=== PATIENT | male | born 1945 | race Caucasian/White ===

== ENCOUNTER 2017-09-03 09:44 | Inpatient (IN) ==
--- NOTE | 2017-09-03 09:52 | Emergency Department Note ---
Disposition Clinical Impression: Small bowel obstruction Abdominal pain Qualifiers: Abdominal location: unspecified location Qualified Code(s): R10.9 - Unspecified abdominal pain Disposition: Admitted As Inpatient Condition: Good Referrals: Lobito Lang MD [Primary Care Provider] - Forms: ED Satisfaction Letter, Work/School Release Time of Disposition: 12:48 General Adult HPI - General Chief complaint: ED Abdominal Pain Stated complaint: "colostomy stopped working" Time Seen by Provider: 09/03/17 09:51 Source: patient, family (Brother) Mode of arrival: ambulatory Limitations: no limitations Nursing Notes Reviewed: Yes Vital Signs Reviewed: Yes - History of Present Illness HPI Narrative: 71-year-old male history of colon cancer s/p colostomy presents an emergency department with abdominal pain and issues with his colostomy. States on Thursday he has been expressing some abdominal pain. Describes a sharp pain sensation nonradiating. All throughout his abdomen. He is not taken anything for the pain. He is noticed some decrease stool output from his colostomy. On Thursday he had episode of nausea vomiting. Only until ye yesterday did he noticed some stool output but not today. He typically has good stool output on the daily basis. He denies any recent illness, fever, congestion chest pain or shortness of breath. His surgeon is Dr. Zhao. Denies any other abdominal surgeries. Good urine output. Pain Scale: 8 - Related Data Home Medications Medication Instructions Recorded Confirmed Metoprolol [Lopressor] 25 mg PO BID 12/27/14 09/03/17 Tamsulosin [Flomax] 0.4 mg PO DAILY 12/27/14 09/03/17 Simvastatin [Zocor] 10 mg PO HS 04/02/15 09/03/17 Finasteride [Proscar] 5 mg PO DAILY 07/23/15 09/03/17 Lisinopril [Zestril] 40 mg PO DAILY 04/23/16 09/03/17 amLODIPine [Norvasc] 5 mg PO DAILY 09/03/17 09/03/17 Allergies Allergy/AdvReac Type Severity Reaction Status Date / Time No Known Allergies Allergy Verified 04/23/16 10:13 All systems ED: reviewed and negative except as stated. Review of Systems: As Per HPI Constitutional: Denies: fever, chills Cardiovascular: Denies: chest pain Respiratory: Denies: cough, dyspnea Gastrointestinal: Reports: abdominal pain, nausea, vomiting. Denies: diarrhea Genitourinary: Denies: urgency, dysuria Musculoskeletal: Denies: back pain Integumentary: Denies: rash, abrasion Past Medical History - Past Medical History Attestation: Yes The following information was validated with the patient. Source: patient - Social History Smoking Status: Former smoker (Currently using vaporized tobacco h/o cigar smoking, quit in 2009) Alcohol use: Reports: none Drug use: Reports: none Physical Exam - General Limitations: no limitations General appearance: alert, in no apparent distress - Head Head exam: atraumatic, normocephalic, normal inspection - Eye Eye exam: Present: normal appearance, PERRL, EOMI. Absent: scleral icterus - ENT ENT exam: normal exam, normal oropharynx, mucous membranes moist - Neck Neck exam: Present: normal inspection, full ROM, trachea midline - Chest Chest inspection: Present: normal inspection, symmetric chest wall rise - Respiratory Respiratory exam: Present: normal lung sounds bilaterally - Cardiovascular Cardiovascular exam: Present: regular rate, normal rhythm, normal heart sounds. Absent: systolic murmur, diastolic murmur - Abdominal Exam Abdominal exam: Present: tenderness, distention, guarding, normal bowel sounds, scar (midabdomen), other (colostomy in LLQ, pink without surrounding erythema). Absent: rebound, rigidity Abdominal tenderness: Present: diffuse - Extremities Exam Extremities exam: Present: normal inspection, full ROM, normal capillary refill. Absent: tenderness, pedal edema - Psychiatric Psychiatric exam: Present: normal affect, normal mood - Skin Skin exam: Present: warm, dry, intact, normal color. Absent: rash, cyanosis, diaphoresis Course Course Narrative: History concerning for obstruction given low stool output from the colostomy with associated abdominal pain. Will obtain some labs and a CT of the abdomen and pelvis. On examination he has some diffuse abdominal tenderness with a mild guarding. His abdomen is slightly firm. High suspicion for obstruction. - Reevaluation(s) Reevaluation #1: Review is basic labs mild elevation is bilirubin. No leukocytosis. Review the CT scan confirmed small bowel obstruction with a transition point in this left lower quadrant. There is also some findings of a gallstones without evidence of cholecystitis. Patient symptoms improved with fentanyl and Zofran. I have contacted the patient surgeon Dr. Zhao who is not the on-call surgeon but would like evaluation by his surgeon. Impression is abdominal pain and small bowel obstruction. Patient is agreeable to plan for admission. - Consultations Consultation #1: Accepted by the surgeon Dr. Zhao for small bowel obstruction seen on CT scan. Recommend NG tube placement and admission to the surgical service. No other orders at this time. Time: 12:49 Vital Signs Temperature 98.3 F 09/03/17 09:45 Pulse Rate 110 09/03/17 09:45 Respiratory Rate 18 09/03/17 09:45 Blood Pressure 108/69 09/03/17 09:45 O2 Sat by Pulse Oximetry 98 09/03/17 09:45 Temperature 98.3 F 09/03/17 09:50 Pulse Rate 110 09/03/17 09:50 Respiratory Rate 18 09/03/17 09:50 Blood Pressure 108/69 09/03/17 09:50 O2 Sat by Pulse Oximetry 98 09/03/17 09:50 Oxygen Delivery Oxygen Delivery Room Air Medical Decision Making - MDM Narrative Medical decision making narrative: Patient was discussed with my attending physician who agrees with ED management and final disposition. They independently evaluated the patient. Please refer to their attestation to this encounter for additional information. This note was generated by [employer] voice recognition software and as a result grammatical or spelling errors may occur using this program. - Medical Records Medical records reviewed: Yes I reviewed the patient's medical records. - Lab Data Lab results reviewed: Yes I reviewed the patient's lab results. Result diagrams: 09/03/17 10:18 09/03/17 10:18 Lab Results 09/03/17 09/03/17 09/03/17 Range/Units 10:18 10:18 11:37 WBC 9.8 (4.3-11.1) K/mcL RBC 4.59 (4.19-5.50) M/mcL Hgb 15.0 (12.9-16.9) g/dL Hct 45.1 (37.5-50.1) % MCV 98.3 (83.0-100.0) fL MCH 32.7 (28.0-33.3) pg MCHC 33.3 (31.6-35.5) g/dL RDW 12.8 (11.5-14.5) % Plt Count 344 (140-400) K/mcL MPV 9.5 (9.4-12.4) fL Immature Gran % 0.4 (0-4) % Seg Neutrophils % 78.5 % Lymphocytes % 9.2 % Monocytes % 11.7 % Eosinophils % 0.0 % Basophils % 0.2 % Neutrophils # 7.7 (1.6-8.9) K/mcL Lymphocytes # 0.9 (0.6-4.6) K/mcL Monocytes # 1.2 (0.0-1.3) K/mcL Eosinophils # 0.0 (0.0-0.6) K/mcL Basophils # 0.0 (0.0-0.2) K/mcL Immature Plt Fraction 2.4 (1.1-6.1) % Sodium 142 (136-145) mEq/L Potassium 4.1 (3.5-5.1) mEq/L Chloride 107 (98-107) mEq/L Carbon Dioxide 27 (23-29) mEq/L BUN 45 H (8-23) mg/dL Creatinine 1.27 (0.70-1.30) mg/dL Est GFR ( Amer) > 60 (> 60) Est GFR (Non-Af Amer) 56 L (> 60) BUN/Creatinine Ratio 35 H (6-26) Glucose 121 H (70-105) mg/dL Calculated Osmolality 307 H (280-300) Calcium 9.6 (8.6-10.3) mg/dL Total Bilirubin 1.7 H (0.3-1.0) mg/dL Direct Bilirubin 0.4 H (0.0-0.2) mg/dL Indirect Bilirubin 1.3 H (0.0-1.2) mg/dL AST 30 (13-39) Units/L ALT 39 (7-52) Units/L Alkaline Phosphatase 78 (34-104) Units/L Serum Total Protein 6.9 (6.4-8.9) g/dL Albumin 3.9 (3.5-5.7) g/dL Globulin 3.0 (2.4-3.5) g/dL Albumin/Globulin Ratio 1.3 (1.1-2.2) Lipase 14 (11-82) Units/L Urine Color Dark Yellow (Yellow) Urine Clarity Clear (Clear) Urine pH 6.0 (5.0-8.0) pH Units Ur Specific [place] 1.027 H (1.010-1.025) Urine Protein Trace (Neg-Trace) mg/dL Urine Glucose (UA) Normal (Normal) mg/dL Urine Ketones Trace H (Negative) mg/dL Urine Blood Negative (Negative) Urine Nitrite Negative (Negative) Urine Bilirubin Small H (Negative) Urine Urobilinogen 2.0 H (Normal) mg/dL Ur Leukocyte Esterase Large H (Negative) Urine Microscopic RBC 5-15 H (0-3) per hpf Urine Microscopic WBC TNTC H (0-3) per hpf Ur Squamous Epith Cells Few (None-Few) per lpf Urine Bacteria Moderate H (None-Few) per hpf Hyaline Casts Few (None-Few) per lpf Ur Culture Indicated? YES A (NO) - Radiology Data Radiology results reviewed: Yes I reviewed the patient's radiology results. Abdomen/Pelvis CT 09/03/17 10:34 IMPRESSION: 1. Findings consistent with small-bowel obstruction, with transition point suspected in the left lower quadrant. 2. Dilated gallbladder with gallstones near the gallbladder neck, similar in appearance to prior exam. No findings specific for acute cholecystitis are seen. 3. Postoperative changes of distal colectomy with left lower quadrant colostomy creation. 4. Possible punctate nonobstructive left-sided renal calculi. D/ / 09/03/2017 11:19:30 Linwood Khalil MD / tea Interpreting Provider: Linwood Khalil MD
[2017-09-03 10:25] LABS: Basophils % 0.2 %; Hematocrit 45.1 % (37.5-50.1); Immature Granulocytes % 0.4 % (0-4); Immature Platelets 2.4 % (1.1-6.1); Lymphocytes # 0.9 K/mcL (0.6-4.6); Lymphocytes % 9.2 %; Mean Corpuscular HGB Conc 33.3 g/dL (31.6-35.5); Mean Corpuscular Hemoglobin 32.7 pg (28.0-33.3); Mean Corpuscular Volume 98.3 fL (83.0-100.0); Mean Platelet Volume 9.5 fL (9.4-12.4); Monocytes # 1.2 K/mcL (0.0-1.3); Monocytes % 11.7 %; Neutrophils # 7.7 K/mcL (1.6-8.9); Platelet Count 344 K/mcL (140-400); Red Blood Count 4.59 M/mcL (4.19-5.50); Red Cell Distribution Width 12.8 % (11.5-14.5); Segmented Neutrophils % 78.5 %
--- NOTE | 2017-09-03 10:42 | Emergency Department Note ---
Disposition Clinical Impression: Small bowel obstruction Abdominal pain Qualifiers: Abdominal location: generalized Qualified Code(s): R10.84 - Generalized abdominal pain Disposition: Admitted As Inpatient Condition: Good General Adult HPI - General Chief complaint: ED Abdominal Pain Stated complaint: "colostomy stopped working" Time Seen by Provider: 09/03/17 09:51 - History of Present Illness Pain Scale: 8 - Related Data Home Medications Medication Instructions Recorded Confirmed Metoprolol [Lopressor] 25 mg PO BID 12/27/14 09/03/17 Tamsulosin [Flomax] 0.4 mg PO DAILY 12/27/14 09/03/17 Simvastatin [Zocor] 10 mg PO HS 04/02/15 09/03/17 Finasteride [Proscar] 5 mg PO DAILY 07/23/15 09/03/17 Lisinopril [Zestril] 40 mg PO DAILY 04/23/16 09/03/17 amLODIPine [Norvasc] 7.5 mg PO DAILY 09/03/17 09/03/17 Allergies Allergy/AdvReac Type Severity Reaction Status Date / Time No Known Allergies Allergy Verified 09/03/17 12:52 Past Medical History - Past Medical History Medical history: Reports: cancer, hypertension Psychiatric history: Reports: no psych history - Social History Smoking Status: Former smoker (Currently using vaporized tobacco h/o cigar smoking, quit in 2009) Smokeless Tobacco Status: No Alcohol use: Reports: none Drug use: Reports: none Physical Exam - General General appearance: alert, in no apparent distress Course Vital Signs Temperature 98.3 F 09/03/17 09:45 Pulse Rate 110 09/03/17 09:45 Respiratory Rate 18 09/03/17 09:45 Blood Pressure 108/69 09/03/17 09:45 O2 Sat by Pulse Oximetry 98 09/03/17 09:45 Temperature 98.2 F 09/03/17 15:13 Pulse Rate 83 09/03/17 17:37 Respiratory Rate 18 09/03/17 17:37 Blood Pressure 166/90 09/03/17 17:37 O2 Sat by Pulse Oximetry 97 09/03/17 17:37 Oxygen Delivery Oxygen Delivery Room Air Medical Decision Making - Lab Data Result diagrams: 09/03/17 10:18 09/03/17 10:18 Lab Results 05/03/18 05/03/18 05/03/18 Range/Units 10:18 10:18 11:37 WBC 9.8 (4.3-11.1) K/mcL RBC 4.59 (4.19-5.50) M/mcL Hgb 15.0 (12.9-16.9) g/dL Hct 45.1 (37.5-50.1) % MCV 98.3 (83.0-100.0) fL MCH 32.7 (28.0-33.3) pg MCHC 33.3 (31.6-35.5) g/dL RDW 12.8 (11.5-14.5) % Plt Count 344 (140-400) K/mcL MPV 9.5 (9.4-12.4) fL Immature Gran % 0.4 (0-4) % Seg Neutrophils % 78.5 % Lymphocytes % 9.2 % Monocytes % 11.7 % Eosinophils % 0.0 % Basophils % 0.2 % Neutrophils # 7.7 (1.6-8.9) K/mcL Lymphocytes # 0.9 (0.6-4.6) K/mcL Monocytes # 1.2 (0.0-1.3) K/mcL Eosinophils # 0.0 (0.0-0.6) K/mcL Basophils # 0.0 (0.0-0.2) K/mcL Immature Plt Fraction 2.4 (1.1-6.1) % Sodium 142 (136-145) mEq/L Potassium 4.1 (3.5-5.1) mEq/L Chloride 107 (98-107) mEq/L Carbon Dioxide 27 (23-29) mEq/L BUN 45 H (8-23) mg/dL Creatinine 1.27 (0.70-1.30) mg/dL Est GFR ( Amer) > 60 (> 60) Est GFR (Non-Af Amer) 56 L (> 60) BUN/Creatinine Ratio 35 H (6-26) Glucose 121 H (70-105) mg/dL Calculated Osmolality 307 H (280-300) Calcium 9.6 (8.6-10.3) mg/dL Total Bilirubin 1.7 H (0.3-1.0) mg/dL Direct Bilirubin 0.4 H (0.0-0.2) mg/dL Indirect Bilirubin 1.3 H (0.0-1.2) mg/dL AST 30 (13-39) Units/L ALT 39 (7-52) Units/L Alkaline Phosphatase 78 (34-104) Units/L Serum Total Protein 6.9 (6.4-8.9) g/dL Albumin 3.9 (3.5-5.7) g/dL Globulin 3.0 (2.4-3.5) g/dL Albumin/Globulin Ratio 1.3 (1.1-2.2) Lipase 14 (11-82) Units/L Urine Color Dark Yellow (Yellow) Urine Clarity Clear (Clear) Urine pH 6.0 (5.0-8.0) pH Units Ur Specific [place] 1.027 H (1.010-1.025) Urine Protein Trace (Neg-Trace) mg/dL Urine Glucose (UA) Normal (Normal) mg/dL Urine Ketones Trace H (Negative) mg/dL Urine Blood Negative (Negative) Urine Nitrite Negative (Negative) Urine Bilirubin Small H (Negative) Urine Urobilinogen 2.0 H (Normal) mg/dL Ur Leukocyte Esterase Large H (Negative) Urine Microscopic RBC 5-15 H (0-3) per hpf Urine Microscopic WBC TNTC H (0-3) per hpf Ur Squamous Epith Cells Few (None-Few) per lpf Urine Bacteria Moderate H (None-Few) per hpf Hyaline Casts Few (None-Few) per lpf Ur Culture Indicated? YES A (NO) Attestation Statement - Attestation Attestation: I examined this patient and my medical decision-making was reviewed with the CUTTING MACHINE TENDER DECORATIVE/PA/Advanced Practice Nurse/Resident Physician. I agree with the documented findings, disposition and treatment plan as described except to the extent set forth below. Patient does have a colostomy and has had intermittent abdominal pain but none at this time and on my exam does have some mild to moderate distention and the patient's main concern is decreased stool output and our concern is for obstruction so the patient does have evaluation pending including labs as well as CT scan [id number] CT scan does show a small bowel obstruction and surgery will be contacted. [id number]
[2017-09-03 10:56] LABS: Alanine Aminotransferase 39 Units/L (7-52); Albumin 3.9 g/dL (3.5-5.7); Albumin/Globulin Ratio 1.3 (1.1-2.2); Alkaline Phosphatase 78 Units/L (34-104); Aspartate Amino Transferase 30 Units/L (13-39); BUN/Creatinine Ratio 35 (6-26); Bilirubin,Direct 0.4 mg/dL (0.0-0.2); Bilirubin,Indirect 1.3 mg/dL (0.0-1.2); Bilirubin,Total 1.7 mg/dL (0.3-1.0); Blood Urea Nitrogen 45 mg/dL (8-23); Calcium 9.6 mg/dL (8.6-10.3); Carbon Dioxide 27 mEq/L (23-29); Chloride 107 mEq/L (98-107); Glucose 121 mg/dL (70-105); Lipase 14 Units/L (11-82); Osmolality,Calculated 307 (280-300); Potassium 4.1 mEq/L (3.5-5.1); Sodium 142 mEq/L (136-145); Total Protein 6.9 g/dL (6.4-8.9); eGFR For African Americans > 60 (> 60); eGFR For Non-African Americans 56 (> 60)
[2017-09-03] MEDS ORDERED: 0.9 % Sodium Chloride 1,000 ML IVC ONE (10:58)
[2017-09-03 11:58] LABS: Bilirubin,Urine Small (Negative); Blood,Urine Negative (Negative); Color,Urine Dark Yellow (Yellow); Glucose,Urine (UA) Normal (Normal); Ketones,Urine Trace mg/dL (Negative); Leukocyte Esterase,Urine Large (Negative); Nitrite,Urine Negative (Negative); Protein,Urine Trace mg/dL (Neg-Trace); Specific Gravity,Urine 1.027 (1.010-1.025)
[2017-09-03 12:01] LABS: Bacteria,Urine Moderate per hpf (None-Few); Hyaline Casts,Urine Few per lpf (None-Few); Squamous Epithelial Cell,Urine Few per lpf (None-Few); WBC,Urine TNTC per hpf (0-3)
[2017-09-03 12:02] LABS: Clarity,Urine Clear (Clear)
[2017-09-03] MEDS ORDERED: Ondansetron 4 MG/2 ML VIAL IVP ONE (12:07)
[2017-09-03] MEDS ORDERED: *HR* FentaNYL (PF) 100 MCG/2 ML VIAL IVP ONE (12:07)
[2017-09-03] MEDS ORDERED: *HR* Promethazine 25 MG/ML VIAL IVP PRN ×2 (13:26→15:00)
[2017-09-03] MEDS ORDERED: Ondansetron 4 MG/2 ML VIAL IVP PRN ×2 (13:26→15:00)
[2017-09-03] MEDS ORDERED: OXYCODONE Oral CONC 10 MG/0.5 ML ORAL.SYG SL PRN (13:26)
[2017-09-03] MEDS ORDERED: Lidocaine Jelly 11 ml Syringe MM ONE ×2 (13:27→15:00)
[2017-09-03] MEDS ORDERED: Pantoprazole 40 MG VIAL IVP SCH (13:30)
[2017-09-03] MEDS ORDERED: 0.9 % Sodium Chloride 1,000 ML IVC SCH ×2 (13:30→15:00)
--- NOTE | 2017-09-03 13:31 | General Surg History&Physical ---
<Jordi Estrada - Last Filed: 09/03/17 13:28> Date of Encounter: 09/03/17 Time of Encounter: 13:28 Assessment and Plan (1) Small bowel obstruction Current Visit: Yes Status: Acute Patient with 5 days of diffuse abd pain, low to no output of colostomy Pt's CT abd/pelvis shows:" 1. Findings consistent with small-bowel obstruction, with transition point suspected in the left lower quadrant. 2. Dilated gallbladder with gallstones near the gallbladder neck, similar in appearance to prior exam. No findings specific for acute cholecystitis are seen. 3. Postoperative changes of distal colectomy with left lower quadrant colostomy creation." Diffuse tenderness, but bowel sounds present in all 4 quadrants Plan to manage conservatively Plan: NPO NG tube placement for decompression prn pain medications and antiemetics Supportive care strict Is& Os The assessment and plan as outlined above was discussed with the patient and/or family members who expressed understanding and agreement. All questions were answered. (2) Abdominal pain Current Visit: Yes Status: Acute See above Qualifiers: Abdominal location: generalized Qualified Code(s): R10.84 - Generalized abdominal pain (3) Colon cancer Current Visit: No Status: Chronic Pt with Hx of tage IV colon adenocarcinoma s/p open low anterior resection appendectomy, resection of an omental mass, take down of splenic flexure and a colostomy placed by Dr. Zhao. Qualifiers: Colon location: unspecified part of colon Qualified Code(s): C18.9 - Malignant neoplasm of colon, unspecified (4) HLD (hyperlipidemia) Current Visit: Yes Status: Acute Pt NPO hold home statin Qualifiers: Hyperlipidemia type: unspecified Qualified Code(s): E78.5 - Hyperlipidemia , unspecified (5) Hypertension Current Visit: No Status: Chronic Currently BP 108/69 Pt NPO for SBO Hold all PO BP medications PRN hydralazine Qualifiers: Hypertension type: essential hypertension Qualified Code(s): I10 - Essential (primary) hypertension (6) Prostate enlargement Current Visit: No Status: Chronic Pt NPO for SBO hold home finasteride. and flomax (7) Urinary tract infection Current Visit: Yes Status: Suspected patient denies dysuria, but UA shows: large leuk esterase, TNTC WBCs, moderate Urina Bacteria. Culture pending. Will start on IV cipro for suspected UTI. This will also provide converage for intra-abdominal infections. Qualifiers: Urinary tract infection type: acute cystitis Hematuria presence: without hematuria Qualified Code(s): N30.00 - Acute cystitis without hematuria History of Present Illness Chief complaint: Abdominal Pain HPI: Mr. Bower is a 71 year old male c PMHx of stage IV colon adenocarcinoma s/p open low anterior resection appendectomy, resection of an omental mass, take down of splenic flexure and a colostomy placed by Dr. Zhao July 2014He was offered a colonscopy, HTN, HLD, BPH who reports to the [facility] ED c/o 5 days of Diffuse, sharp Abd pain. Patient reports the pain began Thursday night, He did not have any out put from his colostomy on Thursday. He had a small amount of "hard material" out on Thursday, but then No Output on Thursday or today. He denies passing gas or emptying the bag due to gas. He reports nausea and vomiting throwing up once on thursday. He also reports feeling of bloating and a pressure like sensation in his throat, " like things are backing up into it". Patient was evaluated in the ED. His lab work was noticeable for: nl WBC (9.8), nl Hgb/Hct, normal electrolytes, Total Bilirubin 1.7 (0.4 direct, 1.3 indirect) , Normal ALT, AST, and Alk Phos, normal lipase. Patient's urine had large leuk esterase, TNTC WBCs and moderate urine bacteria. patient had a CT scan which showed: " Postoperative changes of distal colectomy with Bjorn's pouch. There is diffuse dilation of the proximal and mid small bowel, with transition point suspected in the left lower quadrant. The distal small bowel is decompressed. Moderate stool in the remaining colon." Patient's last follow up with Dr. Zhao was Sep 28 2014. He was offered colonoscopy at that time but declined. Past Med Surg Social Fam HX - Past Medical History Medical history: cancer, hypertension Psychiatric history: no psych history - Social History Smoking Status: Former smoker (Currently using vaporized tobacco h/o cigar smoking, quit in 2009) Smokeless Tobacco Status: No Alcohol use: none Drug use: none Medications and Allergies Metoprolol [Lopressor] 25 mg PO BID 12/27/14 [History] Tamsulosin [Flomax] 0.4 mg PO DAILY 12/27/14 [History] Simvastatin [Zocor] 10 mg PO HS 04/02/15 [History] Finasteride [Proscar] 5 mg PO DAILY 07/23/15 [History] Lisinopril [Zestril] 40 mg PO DAILY 04/23/16 [History] amLODIPine [Norvasc] 7.5 mg PO DAILY 09/03/17 [History] 3 Allergy/AdvReac Type Severity Reaction Status Date / Time No Known Allergies Allergy Verified 09/03/17 12:52 Review of Systems All systems PM: The remainder of the systems were reviewed and are negative General Surgery Exam Initial Vital Signs Temp Pulse Resp BP Pulse Ox 98.3 F 110 18 108/69 98 09/03/17 09:45 09/03/17 09:45 09/03/17 09:45 09/03/17 09:45 09/03/17 09:45 - General physical appearance well developed, well nourished, no distress - Eyes normal ocular movement - ENT normal mucosa, atraumatic, normocephalic - Neck trachea midline - Respiratory normal expansion, normal respiratory effort, clear to auscultation - Cardiovascular Cardiovascular exam: Present: RRR, no murmurs/rubs/gallops - Abdomen Abdomen general surgery: Present: bowel sounds present, soft, tender Abdominal Tenderness: Present: diffusely - Integumentary Integumentary general surgery: Present: warm and dry, other (Ostomy ) - Neurologic Present: CN 2-12 grossly intact. Absent: combative, confused, disoriented - Musculoskeletal Present: normal posture - Psychiatric Psychiatric general surgery: Present: A&Ox3, appropriate, speech is normal, memory intact Results - Labs 09/03/17 10:18 09/03/17 10:18 Abnormal lab results BUN 45 mg/dL (8-23) H 09/03/17 10:18 Est GFR (Non-Af Amer) 56 (> 60) L 09/03/17 10:18 BUN/Creatinine Ratio 35 (6-26) H 09/03/17 10:18 Glucose 121 mg/dL (70-105) H 09/03/17 10:18 Calculated Osmolality 307 (280-300) H 09/03/17 10:18 Total Bilirubin 1.7 mg/dL (0.3-1.0) H 09/03/17 10:18 Direct Bilirubin 0.4 mg/dL (0.0-0.2) H 09/03/17 10:18 Indirect Bilirubin 1.3 mg/dL (0.0-1.2) H 09/03/17 10:18 Ur Specific Sidney 1.027 (1.010-1.025) H 09/03/17 11:37 Urine Ketones Trace mg/dL (Negative) H 09/03/17 11:37 Urine Bilirubin Small (Negative) H 09/03/17 11:37 Urine Urobilinogen 2.0 mg/dL (Normal) H 09/03/17 11:37 Ur Leukocyte Esterase Large (Negative) H 09/03/17 11:37 Urine Microscopic RBC 5-15 per hpf (0-3) H 09/03/17 11:37 Urine Microscopic WBC TNTC per hpf (0-3) H 09/03/17 11:37 Urine Bacteria Moderate per hpf (None-Few) H 09/03/17 11:37 Ur Culture Indicated? YES (NO) A 09/03/17 11:37 All other labs normal. <Ayde Zhao - Last Filed: 09/06/17 11:58> Date of Encounter: 09/03/17 Assessment and Plan (1) Small bowel obstruction due to adhesions Current Visit: Yes Status: Acute The assessment and plan as outlined above was discussed with the patient and/or family members who expressed understanding and agreement. All questions were answered. will attempt conservative measures to see if will resolve on its own npo, prn pain control ngt to liws ivf hydration gi/dvt prophylaxis ambulate (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 The assessment and plan as outlined above was discussed with the patient and/or family members who expressed understanding and agreement. All questions were answered. LLQ colostomy, care (3) Prostate enlargement Current Visit: No Status: Chronic The assessment and plan as outlined above was discussed with the patient and/or family members who expressed understanding and agreement. All questions were answered. hold home medication due to sbo (4) Hypertension Current Visit: No Status: Chronic The assessment and plan as outlined above was discussed with the patient and/or family members who expressed understanding and agreement. All questions were answered. Qualifiers: Hypertension type: essential hypertension Qualified Code(s): I10 - Essential (primary) hypertension History of Present Illness HPI: Mr. Bower is a 71 year old male who about 4 days prior to admission started having lower abdominal intermittent crampy pain. He states the pain then progressed in intensity and his abdomen started swelling. He then began having nausea and emesis and his ostomy output stopped which is why he presented to the ED. He states he remembers that this is what happened last time he had his obstruction. CT scan in ED showed sbo with transition point. Past Med Surg Social Fam HX - Past Medical History Medical history: cancer (stage 4 colon cancer), other (BPH) - Past Surgical History Surgical History: colostomy - Social History Occupational status: retired Current living situation: Home - Independent, With Family Activity Level: Independent ambulation Review of Systems All systems PM: reviewed and no additional remarkable complaints except as stated All systems PM: The remainder of the systems were reviewed and are negative General Surgery Exam Initial Vital Signs Temp Pulse Resp BP Pulse Ox 98.3 F 110 18 108/69 98 09/03/17 09:45 09/03/17 09:45 09/03/17 09:45 09/03/17 09:45 09/03/17 09:45 - General physical appearance well nourished, no distress - Eyes PERRL, normal ocular movement - ENT normal mucosa, normocephalic - Neck trachea midline - Abdomen Abdomen general surgery: Present: bowel sounds present, soft, distended, tender (minimal tenderness diffusely). Absent: guarding, rebound - Incision Incision: Absent: draining (no open wounds/no wounds period) - Integumentary Integumentary general surgery: Present: warm and dry, other - Neurologic Present: CN 2-12 grossly intact - Musculoskeletal Present: normal posture - Psychiatric Psychiatric general surgery: Present: A&Ox3, speech is normal Results - Labs 09/06/17 02:48 09/06/17 02:48 Abnormal lab results RBC 3.83 M/mcL (4.19-5.50) L 09/06/17 02:48 Hgb 12.3 g/dL (12.9-16.9) L 09/06/17 02:48 MCV 100.8 fL (83.0-100.0) H 09/06/17 02:48 Chloride 113 mEq/L (98-107) H 09/06/17 02:48 POC Glucose 67 mg/dL (70-99) L 09/06/17 10:59 Calculated Osmolality 303 (280-300) H 09/06/17 02:48 Calcium 8.4 mg/dL (8.6-10.3) L 09/06/17 02:48 Phosphorus 2.4 mg/dL (2.7-4.5) L 09/06/17 02:48 Total Bilirubin 1.7 mg/dL (0.3-1.0) H 09/03/17 10:18 Direct Bilirubin 0.4 mg/dL (0.0-0.2) H 09/03/17 10:18 Indirect Bilirubin 1.3 mg/dL (0.0-1.2) H 09/03/17 10:18 Ur Specific Sidney 1.027 (1.010-1.025) H 09/03/17 11:37 Urine Ketones Trace mg/dL (Negative) H 09/03/17 11:37 Urine Bilirubin Small (Negative) H 09/03/17 11:37 Urine Urobilinogen 2.0 mg/dL (Normal) H 09/03/17 11:37 Ur Leukocyte Esterase Large (Negative) H 09/03/17 11:37 Urine Microscopic RBC 5-15 per hpf (0-3) H 09/03/17 11:37 Urine Microscopic WBC TNTC per hpf (0-3) H 09/03/17 11:37 Urine Bacteria Moderate per hpf (None-Few) H 09/03/17 11:37 Ur Culture Indicated? YES (NO) A 09/03/17 11:37 Diabetes panel 09/06/17 Range/Units 02:48 Sodium 145 (136-145) mEq/L Potassium 3.8 (3.5-5.1) mEq/L Chloride 113 H (98-107) mEq/L Carbon Dioxide 27 (23-29) mEq/L BUN 23 (8-23) mg/dL Creatinine 0.91 (0.70-1.30) mg/dL Glucose 90 (70-105) mg/dL Calcium 8.4 L (8.6-10.3) mg/dL Calcium panel 09/06/17 Range/Units 02:48 Calcium 8.4 L (8.6-10.3) mg/dL Phosphorus 2.4 L (2.7-4.5) mg/dL Pituitary panel 09/06/17 Range/Units 02:48 Sodium 145 (136-145) mEq/L Potassium 3.8 (3.5-5.1) mEq/L Chloride 113 H (98-107) mEq/L Carbon Dioxide 27 (23-29) mEq/L BUN 23 (8-23) mg/dL Creatinine 0.91 (0.70-1.30) mg/dL Glucose 90 (70-105) mg/dL Calcium 8.4 L (8.6-10.3) mg/dL Adrenal panel 09/06/17 Range/Units 02:48 Sodium 145 (136-145) mEq/L Potassium 3.8 (3.5-5.1) mEq/L Chloride 113 H (98-107) mEq/L Carbon Dioxide 27 (23-29) mEq/L BUN 23 (8-23) mg/dL Creatinine 0.91 (0.70-1.30) mg/dL Glucose 90 (70-105) mg/dL Calcium 8.4 L (8.6-10.3) mg/dL All other labs normal. - Imaging CT scan - abdomen: report reviewed, image reviewed CT scan - pelvis: report reviewed, image reviewed - Attending Attestation I examined this patient and my medical decision-making was reviewed with the Resident Physician. I agree with the documented findings, disposition and treatment plan as described except to the extent set forth below.
[2017-09-03] MEDS ORDERED: *HR* Metoprolol 5 MG/5 ML VIAL IVP SCH (14:29)
[2017-09-03] MEDS: *HR* Metoprolol 5 MG/5 ML VIAL IVP SCH (17:48)
[2017-09-03] MEDS: *HR* Heparin 5,000 UNIT/ML VIAL SQ SCH (17:50)
[2017-09-03] MEDS ORDERED: *HR* Heparin 5,000 UNIT/ML VIAL SQ SCH (18:00)
[2017-09-03] MEDS: OXYCODONE Oral CONC 10 MG/0.5 ML ORAL.SYG SL PRN ×2 (18:00→22:03)
[2017-09-04] MEDS: *HR* Metoprolol 5 MG/5 ML VIAL IVP SCH ×3 (00:09→15:31)
[2017-09-04] MEDS: 0.9 % Sodium Chloride 1,000 ML IVC SCH ×2 (00:09→17:50)
[2017-09-04 05:28] LABS: Basophils % 0.3 %; Eosinophils % 0.1 %; Hematocrit 40.7 % (37.5-50.1); Immature Granulocytes % 0.4 % (0-4); Lymphocytes # 0.8 K/mcL (0.6-4.6); Lymphocytes % 11.7 %; Mean Corpuscular HGB Conc 32.7 g/dL (31.6-35.5); Mean Corpuscular Hemoglobin 32.6 pg (28.0-33.3); Mean Corpuscular Volume 99.8 fL (83.0-100.0); Monocytes # 0.8 K/mcL (0.0-1.3); Monocytes % 11.7 %; Neutrophils # 5.5 K/mcL (1.6-8.9); Platelet Count 288 K/mcL (140-400); Red Blood Count 4.08 M/mcL (4.19-5.50); Red Cell Distribution Width 13.2 % (11.5-14.5); Segmented Neutrophils % 75.8 %
[2017-09-04 05:30] LABS: Hemoglobin 13.3 g/dL (12.9-16.9)
[2017-09-04 05:46] LABS: BUN/Creatinine Ratio 32 (6-26); Blood Urea Nitrogen 34 mg/dL (8-23); Calcium 8.8 mg/dL (8.6-10.3); Carbon Dioxide 25 mEq/L (23-29); Chloride 111 mEq/L (98-107); Glucose 89 mg/dL (70-105); Osmolality,Calculated 307 (280-300); Phosphorous 3.7 mg/dL (2.7-4.5); Potassium 4.1 mEq/L (3.5-5.1); Sodium 145 mEq/L (136-145); eGFR For African Americans > 60 (> 60); eGFR For Non-African Americans > 60 (> 60)
[2017-09-04] MEDS: *HR* Heparin 5,000 UNIT/ML VIAL SQ SCH ×2 (05:59→17:52)
--- NOTE | 2017-09-04 08:19 | General Surgery Progress Note ---
<SadiawillyJordi - Last Filed: 09/04/17 10:28> Date of Encounter: 09/04/17 Time of Encounter: 07:15 - Assessment and Plan (1) Small bowel obstruction Current Visit: Yes Status: Acute Patient with 6 days of diffuse abd pain, low to no output of colostomy Pt's CT abd/pelvis shows:" 1. Findings consistent with small-bowel obstruction, with transition point suspected in the left lower quadrant. 2. Dilated gallbladder with gallstones near the gallbladder neck, similar in appearance to prior exam. No findings specific for acute cholecystitis are seen. 3. Postoperative changes of distal colectomy with left lower quadrant colostomy creation." Diffuse tenderness, but bowel sounds present in all 4 quadrants Plan to manage conservatively Plan: Continue NPO Continue NG tube to LIWS Continue prn pain medications and antiemetics Supportive care strict Is& Os Continue IV Protonix Continue IS every 1H (2) Abdominal pain Current Visit: Yes Status: Acute See Plan above Qualifiers: Abdominal location: generalized Qualified Code(s): R10.84 - Generalized abdominal pain (3) Colon cancer Current Visit: No Status: Chronic Pt with Hx of tage IV colon adenocarcinoma s/p open low anterior resection appendectomy, resection of an omental mass, take down of splenic flexure and a colostomy placed by Dr. Zhao. Qualifiers: Colon location: unspecified part of colon Qualified Code(s): C18.9 - Malignant neoplasm of colon, unspecified (4) HLD (hyperlipidemia) Current Visit: Yes Status: Acute Pt NPO hold home statin Qualifiers: Hyperlipidemia type: unspecified Qualified Code(s): E78.5 - Hyperlipidemia , unspecified (5) Hypertension Current Visit: No Status: Chronic Pt NPO for SBO Hold all PO BP medications Scheduled IV metoprolol Q6H PRN hydralazine Qualifiers: Hypertension type: essential hypertension Qualified Code(s): I10 - Essential (primary) hypertension (6) Prostate enlargement Current Visit: No Status: Chronic Pt NPO for SBO hold home finasteride and flomax (7) Urinary tract infection Current Visit: Yes Status: Suspected patient denies dysuria, but UA shows: large leuk esterase, TNTC WBCs, moderate Urina Bacteria. Culture pending. Will start on IV cipro for suspected UTI. This will also provide converage for intra-abdominal infections. Qualifiers: Urinary tract infection type: acute cystitis Hematuria presence: without hematuria Qualified Code(s): N30.00 - Acute cystitis without hematuria Subjective Patient reports: no new complaints, pain is less, voiding w/o difficulty, no flatus, no bowel movement, afebrile Narrative: Patient reports feeling slightly better than yesterday. Only one episode of nausea. No vomiting. Pain improved. No flatus, no BM. Patient has put out 1400 through NG since placement. Objective Vital Signs - Last 8 Hours Temp Pulse Resp BP Pulse Ox 09/04/17 08:05 98.3 F 74 18 147/84 94 09/04/17 03:43 98.0 F 83 15 154/84 97 Intake and Output 09/03/17 09/04/17 09/04/17 23:59 07:59 15:59 Intake Total 200 / 200 866 / 866 Output Total 800 / 800 700 / 700 Balance -600 / -600 166 / 166 Intake: IV Fluids 200 / 200 866 / 866 0.9 % Sodium Chloride 1,000 ML 866 / 866 @ 100 mls/hr IVC .Q10H [facility] Rx#: [id number] Cipro Premix 400 MG/200 ML 400 200 / 200 mg In 200 ml @ 200 mls/hr IVPB Q12HR [facility] Rx#:[id number] Oral 0 / 0 0 / 0 Output: Urine 250 / 250 350 / 350 Stool 0 / 0 0 / 0 Gastric Tube Lavage Amount 200 / 200 Left Nare 200 / 200 Gastric Drainage 350 / 350 350 / 350 Other: Weight 82.95 kg Blood Glucose* 81 Patient Weight 09/04/17 23:59 Weight 82.95 kg - General physical appearance well developed, well nourished, no distress - Eyes normal ocular movement - ENT no hearing loss, atraumatic, normocephalic - Neck Neck exam: trachea midline - Respiratory normal expansion, normal respiratory effort, clear to auscultation - Cardiovascular Cardiovascular exam: Present: RRR, no murmurs/rubs/gallops - Abdomen Abdomen: Present: bowel sounds present (hypoactive, less than yesterday), soft, tender (diffuse mild improved) - Integumentary other (Ostomy site looks clean and dry and intact) - Neurologic CN 2-12 grossly intact - Musculoskeletal normal posture - Psychiatric oriented to time, oriented to person, oriented to place, speech is normal, memory intact - Labs 09/04/17 04:47 09/04/17 04:47 Diabetes panel 09/04/17 Range/Units 04:47 Sodium 145 (136-145) mEq/L Potassium 4.1 (3.5-5.1) mEq/L Chloride 111 H (98-107) mEq/L Carbon Dioxide 25 (23-29) mEq/L BUN 34 H (8-23) mg/dL Creatinine 1.06 (0.70-1.30) mg/dL Glucose 89 (70-105) mg/dL Calcium 8.8 (8.6-10.3) mg/dL Calcium panel 09/04/17 Range/Units 04:47 Calcium 8.8 (8.6-10.3) mg/dL Phosphorus 3.7 (2.7-4.5) mg/dL Pituitary panel 09/04/17 Range/Units 04:47 Sodium 145 (136-145) mEq/L Potassium 4.1 (3.5-5.1) mEq/L Chloride 111 H (98-107) mEq/L Carbon Dioxide 25 (23-29) mEq/L BUN 34 H (8-23) mg/dL Creatinine 1.06 (0.70-1.30) mg/dL Glucose 89 (70-105) mg/dL Calcium 8.8 (8.6-10.3) mg/dL Adrenal panel 09/04/17 Range/Units 04:47 Sodium 145 (136-145) mEq/L Potassium 4.1 (3.5-5.1) mEq/L Chloride 111 H (98-107) mEq/L Carbon Dioxide 25 (23-29) mEq/L BUN 34 H (8-23) mg/dL Creatinine 1.06 (0.70-1.30) mg/dL Glucose 89 (70-105) mg/dL Calcium 8.8 (8.6-10.3) mg/dL Consult Discharge Plan - Plan Referrals: Lobito Lang MD [Primary Care Provider] - <Ayde Zhao - Last Filed: 09/06/17 12:00> Date of Encounter: 09/04/17 - Assessment and Plan (1) Small bowel obstruction due to adhesions Current Visit: Yes Status: Acute continue conservative therapy ngt to liws prn pain control colostomy care gi/dvt prophylaxis prn nausea medication ambulate (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 (3) Prostate enlargement Current Visit: No Status: Chronic (4) Hypertension Current Visit: No Status: Chronic Qualifiers: Hypertension type: essential hypertension Qualified Code(s): I10 - Essential (primary) hypertension (5) Urinary tract infection Current Visit: Yes Status: Suspected awaiting culture results Qualifiers: Urinary tract infection type: acute cystitis Hematuria presence: without hematuria Qualified Code(s): N30.00 - Acute cystitis without hematuria Subjective Patient reports: no new complaints, pain is less, voiding w/o difficulty, no flatus, no bowel movement Objective Vital Signs - Last 8 Hours Temp Pulse Resp BP Pulse Ox 09/06/17 10:54 97.4 F L 73 15 168/80 98 09/06/17 07:04 98.8 F 65 15 161/87 96 09/06/17 04:05 98.3 F 77 16 175/89 96 Intake and Output 09/05/17 09/06/17 09/06/17 23:59 07:59 15:59 Intake Total 1260 / 1260 1000 / 1000 1000 / 1000 Output Total 550 / 550 825 / 825 325 / 325 Balance 710 / 710 175 / 175 675 / 675 Intake: IV Fluids 1200 / 1200 1000 / 1000 1000 / 1000 0.9 % Sodium Chloride 1,000 ML 1000 / 1000 1000 / 1000 1000 / 1000 @ 125 mls/hr IVC .Q8H [facility] Rx#: [id number] Cipro Premix 400 MG/200 ML 400 200 / 200 mg In 200 ml @ 200 mls/hr IVPB Q12HR [facility] Rx#:[id number] Oral 60 / 60 0 / 0 Output: Urine 300 / 300 425 / 425 125 / 125 Stool 0 / 0 0 / 0 Gastric Drainage 250 / 250 400 / 400 200 / 200 Other: Meal NPO NPO LUNCH Percent of Meal Consumed 0% Weight 80.8 kg Blood Glucose* 75 86 67 Patient Weight 09/06/17 23:59 Weight 80.8 kg - General physical appearance well developed, well nourished, no distress - Eyes normal ocular movement - ENT normal mucosa, normocephalic - Neck Neck exam: trachea midline - Respiratory normal expansion, clear to auscultation - Cardiovascular Cardiovascular exam: Present: RRR - Abdomen Abdomen: Present: bowel sounds present, soft, distended, tender. Absent: guarding, rebound - Integumentary no growths, no abnormal pigmentation - Neurologic CN 2-12 grossly intact - Musculoskeletal normal posture - Psychiatric oriented to time, oriented to person, speech is normal, memory intact - Labs 09/06/17 02:48 09/06/17 02:48 Diabetes panel 09/06/17 Range/Units 02:48 Sodium 145 (136-145) mEq/L Potassium 3.8 (3.5-5.1) mEq/L Chloride 113 H (98-107) mEq/L Carbon Dioxide 27 (23-29) mEq/L BUN 23 (8-23) mg/dL Creatinine 0.91 (0.70-1.30) mg/dL Glucose 90 (70-105) mg/dL Calcium 8.4 L (8.6-10.3) mg/dL Calcium panel 09/06/17 Range/Units 02:48 Calcium 8.4 L (8.6-10.3) mg/dL Phosphorus 2.4 L (2.7-4.5) mg/dL Pituitary panel 09/06/17 Range/Units 02:48 Sodium 145 (136-145) mEq/L Potassium 3.8 (3.5-5.1) mEq/L Chloride 113 H (98-107) mEq/L Carbon Dioxide 27 (23-29) mEq/L BUN 23 (8-23) mg/dL Creatinine 0.91 (0.70-1.30) mg/dL Glucose 90 (70-105) mg/dL Calcium 8.4 L (8.6-10.3) mg/dL Adrenal panel 09/06/17 Range/Units 02:48 Sodium 145 (136-145) mEq/L Potassium 3.8 (3.5-5.1) mEq/L Chloride 113 H (98-107) mEq/L Carbon Dioxide 27 (23-29) mEq/L BUN 23 (8-23) mg/dL Creatinine 0.91 (0.70-1.30) mg/dL Glucose 90 (70-105) mg/dL Calcium 8.4 L (8.6-10.3) mg/dL - Attending Attestation I examined this patient and my medical decision-making was reviewed with the Resident Physician. I agree with the documented findings, disposition and treatment plan as described except to the extent set forth below.
[2017-09-04] MEDS: Pantoprazole 40 MG VIAL IVP SCH (15:35)
[2017-09-04] MEDS: OXYCODONE Oral CONC 10 MG/0.5 ML ORAL.SYG SL PRN (15:44)
[2017-09-05] MEDS: *HR* Metoprolol 5 MG/5 ML VIAL IVP SCH ×6 (00:15→23:52)
[2017-09-05] MEDS: 0.9 % Sodium Chloride 1,000 ML IVC SCH ×5 (00:27→16:35)
[2017-09-05] MEDS: *HR* Heparin 5,000 UNIT/ML VIAL SQ SCH ×2 (05:32→18:08)
[2017-09-05 07:05] LABS: Basophils % 0.6 %; Eosinophils # 0.1 K/mcL (0.0-0.6); Eosinophils % 0.7 %; Hematocrit 38.2 % (37.5-50.1); Hemoglobin 12.4 g/dL (12.9-16.9); Immature Granulocytes % 0.4 % (0-4); Lymphocytes % 15.2 %; Mean Corpuscular HGB Conc 32.5 g/dL (31.6-35.5); Mean Corpuscular Hemoglobin 32.6 pg (28.0-33.3); Mean Corpuscular Volume 100.5 fL (83.0-100.0); Mean Platelet Volume 9.8 fL (9.4-12.4); Monocytes # 0.7 K/mcL (0.0-1.3); Monocytes % 10.4 %; Neutrophils # 4.9 K/mcL (1.6-8.9); Platelet Count 256 K/mcL (140-400); Red Cell Distribution Width 12.9 % (11.5-14.5); Segmented Neutrophils % 72.7 %
[2017-09-05 07:20] LABS: BUN/Creatinine Ratio 29 (6-26); Blood Urea Nitrogen 26 mg/dL (8-23); Calcium 8.3 mg/dL (8.6-10.3); Carbon Dioxide 26 mEq/L (23-29); Chloride 113 mEq/L (98-107); Glucose 104 mg/dL (70-105); Osmolality,Calculated 305 (280-300); Phosphorous 2.6 mg/dL (2.7-4.5); Potassium 3.6 mEq/L (3.5-5.1); Sodium 145 mEq/L (136-145); eGFR For African Americans > 60 (> 60); eGFR For Non-African Americans > 60 (> 60)
[2017-09-05] MEDS: Pantoprazole 40 MG VIAL IVP SCH (08:18)
[2017-09-05] MEDS: *HR* Dextrose 50 % in Water (Syg) 50 ML SYRINGE IVP ONE ×2 (11:41→11:57)
[2017-09-05] MEDS ORDERED: D5% in Water 1,000 ML IVC PRN (11:51)
[2017-09-05] MEDS ORDERED: Dextrose Gel 15 GM/37.5 ML TUBE PO PRN ×2 (11:51)
[2017-09-05] MEDS ORDERED: *HR* Dextrose 50 % in Water (Syg) 50 ML SYRINGE IVP ONE (12:00)
--- NOTE | 2017-09-05 14:41 | General Surgery Progress Note ---
<Christopher Gurrola - Last Filed: 09/05/17 15:42> Date of Encounter: 09/05/17 Time of Encounter: 09:45 - Assessment and Plan (1) Small bowel obstruction Current Visit: Yes Status: Acute Pt with Hx of stage IV colon adenocarcinoma S/p open low anterior resection appendectomy, resection of an omental mass, take down of splenic flexure and a colostomy placed by Dr. Zhao July 2014. Today no output to ostomy bag Plan: NPO Continue NG tube LIWS prn pain medications and antiemetics Supportive care strict Is& Os (2) Urinary tract infection Current Visit: Yes Status: Suspected UA shows:large leuk esterase, TNTC WBCs, moderate Urina Bacteria. Culture pending. Started on IV cipro for suspected UTI on admission. Also coverage for intra- abdominal infections. Continues to deny dysuria. Qualifiers: Urinary tract infection type: acute cystitis Hematuria presence: without hematuria Qualified Code(s): N30.00 - Acute cystitis without hematuria Subjective Patient reports: pain is less, voiding w/o difficulty, no flatus, no bowel movement, afebrile Objective Vital Signs - Last 8 Hours Temp Pulse Resp BP Pulse Ox 09/05/17 10:59 98.2 F 98 16 131/83 98 09/05/17 07:34 98.4 F 76 16 157/80 96 Intake and Output 09/04/17 09/05/17 09/05/17 23:59 07:59 15:59 Intake Total 200 / 200 1160 / 1160 640 / 640 Output Total 950 / 950 1300 / 1300 375 / 375 Balance -750 / -750 -140 / -140 265 / 265 Intake: IV Fluids 200 / 200 1160 / 1160 640 / 640 0.9 % Sodium Chloride 1,000 ML 1160 / 1160 640 / 640 @ 125 mls/hr IVC .Q8H [facility] Rx#: [id number] Cipro Premix 400 MG/200 ML 400 200 / 200 mg In 200 ml @ 200 mls/hr IVPB Q12HR [facility] Rx#:[id number] Oral 0 / 0 0 / 0 Output: Urine 200 / 200 500 / 500 200 / 200 Stool 0 / 0 0 / 0 Gastric Drainage 750 / 750 800 / 800 175 / 175 Other: Meal npo lunch Weight 82.5 kg Blood Glucose* 69 72 66 Patient Weight 09/05/17 23:59 Weight 82.5 kg - General physical appearance well developed, well nourished, no distress - Eyes normal ocular movement - ENT normal mucosa, Other (ng tube present) - Neck Neck exam: no lymphadectomy - Respiratory normal expansion, normal respiratory effort, clear to auscultation - Cardiovascular Cardiovascular exam: Present: RRR, no murmurs/rubs/gallops. Absent: JVD - Abdomen Abdomen: Present: soft. Absent: guarding, rebound, rigid Additional Comments: presence of ostomy bag - Integumentary no abnormal pigmentation - Neurologic normal coordination, normal sensation - Musculoskeletal normal posture - Psychiatric speech is normal, memory intact - Labs 09/05/17 06:39 09/05/17 06:39 Diabetes panel 09/05/17 Range/Units 06:39 Sodium 145 (136-145) mEq/L Potassium 3.6 (3.5-5.1) mEq/L Chloride 113 H (98-107) mEq/L Carbon Dioxide 26 (23-29) mEq/L BUN 26 H (8-23) mg/dL Creatinine 0.91 (0.70-1.30) mg/dL Glucose 104 (70-105) mg/dL Calcium 8.3 L (8.6-10.3) mg/dL Calcium panel 09/05/17 Range/Units 06:39 Calcium 8.3 L (8.6-10.3) mg/dL Phosphorus 2.6 L (2.7-4.5) mg/dL Pituitary panel 09/05/17 Range/Units 06:39 Sodium 145 (136-145) mEq/L Potassium 3.6 (3.5-5.1) mEq/L Chloride 113 H (98-107) mEq/L Carbon Dioxide 26 (23-29) mEq/L BUN 26 H (8-23) mg/dL Creatinine 0.91 (0.70-1.30) mg/dL Glucose 104 (70-105) mg/dL Calcium 8.3 L (8.6-10.3) mg/dL Adrenal panel 09/05/17 Range/Units 06:39 Sodium 145 (136-145) mEq/L Potassium 3.6 (3.5-5.1) mEq/L Chloride 113 H (98-107) mEq/L Carbon Dioxide 26 (23-29) mEq/L BUN 26 H (8-23) mg/dL Creatinine 0.91 (0.70-1.30) mg/dL Glucose 104 (70-105) mg/dL Calcium 8.3 L (8.6-10.3) mg/dL Consult Discharge Plan - Plan Referrals: Lobito Lang MD [Primary Care Provider] - <Ken Desai - Last Filed: 09/06/17 08:22> Date of Encounter: 09/05/17 Objective Vital Signs - Last 8 Hours Temp Pulse Resp BP Pulse Ox 09/06/17 07:04 98.8 F 65 15 161/87 96 09/06/17 04:05 98.3 F 77 16 175/89 96 Intake and Output 09/05/17 09/06/17 09/06/17 23:59 07:59 15:59 Intake Total 1260 / 1260 1000 / 1000 Output Total 550 / 550 825 / 825 Balance 710 / 710 175 / 175 Intake: IV Fluids 1200 / 1200 1000 / 1000 0.9 % Sodium Chloride 1,000 ML 1000 / 1000 1000 / 1000 @ 125 mls/hr IVC .Q8H [facility] Rx#: [id number] Cipro Premix 400 MG/200 ML 400 200 / 200 mg In 200 ml @ 200 mls/hr IVPB Q12HR [facility] Rx#:[id number] Oral 60 / 60 0 / 0 Output: Urine 300 / 300 425 / 425 Stool 0 / 0 Gastric Drainage 250 / 250 400 / 400 Other: Meal NPO Percent of Meal Consumed 0% Weight 80.8 kg Blood Glucose* 75 86 Patient Weight 09/06/17 23:59 Weight 80.8 kg - Labs 09/06/17 02:48 09/06/17 02:48 Diabetes panel 09/06/17 Range/Units 02:48 Sodium 145 (136-145) mEq/L Potassium 3.8 (3.5-5.1) mEq/L Chloride 113 H (98-107) mEq/L Carbon Dioxide 27 (23-29) mEq/L BUN 23 (8-23) mg/dL Creatinine 0.91 (0.70-1.30) mg/dL Glucose 90 (70-105) mg/dL Calcium 8.4 L (8.6-10.3) mg/dL Calcium panel 09/06/17 Range/Units 02:48 Calcium 8.4 L (8.6-10.3) mg/dL Phosphorus 2.4 L (2.7-4.5) mg/dL Pituitary panel 09/06/17 Range/Units 02:48 Sodium 145 (136-145) mEq/L Potassium 3.8 (3.5-5.1) mEq/L Chloride 113 H (98-107) mEq/L Carbon Dioxide 27 (23-29) mEq/L BUN 23 (8-23) mg/dL Creatinine 0.91 (0.70-1.30) mg/dL Glucose 90 (70-105) mg/dL Calcium 8.4 L (8.6-10.3) mg/dL Adrenal panel 09/06/17 Range/Units 02:48 Sodium 145 (136-145) mEq/L Potassium 3.8 (3.5-5.1) mEq/L Chloride 113 H (98-107) mEq/L Carbon Dioxide 27 (23-29) mEq/L BUN 23 (8-23) mg/dL Creatinine 0.91 (0.70-1.30) mg/dL Glucose 90 (70-105) mg/dL Calcium 8.4 L (8.6-10.3) mg/dL - Attending Attestation I examined this patient and my medical decision-making was reviewed with the Resident Physician. I agree with the documented findings, disposition and treatment plan as described except to the extent set forth below. I reviewed the above assessment and evaluation and agree with the above plan. NG tube has been re-advance and will continue with NG tube decompression. Mild abdominal discomfort with some mild tentatively but positive to scant bowel sounds. Continue with IV fluids and will allow ice chips.
[2017-09-05] MEDS: *HR* Dextrose 50 % in Water (Syg) 50 ML SYRINGE IVP PRN (16:38)
[2017-09-06] MEDS: 0.9 % Sodium Chloride 1,000 ML IVC SCH ×4 (00:35→23:09)
[2017-09-06 03:07] LABS: Basophils % 0.6 %; Eosinophils # 0.1 K/mcL (0.0-0.6); Eosinophils % 1.1 %; Hematocrit 38.6 % (37.5-50.1); Hemoglobin 12.3 g/dL (12.9-16.9); Immature Granulocytes % 0.6 % (0-4); Lymphocytes % 14.4 %; Mean Corpuscular HGB Conc 31.9 g/dL (31.6-35.5); Mean Corpuscular Hemoglobin 32.1 pg (28.0-33.3); Mean Corpuscular Volume 100.8 fL (83.0-100.0); Mean Platelet Volume 9.7 fL (9.4-12.4); Monocytes # 0.7 K/mcL (0.0-1.3); Neutrophils # 5.2 K/mcL (1.6-8.9); Platelet Count 256 K/mcL (140-400); Red Blood Count 3.83 M/mcL (4.19-5.50); Red Cell Distribution Width 12.7 % (11.5-14.5); Segmented Neutrophils % 73.3 %
[2017-09-06 03:27] LABS: BUN/Creatinine Ratio 25 (6-26); Blood Urea Nitrogen 23 mg/dL (8-23); Calcium 8.4 mg/dL (8.6-10.3); Carbon Dioxide 27 mEq/L (23-29); Chloride 113 mEq/L (98-107); Glucose 90 mg/dL (70-105); Magnesium 2.1 mg/dL (1.6-2.6); Osmolality,Calculated 303 (280-300); Phosphorous 2.4 mg/dL (2.7-4.5); Potassium 3.8 mEq/L (3.5-5.1); Sodium 145 mEq/L (136-145); eGFR For African Americans > 60 (> 60); eGFR For Non-African Americans > 60 (> 60)
[2017-09-06] MEDS: *HR* Metoprolol 5 MG/5 ML VIAL IVP SCH ×4 (05:15→23:54)
[2017-09-06] MEDS: *HR* Heparin 5,000 UNIT/ML VIAL SQ SCH ×2 (05:21→16:55)
[2017-09-06] MEDS: Pantoprazole 40 MG VIAL IVP SCH (08:41)
[2017-09-06] MEDS: *HR* Dextrose 50 % in Water (Syg) 50 ML SYRINGE IVP PRN ×2 (11:32→16:55)
--- NOTE | 2017-09-06 13:45 | General Surgery Progress Note ---
<Christopher Gurrola - Last Filed: 09/06/17 13:49> Date of Encounter: 09/06/17 Time of Encounter: 09:45 - Assessment and Plan (1) Small bowel obstruction Current Visit: Yes Status: Acute Pt with Hx of stage IV colon adenocarcinoma S/p open low anterior resection appendectomy, resection of an omental mass, take down of splenic flexure and a colostomy placed by Dr. Zhao July 2014. Continues to have no output to ostomy bag 09/06 Plan: NPO except meds Added to add-on list for Thursday surgery schedule with Dr. Zhao Ordered abdominal series today to assess distention/obstruction Continue NG tube LIWS prn pain medications and antiemetics Supportive care strict Is& Os (2) Urinary tract infection Current Visit: Yes Status: Suspected UA on admission shows:large leuk esterase, TNTC WBCs, moderate Urina Bacteria. Culture results: enteroccus faecalis R only to doxycycline Started on IV cipro for suspected UTI on admission. Also coverage for intra- abdominal infections. Continues to deny dysuria 09/06 Qualifiers: Urinary tract infection type: acute cystitis Hematuria presence: without hematuria Qualified Code(s): N30.00 - Acute cystitis without hematuria Subjective Narrative: Mr. Bower reports no output from his colostomy bag, his NG tube is in the correct position, he says he feels just slightly bloating on prompting, though he denies abdominal pain, he has no nausea/vomiting, or fevers. Objective Vital Signs - Last 8 Hours Temp Pulse Resp BP Pulse Ox 09/06/17 10:54 97.4 F L 73 15 168/80 98 09/06/17 07:04 98.8 F 65 15 161/87 96 Intake and Output 09/05/17 09/06/17 09/06/17 23:59 07:59 15:59 Intake Total 1260 / 1260 1000 / 1000 1000 / 1000 Output Total 550 / 550 825 / 825 325 / 325 Balance 710 / 710 175 / 175 675 / 675 Intake: IV Fluids 1200 / 1200 1000 / 1000 1000 / 1000 0.9 % Sodium Chloride 1,000 ML 1000 / 1000 1000 / 1000 1000 / 1000 @ 125 mls/hr IVC .Q8H [facility] Rx#: [id number] Cipro Premix 400 MG/200 ML 400 200 / 200 mg In 200 ml @ 200 mls/hr IVPB Q12HR [facility] Rx#:[id number] Oral 60 / 60 0 / 0 Output: Urine 300 / 300 425 / 425 125 / 125 Stool 0 / 0 0 / 0 Gastric Drainage 250 / 250 400 / 400 200 / 200 Other: Meal NPO NPO LUNCH Percent of Meal Consumed 0% Weight 80.8 kg Blood Glucose* 75 86 67 Patient Weight 09/06/17 23:59 Weight 80.8 kg - General physical appearance well developed, well nourished, no distress - Eyes normal ocular movement - ENT normal mucosa, Other (presence of NG tube) - Neck Neck exam: no lymphadectomy - Respiratory normal expansion, normal respiratory effort, clear to auscultation - Cardiovascular Cardiovascular exam: Present: RRR, no murmurs/rubs/gallops. Absent: JVD - Abdomen Abdomen: Present: bowel sounds present, soft, non tender Additional Comments: bowel sweat in colostomy bag, no osteomy output - Neurologic normal coordination, normal sensation - Musculoskeletal normal gait, normal posture - Psychiatric speech is normal, memory intact - Labs 09/06/17 02:48 09/06/17 02:48 Diabetes panel 09/06/17 Range/Units 02:48 Sodium 145 (136-145) mEq/L Potassium 3.8 (3.5-5.1) mEq/L Chloride 113 H (98-107) mEq/L Carbon Dioxide 27 (23-29) mEq/L BUN 23 (8-23) mg/dL Creatinine 0.91 (0.70-1.30) mg/dL Glucose 90 (70-105) mg/dL Calcium 8.4 L (8.6-10.3) mg/dL Calcium panel 09/06/17 Range/Units 02:48 Calcium 8.4 L (8.6-10.3) mg/dL Phosphorus 2.4 L (2.7-4.5) mg/dL Pituitary panel 09/06/17 Range/Units 02:48 Sodium 145 (136-145) mEq/L Potassium 3.8 (3.5-5.1) mEq/L Chloride 113 H (98-107) mEq/L Carbon Dioxide 27 (23-29) mEq/L BUN 23 (8-23) mg/dL Creatinine 0.91 (0.70-1.30) mg/dL Glucose 90 (70-105) mg/dL Calcium 8.4 L (8.6-10.3) mg/dL Adrenal panel 09/06/17 Range/Units 02:48 Sodium 145 (136-145) mEq/L Potassium 3.8 (3.5-5.1) mEq/L Chloride 113 H (98-107) mEq/L Carbon Dioxide 27 (23-29) mEq/L BUN 23 (8-23) mg/dL Creatinine 0.91 (0.70-1.30) mg/dL Glucose 90 (70-105) mg/dL Calcium 8.4 L (8.6-10.3) mg/dL Consult Discharge Plan - Plan Referrals: Lobito Lang MD [Primary Care Provider] - <Ken Desai - Last Filed: 09/09/17 06:55> Date of Encounter: 09/06/17 Objective Vital Signs - Last 8 Hours Temp Pulse Resp BP Pulse Ox 09/09/17 06:00 93 12 119/53 99 09/09/17 05:32 18 114/55 100 09/09/17 05:00 91 16 114/55 99 09/09/17 04:27 98.4 F 09/09/17 04:00 82 16 109/53 99 09/09/17 03:30 18 101/56 99 09/09/17 03:00 89 18 121/77 99 09/09/17 02:00 93 18 115/57 99 09/09/17 01:30 18 113/52 99 09/09/17 01:00 88 28 110/53 99 09/09/17 00:00 98.7 F 93 17 112/52 99 09/08/17 23:15 17 118/56 99 09/08/17 23:00 87 24 114/61 99 Intake and Output 09/08/17 09/08/17 09/09/17 15:59 23:59 07:59 Intake Total 1148 / 1148 2430 / 2430 450 / 450 Output Total 255 / 255 246 / 246 245 / 245 Balance 893 / 893 2184 / 2184 205 / 205 Intake: IV Fluids 1148 / 1148 2430 / 2430 450 / 450 0.9 % Sodium Chloride 1,000 ML 1000 / 1000 @ 60 mls/hr IVC .[id number] [facility] Rx #:[id number] 0.9 % Sodium Chloride 500 ML @ 500 / 500 1875 mls/hr IVC .Q16M [facility] Rx#: [id number] ALBURX 5% 12.5 gm In 250 ml @ 250 / 250 250 / 250 60 mls/hr IVC .Q4H10M [facility] Rx#: [id number] FentaNYL (PF) 1,000 MCG In 0.9 98 / 98 100 / 100 % Sodium Chloride 80 ML @ 50 MCG/HR 5 mls/hr IVC CONT [facility] Rx #:[id number] Clinimix E 5%-15% SOLUTION 2, 1080 / 1080 000 ML @ 50 mls/hr IVC .Q24H [facility] with M.v.i. Adult 10 ml Rx# :[id number] Ofirmev 1,000 mg/100 ml 1,000 100 / 100 100 / 100 mg In 100 ml @ 400 mls/hr IVPB Q8HR [facility] Rx#:[id number] Intralipid 20% 250 ML @ 21 mls/ 250 / 250 hr IVPB DAILY@1700 [facility] Rx#: [id number] Zosyn 3.375 GM In 0.9 % Sodium 200 / 200 100 / 100 Chloride (Mini-Bag +) 100 ML @ 25 mls/hr IVPB Q8H [facility] Rx#: [id number] Output: Catheter 150 / 150 246 / 246 245 / 245 Gastric Drainage 105 / 105 Other: Blood Glucose* 161 120 124 - Labs 09/09/17 04:00 09/09/17 04:00 Diabetes panel 09/09/17 Range/Units 04:00 Sodium 139 (136-145) mEq/L Potassium 3.6 (3.5-5.1) mEq/L Chloride 114 H (98-107) mEq/L Carbon Dioxide 22 L (23-29) mEq/L BUN 38 H (8-23) mg/dL Creatinine 1.37 H (0.70-1.30) mg/dL Glucose 141 H (70-105) mg/dL Calcium 7.3 L (8.6-10.3) mg/dL Calcium panel 09/09/17 Range/Units 04:00 Calcium 7.3 L (8.6-10.3) mg/dL Phosphorus 2.3 L (2.7-4.5) mg/dL Pituitary panel 09/09/17 Range/Units 04:00 Sodium 139 (136-145) mEq/L Potassium 3.6 (3.5-5.1) mEq/L Chloride 114 H (98-107) mEq/L Carbon Dioxide 22 L (23-29) mEq/L BUN 38 H (8-23) mg/dL Creatinine 1.37 H (0.70-1.30) mg/dL Glucose 141 H (70-105) mg/dL Calcium 7.3 L (8.6-10.3) mg/dL Adrenal panel 09/09/17 Range/Units 04:00 Sodium 139 (136-145) mEq/L Potassium 3.6 (3.5-5.1) mEq/L Chloride 114 H (98-107) mEq/L Carbon Dioxide 22 L (23-29) mEq/L BUN 38 H (8-23) mg/dL Creatinine 1.37 H (0.70-1.30) mg/dL Glucose 141 H (70-105) mg/dL Calcium 7.3 L (8.6-10.3) mg/dL - Attending Attestation I examined this patient and my medical decision-making was reviewed with the Resident Physician. I agree with the documented findings, disposition and treatment plan as described except to the extent set forth below. I reviewed the above assessment and evaluation and agree with the above plan. Patient continues to have no output from the ostomy. Noted mild abdominal distention. Will go ahead and add the patient on for exploration tomorrow to be performed by Dr. Zhao per her recommendation if he did not progress over the weekend.
[2017-09-06] MEDS: Ampicillin 1,000 MG in 0.9 % Sodium Chloride Mini Bag 100 ML IVPB SCH ×2 (13:55→22:12)
[2017-09-07] MEDS: Ampicillin 1,000 MG in 0.9 % Sodium Chloride Mini Bag 100 ML IVPB SCH ×3 (02:28→13:21)
[2017-09-07] MEDS: 0.9 % Sodium Chloride 1,000 ML IVC SCH ×2 (05:02→10:47)
[2017-09-07] MEDS: *HR* Heparin 5,000 UNIT/ML VIAL SQ SCH ×2 (05:05→17:26)
[2017-09-07] MEDS: *HR* Metoprolol 5 MG/5 ML VIAL IVP SCH ×3 (05:05→17:26)
[2017-09-07 05:59] LABS: BUN/Creatinine Ratio 21 (6-26); Basophils % 0.4 %; Blood Urea Nitrogen 16 mg/dL (8-23); Calcium 8.3 mg/dL (8.6-10.3); Carbon Dioxide 25 mEq/L (23-29); Chloride 113 mEq/L (98-107); Eosinophils # 0.1 K/mcL (0.0-0.6); Eosinophils % 1.9 %; Glucose 84 mg/dL (70-105); Hematocrit 37.7 % (37.5-50.1); Hemoglobin 12.1 g/dL (12.9-16.9); Lymphocytes % 13.4 %; Magnesium 1.9 mg/dL (1.6-2.6); Mean Corpuscular HGB Conc 32.1 g/dL (31.6-35.5); Mean Corpuscular Hemoglobin 31.8 pg (28.0-33.3); Mean Corpuscular Volume 99.2 fL (83.0-100.0); Monocytes # 0.6 K/mcL (0.0-1.3); Monocytes % 8.5 %; Neutrophils # 5.4 K/mcL (1.6-8.9); Osmolality,Calculated 298 (280-300); Phosphorous 2.2 mg/dL (2.7-4.5); Platelet Count 245 K/mcL (140-400); Potassium 3.7 mEq/L (3.5-5.1); Red Cell Distribution Width 12.7 % (11.5-14.5); Segmented Neutrophils % 74.8 %; Sodium 144 mEq/L (136-145); eGFR For African Americans > 60 (> 60); eGFR For Non-African Americans > 60 (> 60)
[2017-09-07] MEDS: Pantoprazole 40 MG VIAL IVP SCH (07:53)
--- NOTE | 2017-09-07 08:44 | General Surgery Progress Note ---
<Mark Grubbs - Last Filed: 09/07/17 15:47> Date of Encounter: 09/07/17 Time of Encounter: 06:40 - Assessment and Plan (2) Small bowel obstruction Current Visit: Yes Status: Acute Pt with Hx of stage IV colon adenocarcinoma S/p open low anterior resection appendectomy, resection of an omental mass, take down of splenic flexure and a colostomy placed by Dr. Zhao July 2014. Continues to have no output to ostomy bag 09/07/17 Plan: - NPO except meds - TPN - Abdominal x-ray shows Multiple air-filled dilated loops of bowel may be secondary tohows possible ileus or early bowel obstruction. - Continue NG tube LIWS - prn pain medications and antiemetics - Supportive care - strict Is& Os - Patient to undergo abdominal ex-laproscopic surgery today. Chest/Abdomen X-ray 09/06/17 12:22 IMPRESSION: No acute cardiopulmonary process. Multiple air-filled dilated loops of bowel may be secondary to ileus or early bowel obstruction. D/ / 09/06/2017 14:04:43 José Manuel Gibson MD / [facility] Interpreting Provider: José Manuel Gibson MD (4) Urinary tract infection Current Visit: Yes Status: Suspected UA on admission shows: large leuk esterase, TNTC WBCs, moderate Urina Bacteria. Culture results: enteroccus faecalis R only to doxycycline Started on IV cipro for suspected UTI on admission. Also coverage for intra- abdominal infections. Day #2 for ampicillin and day #4 for ciprofloxacin. Continues to deny dysuria 09/07/17 Qualifiers: Urinary tract infection type: acute cystitis Hematuria presence: without hematuria Qualified Code(s): N30.00 - Acute cystitis without hematuria Subjective Narrative: Patient said his abdominal pain is mostly in his RUQ and currently at 2 out of 10 in severity. He is unsure if he has been passing gas. He denies any nausea or vomiting. Denies any chest pain or shortness of breath. Denies any fever. Objective Vital Signs - Last 8 Hours Temp Pulse Resp BP Pulse Ox 09/07/17 07:12 98.7 F 70 14 172/89 96 09/07/17 03:49 98.1 F 74 14 158/88 96 Intake and Output 09/06/17 09/07/17 09/07/17 23:59 07:59 15:59 Intake Total 1100 / 1100 1500 / 1500 Output Total 1125 / 1125 1050 / 1050 Balance -25 / -25 450 / 450 Intake: IV Fluids 1100 / 1100 1500 / 1500 0.9 % Sodium Chloride 1,000 ML 1000 / 1000 1400 / 1400 @ 125 mls/hr IVC .Q8H [facility] Rx#: [id number] Ampicillin 1,000 MG In 0.9 % 100 / 100 100 / 100 Sodium Chloride (Mini-Bag +) 100 ML @ 200 mls/hr IVPB Q6H [facility] Rx#:[id number] Oral 0 / 0 0 / 0 Output: Urine 425 / 425 300 / 300 Stool 0 / 0 Gastric Drainage 700 / 700 750 / 750 Other: Meal NPO DINNER Blood Glucose* 74 73 - General physical appearance well developed, well nourished, no distress - Respiratory normal expansion, normal respiratory effort, clear to percussion, clear to auscultation - Cardiovascular Cardiovascular exam: Present: RRR. Absent: murmurs - Abdomen Abdomen: Present: bowel sounds present, soft, non tender Additional Comments: Colostomy stoma on left lower quadrant is clear with no signs of erythema, bleeding, pus, or drainage. - Integumentary no rash, no growths, no abnormal pigmentation - Musculoskeletal normal posture - Psychiatric oriented to time, oriented to person, oriented to place, speech is normal, memory intact - Labs 09/07/17 05:19 09/07/17 05:19 Diabetes panel 09/07/17 Range/Units 05:19 Sodium 144 (136-145) mEq/L Potassium 3.7 (3.5-5.1) mEq/L Chloride 113 H (98-107) mEq/L Carbon Dioxide 25 (23-29) mEq/L BUN 16 (8-23) mg/dL Creatinine 0.78 (0.70-1.30) mg/dL Glucose 84 (70-105) mg/dL Calcium 8.3 L (8.6-10.3) mg/dL Calcium panel 09/07/17 Range/Units 05:19 Calcium 8.3 L (8.6-10.3) mg/dL Phosphorus 2.2 L (2.7-4.5) mg/dL Pituitary panel 09/07/17 Range/Units 05:19 Sodium 144 (136-145) mEq/L Potassium 3.7 (3.5-5.1) mEq/L Chloride 113 H (98-107) mEq/L Carbon Dioxide 25 (23-29) mEq/L BUN 16 (8-23) mg/dL Creatinine 0.78 (0.70-1.30) mg/dL Glucose 84 (70-105) mg/dL Calcium 8.3 L (8.6-10.3) mg/dL Adrenal panel 09/07/17 Range/Units 05:19 Sodium 144 (136-145) mEq/L Potassium 3.7 (3.5-5.1) mEq/L Chloride 113 H (98-107) mEq/L Carbon Dioxide 25 (23-29) mEq/L BUN 16 (8-23) mg/dL Creatinine 0.78 (0.70-1.30) mg/dL Glucose 84 (70-105) mg/dL Calcium 8.3 L (8.6-10.3) mg/dL - VTE Documentation of Mechanical Device: Intermittent pneumatic compression device Consult Discharge Plan - Plan Referrals: Lobito Lang MD [Primary Care Provider] - <Ayde Zhao - Last Filed: 09/10/17 08:48> Date of Encounter: 09/07/17 - Assessment and Plan (1) Small bowel obstruction due to adhesions Current Visit: Yes Status: Acute patient has not had return of bowel function and remains with sbo planning ex lap later today continue npo ivf hydration picc and start TPN continue NGT to liws (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 (3) Prostate enlargement Current Visit: No Status: Chronic holding home medication (4) Hypertension Current Visit: No Status: Chronic controlled, monitor Qualifiers: Hypertension type: essential hypertension Qualified Code(s): I10 - Essential (primary) hypertension (5) Urinary tract infection Current Visit: Yes Status: Suspected on ampicillin - was switched yesterday, cipro dc'd yesterday, resident is incorrect Qualifiers: Urinary tract infection type: acute cystitis Hematuria presence: without hematuria Qualified Code(s): N30.00 - Acute cystitis without hematuria Subjective Patient reports: no new complaints, no flatus, no bowel movement Objective Vital Signs - Last 8 Hours Temp Pulse Resp BP Pulse Ox 09/10/17 08:07 22 99 09/10/17 07:46 98.3 F 09/10/17 07:41 98.3 F 85 144/79 100 09/10/17 06:00 91 22 149/65 100 09/10/17 05:00 85 19 162/68 100 09/10/17 04:00 83 17 137/60 100 09/10/17 03:00 99 F 86 16 144/60 100 09/10/17 01:55 89 19 151/65 100 09/10/17 01:00 91 16 118/64 99 Intake and Output 09/09/17 09/10/17 09/10/17 23:59 07:59 15:59 Intake Total 1905 / 1905 1350 / 1350 Output Total 570 / 570 695 / 695 Balance 1335 / 1335 655 / 655 Intake: IV Fluids 1905 / 1905 1350 / 1350 0.9 % Sodium Chloride 1,000 ML 1000 / 1000 @ 60 mls/hr IVC .[id number] [facility] Rx #:[id number] Clinimix E 5%-15% SOLUTION 2, 1505 / 1505 000 ML @ 65 mls/hr IVC .Q24H [facility] with M.v.i. Adult 10 ml Rx# :[id number] Ofirmev 1,000 mg/100 ml 1,000 100 / 100 mg In 100 ml @ 400 mls/hr IVPB Q8HR [facility] Rx#:[id number] Intralipid 20% 250 ML @ 21 mls/ 250 / 250 hr IVPB DAILY@1700 [facility] Rx#: [id number] Diflucan Premix 200 MG/100 ML 100 / 100 200 mg In 100 ml @ 100 mls/hr IVPB Q24H [facility] Rx#:[id number] Zosyn 3.375 GM In 0.9 % Sodium 200 / 200 100 / 100 Chloride (Mini-Bag +) 100 ML @ 25 mls/hr IVPB Q8H [facility] Rx#: [id number] Output: Catheter 550 / 550 665 / 665 Gastric Drainage 20 / 20 30 / 30 Other: Weight 91 kg Blood Glucose* 123 - General physical appearance well developed, well nourished, no distress - Eyes PERRL, normal ocular movement - ENT normal mucosa, normocephalic - Respiratory normal expansion, normal respiratory effort - Cardiovascular Cardiovascular exam: Present: RRR - Abdomen Abdomen: Present: bowel sounds present, soft, non tender, distended. Absent: guarding, rebound - Integumentary no growths - Neurologic CN 2-12 grossly intact - Musculoskeletal normal posture - Psychiatric oriented to time, oriented to person, speech is normal, memory intact - Labs 09/10/17 03:10 09/10/17 03:10 Diabetes panel 09/10/17 Range/Units 03:10 Sodium 143 (136-145) mEq/L Potassium 3.4 L (3.5-5.1) mEq/L Chloride 114 H (98-107) mEq/L Carbon Dioxide 24 (23-29) mEq/L BUN 25 H (8-23) mg/dL Creatinine 0.91 (0.70-1.30) mg/dL Glucose 131 H (70-105) mg/dL Calcium 7.4 L (8.6-10.3) mg/dL Calcium panel 09/10/17 Range/Units 03:10 Calcium 7.4 L (8.6-10.3) mg/dL Phosphorus 2.2 L (2.7-4.5) mg/dL Pituitary panel 09/10/17 Range/Units 03:10 Sodium 143 (136-145) mEq/L Potassium 3.4 L (3.5-5.1) mEq/L Chloride 114 H (98-107) mEq/L Carbon Dioxide 24 (23-29) mEq/L BUN 25 H (8-23) mg/dL Creatinine 0.91 (0.70-1.30) mg/dL Glucose 131 H (70-105) mg/dL Calcium 7.4 L (8.6-10.3) mg/dL Adrenal panel 09/10/17 Range/Units 03:10 Sodium 143 (136-145) mEq/L Potassium 3.4 L (3.5-5.1) mEq/L Chloride 114 H (98-107) mEq/L Carbon Dioxide 24 (23-29) mEq/L BUN 25 H (8-23) mg/dL Creatinine 0.91 (0.70-1.30) mg/dL Glucose 131 H (70-105) mg/dL Calcium 7.4 L (8.6-10.3) mg/dL - Attending Attestation I examined this patient and my medical decision-making was reviewed with the Resident Physician. I agree with the documented findings, disposition and treatment plan as described except to the extent set forth below.
[2017-09-07] MEDS ORDERED: D10% in Water 500 ML IVC PRN ×2 (11:06→23:38)
[2017-09-07] MEDS: *HR* Dextrose 50 % in Water (Syg) 50 ML SYRINGE IVP PRN (11:27)
[2017-09-07] MEDS ORDERED: 0.9 % Sodium Chloride 1,000 ML IVC SCH (12:58)
[2017-09-07] MEDS ORDERED: Lidocaine -MPF 1% 5 ML AMPUL INFILT ONE (15:28)
[2017-09-07] MEDS ORDERED: *HR* FentaNYL (PF) 100 MCG/2 ML VIAL ONE ×3 (16:13→18:38)
[2017-09-07] MEDS ORDERED: *HR* Propofol 200 MG/20 ML VIAL IVP ONE (16:14)
[2017-09-07] MEDS ORDERED: *HR* Succinylcholine 200 MG/10 ML VIAL IVP ONE (16:15)
[2017-09-07] MEDS ORDERED: Lidocaine -MPF 2% 2 ML VIAL ONE (16:15)
[2017-09-07] MEDS ORDERED: *HR* Rocuronium Bromide 50 MG/5 ML VIAL ONE ×2 (16:15→20:20)
[2017-09-07] MEDS ORDERED: Lidocaine -MPF 4% 5 ML AMPUL ONE (16:17)
--- NOTE | 2017-09-07 16:24 | Anesthesia Evaluation PreOp ---
Date of Encounter: 09/07/17 Time of Encounter: 16:22 - Past History Planned Operation: Exploratory celiotomy Cardiac History: HTN, Hyperlipidemia Pulmonary History: Smoker ACQUISITION PROFESSIONAL History: TIA (facial weakness, resolved) Other Medical History: Other (hx stage IV colon adenocarcinoma) Alcohol Use: none Drug use: none Medications and Allergies Metoprolol [Lopressor] 25 mg PO BID 12/27/14 [History] Tamsulosin [Flomax] 0.4 mg PO DAILY 12/27/14 [History] Simvastatin [Zocor] 10 mg PO HS 04/02/15 [History] Finasteride [Proscar] 5 mg PO DAILY 07/23/15 [History] Lisinopril [Zestril] 40 mg PO DAILY 04/23/16 [History] amLODIPine [Norvasc] 7.5 mg PO DAILY 09/03/17 [History] 3 Allergy/AdvReac Type Severity Reaction Status Date / Time No Known Allergies Allergy Verified 09/03/17 12:52 - Meds/Allergy Pre-op Review Medications Reviewed: Yes Allergies Reviewed: Yes Beta Blockers on Current Med List: Yes If Beta Blockers taken, Date/Time (Last Dose taken): 09-07-17 metoprolol IV at 11: 27 Anesthesia Results - Labs 09/07/17 05:19 09/07/17 05:19 Anesthesia Exam Last Vital Signs Temp 97.4 F L 09/07/17 14:47 Pulse 76 09/07/17 14:47 Resp 16 09/07/17 14:47 BP 170/89 09/07/17 14:47 Pulse Ox 96 09/07/17 14:47 Weight: 81 kg NPO (# of Hours): > 8 hrs - HEENT Pupil (Motor): Pupils equal, EOMI Mallampati: II Teeth: Missing, Poor dentition Oral Opening: Greater than 3 - ACQUISITION PROFESSIONAL LOC: Oriented - Cardiac Rhythm: Regular Murmur: None - Pulmonary Breath Sounds: bilateral Clear Respiratory Effort: Symmetrical Anesthesia Assess/Plan ASA Score: 3 Modified [place] Scale for Level of Consciousness: Cooperative, oriented, and tranquil Anesthetic Plan: General, Regional (TAP block) Monitoring Plan: Standard Monitors Recovery Plan: PACU
[2017-09-07] MEDS ORDERED: CefOXitin 2,000 MG VIAL ONE (16:37)
[2017-09-07] MEDS ORDERED: ROPIVACAINE HCL/PF 0.5% 30 ML VIAL ONE (16:37)
[2017-09-07] MEDS ORDERED: Acetaminophen IV 1,000 MG/100 ML INFUS..BTL ONE (16:44)
[2017-09-07] MEDS ORDERED: Clinimix E 5%-15% SOLUTION 2,000 ML with MVI, adult with vitamin K 10 ML IVC SCH ×2 (17:00→23:38)
--- NOTE | 2017-09-07 17:07 | Anesthesia Procedures ---
Date of Encounter: 09/07/17 Time of Encounter: 17:05 Procedures: Anesthesia - Nerve Block Procedure Date: 09/07/17 Time: 17:05 Allergies/Adv Reactions: No Known Allergies Allergy (Verified 09/03/17 12:52) Surgical Procedure: celiotomy Checklist: Correct Patient Identifier, Correct procedure, History checked Correct side: Left Blood Thinner: No Monitor Applied: EKG, Pulse Oximetry Indication: Post Op Analgesia Block Type: Other (TAP) Catheter placed: No Sterile Technique: Yes Ultrasound used: Yes Anatomy identified: Yes Visual spread of Local: Yes Neuro Stimulation: No Smooth Injection of Local: Yes Pain with Injection of Local: No Prep: Chlorhexadine Needle: 22 x 50 mm Stimuplex Local: Ropivacaine (0.25% 30cc each side) Volume (cc): 60 Number of Attempts: 1 Complications: None/effective block
[2017-09-07] MEDS ORDERED: Dexamethasone 4 MG/ML VIAL ONE (17:21)
[2017-09-07] MEDS ORDERED: Ondansetron 4 MG/2 ML VIAL ONE (17:21)
[2017-09-07] MEDS ORDERED: *HR* OxyCODONE Immed Rel 5 MG TABLET PO PRN (17:37)
[2017-09-07] MEDS ORDERED: *HR* HYDROmorphone (PF) 1 MG/ML SYRINGE IVP PRN (17:37)
[2017-09-07] MEDS ORDERED: *HR* Promethazine 25 MG/ML VIAL IVP PRN ×2 (17:37→23:38)
[2017-09-07] MEDS ORDERED: Ondansetron 4 MG/2 ML VIAL IVP ONE (17:37)
[2017-09-07] MEDS ORDERED: *HR* Morphine 10 MG/ML VIAL ONE (18:03)
[2017-09-07] MEDS ORDERED: Piperacillin/Tazobactam 3.375 GM in 0.9 % Sodium Chloride Mini Bag 100 ML IVPB ONE (19:00)
[2017-09-07] MEDS ORDERED: CefOXitin 1,000 MG VIAL ONE (21:52)
--- NOTE | 2017-09-07 22:18 | Operative Note ---
Date of procedure: 09/07/17 Pre-op diagnosis: #1 small bowel obstruction #2 recurrent metastatic colon cancer Post-op diagnosis: same Procedure: #1 this is a co-surgeon note #2 lysis of adhesions times 1 hour #3 repair of unavoidable enterotomy times 1 #4 co-surgeon small bowel resection times 2 Anesthesia: GETA Surgeon: Wilmer Israel Was there an technical services assistant present: Yes Marine Engine Mechanic: Shani Lozano Estimated blood loss (cc): 100 Specimen: Small bowel resection times 2 Condition: stable Disposition: ICU Procedure in Detail: I was contacted to assist Dr. Zhao with a highly complex case. I needed to drive from [place] which took about 1 hour. On presentation the operating room of his given history that the patient previously had resection of sigmoid colon for obstructing colon cancer and had sigmoid colostomy. He was taken the operating room for high-grade bowel obstruction. Adhesions were intense and severe prompting the request for a second surgeon this request was completely appropriate and I was invited to participate in the patient's care as co-surgeon. I entered the operation at about 8:20 PM. At that time there were 3 or 4 enterotomies clustered around a pelvic dissection. One of the enterotomies appeared to be the point of obstruction at what appeared to be a metastatic deposit close to the left inguinal canal. Adhesions were dense and severe. I assumed the duties of lysis of adhesions and perform lysis of adhesions for about 1 hour the sigmoid colostomy was left in place and I dissected above and below this area I was finally able to mobilize all the small bowel out of the left upper quadrant. There was one unavoidable enterotomy at what appeared to be the fourth portion of the duodenum or proximal jejunum. This was repaired primarily in 2 layers with interrupted Vicryl on the mucosal layer and interrupted 3-0 silk on the seromuscular layer. Once the remainder of lysis the adhesions was performed it was clear that there were 3 enterotomies in one area of the mid small bowel and one enterotomy at the point of obstruction which appeared to be a metastatic deposit. It is also noted that there were metastatic deposits in the transverse colon mesentery at the point were crossed over the small bowel and in the retroperitoneum close to the aorta. We discussed the best way to proceed and felt the most expedient and successful operation would be 2 small bowel resections. One would encompass 3 enterotomies and one would encompass one enterotomy. RITA was used to divide proximal and distal to the area of 3 enterotomies. The mesentery was divided with LigaSure. A functional end-to-end anastomosis was performed with RITA. The resulting enterotomy was closed with TA 60. The next enterotomy was distal ileum. A very short segmental resection was performed dividing the small bowel proximal and distal to the enterotomy. There was a large diameter difference in the small bowel across this area stenosis and this was likely the symptomatic bowel obstruction. This appeared to be caused by a local metastasis to the left inguinal area the mesentery was divided with LigaSure. Functional end-to-end anastomosis was performed with RITA. Resulting enterotomy was closed with TA 60. This gave an excellent technical result. We ran the small bowel proximal to distal. The patient had small bowel continuity. The ostomy appeared pink. I was personally present for 1 hour and 40 minutes to the operation. At this point the patient's care was returned to Dr. Zhao
[2017-09-07] MEDS ORDERED: *HR* Midazolam HCl 2 MG/2 ML VIAL ONE (23:08)
[2017-09-07] MEDS ORDERED: Norepinephrine 4 MG in D5% in Water 250 ML IVC SCH (23:15)
--- NOTE | 2017-09-07 23:22 | Operative Note ---
Date of procedure: 09/07/17 Pre-op diagnosis: small bowel obstruction Post-op diagnosis: same (severe adhesions, metastatic colon cancer) Procedure: Exploratory laparotomy, lysis of adhesions 3 hours, small bowel resection x2 Anesthesia: GETA Surgeon: Ayde Zhao Co-Surgeon: Wilmer Israel Was there an car rental sales assistant present: Yes Customer Operations Specialist: Shani Lozano Estimated blood loss (cc): 75 IV fluids (cc): 4,800 Urine output (cc): 450 Specimen: small bowel Condition: stable Disposition: ICU Procedure in Detail: The patient was brought to the operating suite and placed supine on the operating table. Sign in was performed and everyone was in agreement. Anesthesia was induced and patient was endotracheally intubated by anesthesia without incident. Saavedra catheter was placed by myself. The patients colostomy appliance was removed and a new appliance faceplate that was trimmed was applied after first applying allkare wipe to the surrounding skin. The abdomen was prepped and draped in the usual sterile fashion. Timeout was performed again everyone was in agreement. A midline longitudinal incision was made through the skin and the subcutaneous tissue with the previous exploratory laparoscopy scar with a 10 blade. We dissected through the subcutaneous tissue to the anterior abdominal wall fascia with the Bovie. Gorham's are placed on either side of the fascia for retraction. The abdomen was entered with the Bovie. Small bowel was adherent to the anterior abdominal wall. The incision at the fascia was able to be slowly elongated as we dissected bowel from the abdominal wall. The patient's adhesions were severe and dense. There were no areas within the abdominal cavity where small bowel was not adherent to other small bowel, colon, or the anterior abdominal wall. The small bowel was very dilated with succus and appeared inflamed. During lysis of adhesions two loops of small bowel were densely adherent to the left lower quadrant abdominal wall and what felt to be a potential metastatic deposit. There were inadvertent enterotomy across the 2 areas of densely adherent small bowel while freeing it from this area. Babcocks were placed over this enterotomy but unavoidable spillage of small bowel stool occurred in the abdominal cavity. Due to the distention of the small bowel, friability and inflammation of the small bowel, an area that were being gently pressed upon developed a serosal tear with exposed mucosa underneath. Then due to the distention of the small bowel due to the succus/obstruction the mucosa then gave way/split under the pressure of the small bowel succus due to the obstruction. Once approximately 75% of the small bowel was free from the anterior abdominal wall in the pelvis which lysis of adhesions took about [address] Israel was asked to join the case. He then was able to free up the small bowel that was adherent in the left upper quadrant beneath the left colon/colostomy. This was dictated in a seperate dictation. There were about 3 areas of small bowel enterotomies in the small bowel and the decision was made to perform two small bowel resections. The first small bowel resection involved a longer area of small bowel and the mesentary beneath the small bowel proximal and distal to this first area was opened with nico and the small bowel transected with a linear pete 75 mm stapler with a blue load. The small bowel mesentery was divided with an impact LigaSure. The small bowel was then reapproximated in a [id number] fashion with a linear PETE-75 stapler creating the common channel and a TA 60 closing the ends of the open common channel. The second small bowel resection encompassed a small area of small bowel that included 1 larger than 50% of the small bowel wall enterotomy. The opening in the mesentery proximal to distal to this area of the small bowel was made with a Nico. The proximal and distal small bowel was transected with linear PETE-75 stapler blue loads. The mesentery of the small bowel was transected with the impact LigaSure. The small bowel was reapproximated with a eedz-tq-sqfj fashion with a linear PETE-75 stapler creating the common channel and a TA 60 closing the ends of the open common channel. 3-0 silk figure-of- eight stitches were used to enforce the closed common channel of both small bowel anastomoses. 3-0 silk interrupted stitch was used as a crotch stitch at both small bowel anastomosis sites. The abdomen was copiously irrigated with several liters of sterile saline. 1 L of sterile saline containing 1 g of cefoxitin. Gorham's are placed on either side of the fascia for retraction. The fascia was reapproximated with 2 #1 non-looped PDS running stitches meeting in the middle. The subcutaneous tissue was copiously irrigated with sterile saline. The subcutaneous tissue was reapproximated with 3-0 Vicryl interrupted stitches. The skin was closed with mehul. 3 areas of the midline incision were packed with quarter inch iodoform packing. 4 x 4 gauze and Medipore tape were applied as a dressing. The Saavedra catheter remained with the patient as well as the NG tube that was present prior to surgery. All lap and instrument counts were correct at the end of the case. the patients colostomy appliance was changed. The patient tolerated the procedure well and was taken to ICU in stable condition while intubated.
[2017-09-07] MEDS ORDERED: *HR* Metoprolol 5 MG/5 ML VIAL IVP PRN (23:38)
[2017-09-07] MEDS ORDERED: Dextrose Gel 15 GM/37.5 ML TUBE PO PRN ×2 (23:38)
[2017-09-07] MEDS ORDERED: *HR* FentaNYL PATCH 25 MCG PATCH TD SCH (23:38)
[2017-09-07] MEDS ORDERED: *HR* Dextrose 50 % in Water (Syg) 50 ML SYRINGE IVP PRN (23:38)
[2017-09-07] MEDS ORDERED: Lacri-Lube 3.5 GM TUBE BOTH EYES PRN (23:38)
[2017-09-07] MEDS ORDERED: Ondansetron 4 MG/2 ML VIAL IVP PRN (23:38)
[2017-09-07] MEDS ORDERED: D5% in Water 1,000 ML IVC PRN (23:38)
[2017-09-07] MEDS ORDERED: 0.9 % Sodium Chloride 1,000 ML ONE (23:45)
[2017-09-08] MEDS: 0.9 % Sodium Chloride 1,000 ML IVC SCH ×2 (00:03→18:05)
[2017-09-08] MEDS: Acetaminophen IV 1,000 MG/100 ML INFUS..BTL IVPB SCH ×3 (00:15→23:16)
[2017-09-08] MEDS: Fluconazole 200 MG/100 ML 200 MG/100 ML BAG IVPB SCH (00:15)
[2017-09-08] MEDS: Lacri-Lube 3.5 GM TUBE BOTH EYES SCH ×7 (00:17→23:16)
[2017-09-08 00:45] LABS: ABG Base Excess -6 mEq/L (-2 to 3); ABG HCO3 22 mEq/L (21-27); ABG Oxygen Saturation 95 % (95-98); ABG PCO2 51 mmHg (35-45); ABG PH 7.24 pH Units (7.32-7.45); ABG PO2 88 mmHg (85-104); ABG TCO2 23 mEq/L (20-26); Blood Gas Modality VC; Blood Gas PEEP 5 cm H2O; Blood Gas Respiration Rate 12; Blood Gas VT 500 cc
[2017-09-08] MEDS: FentaNYL (PF) 1,000 MCG in 0.9 % Sodium Chloride 80 ML IVC SCH ×2 (01:54→10:14)
[2017-09-08] MEDS: Piperacillin/Tazobactam 3.375 GM in 0.9 % Sodium Chloride Mini Bag 100 ML IVPB SCH ×3 (04:37→20:42)
[2017-09-08 05:26] LABS: ABG Base Excess -3 mEq/L (-2 to 3); ABG HCO3 23 mEq/L (21-27); ABG Oxygen Saturation 98 % (95-98); ABG PCO2 43 mmHg (35-45); ABG PH 7.34 pH Units (7.32-7.45); ABG PO2 109 mmHg (85-104); ABG TCO2 24 mEq/L (20-26); Blood Gas Modality VC; Blood Gas PEEP 30 cm H2O; Blood Gas Respiration Rate 12; Blood Gas VT 500 cc
[2017-09-08 05:27] LABS: VBG Ionized Calcium 1.09 mmol/L (1.15-1.35)
[2017-09-08 05:42] LABS: BUN/Creatinine Ratio 21 (6-26); Blood Urea Nitrogen 21 mg/dL (8-23); Calcium 7.2 mg/dL (8.6-10.3); Carbon Dioxide 21 mEq/L (23-29); Chloride 115 mEq/L (98-107); Glucose 246 mg/dL (70-105); Magnesium 1.6 mg/dL (1.6-2.6); Osmolality,Calculated 309 (280-300); Phosphorous 3.2 mg/dL (2.7-4.5); Potassium 4.1 mEq/L (3.5-5.1); Sodium 144 mEq/L (136-145); Triglycerides 90 mg/dL (< 150); eGFR For African Americans > 60 (> 60); eGFR For Non-African Americans > 60 (> 60)
[2017-09-08] MEDS ORDERED: Insulin LISPRO 300 UNITS/3 ML VIAL SQ ONE (06:37)
--- NOTE | 2017-09-08 07:42 | Pulmonology Consult Note ---
<eCciliarobertoFrandy winters M - Last Filed: 09/08/17 15:37> Date of Encounter: 09/08/17 Medications and Allergies Metoprolol [Lopressor] 25 mg PO BID 12/27/14 [History] Tamsulosin [Flomax] 0.4 mg PO DAILY 12/27/14 [History] Simvastatin [Zocor] 10 mg PO HS 04/02/15 [History] Finasteride [Proscar] 5 mg PO DAILY 07/23/15 [History] Lisinopril [Zestril] 40 mg PO DAILY 04/23/16 [History] amLODIPine [Norvasc] 7.5 mg PO DAILY 09/03/17 [History] 3 Allergy/AdvReac Type Severity Reaction Status Date / Time No Known Allergies Allergy Verified 09/03/17 12:52 All Systems: The remainder of the systems were reviewed and are negative Physical Examination Vital Signs: Vital Signs, Last 4 Hours Temp Pulse Resp BP Pulse Ox 09/08/17 07:00 97 F L 84 16 103/62 99 09/08/17 06:36 15 91/59 100 09/08/17 06:00 83 15 82/57 99 09/08/17 05:21 17 97/63 100 09/08/17 05:03 98.1 F 09/08/17 05:00 83 13 97/63 99 09/08/17 04:00 84 15 103/68 99 Ventilator Settings Ventilator Settings: Ventilator Settings, Last 8 Hours Ventilator Mode VC+ Ventilator Mode VC+ Ventilator Mode VC+ Ventilator Mode VC+ Ventilator Mode VC+ Ventilator Mode VC+ Ventilator Mode VC+ Ventilator Mode VC+ Ventilator Mode VC+ Ventilator Mode VC+ Ventilator Tidal Volume 500 Setting Ventilator Tidal Volume 500 Setting Ventilator Tidal Volume 500 Setting Ventilator Tidal Volume 500 Setting Ventilator Tidal Volume 500 Setting Ventilator Tidal Volume 500 Setting Ventilator Tidal Volume 500 Setting Ventilator Tidal Volume 500 Setting Ventilator Tidal Volume 500 Setting Ventilator Tidal Volume 500 Setting Ventilator Tidal Volume 500 Setting Ventilator Tidal Volume 500 Setting Ventilator Tidal Volume 500 Setting Ventilator Respiratory Rate 12 Setting Ventilator Respiratory Rate 12 Setting Ventilator Respiratory Rate 12 Setting Ventilator Respiratory Rate 12 Setting Ventilator Respiratory Rate 12 Setting Ventilator Respiratory Rate 12 Setting Ventilator Respiratory Rate 12 Setting Ventilator Respiratory Rate 12 Setting Ventilator Respiratory Rate 12 Setting Ventilator Respiratory Rate 12 Setting Ventilator Respiratory Rate 12 Setting Ventilator Respiratory Rate 12 Setting Ventilator Respiratory Rate 12 Setting Ventilator Respiratory Rate 12 Setting Actual Respiratory Rate 16 Actual Respiratory Rate 15 Actual Respiratory Rate 15 Actual Respiratory Rate 15 Actual Respiratory Rate 15 Actual Respiratory Rate 15 Actual Respiratory Rate 15 Actual Respiratory Rate 16 Actual Respiratory Rate 16 Actual Respiratory Rate 16 Actual Respiratory Rate 13 Positive End Expiratory 5 Pressure Positive End Expiratory 5 Pressure Positive End Expiratory 5 Pressure Positive End Expiratory 5 Pressure Positive End Expiratory 5 Pressure Positive End Expiratory 5 Pressure Positive End Expiratory 5 Pressure Positive End Expiratory 5 Pressure Positive End Expiratory 5 Pressure Positive End Expiratory 5 Pressure Positive End Expiratory 5 Pressure Positive End Expiratory 5 Pressure Positive End Expiratory 5 Pressure Positive End Expiratory 5 Pressure Peak Inspiratory Airway 20 Pressure Peak Inspiratory Airway 11 Pressure Peak Inspiratory Airway 19 Pressure Peak Inspiratory Airway 22 Pressure Peak Inspiratory Airway 21 Pressure Peak Inspiratory Airway 18 Pressure Peak Inspiratory Airway 18 Pressure Peak Inspiratory Airway 18 Pressure Peak Inspiratory Airway 12 Pressure Peak Inspiratory Airway 12 Pressure Peak Inspiratory Airway 12 Pressure Peak Inspiratory Airway 18 Pressure Results - Laboratory Findings CBC and BMP: 09/08/17 09:05 09/08/17 04:50 ABG ABG pH 7.34 pH Units (7.32-7.45) 09/08/17 05:23 ABG pCO2 43 mmHg (35-45) 09/08/17 05:23 ABG pO2 109 mmHg (85-104) H 09/08/17 05:23 ABG O2 Saturation 98 % (95-98) 09/08/17 05:23 Abnormal lab findings: Abnormal lab results RBC 3.80 M/mcL (4.19-5.50) L 09/07/17 05:19 Hgb 12.1 g/dL (12.9-16.9) L 09/07/17 05:19 ABG pO2 109 mmHg (85-104) H 09/08/17 05:23 ABG Base Excess -3 mEq/L (-2 to 3) L 09/08/17 05:23 Chloride 115 mEq/L (98-107) H 09/08/17 04:50 Carbon Dioxide 21 mEq/L (23-29) L 09/08/17 04:50 Glucose 246 mg/dL (70-105) H 09/08/17 04:50 POC Glucose 211 mg/dL (70-99) H 09/08/17 07:35 Calculated Osmolality 309 (280-300) H 09/08/17 04:50 Calcium 7.2 mg/dL (8.6-10.3) L 09/08/17 04:50 Venous Ioniz Calcium 1.09 mmol/L (1.15-1.35) L 09/08/17 05:16 Total Bilirubin 1.7 mg/dL (0.3-1.0) H 09/03/17 10:18 Direct Bilirubin 0.4 mg/dL (0.0-0.2) H 09/03/17 10:18 Indirect Bilirubin 1.3 mg/dL (0.0-1.2) H 09/03/17 10:18 Prealbumin 11.6 mg/dL (17.0-34.0) L 09/08/17 04:50 Ur Specific Napoleon 1.027 (1.010-1.025) H 09/03/17 11:37 Urine Ketones Trace mg/dL (Negative) H 09/03/17 11:37 Urine Bilirubin Small (Negative) H 09/03/17 11:37 Urine Urobilinogen 2.0 mg/dL (Normal) H 09/03/17 11:37 Ur Leukocyte Esterase Large (Negative) H 09/03/17 11:37 Urine Microscopic RBC 5-15 per hpf (0-3) H 09/03/17 11:37 Urine Microscopic WBC TNTC per hpf (0-3) H 09/03/17 11:37 Urine Bacteria Moderate per hpf (None-Few) H 09/03/17 11:37 Ur Culture Indicated? YES (NO) A 09/03/17 11:37 - Clinical Findings Intake & Output: Intake & Output 09/07/17 09/07/17 09/08/17 15:59 23:59 07:59 Intake Total 600 / 600 500 / 500 104 / 104 Output Total 525 / 525 625 / 625 445 / 445 Balance 75 / 75 -125 / -125 -341 / -341 Consult Discharge Plan - Plan Referrals: Lobito Lang MD [Primary Care Provider] - - Attending Attestation I examined this patient and my medical decision-making was reviewed with the Resident Physician. I agree with the documented findings, disposition and treatment plan as described except to the extent set forth below. Patient seen and examined. Labs, radiology, chart personally reviewed. Agree with resident's history and physical, assessment, plan with following comments: AIRPORT MAINTENANCE CHIEF: Patient follows commands, Pulmonary: Acceptable oxygenation and ventilation, however did not tolerate spontaneous breathing trial and patient with postoperative acute respiratory failure. I suspect this could be multifactorial and will wait until patient awake enough and tolerate his trial then he will be extubated. Cardiovascular: stable GI: Nutrition per dietary and GI prophylaxis per routine Heme: DVT prophylaxis per routine. Patient will need oncology evaluation ID: Continue antibiotics and plan to de-escalation Renal; urine out put and renal funtion reviewed Endorcine: blood glucose is monitored Lines: all lines checked and no evidence of infections Skin: skin care to prevent pressure ulcers per nursing routine care Overall prognosis is poor <Bernardo Jacques - Last Filed: 09/08/17 16:24> Date of Encounter: 09/08/17 Time of Encounter: 14:55 Assessment and Plan (1) Status post exploratory laparotomy Current Visit: Yes Status: Acute Patient was intubated for surgery. He is being followed by the surgical team we were consultation for ventilator management. Patient did have a trial of CPAP and became apneic so we put him back on the ventilator. We will try again later today to see if he does better. For further plan please refer to the surgical note as they are the primary team following the patient. (2) Small bowel obstruction Current Visit: Yes Status: Acute For further plan please refer to the surgical team's note as pulmonology's consult it just for ventilator management. History of Present Illness Consult date: 09/08/17 Requesting physician: Ayde Zhao Reason for consult: other (Intubated after surgery) Chief complaint: Small bowel obstruction History of present illness: Mr. Bower is a 71-year-old male with past no history of stage IV colon adenocarcinoma where he did have open low anterior resection and appendectomy resection of an omental mass intake down the splenic flexure and a colostomy placed by Dr. Benitez on July 2014. He presented to the emergency department for abdominal pain showing a small bowel obstruction which showed a need for surgical consultation. Patient was then admitted and seen for 2 days in the hospital by the surgical team. They then decided to to do surgery during the surgery Dr. Benitez had bring a second surgeon and was a very intense and prolonged surgery. Upon coming off patient did not come off the ventilator very easily and was still sedated so was placed in the ICU. The surgical team is managing the medical care of the patient and asked for pulmonology to consult for ventilator management. Past Med Surg Social Fam HX - Past Medical History Medical history: cancer (stage 4 colon cancer), other (BPH) Psychiatric history: no psych history - Past Surgical History Surgical History: colostomy - Social History Smoking Status: Former smoker (Currently using vaporized tobacco h/o cigar smoking, quit in 2009) Smokeless Tobacco Status: No Alcohol use: none Drug use: none ROS unobtainable: due to endotracheal tube All Systems: The remainder of the systems were reviewed and are negative Physical Examination Vital Signs: Vital Signs, Last 4 Hours Temp Pulse Resp BP Pulse Ox 09/08/17 06:36 15 91/59 100 09/08/17 06:00 83 15 82/57 99 09/08/17 05:21 17 97/63 100 09/08/17 05:03 98.1 F 09/08/17 05:00 83 13 97/63 99 09/08/17 04:00 84 15 103/68 99 General appearance: no acute distress Eyes: nonicteric ENT: oropharynx moist Neck: supple Effort: normal Inspection: normal Auscultation: bilateral: clear Cardiovascular: regular rate and rhythm Gastrointestinal: normoactive bowel sounds, non-distended Integumentary: normal Extremities: no cyanosis, no edema, no clubbing Musculoskeletal: no deformities, ROM normal unable to assess due to mental status Ventilator Settings Ventilator Settings: Ventilator Settings, Last 8 Hours Ventilator Mode VC+ Ventilator Mode VC+ Ventilator Mode VC+ Ventilator Mode VC+ Ventilator Mode VC+ Ventilator Mode VC+ Ventilator Mode VC+ Ventilator Mode VC+ Ventilator Mode VC+ Ventilator Tidal Volume 500 Setting Ventilator Tidal Volume 500 Setting Ventilator Tidal Volume 500 Setting Ventilator Tidal Volume 500 Setting Ventilator Tidal Volume 500 Setting Ventilator Tidal Volume 500 Setting Ventilator Tidal Volume 500 Setting Ventilator Tidal Volume 500 Setting Ventilator Tidal Volume 500 Setting Ventilator Tidal Volume 500 Setting Ventilator Tidal Volume 500 Setting Ventilator Tidal Volume 500 Setting Ventilator Respiratory Rate 12 Setting Ventilator Respiratory Rate 12 Setting Ventilator Respiratory Rate 12 Setting Ventilator Respiratory Rate 12 Setting Ventilator Respiratory Rate 12 Setting Ventilator Respiratory Rate 12 Setting Ventilator Respiratory Rate 12 Setting Ventilator Respiratory Rate 12 Setting Ventilator Respiratory Rate 12 Setting Ventilator Respiratory Rate 12 Setting Ventilator Respiratory Rate 12 Setting Ventilator Respiratory Rate 12 Setting Ventilator Respiratory Rate 12 Setting Actual Respiratory Rate 15 Actual Respiratory Rate 15 Actual Respiratory Rate 15 Actual Respiratory Rate 15 Actual Respiratory Rate 15 Actual Respiratory Rate 15 Actual Respiratory Rate 16 Actual Respiratory Rate 16 Actual Respiratory Rate 16 Actual Respiratory Rate 13 Positive End Expiratory 5 Pressure Positive End Expiratory 5 Pressure Positive End Expiratory 5 Pressure Positive End Expiratory 5 Pressure Positive End Expiratory 5 Pressure Positive End Expiratory 5 Pressure Positive End Expiratory 5 Pressure Positive End Expiratory 5 Pressure Positive End Expiratory 5 Pressure Positive End Expiratory 5 Pressure Positive End Expiratory 5 Pressure Positive End Expiratory 5 Pressure Positive End Expiratory 5 Pressure Peak Inspiratory Airway 11 Pressure Peak Inspiratory Airway 19 Pressure Peak Inspiratory Airway 22 Pressure Peak Inspiratory Airway 21 Pressure Peak Inspiratory Airway 18 Pressure Peak Inspiratory Airway 18 Pressure Peak Inspiratory Airway 18 Pressure Peak Inspiratory Airway 12 Pressure Peak Inspiratory Airway 12 Pressure Peak Inspiratory Airway 12 Pressure Peak Inspiratory Airway 18 Pressure Results - Laboratory Findings CBC and BMP: 09/08/17 09:05 09/08/17 04:50 ABG ABG pH 7.34 pH Units (7.32-7.45) 09/08/17 05:23 ABG pCO2 43 mmHg (35-45) 09/08/17 05:23 ABG pO2 109 mmHg (85-104) H 09/08/17 05:23 ABG O2 Saturation 98 % (95-98) 09/08/17 05:23 Abnormal lab findings: Abnormal lab results RBC 3.80 M/mcL (4.19-5.50) L 09/07/17 05:19 Hgb 12.1 g/dL (12.9-16.9) L 09/07/17 05:19 ABG pO2 109 mmHg (85-104) H 09/08/17 05:23 ABG Base Excess -3 mEq/L (-2 to 3) L 09/08/17 05:23 Chloride 115 mEq/L (98-107) H 09/08/17 04:50 Carbon Dioxide 21 mEq/L (23-29) L 09/08/17 04:50 Glucose 246 mg/dL (70-105) H 09/08/17 04:50 POC Glucose 211 mg/dL (70-99) H 09/08/17 07:35 Calculated Osmolality 309 (280-300) H 09/08/17 04:50 Calcium 7.2 mg/dL (8.6-10.3) L 09/08/17 04:50 Venous Ioniz Calcium 1.09 mmol/L (1.15-1.35) L 09/08/17 05:16 Total Bilirubin 1.7 mg/dL (0.3-1.0) H 09/03/17 10:18 Direct Bilirubin 0.4 mg/dL (0.0-0.2) H 09/03/17 10:18 Indirect Bilirubin 1.3 mg/dL (0.0-1.2) H 09/03/17 10:18 Prealbumin 11.6 mg/dL (17.0-34.0) L 09/08/17 04:50 Ur Specific Napoleon 1.027 (1.010-1.025) H 09/03/17 11:37 Urine Ketones Trace mg/dL (Negative) H 09/03/17 11:37 Urine Bilirubin Small (Negative) H 09/03/17 11:37 Urine Urobilinogen 2.0 mg/dL (Normal) H 09/03/17 11:37 Ur Leukocyte Esterase Large (Negative) H 09/03/17 11:37 Urine Microscopic RBC 5-15 per hpf (0-3) H 09/03/17 11:37 Urine Microscopic WBC TNTC per hpf (0-3) H 09/03/17 11:37 Urine Bacteria Moderate per hpf (None-Few) H 09/03/17 11:37 Ur Culture Indicated? YES (NO) A 09/03/17 11:37 - Diagnostic Findings Chest x-ray: image reviewed - Clinical Findings Intake & Output: Intake & Output 09/07/17 09/07/17 09/08/17 15:59 23:59 07:59 Intake Total 600 / 600 500 / 500 104 / 104 Output Total 525 / 525 625 / 625 400 / 400 Balance 75 / 75 -125 / -125 -296 / -296
[2017-09-08] MEDS: Chlorhexidine Rinse 15 ML MOUTHWASH MM SCH ×2 (08:58→20:40)
[2017-09-08] MEDS: Pantoprazole 40 MG VIAL IVP SCH (08:59)
[2017-09-08] MEDS: Insulin LISPRO 300 UNITS/3 ML VIAL SQ SCH ×4 (08:59→20:42)
[2017-09-08] MEDS: *HR* FentaNYL PATCH 25 MCG PATCH TD SCH (09:02)
[2017-09-08 10:07] LABS: Hematocrit 36.2 % (37.5-50.1); Hemoglobin 11.4 g/dL (12.9-16.9); Lymphocytes # 0.3 K/mcL (0.6-4.6); Mean Corpuscular HGB Conc 31.5 g/dL (31.6-35.5); Mean Corpuscular Hemoglobin 31.9 pg (28.0-33.3); Mean Corpuscular Volume 101.4 fL (83.0-100.0); Mean Platelet Volume 10.5 fL (9.4-12.4); Platelet Count 196 K/mcL (140-400); Red Blood Count 3.57 M/mcL (4.19-5.50); Red Cell Distribution Width 12.9 % (11.5-14.5)
[2017-09-08 10:32] LABS: Monocytes # 0.1 K/mcL (0.0-1.3); Neutrophils # 6.7 K/mcL (1.6-8.9); Platelet Estimate Normal (Normal)
--- NOTE | 2017-09-08 10:55 | General Surgery Progress Note ---
<Mark Grubbs - Last Filed: 09/08/17 11:45> Date of Encounter: 09/08/17 Time of Encounter: 09:30 - Assessment and Plan (1) Status post exploratory laparotomy Current Visit: Yes Status: Acute Patient's systolic BP range has been from 80's-90's. MAP of 65. Currently on mechanical ventilation 50% FiO2. Urine catheter drainage has been 10 ccs per hour. Total urine output since yesterday has been 435 ml. Total gastric drainage of 30 ml. Abdominal incision mehul intact. POD#1 exploratory laparotomy, lysis of adhesions 2.5 hours, repair serosal tears, small bowel resection x2 - NPO (continue NG tube for decompression). - Daily wound care - Await bowel function to return -TPN -500 cc fluid bolus. -Electrolyte protocol. -Pathology pending. - Cont. steen. - Monitor I & Os. - Daily wound care. - Continue zosyn and fluconazole. (2) Small bowel obstruction Current Visit: Yes Status: Acute Pt with Hx of stage IV colon adenocarcinoma S/p open low anterior resection appendectomy, resection of an omental mass, take down of splenic flexure and a colostomy placed by Dr. Zhao July 2014. Continues to have no output to ostomy bag 09/07/17 - See plan above (3) Acute respiratory failure Current Visit: Yes Status: Acute Ventilator management per pulmonary team. - Will attempt to wean this afternoon per RN. Qualifiers: Qualified Code(s): J96.00 - Acute respiratory failure, unspecified whether with hypoxia or hypercapnia (4) Urinary tract infection Current Visit: Yes Status: Suspected UA on admission shows: large leuk esterase, TNTC WBCs, moderate Urina Bacteria. Culture results: enteroccus faecalis R only to doxycycline. -Continue zosyn. - Qualifiers: Urinary tract infection type: acute cystitis Hematuria presence: without hematuria Qualified Code(s): N30.00 - Acute cystitis without hematuria (5) DVT prophylaxis Current Visit: Yes Status: Acute - Continue EPCs. - Will start heparin subQ tomorrow. Subjective Narrative: Postoperative day #1 . Patient was intubated but was alert and oriented. Was able to respond to questions. He says he has mild diffuse abdominal pain. Denies any chest pain. Denies any lightheadedness. Objective VITAL SIGNS: Reviewed. See [facility] GENERAL: Intubated. No distress. HEENT: [Normocephalic, PER, EOMi, oropharynx pink/moist, no JVD noted.] CV: b/l rad pulses 2+, RRR, no murmurs or gallops, no JVD RESPIRATORY: Mechanical ventilation. CTAB without wheezes, rales, or rhonchi. ABD: soft, mild tenderness to palpation diffusely, no guarding, no rebound. hypoactive bowel sounds. Colostomy stoma in LLQ intact with no signs of pus, bleeding, or purulent drainage. INCISION: Vertical abdominal incision clean, dry, intact without purulence/ bleeding/edema/rubor/calor. [place] intact. EXTREMITY: grossly normal motor function, no pedal edema, peripheral pulses 2+ b /l NEUROLOGIC EXAM: AOx3, obeys commands, no speech deficits. PSYCHIATRIC: normal mood and affect SKIN: no rashes. good palor. Vital Signs - Last 8 Hours Temp Pulse Resp BP Pulse Ox 09/08/17 10:00 65 13 80/60 99 09/08/17 09:00 83 16 81/58 100 09/08/17 08:00 84 19 88/60 98 09/08/17 07:00 97 F L 84 16 103/62 99 09/08/17 06:36 15 91/59 100 09/08/17 06:00 83 15 82/57 99 09/08/17 05:21 17 97/63 100 09/08/17 05:03 98.1 F 09/08/17 05:00 83 13 97/63 99 09/08/17 04:00 84 15 103/68 99 09/08/17 03:30 88 15 100/72 99 09/08/17 03:20 15 100/72 99 09/08/17 03:11 85 Intake and Output 09/07/17 09/08/17 09/08/17 23:59 07:59 15:59 Intake Total 500 / 500 154 / 154 198 / 198 Output Total 625 / 625 445 / 445 42 / 42 Balance -125 / -125 -291 / -291 156 / 156 Intake: IV Fluids 500 / 500 154 / 154 198 / 198 0.9 % Sodium Chloride 1,000 ML 500 / 500 @ 125 mls/hr IVC .Q8H [facility] Rx#: [id number] FentaNYL (PF) 1,000 MCG In 0.9 2 / 2 98 / 98 % Sodium Chloride 80 ML @ 50 MCG/HR 5 mls/hr IVC CONT [facility] Rx #:[id number] Diprivan 1,000 mg In 100 ml @ 0 2 / 2 mls/hr IVC .STK-MED ONE Rx#: [id number] Ofirmev 1,000 mg/100 ml 1,000 100 / 100 mg In 100 ml @ 400 mls/hr IVPB Q8HR [facility] Rx#:[id number] Magnesium Sulfate Premix 2gm/ 50 / 50 50mL 2 gm In 50 ml @ 50 mls/hr IVPB ONCE ONE Rx#:[id number] Zosyn 3.375 GM In 0.9 % Sodium 100 / 100 Chloride (Mini-Bag +) 100 ML @ 25 mls/hr IVPB Q8H [facility] Rx#: [id number] Oral 0 / 0 0 / 0 Output: Estimated Blood Loss 75 / 75 Urine Amount (Catheter) 450 / 450 Catheter 100 / 100 415 / 415 42 / 42 Gastric Drainage 30 / 30 Other: Meal NPO Percent of Meal Consumed 0% Blood Glucose* 104 211 - Labs 09/08/17 09:05 09/08/17 04:50 Diabetes panel 09/08/17 Range/Units 04:50 Sodium 144 (136-145) mEq/L Potassium 4.1 (3.5-5.1) mEq/L Chloride 115 H (98-107) mEq/L Carbon Dioxide 21 L (23-29) mEq/L BUN 21 (8-23) mg/dL Creatinine 1.00 (0.70-1.30) mg/dL Glucose 246 H (70-105) mg/dL Calcium 7.2 L (8.6-10.3) mg/dL Triglycerides 90 (< 150) mg/dL Calcium panel 09/08/17 Range/Units 04:50 Calcium 7.2 L (8.6-10.3) mg/dL Phosphorus 3.2 (2.7-4.5) mg/dL Pituitary panel 09/08/17 Range/Units 04:50 Sodium 144 (136-145) mEq/L Potassium 4.1 (3.5-5.1) mEq/L Chloride 115 H (98-107) mEq/L Carbon Dioxide 21 L (23-29) mEq/L BUN 21 (8-23) mg/dL Creatinine 1.00 (0.70-1.30) mg/dL Glucose 246 H (70-105) mg/dL Calcium 7.2 L (8.6-10.3) mg/dL Adrenal panel 09/08/17 Range/Units 04:50 Sodium 144 (136-145) mEq/L Potassium 4.1 (3.5-5.1) mEq/L Chloride 115 H (98-107) mEq/L Carbon Dioxide 21 L (23-29) mEq/L BUN 21 (8-23) mg/dL Creatinine 1.00 (0.70-1.30) mg/dL Glucose 246 H (70-105) mg/dL Calcium 7.2 L (8.6-10.3) mg/dL - VTE Documentation of Mechanical Device: Intermittent pneumatic compression device Consult Discharge Plan - Plan Referrals: Lobito Lang MD [Primary Care Provider] - <Ayde Zhao - Last Filed: 09/11/17 09:43> Date of Encounter: 09/08/17 - Assessment and Plan (1) Small bowel obstruction due to adhesions Current Visit: Yes Status: Acute pod 1 ex lap, nhan, sbr x2, enterotomy repairs continue vent wean per CCM continue abx continue ngt to liws prn pain control gi/dvt prophylaxis npo continue steen for accurate I/O's bolus albumin 5% x2 (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 (3) Prostate enlargement Current Visit: No Status: Chronic holding home meds (4) Hypertension Current Visit: No Status: Chronic holding home meds Qualifiers: Hypertension type: essential hypertension Qualified Code(s): I10 - Essential (primary) hypertension (5) Urinary tract infection Current Visit: Yes Status: Suspected continue zosyn Qualifiers: Urinary tract infection type: acute cystitis Hematuria presence: without hematuria Qualified Code(s): N30.00 - Acute cystitis without hematuria Subjective Patient reports: no flatus, no bowel movement Narrative: awake on vent, answers yes/no questions pain well controlled failed earlier breathing trial Objective Vital Signs - Last 8 Hours Temp Pulse Resp BP Pulse Ox 09/11/17 08:25 17 93 09/11/17 08:00 99 17 161/69 93 09/11/17 07:00 98.9 F 85 11 166/77 93 09/11/17 06:06 86 19 152/70 94 09/11/17 05:10 88 16 153/66 94 09/11/17 04:00 84 20 154/78 94 09/11/17 03:43 14 92 09/11/17 03:00 82 16 142/72 94 09/11/17 02:00 82 19 152/66 95 Intake and Output 09/10/17 09/11/17 09/11/17 23:59 07:59 15:59 Intake Total 1560 / 1560 750 / 750 Output Total 580 / 580 900 / 900 80 / 80 Balance 980 / 980 -150 / -150 -80 / -80 Intake: IV Fluids 1560 / 1560 750 / 750 0.9 % Sodium Chloride 1,000 ML 1000 / 1000 @ 60 mls/hr IVC .[id number] [facility] Rx #:[id number] Ofirmev 1,000 mg/100 ml 1,000 100 / 100 100 / 100 mg In 100 ml @ 400 mls/hr IVPB Q8HR [facility] Rx#:[id number] Intralipid 20% 250 ML @ 21 mls/ 250 / 250 hr IVPB DAILY@1700 [facility] Rx#: [id number] Diflucan Premix 200 MG/100 ML 100 / 100 200 mg In 100 ml @ 100 mls/hr IVPB Q24H [facility] Rx#:[id number] Zosyn 3.375 GM In 0.9 % Sodium 100 / 100 100 / 100 Chloride (Mini-Bag +) 100 ML @ 25 mls/hr IVPB Q8H [facility] Rx#: [id number] Potassium Chloride 10 mEq/100mL 100 / 100 200 / 200 10 meq In 100 ml @ 100 mls/hr IVPB Q1H PRN Rx#:[id number] Sodium Phosphate 30 MMOL In 0.9 260 / 260 % Sodium Chloride 250 ML @ 42 mls/hr IVPB Q12H PRN Rx#: [id number] Output: Urine 80 / 80 Catheter 530 / 530 760 / 760 Gastric Drainage 50 / 50 140 / 140 Other: Weight 92 kg Blood Glucose* 104 104 - General physical appearance well developed, no distress - Eyes PERRL, normal ocular movement - ENT normal mucosa - Neck Neck exam: trachea midline - Respiratory other (ventilated, soft rales bilaterallyl) - Cardiovascular Cardiovascular exam: Present: RRR - Abdomen Abdomen: Present: soft, tender. Absent: bowel sounds present - Incision Incision: Present: clean and dry, open (packed) - Integumentary no rash, no growths - Neurologic CN 2-12 grossly intact - Psychiatric oriented to person, oriented to place - Labs 09/11/17 04:24 09/11/17 04:24 Diabetes panel 09/11/17 Range/Units 04:24 Sodium 142 (136-145) mEq/L Potassium 3.7 (3.5-5.1) mEq/L Chloride 113 H (98-107) mEq/L Carbon Dioxide 26 (23-29) mEq/L BUN 19 (8-23) mg/dL Creatinine 0.77 (0.70-1.30) mg/dL Glucose 114 H (70-105) mg/dL Calcium 7.5 L (8.6-10.3) mg/dL Calcium panel 09/11/17 Range/Units 04:24 Calcium 7.5 L (8.6-10.3) mg/dL Phosphorus 2.4 L (2.7-4.5) mg/dL Pituitary panel 09/11/17 Range/Units 04:24 Sodium 142 (136-145) mEq/L Potassium 3.7 (3.5-5.1) mEq/L Chloride 113 H (98-107) mEq/L Carbon Dioxide 26 (23-29) mEq/L BUN 19 (8-23) mg/dL Creatinine 0.77 (0.70-1.30) mg/dL Glucose 114 H (70-105) mg/dL Calcium 7.5 L (8.6-10.3) mg/dL Adrenal panel 09/11/17 Range/Units 04:24 Sodium 142 (136-145) mEq/L Potassium 3.7 (3.5-5.1) mEq/L Chloride 113 H (98-107) mEq/L Carbon Dioxide 26 (23-29) mEq/L BUN 19 (8-23) mg/dL Creatinine 0.77 (0.70-1.30) mg/dL Glucose 114 H (70-105) mg/dL Calcium 7.5 L (8.6-10.3) mg/dL - Attending Attestation I examined this patient and my medical decision-making was reviewed with the Resident Physician. I agree with the documented findings, disposition and treatment plan as described except to the extent set forth below.
[2017-09-08] MEDS ORDERED: 0.9 % Sodium Chloride 500 ML IVC ONE (11:41)
[2017-09-08] MEDS ORDERED: Clinimix E 5%-15% SOLUTION 2,000 ML with MVI, adult with vitamin K 10 ML IVC SCH (17:00)
[2017-09-09] MEDS: Insulin LISPRO 300 UNITS/3 ML VIAL SQ SCH ×7 (00:20→23:01)
[2017-09-09] MEDS: FentaNYL (PF) 1,000 MCG in 0.9 % Sodium Chloride 80 ML IVC SCH (00:20)
[2017-09-09 04:10] LABS: Hematocrit 30.5 % (37.5-50.1); Mean Corpuscular HGB Conc 32.1 g/dL (31.6-35.5); Mean Corpuscular Hemoglobin 32.3 pg (28.0-33.3); Mean Corpuscular Volume 100.7 fL (83.0-100.0); Monocytes # 0.3 K/mcL (0.0-1.3); Platelet Count 144 K/mcL (140-400); Red Blood Count 3.03 M/mcL (4.19-5.50); Red Cell Distribution Width 13.1 % (11.5-14.5)
[2017-09-09 04:11] LABS: VBG Ionized Calcium 1.12 mmol/L (1.15-1.35)
[2017-09-09 04:13] LABS: Hemoglobin 9.8 g/dL (12.9-16.9)
[2017-09-09 04:28] LABS: BUN/Creatinine Ratio 28 (6-26); Blood Urea Nitrogen 38 mg/dL (8-23); Calcium 7.3 mg/dL (8.6-10.3); Carbon Dioxide 22 mEq/L (23-29); Chloride 114 mEq/L (98-107); Glucose 141 mg/dL (70-105); Magnesium 2.2 mg/dL (1.6-2.6); Osmolality,Calculated 299 (280-300); Phosphorous 2.3 mg/dL (2.7-4.5); Potassium 3.6 mEq/L (3.5-5.1); Sodium 139 mEq/L (136-145); eGFR For African Americans > 60 (> 60); eGFR For Non-African Americans 51 (> 60)
[2017-09-09] MEDS: Piperacillin/Tazobactam 3.375 GM in 0.9 % Sodium Chloride Mini Bag 100 ML IVPB SCH ×3 (04:28→19:39)
[2017-09-09 04:36] LABS: Lymphocytes # 1.8 K/mcL (0.6-4.6); Neutrophils # 12.6 K/mcL (1.6-8.9)
[2017-09-09 04:37] LABS: Hypochromasia Present (Not Present)
[2017-09-09 04:39] LABS: Platelet Estimate Normal (Normal)
[2017-09-09 05:18] LABS: ABG Base Excess -1 mEq/L (-2 to 3); ABG HCO3 24 mEq/L (21-27); ABG Oxygen Saturation 97 % (95-98); ABG PCO2 41 mmHg (35-45); ABG PH 7.38 pH Units (7.32-7.45); ABG PO2 98 mmHg (85-104); ABG TCO2 25 mEq/L (20-26); Blood Gas Modality ASSIST CONTROL; Blood Gas PEEP 5 cm H2O; Blood Gas Respiration Rate 12; Blood Gas VT 500 cc
[2017-09-09] MEDS: Lacri-Lube 3.5 GM TUBE BOTH EYES SCH ×2 (06:14→07:28)
[2017-09-09] MEDS: *HR* Heparin 5,000 UNIT/ML VIAL SQ SCH ×2 (06:23→17:46)
--- NOTE | 2017-09-09 07:52 | Pulmonology Progress Note ---
<Bernardo Jacques - Last Filed: 09/09/17 15:25> Date of Encounter: 09/09/17 Time of Encounter: 14:40 Assessment and Plan (1) Status post exploratory laparotomy Current Visit: Yes Status: Acute Patient was intubated for surgery medical treatment is being followed and controlled by the surgical team where consult for ventilator management. Patient was extubated today has been doing well he is alert oriented able to follow commands and able to speak. Patient is doing well at this time and pulmonology can sign off this patient as there is no longer ventilator management needed. (2) Small bowel obstruction Current Visit: Yes Status: Acute We are only managing ventilator the surgical team is managing the rest for the patient. Subjective Principal diagnosis: Small bowel obstruction Interval history: Overnight there were no acute events. Patient was on a ventilator ventilator overnight we did successfully extubate the patient and he is now alert oriented and able to follow commands. Due to patient no longer needing ventilator support being medically ran by the surgical team the pulmonology team is now signing off this patient. Objective PUL Vital signs: Last Vital Signs Temp 98.9 F 09/09/17 07:10 Pulse 86 09/09/17 07:10 Resp 12 09/09/17 07:10 BP 103/61 09/09/17 07:10 Pulse Ox 99 09/09/17 07:10 General appearance: no acute distress, alert Eyes: nonicteric ENT: oropharynx moist Neck: supple Effort: normal Auscultation: bilateral: clear, diminished breath sounds Cardiovascular: regular rate and rhythm Gastrointestinal: normoactive bowel sounds, tender, guarding Integumentary: normal Extremities: no cyanosis, no edema, no clubbing Musculoskeletal: no deformities, ROM normal normal mental status, non-focal exam, pupils equal and round, motor strength normal and symmetric Ventilator Settings Ventilator Settings: Ventilator Settings, Last 8 Hours Ventilator Mode CPAP Ventilator Mode VC+ Ventilator Mode VC+ Ventilator Mode VC+ Ventilator Mode VC+ Ventilator Mode VC+ Ventilator Mode VC+ Ventilator Mode VC+ Ventilator Mode VC+ Ventilator Tidal Volume 500 Setting Ventilator Tidal Volume 500 Setting Ventilator Tidal Volume 500 Setting Ventilator Tidal Volume 500 Setting Ventilator Tidal Volume 500 Setting Ventilator Tidal Volume 500 Setting Ventilator Tidal Volume 500 Setting Ventilator Tidal Volume 500 Setting Ventilator Tidal Volume 500 Setting Ventilator Tidal Volume 500 Setting Ventilator Tidal Volume 500 Setting Ventilator Respiratory Rate 12 Setting Ventilator Respiratory Rate 12 Setting Ventilator Respiratory Rate 12 Setting Ventilator Respiratory Rate 12 Setting Ventilator Respiratory Rate 12 Setting Ventilator Respiratory Rate 12 Setting Ventilator Respiratory Rate 12 Setting Ventilator Respiratory Rate 12 Setting Ventilator Respiratory Rate 12 Setting Ventilator Respiratory Rate 12 Setting Ventilator Respiratory Rate 12 Setting Actual Respiratory Rate 12 Actual Respiratory Rate 18 Actual Respiratory Rate 18 Actual Respiratory Rate 18 Actual Respiratory Rate 18 Actual Respiratory Rate 18 Actual Respiratory Rate 18 Actual Respiratory Rate 18 Actual Respiratory Rate 17 Actual Respiratory Rate 17 Positive End Expiratory 5 Pressure Positive End Expiratory 5 Pressure Positive End Expiratory 5 Pressure Positive End Expiratory 5 Pressure Positive End Expiratory 5 Pressure Positive End Expiratory 5 Pressure Positive End Expiratory 5 Pressure Positive End Expiratory 5 Pressure Positive End Expiratory 5 Pressure Positive End Expiratory 5 Pressure Positive End Expiratory 5 Pressure Positive End Expiratory 5 Pressure Peak Inspiratory Airway 11 Pressure Peak Inspiratory Airway 11 Pressure Peak Inspiratory Airway 11 Pressure Peak Inspiratory Airway 16 Pressure Peak Inspiratory Airway 16 Pressure Peak Inspiratory Airway 16 Pressure Peak Inspiratory Airway 18 Pressure Peak Inspiratory Airway 16 Pressure Peak Inspiratory Airway 15 Pressure Peak Inspiratory Airway 15 Pressure Results - Laboratory Findings CBC and BMP: 09/09/17 04:00 09/09/17 04:00 ABG ABG pH 7.38 pH Units (7.32-7.45) 09/09/17 05:14 ABG pCO2 41 mmHg (35-45) 09/09/17 05:14 ABG pO2 98 mmHg (85-104) 09/09/17 05:14 ABG O2 Saturation 97 % (95-98) 09/09/17 05:14 Abnormal lab findings: Abnormal lab results WBC 14.6 K/mcL (4.3-11.1) H D 09/09/17 04:00 RBC 3.03 M/mcL (4.19-5.50) L 09/09/17 04:00 Hgb 9.8 g/dL (12.9-16.9) L D 09/09/17 04:00 Hct 30.5 % (37.5-50.1) L 09/09/17 04:00 MCV 100.7 fL (83.0-100.0) H 09/09/17 04:00 Band Neutrophils % 12.0 % (0-4) H 09/09/17 04:00 Neutrophils # 12.6 K/mcL (1.6-8.9) H 09/09/17 04:00 Hypochromasia Present (Not Present) A 09/09/17 04:00 Chloride 114 mEq/L (98-107) H 09/09/17 04:00 Carbon Dioxide 22 mEq/L (23-29) L 09/09/17 04:00 BUN 38 mg/dL (8-23) H 09/09/17 04:00 Creatinine 1.37 mg/dL (0.70-1.30) H 09/09/17 04:00 Est GFR (Non-Af Amer) 51 (> 60) L 09/09/17 04:00 BUN/Creatinine Ratio 28 (6-26) H 09/09/17 04:00 Glucose 141 mg/dL (70-105) H 09/09/17 04:00 Calcium 7.3 mg/dL (8.6-10.3) L 09/09/17 04:00 Venous Ioniz Calcium 1.12 mmol/L (1.15-1.35) L 09/09/17 04:07 Phosphorus 2.3 mg/dL (2.7-4.5) L 09/09/17 04:00 Total Bilirubin 1.7 mg/dL (0.3-1.0) H 09/03/17 10:18 Direct Bilirubin 0.4 mg/dL (0.0-0.2) H 09/03/17 10:18 Indirect Bilirubin 1.3 mg/dL (0.0-1.2) H 09/03/17 10:18 Prealbumin 11.6 mg/dL (17.0-34.0) L 09/08/17 04:50 Ur Specific [place] 1.027 (1.010-1.025) H 09/03/17 11:37 Urine Ketones Trace mg/dL (Negative) H 09/03/17 11:37 Urine Bilirubin Small (Negative) H 09/03/17 11:37 Urine Urobilinogen 2.0 mg/dL (Normal) H 09/03/17 11:37 Ur Leukocyte Esterase Large (Negative) H 09/03/17 11:37 Urine Microscopic RBC 5-15 per hpf (0-3) H 09/03/17 11:37 Urine Microscopic WBC TNTC per hpf (0-3) H 09/03/17 11:37 Urine Bacteria Moderate per hpf (None-Few) H 09/03/17 11:37 Ur Culture Indicated? YES (NO) A 09/03/17 11:37 - Diagnostic Findings Chest x-ray: image reviewed - Clinical Findings Intake & Output: Intake & Output 09/08/17 09/08/17 09/09/17 15:59 23:59 07:59 Intake Total 1148 / 1148 2430 / 2430 450 / 450 Output Total 255 / 255 246 / 246 639 / 639 Balance 893 / 893 2184 / 2184 -189 / -189 - VTE Documentation of Mechanical Device: Intermittent pneumatic compression device Consult Discharge Plan - Plan Referrals: Lobito Lang MD [Primary Care Provider] - <Frandy Mcfarland - Last Filed: 09/09/17 16:05> Date of Encounter: 09/09/17 Objective PUL Vital signs: Last Vital Signs Temp 98.9 F 09/09/17 07:10 Pulse 95 09/09/17 09:00 Resp 20 09/09/17 09:00 BP 149/69 09/09/17 09:00 Pulse Ox 98 09/09/17 09:00 Ventilator Settings Ventilator Settings: Ventilator Settings, Last 8 Hours Ventilator Mode CPAP Ventilator Mode VC+ Ventilator Mode VC+ Ventilator Mode VC+ Ventilator Mode VC+ Ventilator Mode VC+ Ventilator Tidal Volume 500 Setting Ventilator Tidal Volume 500 Setting Ventilator Tidal Volume 500 Setting Ventilator Tidal Volume 500 Setting Ventilator Tidal Volume 500 Setting Ventilator Tidal Volume 500 Setting Ventilator Tidal Volume 500 Setting Ventilator Respiratory Rate 12 Setting Ventilator Respiratory Rate 12 Setting Ventilator Respiratory Rate 12 Setting Ventilator Respiratory Rate 12 Setting Ventilator Respiratory Rate 12 Setting Ventilator Respiratory Rate 12 Setting Ventilator Respiratory Rate 12 Setting Actual Respiratory Rate 15 Actual Respiratory Rate 12 Actual Respiratory Rate 18 Actual Respiratory Rate 18 Actual Respiratory Rate 18 Actual Respiratory Rate 18 Actual Respiratory Rate 18 Positive End Expiratory 5 Pressure Positive End Expiratory 5 Pressure Positive End Expiratory 5 Pressure Positive End Expiratory 5 Pressure Positive End Expiratory 5 Pressure Positive End Expiratory 5 Pressure Positive End Expiratory 5 Pressure Positive End Expiratory 5 Pressure Positive End Expiratory 5 Pressure Peak Inspiratory Airway 11 Pressure Peak Inspiratory Airway 11 Pressure Peak Inspiratory Airway 11 Pressure Peak Inspiratory Airway 11 Pressure Peak Inspiratory Airway 16 Pressure Peak Inspiratory Airway 16 Pressure Peak Inspiratory Airway 16 Pressure Results - Laboratory Findings CBC and BMP: 09/09/17 04:00 09/09/17 04:00 ABG ABG pH 7.38 pH Units (7.32-7.45) 09/09/17 05:14 ABG pCO2 41 mmHg (35-45) 09/09/17 05:14 ABG pO2 98 mmHg (85-104) 09/09/17 05:14 ABG O2 Saturation 97 % (95-98) 09/09/17 05:14 Abnormal lab findings: Abnormal lab results WBC 14.6 K/mcL (4.3-11.1) H D 09/09/17 04:00 RBC 3.03 M/mcL (4.19-5.50) L 09/09/17 04:00 Hgb 9.8 g/dL (12.9-16.9) L D 09/09/17 04:00 Hct 30.5 % (37.5-50.1) L 09/09/17 04:00 MCV 100.7 fL (83.0-100.0) H 09/09/17 04:00 Band Neutrophils % 12.0 % (0-4) H 09/09/17 04:00 Neutrophils # 12.6 K/mcL (1.6-8.9) H 09/09/17 04:00 Hypochromasia Present (Not Present) A 09/09/17 04:00 Chloride 114 mEq/L (98-107) H 09/09/17 04:00 Carbon Dioxide 22 mEq/L (23-29) L 09/09/17 04:00 BUN 38 mg/dL (8-23) H 09/09/17 04:00 Creatinine 1.37 mg/dL (0.70-1.30) H 09/09/17 04:00 Est GFR (Non-Af Amer) 51 (> 60) L 09/09/17 04:00 BUN/Creatinine Ratio 28 (6-26) H 09/09/17 04:00 Glucose 141 mg/dL (70-105) H 09/09/17 04:00 Calcium 7.3 mg/dL (8.6-10.3) L 09/09/17 04:00 Venous Ioniz Calcium 1.12 mmol/L (1.15-1.35) L 09/09/17 04:07 Phosphorus 2.3 mg/dL (2.7-4.5) L 09/09/17 04:00 Total Bilirubin 1.7 mg/dL (0.3-1.0) H 09/03/17 10:18 Direct Bilirubin 0.4 mg/dL (0.0-0.2) H 09/03/17 10:18 Indirect Bilirubin 1.3 mg/dL (0.0-1.2) H 09/03/17 10:18 Prealbumin 11.6 mg/dL (17.0-34.0) L 09/08/17 04:50 Ur Specific [place] 1.027 (1.010-1.025) H 09/03/17 11:37 Urine Ketones Trace mg/dL (Negative) H 09/03/17 11:37 Urine Bilirubin Small (Negative) H 09/03/17 11:37 Urine Urobilinogen 2.0 mg/dL (Normal) H 09/03/17 11:37 Ur Leukocyte Esterase Large (Negative) H 09/03/17 11:37 Urine Microscopic RBC 5-15 per hpf (0-3) H 09/03/17 11:37 Urine Microscopic WBC TNTC per hpf (0-3) H 09/03/17 11:37 Urine Bacteria Moderate per hpf (None-Few) H 09/03/17 11:37 Ur Culture Indicated? YES (NO) A 09/03/17 11:37 - Clinical Findings Intake & Output: Intake & Output 09/08/17 09/09/17 09/09/17 23:59 07:59 15:59 Intake Total 2430 / 2430 474 / 474 1000 / 1000 Output Total 246 / 246 639 / 639 120 / 120 Balance 2184 / 2184 -165 / -165 880 / 880 - Attending Attestation I examined this patient and my medical decision-making was reviewed with the Resident Physician. I agree with the documented findings, disposition and treatment plan as described except to the extent set forth below. Patient seen and examined. Labs, radiology, chart personally reviewed. Agree with resident's history and physical, assessment, plan with following comments: WELDING ESTIMATOR: Patient follows commands, Pulmonary: Acceptable oxygenation and ventilation and patient was successfully extubated Cardiovascular: stable GI: Nutrition per dietary and GI prophylaxis per routine Heme: DVT prophylaxis per routine. Prognosis is poor from his underlying malignancies. ID: Continue antibiotics and plan to de-escalation Renal; urine out put and renal funtion reviewed Endorcine: blood glucose is monitored Lines: all lines checked and no evidence of infections Skin: skin care to prevent pressure ulcers per nursing routine care Please call for any question
[2017-09-09] MEDS: Acetaminophen IV 1,000 MG/100 ML INFUS..BTL IVPB SCH ×3 (08:30→23:00)
--- NOTE | 2017-09-09 09:32 | General Surgery Progress Note ---
<Mark Grubbs - Last Filed: 09/09/17 11:30> Date of Encounter: 09/09/17 Time of Encounter: 09:15 - Assessment and Plan (1) Status post exploratory laparotomy Current Visit: Yes Status: Acute Patient's systolic BP range has been from 101-119/53-77, currently at 103/61. MAP of 86. Extubated today at 0751. Doing well at 2L O2 at 98%. Mild serosanguinous draining upon palpation of abdominal incision. Urine catheter drainage has increased from 30 to 40 to 50 ccs per hour. Total urine output today has been 459 ml. Total gastric drainage of 350 ml. Abdominal incision mehul intact. POD#2 exploratory laparotomy, lysis of adhesions 2.5 hours, repair serosal tears, small bowel resection x2 - NPO (continue NG tube for decompression). - Daily wound care - Await bowel function to return -TPN -Electrolyte protocol. -Pathology pending. - Cont. steen. - Monitor I & Os. - Daily wound care. - Continue zosyn and fluconazole. (2) Small bowel obstruction Current Visit: Yes Status: Acute Pt with Hx of stage IV colon adenocarcinoma S/p open low anterior resection appendectomy, resection of an omental mass, take down of splenic flexure and a colostomy placed by Dr. Zhao July 2014. Continues to have no output to ostomy bag 09/07/17 - See plan above (3) Acute respiratory failure Current Visit: Yes Status: Resolved Patient extubated. Doing well at 2L O2 at 98% NC. Qualifiers: Qualified Code(s): J96.00 - Acute respiratory failure, unspecified whether with hypoxia or hypercapnia (4) Urinary tract infection Current Visit: Yes Status: Suspected UA on admission shows: large leuk esterase, TNTC WBCs, moderate Urina Bacteria. Culture results: enteroccus faecalis R only to doxycycline. -Continue zosyn. - Qualifiers: Urinary tract infection type: acute cystitis Hematuria presence: without hematuria Qualified Code(s): N30.00 - Acute cystitis without hematuria (5) DVT prophylaxis Current Visit: Yes Status: Acute Heparin 5000 U subQ BID. Subjective Narrative: Patient extubated today at 0751. He is alert and oriented. He denies any chest pain or shortness of breath. He admits to very mild abdominal discomfort. Objective VITAL SIGNS: Reviewed. See [facility] GENERAL: No apparent distress. HEENT: [Normocephalic, PER, EOMi, oropharynx pink/moist, no JVD noted.] CV: b/l rad pulses 2+, RRR, no murmurs or gallops, no JVD RESPIRATORY: CTAB without wheezes, rales, or rhonchi. On 2L O2 NC. NG tube in place. ABD: soft, non-tender, no rebound/guarding/rigidity, no peritoneal signs. INCISION: clean, intact without purulence/edema/rubor/calor. Mild serosanguinous draining upon palpation. EXTREMITY: grossly normal motor function, no pedal edema, peripheral pulses 2+ b /l NEUROLOGIC EXAM: AOx3, obeys commands, no speech deficits. PSYCHIATRIC: normal mood and affect SKIN: no rashes or skin changes Vital Signs - Last 8 Hours Temp Pulse Resp BP Pulse Ox 09/09/17 09:00 95 20 149/69 98 09/09/17 08:00 94 19 146/67 99 09/09/17 07:10 98.9 F 85 12 103/61 99 09/09/17 06:00 93 12 119/53 99 09/09/17 05:32 18 114/55 100 09/09/17 05:00 91 16 114/55 99 09/09/17 04:27 98.4 F 09/09/17 04:00 82 16 109/53 99 09/09/17 03:30 18 101/56 99 09/09/17 03:00 89 18 121/77 99 09/09/17 02:00 93 18 115/57 99 Intake and Output 09/08/17 09/09/17 09/09/17 23:59 07:59 15:59 Intake Total 2430 / 2430 450 / 450 Output Total 246 / 246 639 / 639 120 / 120 Balance 2184 / 2184 -189 / -189 -120 / -120 Intake: IV Fluids 2430 / 2430 450 / 450 0.9 % Sodium Chloride 1,000 ML 1000 / 1000 @ 60 mls/hr IVC .[id number] [facility] Rx #:[id number] ALBURX 5% 12.5 gm In 250 ml @ 250 / 250 250 / 250 60 mls/hr IVC .[id number] [facility] Rx#: [id number] FentaNYL (PF) 1,000 MCG In 0.9 100 / 100 % Sodium Chloride 80 ML @ 50 MCG/HR 5 mls/hr IVC CONT [facility] Rx #:[id number] Clinimix E 5%-15% SOLUTION 2, 1080 / 1080 000 ML @ 50 mls/hr IVC .Q24H [facility] with M.v.i. Adult 10 ml Rx# :[id number] Ofirmev 1,000 mg/100 ml 1,000 100 / 100 mg In 100 ml @ 400 mls/hr IVPB Q8HR [facility] Rx#:[id number] Zosyn 3.375 GM In 0.9 % Sodium 100 / 100 Chloride (Mini-Bag +) 100 ML @ 25 mls/hr IVPB Q8H [facility] Rx#: [id number] Output: Catheter 246 / 246 289 / 289 120 / 120 Gastric Drainage 350 / 350 Other: Blood Glucose* 120 93 - Labs 09/09/17 04:00 09/09/17 04:00 Diabetes panel 09/09/17 Range/Units 04:00 Sodium 139 (136-145) mEq/L Potassium 3.6 (3.5-5.1) mEq/L Chloride 114 H (98-107) mEq/L Carbon Dioxide 22 L (23-29) mEq/L BUN 38 H (8-23) mg/dL Creatinine 1.37 H (0.70-1.30) mg/dL Glucose 141 H (70-105) mg/dL Calcium 7.3 L (8.6-10.3) mg/dL Calcium panel 09/09/17 Range/Units 04:00 Calcium 7.3 L (8.6-10.3) mg/dL Phosphorus 2.3 L (2.7-4.5) mg/dL Pituitary panel 09/09/17 Range/Units 04:00 Sodium 139 (136-145) mEq/L Potassium 3.6 (3.5-5.1) mEq/L Chloride 114 H (98-107) mEq/L Carbon Dioxide 22 L (23-29) mEq/L BUN 38 H (8-23) mg/dL Creatinine 1.37 H (0.70-1.30) mg/dL Glucose 141 H (70-105) mg/dL Calcium 7.3 L (8.6-10.3) mg/dL Adrenal panel 09/09/17 Range/Units 04:00 Sodium 139 (136-145) mEq/L Potassium 3.6 (3.5-5.1) mEq/L Chloride 114 H (98-107) mEq/L Carbon Dioxide 22 L (23-29) mEq/L BUN 38 H (8-23) mg/dL Creatinine 1.37 H (0.70-1.30) mg/dL Glucose 141 H (70-105) mg/dL Calcium 7.3 L (8.6-10.3) mg/dL - VTE Documentation of Mechanical Device: Intermittent pneumatic compression device Consult Discharge Plan - Plan Referrals: Lobito Lang MD [Primary Care Provider] - <Ayde Zhao - Last Filed: 09/11/17 11:40> Date of Encounter: 09/09/17 - Assessment and Plan (1) Small bowel obstruction due to adhesions Current Visit: Yes Status: Acute pod 2 continue npo, ngt liws await return of bowel function expect likely prolonged ileus continue antibiotics prn pain control gi/dvt propphylaxis OOB to chair continue steen for accurate I/O's (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 (3) Prostate enlargement Current Visit: No Status: Chronic holding home meds (4) Hypertension Current Visit: No Status: Chronic stable, monitor Qualifiers: Hypertension type: essential hypertension Qualified Code(s): I10 - Essential (primary) hypertension (5) Urinary tract infection Current Visit: Yes Status: Suspected Qualifiers: Urinary tract infection type: acute cystitis Hematuria presence: without hematuria Qualified Code(s): N30.00 - Acute cystitis without hematuria Subjective Narrative: patient extubated yesterday abdominal pain controlled no nausea no bowel function Objective Vital Signs - Last 8 Hours Temp Pulse Resp BP Pulse Ox 09/11/17 10:59 81 13 162/76 95 09/11/17 10:00 78 11 158/76 93 09/11/17 09:00 89 18 146/68 92 09/11/17 08:25 17 93 09/11/17 08:00 99 17 161/69 93 09/11/17 07:00 98.9 F 85 11 166/77 93 09/11/17 06:06 86 19 152/70 94 09/11/17 05:10 88 16 153/66 94 09/11/17 04:00 84 20 154/78 94 09/11/17 03:43 14 92 Intake and Output 09/10/17 09/11/17 09/11/17 23:59 07:59 15:59 Intake Total 1560 / 1560 750 / 750 200 / 200 Output Total 580 / 580 900 / 900 300 / 300 Balance 980 / 980 -150 / -150 -100 / -100 Intake: IV Fluids 1560 / 1560 750 / 750 200 / 200 0.9 % Sodium Chloride 1,000 ML 1000 / 1000 @ 60 mls/hr IVC .[id number] [facility] Rx #:[id number] Ofirmev 1,000 mg/100 ml 1,000 100 / 100 100 / 100 100 / 100 mg In 100 ml @ 400 mls/hr IVPB Q8HR [facility] Rx#:[id number] Intralipid 20% 250 ML @ 21 mls/ 250 / 250 hr IVPB DAILY@1700 [facility] Rx#: [id number] Diflucan Premix 200 MG/100 ML 100 / 100 200 mg In 100 ml @ 100 mls/hr IVPB Q24H [facility] Rx#:[id number] Zosyn 3.375 GM In 0.9 % Sodium 100 / 100 100 / 100 Chloride (Mini-Bag +) 100 ML @ 25 mls/hr IVPB Q8H [facility] Rx#: [id number] Potassium Chloride 10 mEq/100mL 100 / 100 200 / 200 100 / 100 10 meq In 100 ml @ 100 mls/hr IVPB Q1H PRN Rx#:[id number] Sodium Phosphate 30 MMOL In 0.9 260 / 260 % Sodium Chloride 250 ML @ 42 mls/hr IVPB Q12H PRN Rx#: [id number] Output: Urine 80 / 80 Catheter 530 / 530 760 / 760 220 / 220 Gastric Drainage 50 / 50 140 / 140 Other: Weight 92 kg Blood Glucose* 104 104 - General physical appearance well developed, no distress - Eyes PERRL, normal ocular movement - ENT normal mucosa, normocephalic - Neck Neck exam: trachea midline - Respiratory normal expansion, normal respiratory effort, clear to auscultation - Cardiovascular Cardiovascular exam: Present: RRR - Abdomen Abdomen: Present: soft, distended (firm), tender (appropriate post op tenderness ). Absent: bowel sounds present, guarding, rebound - Incision Incision: Present: clean and dry, open (packed) - Genitourinary other (steen with clear yellow urine) - Integumentary no growths - Neurologic CN 2-12 grossly intact - Musculoskeletal normal posture - Psychiatric oriented to time, oriented to person, oriented to place, speech is normal, memory intact - Labs 09/11/17 04:24 09/11/17 04:24 Diabetes panel 09/11/17 Range/Units 04:24 Sodium 142 (136-145) mEq/L Potassium 3.7 (3.5-5.1) mEq/L Chloride 113 H (98-107) mEq/L Carbon Dioxide 26 (23-29) mEq/L BUN 19 (8-23) mg/dL Creatinine 0.77 (0.70-1.30) mg/dL Glucose 114 H (70-105) mg/dL Calcium 7.5 L (8.6-10.3) mg/dL Calcium panel 09/11/17 Range/Units 04:24 Calcium 7.5 L (8.6-10.3) mg/dL Phosphorus 2.4 L (2.7-4.5) mg/dL Pituitary panel 09/11/17 Range/Units 04:24 Sodium 142 (136-145) mEq/L Potassium 3.7 (3.5-5.1) mEq/L Chloride 113 H (98-107) mEq/L Carbon Dioxide 26 (23-29) mEq/L BUN 19 (8-23) mg/dL Creatinine 0.77 (0.70-1.30) mg/dL Glucose 114 H (70-105) mg/dL Calcium 7.5 L (8.6-10.3) mg/dL Adrenal panel 09/11/17 Range/Units 04:24 Sodium 142 (136-145) mEq/L Potassium 3.7 (3.5-5.1) mEq/L Chloride 113 H (98-107) mEq/L Carbon Dioxide 26 (23-29) mEq/L BUN 19 (8-23) mg/dL Creatinine 0.77 (0.70-1.30) mg/dL Glucose 114 H (70-105) mg/dL Calcium 7.5 L (8.6-10.3) mg/dL - Attending Attestation I examined this patient and my medical decision-making was reviewed with the Resident Physician. I agree with the documented findings, disposition and treatment plan as described except to the extent set forth below.
[2017-09-09] MEDS: 0.9 % Sodium Chloride 1,000 ML IVC SCH (10:06)
[2017-09-09] MEDS: Pantoprazole 40 MG VIAL IVP SCH (10:06)
[2017-09-09] MEDS ORDERED: Clinimix E 5%-15% SOLUTION 2,000 ML with MVI, adult with vitamin K 10 ML IVC SCH (17:00)
[2017-09-09] MEDS: Fluconazole 200 MG/100 ML 200 MG/100 ML BAG IVPB SCH ×2 (19:37→22:08)
[2017-09-10] MEDS: 0.9 % Sodium Chloride 1,000 ML IVC SCH ×2 (01:12→19:56)
[2017-09-10] MEDS: Piperacillin/Tazobactam 3.375 GM in 0.9 % Sodium Chloride Mini Bag 100 ML IVPB SCH ×3 (02:00→17:11)
[2017-09-10 04:17] LABS: Basophils % 0.1 %; Eosinophils # 0.1 K/mcL (0.0-0.6); Eosinophils % 0.7 %; Hematocrit 24.8 % (37.5-50.1); Hemoglobin 8.3 g/dL (12.9-16.9); Immature Granulocytes % 3.8 % (0-4); Immature Platelets 5.9 % (1.1-6.1); Lymphocytes # 0.5 K/mcL (0.6-4.6); Lymphocytes % 4.3 %; Mean Corpuscular HGB Conc 33.5 g/dL (31.6-35.5); Mean Corpuscular Hemoglobin 33.6 pg (28.0-33.3); Mean Corpuscular Volume 100.4 fL (83.0-100.0); Mean Platelet Volume 11.1 fL (9.4-12.4); Monocytes # 0.2 K/mcL (0.0-1.3); Monocytes % 1.8 %; Nucleated Red Blood Cells 0.2 /100 WBC (0); Platelet Count 143 K/mcL (140-400); Red Blood Count 2.47 M/mcL (4.19-5.50); Red Cell Distribution Width 13.4 % (11.5-14.5); Segmented Neutrophils % 89.3 %
[2017-09-10 04:23] LABS: BUN/Creatinine Ratio 27 (6-26); Blood Urea Nitrogen 25 mg/dL (8-23); Calcium 7.4 mg/dL (8.6-10.3); Carbon Dioxide 24 mEq/L (23-29); Chloride 114 mEq/L (98-107); Glucose 131 mg/dL (70-105); Magnesium 2.2 mg/dL (1.6-2.6); Osmolality,Calculated 302 (280-300); Phosphorous 2.2 mg/dL (2.7-4.5); Potassium 3.4 mEq/L (3.5-5.1); Sodium 143 mEq/L (136-145); eGFR For African Americans > 60 (> 60); eGFR For Non-African Americans > 60 (> 60)
[2017-09-10] MEDS: *HR* Heparin 5,000 UNIT/ML VIAL SQ SCH ×2 (05:31→17:27)
[2017-09-10] MEDS: Insulin LISPRO 300 UNITS/3 ML VIAL SQ SCH ×6 (05:32→23:10)
[2017-09-10] MEDS: OXYCODONE Oral CONC 10 MG/0.5 ML ORAL.SYG SL PRN ×3 (06:00→23:20)
[2017-09-10] MEDS: *HR* FentaNYL PATCH 25 MCG PATCH TD SCH (06:00)
[2017-09-10 06:04] LABS: Neutrophils # 11.3 K/mcL (1.6-8.9)
[2017-09-10 06:05] LABS: Hypochromasia Present (Not Present); Platelet Estimate Decreased (Normal)
--- NOTE | 2017-09-10 08:51 | General Surgery Progress Note ---
<Mark Grubbs - Last Filed: 09/10/17 15:00> Date of Encounter: 09/10/17 Time of Encounter: 08:40 - Assessment and Plan (1) Status post exploratory laparotomy Current Visit: Yes Status: Acute Patient's systolic BP range has been from 136-162/57-59, currently at 144/79. MAP of 99. Extubated yesterday morning. Doing well at 2L O2 at 100%. Overnight low-grade fever of 100.1. Currently afebrile. Urine catheter drainage has increased from 50 cc to 80-100 cc per hour. Gastric drainage of 30 ml per hour. Abdominal incision mehul intact. No drainage upon palpation. POD#3 exploratory laparotomy, lysis of adhesions 2.5 hours, repair serosal tears, small bowel resection x2 - NPO (continue NG tube for decompression). - Daily wound care - Await bowel function to return -TPN -Electrolyte protocol. -Pathology pending. - Cont. steen. - Monitor I & Os. - Daily wound care. - Continue zosyn and fluconazole. (2) Small bowel obstruction Current Visit: Yes Status: Acute Pt with Hx of stage IV colon adenocarcinoma S/p open low anterior resection appendectomy, resection of an omental mass, take down of splenic flexure and a colostomy placed by Dr. Zhao July 2014. Continues to have no output to ostomy bag 09/07/17 - See plan above (3) Acute respiratory failure Current Visit: Yes Status: Resolved Patient extubated. Doing well at 2L O2 at 100% NC. Qualifiers: Qualified Code(s): J96.00 - Acute respiratory failure, unspecified whether with hypoxia or hypercapnia (4) Urinary tract infection Current Visit: Yes Status: Suspected UA on admission shows: large leuk esterase, TNTC WBCs, moderate Urina Bacteria. Culture results: enteroccus faecalis R only to doxycycline. -Continue zosyn. - Qualifiers: Urinary tract infection type: acute cystitis Hematuria presence: without hematuria Qualified Code(s): N30.00 - Acute cystitis without hematuria (5) DVT prophylaxis Current Visit: Yes Status: Acute Heparin 5000 U subQ BID. Subjective Narrative: Patient says his abdominal pain has been the same since yesterday. He denies any nausea or vomiting. Denies any chest pain or shortness of breath. No output from colostomy yet. Objective VITAL SIGNS: Reviewed. See [facility] GENERAL: no apprent distress. HEENT: [Normocephalic, PER, EOMi, oropharynx pink/moist, no JVD noted.] CV: b/l rad pulses 2+, RRR, no murmurs or gallops, no JVD RESPIRATORY: CTAB without wheezes, rales, or rhonchi ABD: soft, minor tenderness to deep palpation x 4, no rebound/guarding/rigidity , no peritoneal signs INCISION: abdominal incision is clean, dry, intact without purulence/bleeding/ edema/rubor/calor. Colostomy site clear, patent, no signs of output, no signs of surrounding erythema, no signs of pus or drainage. Colostomy bag had signs of clear condensation indicating passage of gas. DRAINS: NG tube intact. EXTREMITY: grossly normal motor function, no pedal edema, peripheral pulses 2+ b /l NEUROLOGIC EXAM: AOx3, obeys commands, no speech deficits. PSYCHIATRIC: normal mood and affect SKIN: no gross lesions, rashes, or skin changes Vital Signs - Last 8 Hours Temp Pulse Resp BP Pulse Ox 09/10/17 08:07 22 99 09/10/17 07:46 98.3 F 09/10/17 07:41 98.3 F 85 144/79 100 09/10/17 06:00 91 22 149/65 100 09/10/17 05:00 85 19 162/68 100 09/10/17 04:00 83 17 137/60 100 09/10/17 03:00 99 F 86 16 144/60 100 09/10/17 01:55 89 19 151/65 100 09/10/17 01:00 91 16 118/64 99 Intake and Output 09/09/17 09/10/17 09/10/17 23:59 07:59 15:59 Intake Total 1905 / 1905 1350 / 1350 Output Total 570 / 570 695 / 695 Balance 1335 / 1335 655 / 655 Intake: IV Fluids 1905 / 1905 1350 / 1350 0.9 % Sodium Chloride 1,000 ML 1000 / 1000 @ 60 mls/hr IVC .[id number] [facility] Rx #:[id number] Clinimix E 5%-15% SOLUTION 2, 1505 / 1505 000 ML @ 65 mls/hr IVC .Q24H [facility] with M.v.i. Adult 10 ml Rx# :[id number] Ofirmev 1,000 mg/100 ml 1,000 100 / 100 mg In 100 ml @ 400 mls/hr IVPB Q8HR [facility] Rx#:[id number] Intralipid 20% 250 ML @ 21 mls/ 250 / 250 hr IVPB DAILY@1700 [facility] Rx#: [id number] Diflucan Premix 200 MG/100 ML 100 / 100 200 mg In 100 ml @ 100 mls/hr IVPB Q24H [facility] Rx#:[id number] Zosyn 3.375 GM In 0.9 % Sodium 200 / 200 100 / 100 Chloride (Mini-Bag +) 100 ML @ 25 mls/hr IVPB Q8H [facility] Rx#: [id number] Output: Catheter 550 / 550 665 / 665 Gastric Drainage Other: Weight 91 kg Blood Glucose* 123 - Labs 09/10/17 03:10 09/10/17 03:10 Diabetes panel 09/10/17 Range/Units 03:10 Sodium 143 (136-145) mEq/L Potassium 3.4 L (3.5-5.1) mEq/L Chloride 114 H (98-107) mEq/L Carbon Dioxide 24 (23-29) mEq/L BUN 25 H (8-23) mg/dL Creatinine 0.91 (0.70-1.30) mg/dL Glucose 131 H (70-105) mg/dL Calcium 7.4 L (8.6-10.3) mg/dL Calcium panel 09/10/17 Range/Units 03:10 Calcium 7.4 L (8.6-10.3) mg/dL Phosphorus 2.2 L (2.7-4.5) mg/dL Pituitary panel 09/10/17 Range/Units 03:10 Sodium 143 (136-145) mEq/L Potassium 3.4 L (3.5-5.1) mEq/L Chloride 114 H (98-107) mEq/L Carbon Dioxide 24 (23-29) mEq/L BUN 25 H (8-23) mg/dL Creatinine 0.91 (0.70-1.30) mg/dL Glucose 131 H (70-105) mg/dL Calcium 7.4 L (8.6-10.3) mg/dL Adrenal panel 09/10/17 Range/Units 03:10 Sodium 143 (136-145) mEq/L Potassium 3.4 L (3.5-5.1) mEq/L Chloride 114 H (98-107) mEq/L Carbon Dioxide 24 (23-29) mEq/L BUN 25 H (8-23) mg/dL Creatinine 0.91 (0.70-1.30) mg/dL Glucose 131 H (70-105) mg/dL Calcium 7.4 L (8.6-10.3) mg/dL - VTE Documentation of Mechanical Device: Intermittent pneumatic compression device Consult Discharge Plan - Plan Referrals: Lobito Lang MD [Primary Care Provider] - <Ayde Zhao - Last Filed: 09/11/17 11:45> Date of Encounter: 09/10/17 - Assessment and Plan (1) Small bowel obstruction due to adhesions Current Visit: Yes Status: Acute pod 3 ex lap, nhan, sbr x2, enterotomy repairs awaiting return of bowel function hob 30 degrees continue ngt liws npo ok ice chips prn pain control - well controlled gi/dvt prophylaxis prn antiemetics OOB to chair/PT/OT continue steen for accurate I/O's (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 continue colostomy care - await return bowel function (3) Prostate enlargement Current Visit: No Status: Chronic holding home medication (4) Hypertension Current Visit: No Status: Chronic prn antihypertensives monitor, controlled Qualifiers: Hypertension type: essential hypertension Qualified Code(s): I10 - Essential (primary) hypertension (5) Urinary tract infection Current Visit: Yes Status: Suspected continue zosyn Qualifiers: Urinary tract infection type: acute cystitis Hematuria presence: without hematuria Qualified Code(s): N30.00 - Acute cystitis without hematuria Subjective Patient reports: feels better, still having pain, pain is less, no flatus, no bowel movement Objective Vital Signs - Last 8 Hours Temp Pulse Resp BP Pulse Ox 09/11/17 10:59 81 13 162/76 95 09/11/17 10:00 78 11 158/76 93 09/11/17 09:00 89 18 146/68 92 09/11/17 08:25 17 93 09/11/17 08:00 99 17 161/69 93 09/11/17 07:00 98.9 F 85 11 166/77 93 09/11/17 06:06 86 19 152/70 94 09/11/17 05:10 88 16 153/66 94 09/11/17 04:00 84 20 154/78 94 09/11/17 03:43 14 92 Intake and Output 09/10/17 09/11/17 09/11/17 23:59 07:59 15:59 Intake Total 1560 / 1560 750 / 750 1200 / 1200 Output Total 580 / 580 900 / 900 300 / 300 Balance 980 / 980 -150 / -150 900 / 900 Intake: IV Fluids 1560 / 1560 750 / 750 1200 / 1200 0.9 % Sodium Chloride 1,000 ML 1000 / 1000 1000 / 1000 @ 60 mls/hr IVC .[id number] [facility] Rx #:[id number] Ofirmev 1,000 mg/100 ml 1,000 100 / 100 100 / 100 100 / 100 mg In 100 ml @ 400 mls/hr IVPB Q8HR [facility] Rx#:[id number] Intralipid 20% 250 ML @ 21 mls/ 250 / 250 hr IVPB DAILY@1700 [facility] Rx#: [id number] Diflucan Premix 200 MG/100 ML 100 / 100 200 mg In 100 ml @ 100 mls/hr IVPB Q24H [facility] Rx#:[id number] Zosyn 3.375 GM In 0.9 % Sodium 100 / 100 100 / 100 Chloride (Mini-Bag +) 100 ML @ 25 mls/hr IVPB Q8H [facility] Rx#: [id number] Potassium Chloride 10 mEq/100mL 100 / 100 200 / 200 100 / 100 10 meq In 100 ml @ 100 mls/hr IVPB Q1H [facility] Rx#:[id number] Sodium Phosphate 30 MMOL In 0.9 260 / 260 % Sodium Chloride 250 ML @ 42 mls/hr IVPB Q12H [facility] Rx#: [id number] Output: Urine 80 / 80 Catheter 530 / 530 760 / 760 220 / 220 Gastric Drainage 50 / 50 140 / 140 Other: Weight 92 kg Blood Glucose* 104 104 - General physical appearance well developed, no distress - Eyes PERRL, normal ocular movement - ENT normal mucosa, normocephalic - Respiratory normal expansion, clear to auscultation - Cardiovascular Cardiovascular exam: Present: RRR - Abdomen Abdomen: Present: soft, distended, tender. Absent: bowel sounds present, guarding, rebound - Incision Incision: Present: clean and dry, open (packed) - Genitourinary other (steen with clear yellow urine) - Integumentary no rash, no growths - Neurologic CN 2-12 grossly intact - Musculoskeletal normal posture - Psychiatric oriented to time, oriented to person, oriented to place, speech is normal, memory intact - Labs 09/11/17 04:24 09/11/17 04:24 Diabetes panel 09/11/17 Range/Units 04:24 Sodium 142 (136-145) mEq/L Potassium 3.7 (3.5-5.1) mEq/L Chloride 113 H (98-107) mEq/L Carbon Dioxide 26 (23-29) mEq/L BUN 19 (8-23) mg/dL Creatinine 0.77 (0.70-1.30) mg/dL Glucose 114 H (70-105) mg/dL Calcium 7.5 L (8.6-10.3) mg/dL Calcium panel 09/11/17 Range/Units 04:24 Calcium 7.5 L (8.6-10.3) mg/dL Phosphorus 2.4 L (2.7-4.5) mg/dL Pituitary panel 09/11/17 Range/Units 04:24 Sodium 142 (136-145) mEq/L Potassium 3.7 (3.5-5.1) mEq/L Chloride 113 H (98-107) mEq/L Carbon Dioxide 26 (23-29) mEq/L BUN 19 (8-23) mg/dL Creatinine 0.77 (0.70-1.30) mg/dL Glucose 114 H (70-105) mg/dL Calcium 7.5 L (8.6-10.3) mg/dL Adrenal panel 09/11/17 Range/Units 04:24 Sodium 142 (136-145) mEq/L Potassium 3.7 (3.5-5.1) mEq/L Chloride 113 H (98-107) mEq/L Carbon Dioxide 26 (23-29) mEq/L BUN 19 (8-23) mg/dL Creatinine 0.77 (0.70-1.30) mg/dL Glucose 114 H (70-105) mg/dL Calcium 7.5 L (8.6-10.3) mg/dL - Attending Attestation I examined this patient and my medical decision-making was reviewed with the Resident Physician. I agree with the documented findings, disposition and treatment plan as described except to the extent set forth below.
[2017-09-10] MEDS: Pantoprazole 40 MG VIAL IVP SCH (08:55)
[2017-09-10] MEDS: Acetaminophen IV 1,000 MG/100 ML INFUS..BTL IVPB SCH ×3 (08:56→23:10)
[2017-09-10] MEDS ORDERED: Clinimix E 5%-15% SOLUTION 2,000 ML with MVI, adult with vitamin K 10 ML IVC SCH (17:00)
[2017-09-10] MEDS: Fluconazole 200 MG/100 ML 200 MG/100 ML BAG IVPB SCH (23:10)
[2017-09-11] MEDS: Piperacillin/Tazobactam 3.375 GM in 0.9 % Sodium Chloride Mini Bag 100 ML IVPB SCH ×3 (03:02→19:49)
[2017-09-11] MEDS: Insulin LISPRO 300 UNITS/3 ML VIAL SQ SCH ×4 (03:22→21:02)
[2017-09-11] MEDS: OXYCODONE Oral CONC 10 MG/0.5 ML ORAL.SYG SL PRN ×2 (03:48→21:26)
[2017-09-11 04:40] LABS: Basophils % 0.2 %; Eosinophils # 0.2 K/mcL (0.0-0.6); Eosinophils % 1.4 %; Hemoglobin 8.4 g/dL (12.9-16.9); Immature Granulocytes % 2.3 % (0-4); Lymphocytes # 0.6 K/mcL (0.6-4.6); Lymphocytes % 5.5 %; Mean Corpuscular HGB Conc 33.6 g/dL (31.6-35.5); Mean Corpuscular Hemoglobin 33.9 pg (28.0-33.3); Mean Corpuscular Volume 100.8 fL (83.0-100.0); Mean Platelet Volume 11.2 fL (9.4-12.4); Monocytes # 0.3 K/mcL (0.0-1.3); Monocytes % 2.5 %; Neutrophils # 9.8 K/mcL (1.6-8.9); Nucleated Red Blood Cells 0.3 /100 WBC (0); Platelet Count 144 K/mcL (140-400); Red Blood Count 2.48 M/mcL (4.19-5.50); Red Cell Distribution Width 13.9 % (11.5-14.5); Segmented Neutrophils % 88.1 %
[2017-09-11 05:03] LABS: BUN/Creatinine Ratio 25 (6-26); Blood Urea Nitrogen 19 mg/dL (8-23); Calcium 7.5 mg/dL (8.6-10.3); Carbon Dioxide 26 mEq/L (23-29); Chloride 113 mEq/L (98-107); Glucose 114 mg/dL (70-105); Osmolality,Calculated 297 (280-300); Phosphorous 2.4 mg/dL (2.7-4.5); Potassium 3.7 mEq/L (3.5-5.1); Sodium 142 mEq/L (136-145); eGFR For African Americans > 60 (> 60); eGFR For Non-African Americans > 60 (> 60)
[2017-09-11] MEDS: *HR* Heparin 5,000 UNIT/ML VIAL SQ SCH ×2 (05:26→19:50)
[2017-09-11 05:33] LABS: Platelet Estimate Normal (Normal)
--- NOTE | 2017-09-11 07:46 | General Surgery Progress Note ---
<Mark Grubbs - Last Filed: 09/11/17 12:32> Date of Encounter: 09/11/17 Time of Encounter: 07:30 - Assessment and Plan (1) Status post exploratory laparotomy Current Visit: Yes Status: Acute Patient's BP at 152/70. Doing well at 94%. Currently afebrile. Urine catheter drainage 80-100 cc per hour. Gastric drainage of 21 ml per hour. Abdominal incision mehul intact. No drainage upon palpation. Dry sero-sanguinous drainage on bandages. POD#4 exploratory laparotomy, lysis of adhesions 2.5 hours, repair serosal tears, small bowel resection x2 - NPO (continue NG tube for decompression). - Daily wound care - Await bowel function to return -TPN -Electrolyte protocol. -Pathology pending. - Cont. steen. - Monitor I & Os. - Daily wound care. - Continue zosyn and fluconazole. (2) Small bowel obstruction Current Visit: Yes Status: Acute Pt with Hx of stage IV colon adenocarcinoma S/p open low anterior resection appendectomy, resection of an omental mass, take down of splenic flexure and a colostomy placed by Dr. Zhao July 2014. Continues to have no output to ostomy bag 09/07/17 - See plan above (3) Acute respiratory failure Current Visit: Yes Status: Resolved Patient extubated. Doing well at 94% RA. (4) Urinary tract infection Current Visit: Yes Status: Suspected UA on admission shows: large leuk esterase, TNTC WBCs, moderate Urina Bacteria. Culture results: enteroccus faecalis R only to doxycycline. -Continue zosyn. - Qualifiers: Urinary tract infection type: acute cystitis Hematuria presence: without hematuria Qualified Code(s): N30.00 - Acute cystitis without hematuria (5) DVT prophylaxis Current Visit: Yes Status: Acute Heparin 5000 U subQ BID. Subjective Narrative: Patient says that his nausea has increased slightly from yesterday. He denies any vomiting. Denies any chest pain or shortness of breath. Denies any output in colostomy bag. His overall abdominal pain level has been the same since yesterday which has been minimal. Objective VITAL SIGNS: Reviewed. See [facility] GENERAL: no apprent distress. HEENT: [Normocephalic, PER, EOMi, oropharynx pink/moist, no JVD noted.] CV: b/l rad pulses 2+, RRR, no murmurs or gallops, no JVD RESPIRATORY: CTAB without wheezes, rales, or rhonchi ABD: soft, non-tender, no rebound/guarding/rigidity, no peritoneal signs. Normal bowel sounds present. INCISION: abdominal incision is clean, dry, intact without purulence/bleeding/ edema/rubor/calor. Bandage changed displays some dry serosanginous drainage. Colostomy site has minor yellow-serous drainage, patent, no signs of fecal output, no signs of surrounding erythema, no signs of pus. Colostomy bag had signs of clear condensation indicating passage of gas. DRAINS: NG tube intact. EXTREMITY: grossly normal motor function, no pedal edema, peripheral pulses 2+ b /l NEUROLOGIC EXAM: AOx3, obeys commands, no speech deficits. PSYCHIATRIC: normal mood and affect SKIN: no gross lesions, rashes, or skin changes Vital Signs - Last 8 Hours Temp Pulse Resp BP Pulse Ox 09/11/17 07:00 98.9 F 85 11 166/77 93 09/11/17 06:06 86 19 152/70 94 09/11/17 05:10 88 16 153/66 94 09/11/17 04:00 84 20 154/78 94 09/11/17 03:43 14 92 09/11/17 03:00 82 16 142/72 94 09/11/17 02:00 82 19 152/66 95 09/11/17 01:03 92 16 134/65 95 09/11/17 00:00 87 18 158/71 95 09/10/17 23:45 18 94 Intake and Output 09/10/17 09/10/17 09/11/17 15:59 23:59 07:59 Intake Total 300 / 300 1560 / 1560 650 / 650 Output Total 790 / 790 580 / 580 900 / 900 Balance -490 / -490 980 / 980 -250 / -250 Intake: IV Fluids 300 / 300 1560 / 1560 650 / 650 0.9 % Sodium Chloride 1,000 ML 1000 / 1000 @ 60 mls/hr IVC .[id number] [facility] Rx #:[id number] Ofirmev 1,000 mg/100 ml 1,000 100 / 100 100 / 100 100 / 100 mg In 100 ml @ 400 mls/hr IVPB Q8HR [facility] Rx#:[id number] Intralipid 20% 250 ML @ 21 mls/ 250 / 250 hr IVPB DAILY@1700 [facility] Rx#: [id number] Diflucan Premix 200 MG/100 ML 100 / 100 200 mg In 100 ml @ 100 mls/hr IVPB Q24H [facility] Rx#:[id number] Zosyn 3.375 GM In 0.9 % Sodium 100 / 100 100 / 100 100 / 100 Chloride (Mini-Bag +) 100 ML @ 25 mls/hr IVPB Q8H [facility] Rx#: [id number] Potassium Chloride 10 mEq/100mL 100 / 100 100 / 100 100 / 100 10 meq In 100 ml @ 100 mls/hr IVPB Q1H PRN Rx#:[id number] Sodium Phosphate 30 MMOL In 0.9 260 / 260 % Sodium Chloride 250 ML @ 42 mls/hr IVPB Q12H [facility]N Rx#: [id number] Output: Catheter 500 / 500 530 / 530 760 / 760 Gastric Drainage 290 / 290 50 / 50 140 / 140 Other: Weight 92 kg Blood Glucose* 124 104 104 - Labs 09/11/17 04:24 09/11/17 04:24 Diabetes panel 09/11/17 Range/Units 04:24 Sodium 142 (136-145) mEq/L Potassium 3.7 (3.5-5.1) mEq/L Chloride 113 H (98-107) mEq/L Carbon Dioxide 26 (23-29) mEq/L BUN 19 (8-23) mg/dL Creatinine 0.77 (0.70-1.30) mg/dL Glucose 114 H (70-105) mg/dL Calcium 7.5 L (8.6-10.3) mg/dL Calcium panel 09/11/17 Range/Units 04:24 Calcium 7.5 L (8.6-10.3) mg/dL Phosphorus 2.4 L (2.7-4.5) mg/dL Pituitary panel 09/11/17 Range/Units 04:24 Sodium 142 (136-145) mEq/L Potassium 3.7 (3.5-5.1) mEq/L Chloride 113 H (98-107) mEq/L Carbon Dioxide 26 (23-29) mEq/L BUN 19 (8-23) mg/dL Creatinine 0.77 (0.70-1.30) mg/dL Glucose 114 H (70-105) mg/dL Calcium 7.5 L (8.6-10.3) mg/dL Adrenal panel 09/11/17 Range/Units 04:24 Sodium 142 (136-145) mEq/L Potassium 3.7 (3.5-5.1) mEq/L Chloride 113 H (98-107) mEq/L Carbon Dioxide 26 (23-29) mEq/L BUN 19 (8-23) mg/dL Creatinine 0.77 (0.70-1.30) mg/dL Glucose 114 H (70-105) mg/dL Calcium 7.5 L (8.6-10.3) mg/dL - VTE Documentation of Mechanical Device: Intermittent pneumatic compression device Consult Discharge Plan - Plan Referrals: Lobito Lang MD [Primary Care Provider] - <Ayde Zhao - Last Filed: 09/11/17 17:32> Date of Encounter: 09/11/17 Time of Encounter: 17:24 - Assessment and Plan (1) Small bowel obstruction due to adhesions Current Visit: Yes Status: Acute pod 4, ex lap, nhan, sbr x2, repair enterotomy await return of bowel function npo, ngt to liws start reglan ok ice chips and popcicles wbc wnl, continue abx continue PT/OT OOB to chair bid pain well controlled, continue regimen daily dressing changes to midline (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 no output, await (3) Prostate enlargement Current Visit: No Status: Chronic holding home medication (4) Hypertension Current Visit: No Status: Chronic elevated bp today, started scheduled lopressor, prn's available monitor Qualifiers: Hypertension type: essential hypertension Qualified Code(s): I10 - Essential (primary) hypertension (5) Urinary tract infection Current Visit: Yes Status: Suspected constinue zosyn Qualifiers: Urinary tract infection type: acute cystitis Hematuria presence: without hematuria Qualified Code(s): N30.00 - Acute cystitis without hematuria (6) Cough Current Visit: Yes Status: Acute aggressive pulmonary toilet IS scheduled aerosols and mucomyst (x3 days) (7) Swelling of right upper extremity Current Visit: Yes Status: Acute US RUE as picc is in RUE Subjective Narrative: slight nausea, still no flatus into colostomy congested cough, abdominal pain controlled swelling right arm Objective Vital Signs - Last 8 Hours Temp Pulse Resp BP Pulse Ox 09/11/17 16:35 20 92 09/11/17 16:21 99.0 F 82 20 176/86 92 09/11/17 15:00 89 18 191/90 93 09/11/17 14:00 74 13 160/74 92 09/11/17 13:00 81 13 160/80 93 09/11/17 12:00 72 15 149/70 92 09/11/17 11:58 98.6 F 09/11/17 11:50 13 95 09/11/17 10:59 81 13 162/76 95 09/11/17 10:00 78 11 158/76 93 Intake and Output 09/11/17 09/11/17 09/11/17 07:59 15:59 23:59 Intake Total 750 / 750 1560 / 1560 Output Total 900 / 900 420 / 420 115 / 115 Balance -150 / -150 1140 / 1140 -115 / -115 Intake: IV Fluids 750 / 750 1560 / 1560 0.9 % Sodium Chloride 1,000 ML 1000 / 1000 @ 60 mls/hr IVC .[id number] [facility] Rx #:[id number] Ofirmev 1,000 mg/100 ml 1,000 100 / 100 100 / 100 mg In 100 ml @ 400 mls/hr IVPB Q8HR [facility] Rx#:[id number] Intralipid 20% 250 ML @ 21 mls/ 250 / 250 hr IVPB DAILY@1700 [facility] Rx#: [id number] Diflucan Premix 200 MG/100 ML 100 / 100 200 mg In 100 ml @ 100 mls/hr IVPB Q24H [facility] Rx#:[id number] Zosyn 3.375 GM In 0.9 % Sodium 100 / 100 Chloride (Mini-Bag +) 100 ML @ 25 mls/hr IVPB Q8H [facility] Rx#: [id number] Potassium Chloride 10 mEq/100mL 200 / 200 200 / 200 10 meq In 100 ml @ 100 mls/hr IVPB Q1H PRN Rx#:[id number] Sodium Phosphate 30 MMOL In 0.9 260 / 260 % Sodium Chloride 250 ML @ 42 mls/hr IVPB Q12H PRN Rx#: [id number] Output: Urine 80 / 80 Catheter 760 / 760 340 / 340 115 / 115 Gastric Drainage 140 / 140 Other: Blood Glucose* 104 119 80 - General physical appearance well developed, no distress - Eyes PERRL, normal ocular movement - ENT dry mucosa, normocephalic - Neck Neck exam: trachea midline - Respiratory normal expansion, clear to auscultation, other (congested cough) - Cardiovascular Cardiovascular exam: Present: tachycardia - Abdomen Abdomen: Present: soft, distended (less so than yesterday and less firm), tender (appropriate post op tenderness). Absent: bowel sounds present - Incision Incision: Present: clean and dry, serous, open (packed) - Genitourinary normal penis with no external lesions, other (steen wiht clear yellow urine) - Integumentary no rash, no growths - Neurologic normal coordination - Musculoskeletal normal posture - Psychiatric oriented to time, oriented to person, oriented to place, speech is normal, memory intact - Labs 09/11/17 04:24 09/11/17 04:24 Diabetes panel 09/11/17 Range/Units 04:24 Sodium 142 (136-145) mEq/L Potassium 3.7 (3.5-5.1) mEq/L Chloride 113 H (98-107) mEq/L Carbon Dioxide 26 (23-29) mEq/L BUN 19 (8-23) mg/dL Creatinine 0.77 (0.70-1.30) mg/dL Glucose 114 H (70-105) mg/dL Calcium 7.5 L (8.6-10.3) mg/dL Calcium panel 09/11/17 Range/Units 04:24 Calcium 7.5 L (8.6-10.3) mg/dL Phosphorus 2.4 L (2.7-4.5) mg/dL Pituitary panel 09/11/17 Range/Units 04:24 Sodium 142 (136-145) mEq/L Potassium 3.7 (3.5-5.1) mEq/L Chloride 113 H (98-107) mEq/L Carbon Dioxide 26 (23-29) mEq/L BUN 19 (8-23) mg/dL Creatinine 0.77 (0.70-1.30) mg/dL Glucose 114 H (70-105) mg/dL Calcium 7.5 L (8.6-10.3) mg/dL Adrenal panel 09/11/17 Range/Units 04:24 Sodium 142 (136-145) mEq/L Potassium 3.7 (3.5-5.1) mEq/L Chloride 113 H (98-107) mEq/L Carbon Dioxide 26 (23-29) mEq/L BUN 19 (8-23) mg/dL Creatinine 0.77 (0.70-1.30) mg/dL Glucose 114 H (70-105) mg/dL Calcium 7.5 L (8.6-10.3) mg/dL - Attending Attestation I examined this patient and my medical decision-making was reviewed with the Resident Physician. I agree with the documented findings, disposition and treatment plan as described except to the extent set forth below.
[2017-09-11] MEDS: Acetaminophen IV 1,000 MG/100 ML INFUS..BTL IVPB SCH (08:10)
[2017-09-11] MEDS: Pantoprazole 40 MG VIAL IVP SCH (08:21)
[2017-09-11] MEDS ORDERED: *HR* Metoprolol 5 MG/5 ML VIAL IVP SCH (09:00)
[2017-09-11] MEDS: 0.9 % Sodium Chloride 1,000 ML IVC SCH (11:37)
[2017-09-11] MEDS ORDERED: 0.9 % Sodium Chloride 1,000 ML IVC SCH (15:10)
[2017-09-11] MEDS ORDERED: Clinimix E 5%-15% SOLUTION 2,000 ML with MVI, adult with vitamin K 10 ML IVC SCH ×4 (15:51→18:00)
[2017-09-11] MEDS ORDERED: D10% in Water 500 ML IVC PRN ×2 (15:51→18:00)
[2017-09-11] MEDS ORDERED: *HR* Promethazine 25 MG/ML VIAL IVP PRN ×2 (15:51→18:00)
[2017-09-11] MEDS ORDERED: *HR* Metoprolol 5 MG/5 ML VIAL IVP PRN (15:51)
[2017-09-11] MEDS ORDERED: Ondansetron 4 MG/2 ML VIAL IVP PRN (15:51)
[2017-09-11] MEDS ORDERED: Dextrose Gel 15 GM/37.5 ML TUBE PO PRN ×4 (15:51→18:00)
[2017-09-11] MEDS ORDERED: *HR* Dextrose 50 % in Water (Syg) 50 ML SYRINGE IVP PRN ×2 (15:51→18:00)
[2017-09-11] MEDS ORDERED: OXYCODONE Oral CONC 10 MG/0.5 ML ORAL.SYG SL PRN (15:51)
[2017-09-11] MEDS ORDERED: D5% in Water 1,000 ML IVC PRN ×2 (15:51→18:00)
[2017-09-11] MEDS ORDERED: Acetaminophen IV 1,000 MG/100 ML INFUS..BTL IVPB SCH (16:00)
[2017-09-11] MEDS ORDERED: Insulin LISPRO 300 UNITS/3 ML VIAL SQ SCH (16:00)
[2017-09-11] MEDS ORDERED: Saline Nasal Spray 44 ML BOTTLE NS PRN (17:23)
[2017-09-11] MEDS ORDERED: *HR* Heparin 5,000 UNIT/ML VIAL SQ SCH (18:00)
[2017-09-11] MEDS ORDERED: Metoclopramide 10 MG/2 ML VIAL IVP SCH (18:00)
[2017-09-11] MEDS ORDERED: Piperacillin/Tazobactam 3.375 GM in 0.9 % Sodium Chloride Mini Bag 100 ML IVPB SCH (19:00)
[2017-09-11] MEDS: Metoclopramide 10 MG/2 ML VIAL IVP SCH (19:50)
[2017-09-11] MEDS ORDERED: Fluconazole 200 MG/100 ML 200 MG/100 ML BAG IVPB SCH (21:00)
[2017-09-11] MEDS: Fluconazole 200 MG/100 ML 200 MG/100 ML BAG IVPB SCH (21:19)
[2017-09-11] MEDS: Ondansetron 4 MG/2 ML VIAL IVP PRN (21:26)
[2017-09-11] MEDS ORDERED: Acetylcysteine 10% 2 ML INHSOL IH SCH (22:00)
[2017-09-12] MEDS: Acetaminophen IV 1,000 MG/100 ML INFUS..BTL IVPB SCH ×4 (00:01→23:38)
[2017-09-12] MEDS: Metoclopramide 10 MG/2 ML VIAL IVP SCH ×5 (00:02→23:37)
[2017-09-12] MEDS: Piperacillin/Tazobactam 3.375 GM in 0.9 % Sodium Chloride Mini Bag 100 ML IVPB SCH ×3 (03:08→17:26)
[2017-09-12] MEDS: Insulin LISPRO 300 UNITS/3 ML VIAL SQ SCH ×6 (04:37→23:34)
[2017-09-12] MEDS: Ondansetron 4 MG/2 ML VIAL IVP PRN (04:38)
[2017-09-12] MEDS: *HR* Metoprolol 5 MG/5 ML VIAL IVP PRN (04:38)
[2017-09-12] MEDS: OXYCODONE Oral CONC 10 MG/0.5 ML ORAL.SYG SL PRN (04:39)
[2017-09-12 05:41] LABS: Basophils % 0.2 %; Eosinophils # 0.2 K/mcL (0.0-0.6); Hematocrit 25.5 % (37.5-50.1); Hemoglobin 8.6 g/dL (12.9-16.9); Immature Granulocytes % 1.8 % (0-4); Lymphocytes # 0.5 K/mcL (0.6-4.6); Lymphocytes % 4.4 %; Mean Corpuscular HGB Conc 33.7 g/dL (31.6-35.5); Mean Corpuscular Hemoglobin 33.1 pg (28.0-33.3); Mean Corpuscular Volume 98.1 fL (83.0-100.0); Mean Platelet Volume 10.4 fL (9.4-12.4); Monocytes # 0.3 K/mcL (0.0-1.3); Monocytes % 2.8 %; Neutrophils # 10.4 K/mcL (1.6-8.9); Nucleated Red Blood Cells 0.7 /100 WBC (0); Platelet Count 190 K/mcL (140-400); Red Cell Distribution Width 13.8 % (11.5-14.5); Segmented Neutrophils % 88.8 %
[2017-09-12] MEDS: *HR* Heparin 5,000 UNIT/ML VIAL SQ SCH ×2 (05:45→18:54)
[2017-09-12 06:06] LABS: BUN/Creatinine Ratio 22 (6-26); Blood Urea Nitrogen 15 mg/dL (8-23); Calcium 7.8 mg/dL (8.6-10.3); Carbon Dioxide 24 mEq/L (23-29); Chloride 109 mEq/L (98-107); Glucose 114 mg/dL (70-105); Osmolality,Calculated 290 (280-300); Phosphorous 2.2 mg/dL (2.7-4.5); Sodium 139 mEq/L (136-145); eGFR For African Americans > 60 (> 60); eGFR For Non-African Americans > 60 (> 60)
[2017-09-12] MEDS: Pantoprazole 40 MG VIAL IVP SCH (07:39)
[2017-09-12] MEDS ORDERED: Pantoprazole 40 MG VIAL IVP SCH (09:00)
--- NOTE | 2017-09-12 15:14 | General Surgery Progress Note ---
Date of Encounter: 09/13/17 Time of Encounter: 11:15 - Assessment and Plan (1) Status post exploratory laparotomy Current Visit: Yes Status: Acute Admitted on 09/03/2017 with small bowel obstruction as suggested by CT scan and urinary tract infection (initially started on Cipro). Conservative measures attempted for SBO which failed prompting exploratory laparotomy on 09/07/[address] Zhao and Dr. Israel. Procedure required extensive adhesion lyses, multiple bowel resections, irrigation, and assistance from second surgeon. Colostomy ultimately preserved. Initially intubated and managed by pulm team in ICU, but was extubated on 09/09/17. POD#5 s/p exploratory laparotomy, lysis of adhesions, repair serosal tears, small bowel resection x2 by Dr. Zhao and Dr. Israel. No BM or flatus evident in ostomy bag. Mild discomfort today, but overall minimal pain. Surgical site without signs of infection or dehiscence. - NPO (continue NG tube for decompression) - Abdominal series today, pending - up to chair and ambulate in halls TID - Daily wound care - TPN - Electrolyte protocol - Pathology pending - Cont. steen. - Monitor I & Os. - Daily wound care. - Continue Zosyn (day 5) and fluconazole (day 5). (2) Small bowel obstruction due to adhesions Current Visit: Yes Status: Acute (3) Colon cancer Current Visit: No Status: Chronic Qualifiers: Colon location: unspecified part of colon Qualified Code(s): C18.9 - Malignant neoplasm of colon, unspecified (4) Urinary tract infection Current Visit: Yes Status: Suspected on Zosyn as above. Clear yellow urine in Steen. Qualifiers: Urinary tract infection type: acute cystitis Hematuria presence: without hematuria Qualified Code(s): N30.00 - Acute cystitis without hematuria (5) Acute respiratory failure Current Visit: Yes Status: Resolved Apneic in post-op period. Extubated 09/09/17 Qualifiers: Respiratory failure complication: unspecified whether with hypoxia or hypercapnia Qualified Code(s): J96.00 - Acute respiratory failure, unspecified whether with hypoxia or hypercapnia (6) DVT prophylaxis Current Visit: Yes Status: Acute SQ Heparin Subjective Narrative: Seated at bedside chair. States has not had any worsening abdominal pain. Mild subjective bloating. No N/V. No BM. Uncertain of flatus. Colostomy bag empty. Objective Vital Signs - Last 8 Hours Temp Pulse Resp BP Pulse Ox 09/12/17 14:39 98.5 F 106 18 161/80 98 09/12/17 10:05 98.2 F 88 16 162/84 94 Intake and Output 09/11/17 09/12/17 09/12/17 23:59 07:59 15:59 Intake Total 200 / 200 100 / 100 100 / 100 Output Total 1200 / 1200 1450 / 1450 1100 / 1100 Balance -1000 / -1000 -1350 / -1350 -1000 / -1000 Intake: IV Fluids 200 / 200 100 / 100 100 / 100 Ofirmev 1,000 mg/100 ml 1,000 100 / 100 100 / 100 100 / 100 mg In 100 ml @ 400 mls/hr IVPB Q8HR [facility] Rx#:[id number] Zosyn 3.375 GM In 0.9 % Sodium 100 / 100 Chloride (Mini-Bag +) 100 ML @ 25 mls/hr IVPB Q8H [facility] Rx#: [id number] Oral 0 / 0 0 / 0 0 / 0 Output: Urine 35 / 35 Catheter 1165 / 1165 1450 / 1450 1100 / 1100 Gastric Drainage 0 / 0 Other: Meal NPO Breakfast Weight 93.5 kg Blood Glucose* 94 106 101 Patient Weight 09/12/17 23:59 Weight 93.5 kg VITAL SIGNS: Reviewed. See [facility] GENERAL: comfortably seated at bedside. No acute distress. Answers questions appropriately. HEENT: [Normocephalic, PER, EOMi, oropharynx pink/moist, no JVD noted.] CV: b/l rad pulses 2+, RRR, no murmurs or gallops, no JVD RESPIRATORY: CTAB without wheezes, rales, or rhonchi ABD: soft, non-tender, no rebound/guarding/rigidity, no peritoneal signs INCISION: clean, dry, intact without purulence/bleeding/edema/rubor/calor; dry drainage on bandage Ostomy: empty EXTREMITY: grossly normal motor function, no pedal edema, peripheral pulses 2+ b /l NEUROLOGIC EXAM: AOx3, obeys commands, no speech deficits. PSYCHIATRIC: normal mood and affect SKIN: no gross lesions, rashes, or skin changes - Labs 09/12/17 05:28 09/13/17 02:39 Diabetes panel 09/12/17 Range/Units 05:28 Sodium 139 (136-145) mEq/L Potassium 4.0 (3.5-5.1) mEq/L Chloride 109 H (98-107) mEq/L Carbon Dioxide 24 (23-29) mEq/L BUN 15 (8-23) mg/dL Creatinine 0.69 L (0.70-1.30) mg/dL Glucose 114 H (70-105) mg/dL Calcium 7.8 L (8.6-10.3) mg/dL Calcium panel 09/12/17 Range/Units 05:28 Calcium 7.8 L (8.6-10.3) mg/dL Phosphorus 2.2 L (2.7-4.5) mg/dL Pituitary panel 09/12/17 Range/Units 05:28 Sodium 139 (136-145) mEq/L Potassium 4.0 (3.5-5.1) mEq/L Chloride 109 H (98-107) mEq/L Carbon Dioxide 24 (23-29) mEq/L BUN 15 (8-23) mg/dL Creatinine 0.69 L (0.70-1.30) mg/dL Glucose 114 H (70-105) mg/dL Calcium 7.8 L (8.6-10.3) mg/dL Adrenal panel 09/12/17 Range/Units 05:28 Sodium 139 (136-145) mEq/L Potassium 4.0 (3.5-5.1) mEq/L Chloride 109 H (98-107) mEq/L Carbon Dioxide 24 (23-29) mEq/L BUN 15 (8-23) mg/dL Creatinine 0.69 L (0.70-1.30) mg/dL Glucose 114 H (70-105) mg/dL Calcium 7.8 L (8.6-10.3) mg/dL - VTE Documentation of Mechanical Device: Intermittent pneumatic compression device Consult Discharge Plan - Plan Referrals: Lobito Lang MD [Primary Care Provider] -
[2017-09-12] MEDS ORDERED: Clinimix E 5%-15% SOLUTION 2,000 ML with MVI, adult with vitamin K 10 ML IVC SCH ×3 (17:00)
[2017-09-12] MEDS: Fluconazole 200 MG/100 ML 200 MG/100 ML BAG IVPB SCH (20:28)
[2017-09-13] MEDS: Piperacillin/Tazobactam 3.375 GM in 0.9 % Sodium Chloride Mini Bag 100 ML IVPB SCH ×3 (03:18→19:36)
[2017-09-13 03:43] LABS: BUN/Creatinine Ratio 23 (6-26); Blood Urea Nitrogen 16 mg/dL (8-23); Calcium 8.1 mg/dL (8.6-10.3); Carbon Dioxide 25 mEq/L (23-29); Chloride 109 mEq/L (98-107); Glucose 112 mg/dL (70-105); Magnesium 1.9 mg/dL (1.6-2.6); Osmolality,Calculated 292 (280-300); Phosphorous 2.7 mg/dL (2.7-4.5); Potassium 3.7 mEq/L (3.5-5.1); Sodium 140 mEq/L (136-145); eGFR For African Americans > 60 (> 60); eGFR For Non-African Americans > 60 (> 60)
[2017-09-13] MEDS: Insulin LISPRO 300 UNITS/3 ML VIAL SQ SCH ×5 (04:10→20:09)
[2017-09-13] MEDS: Metoclopramide 10 MG/2 ML VIAL IVP SCH ×4 (05:49→23:33)
[2017-09-13] MEDS: *HR* Heparin 5,000 UNIT/ML VIAL SQ SCH ×2 (05:49→17:54)
[2017-09-13] MEDS: Acetaminophen IV 1,000 MG/100 ML INFUS..BTL IVPB SCH ×3 (07:53→23:32)
[2017-09-13] MEDS: Pantoprazole 40 MG VIAL IVP SCH (07:53)
[2017-09-13] MEDS: *HR* FentaNYL PATCH 25 MCG PATCH TD SCH (07:54)
[2017-09-13] MEDS: Ondansetron 4 MG/2 ML VIAL IVP PRN ×2 (08:14→16:23)
--- NOTE | 2017-09-13 09:36 | General Surgery Progress Note ---
Date of Encounter: 09/13/17 Time of Encounter: 09:33 - Assessment and Plan (1) Status post exploratory laparotomy Current Visit: Yes Status: Acute Admitted on 09/03/2017 with small bowel obstruction as suggested by CT scan and urinary tract infection (initially started on Cipro). Conservative measures attempted for SBO which failed prompting exploratory laparotomy on 09/07/[address] Zhao and Dr. Israel. Procedure required extensive adhesion lyses, multiple bowel resections, irrigation, and assistance from second surgeon. Colostomy ultimately preserved. Initially intubated and managed by pulm team in ICU, but was extubated on 09/09/17. POD#6 s/p exploratory laparotomy, lysis of adhesions, repair serosal tears, small bowel resection x2 by Dr. Zhao and Dr. Israel. No condensation evident of flatus in ostomy bag. Mild discomfort today, but overall minimal pain. Surgical site without signs of infection or dehiscence. - NPO (continue NG tube for decompression) - Abdominal series ) is nonspecific bowel gas pattern; did not see any small bowel dilatation or air fluid levels - up to chair and ambulate in halls TID - Daily wound care & dressing changes - cont TPN - Electrolyte protocol - Pathology report finalized; unable to open report, so will need to contact lab - Continue Zosyn (day 6) and fluconazole (day 6). (2) Small bowel obstruction due to adhesions Current Visit: Yes Status: Acute (3) Colon cancer Current Visit: No Status: Chronic Qualifiers: Colon location: unspecified part of colon Qualified Code(s): C18.9 - Malignant neoplasm of colon, unspecified (4) Urinary tract infection Current Visit: Yes Status: Suspected on Zosyn as above. Clear yellow urine in [place]. Qualifiers: Urinary tract infection type: acute cystitis Hematuria presence: without hematuria Qualified Code(s): N30.00 - Acute cystitis without hematuria (5) Acute respiratory failure Current Visit: Yes Status: Resolved Apneic in post-op period. Extubated 09/09/17 Qualifiers: Respiratory failure complication: unspecified whether with hypoxia or hypercapnia Qualified Code(s): J96.00 - Acute respiratory failure, unspecified whether with hypoxia or hypercapnia (6) DVT prophylaxis Current Visit: Yes Status: Acute SQ Heparin Subjective Narrative: No new complaints. No worsening discomfort. No nausea vomiting. Has been walking in the halls. Objective Vital Signs - Last 8 Hours Temp Pulse Resp BP Pulse Ox 09/13/17 07:15 98.4 F 105 17 138/75 95 09/13/17 03:53 98.9 F 93 16 165/70 96 Intake and Output 09/12/17 09/13/17 09/13/17 23:59 07:59 15:59 Intake Total 300 / 300 100 / 100 Output Total 1575 / 1575 2325 / 2325 Balance -1275 / -1275 -2225 / -2225 Intake: IV Fluids 300 / 300 100 / 100 Ofirmev 1,000 mg/100 ml 1,000 100 / 100 100 / 100 mg In 100 ml @ 400 mls/hr IVPB Q8HR [facility] Rx#:[id number] Zosyn 3.375 GM In 0.9 % Sodium 200 / 200 Chloride (Mini-Bag +) 100 ML @ 25 mls/hr IVPB Q8H [facility] Rx#: [id number] Oral 0 / 0 0 / 0 Output: Stool 0 / 0 Catheter 1500 / 1500 1700 / 1700 Gastric Drainage 75 / 75 625 / 625 Other: Weight 93.4 kg Blood Glucose* 98 107 Patient Weight 09/13/17 23:59 Weight 93.4 kg VITAL SIGNS: Reviewed. See [facility] GENERAL: comfortably seated at bedside. No acute distress. Answers questions appropriately. HEENT: [Normocephalic, PER, EOMi, oropharynx pink/moist, no JVD noted.] CV: b/l rad pulses 2+, RRR, no murmurs or gallops, no JVD RESPIRATORY: CTAB without wheezes, rales, or rhonchi ABD: soft, non-tender, no rebound/guarding/rigidity, no peritoneal signs INCISION: clean, dry, intact without purulence/bleeding/edema/rubor/calor; dry drainage on bandage Ostomy: condensation in bag with no stools EXTREMITY: grossly normal motor function, no pedal edema, peripheral pulses 2+ b /l NEUROLOGIC EXAM: AOx3, obeys commands, no speech deficits. PSYCHIATRIC: normal mood and affect SKIN: no gross lesions, rashes, or skin changes - Labs 09/13/17 09:43 09/13/17 02:39 Diabetes panel 09/13/17 Range/Units 02:39 Sodium 140 (136-145) mEq/L Potassium 3.7 (3.5-5.1) mEq/L Chloride 109 H (98-107) mEq/L Carbon Dioxide 25 (23-29) mEq/L BUN 16 (8-23) mg/dL Creatinine 0.70 (0.70-1.30) mg/dL Glucose 112 H (70-105) mg/dL Calcium 8.1 L (8.6-10.3) mg/dL Calcium panel 09/13/17 Range/Units 02:39 Calcium 8.1 L (8.6-10.3) mg/dL Phosphorus 2.7 (2.7-4.5) mg/dL Pituitary panel 09/13/17 Range/Units 02:39 Sodium 140 (136-145) mEq/L Potassium 3.7 (3.5-5.1) mEq/L Chloride 109 H (98-107) mEq/L Carbon Dioxide 25 (23-29) mEq/L BUN 16 (8-23) mg/dL Creatinine 0.70 (0.70-1.30) mg/dL Glucose 112 H (70-105) mg/dL Calcium 8.1 L (8.6-10.3) mg/dL Adrenal panel 09/13/17 Range/Units 02:39 Sodium 140 (136-145) mEq/L Potassium 3.7 (3.5-5.1) mEq/L Chloride 109 H (98-107) mEq/L Carbon Dioxide 25 (23-29) mEq/L BUN 16 (8-23) mg/dL Creatinine 0.70 (0.70-1.30) mg/dL Glucose 112 H (70-105) mg/dL Calcium 8.1 L (8.6-10.3) mg/dL - VTE Documentation of Mechanical Device: Intermittent pneumatic compression device Consult Discharge Plan - Plan Referrals: Lobito Lang MD [Primary Care Provider] -
[2017-09-13 09:57] LABS: Basophils % 0.2 %; Eosinophils # 0.1 K/mcL (0.0-0.6); Eosinophils % 0.6 %; Hematocrit 25.7 % (37.5-50.1); Hemoglobin 8.9 g/dL (12.9-16.9); Immature Granulocytes % 2.2 % (0-4); Lymphocytes # 0.4 K/mcL (0.6-4.6); Lymphocytes % 3.3 %; Mean Corpuscular HGB Conc 34.6 g/dL (31.6-35.5); Mean Corpuscular Hemoglobin 33.7 pg (28.0-33.3); Mean Corpuscular Volume 97.3 fL (83.0-100.0); Mean Platelet Volume 10.6 fL (9.4-12.4); Monocytes # 0.4 K/mcL (0.0-1.3); Monocytes % 3.3 %; Neutrophils # 10.9 K/mcL (1.6-8.9); Nucleated Red Blood Cells 0.3 /100 WBC (0); Platelet Count 240 K/mcL (140-400); Red Blood Count 2.64 M/mcL (4.19-5.50); Red Cell Distribution Width 13.8 % (11.5-14.5); Segmented Neutrophils % 90.4 %
[2017-09-13] MEDS ORDERED: Clinimix E 5%-15% SOLUTION 2,000 ML with MVI, adult with vitamin K 10 ML IVC SCH ×3 (17:00)
[2017-09-13] MEDS: Fluconazole 200 MG/100 ML 200 MG/100 ML BAG IVPB SCH (20:18)
[2017-09-14] MEDS: Insulin LISPRO 300 UNITS/3 ML VIAL SQ SCH ×6 (00:22→20:07)
[2017-09-14] MEDS: Piperacillin/Tazobactam 3.375 GM in 0.9 % Sodium Chloride Mini Bag 100 ML IVPB SCH ×3 (03:17→17:20)
[2017-09-14 05:12] LABS: Basophils % 0.2 %; Eosinophils # 0.1 K/mcL (0.0-0.6); Eosinophils % 1.2 %; Hematocrit 25.4 % (37.5-50.1); Hemoglobin 8.3 g/dL (12.9-16.9); Immature Granulocytes % 1.9 % (0-4); Lymphocytes # 0.5 K/mcL (0.6-4.6); Lymphocytes % 4.3 %; Mean Corpuscular HGB Conc 32.7 g/dL (31.6-35.5); Mean Corpuscular Hemoglobin 32.2 pg (28.0-33.3); Mean Corpuscular Volume 98.4 fL (83.0-100.0); Mean Platelet Volume 11.1 fL (9.4-12.4); Monocytes # 0.4 K/mcL (0.0-1.3); Monocytes % 3.5 %; Neutrophils # 10.4 K/mcL (1.6-8.9); Nucleated Red Blood Cells 0.2 /100 WBC (0); Platelet Count 288 K/mcL (140-400); Red Blood Count 2.58 M/mcL (4.19-5.50); Red Cell Distribution Width 14.2 % (11.5-14.5); Segmented Neutrophils % 88.9 %
[2017-09-14] MEDS: *HR* Heparin 5,000 UNIT/ML VIAL SQ SCH ×2 (05:27→17:20)
[2017-09-14] MEDS: *HR* Metoprolol 5 MG/5 ML VIAL IVP PRN (05:28)
[2017-09-14] MEDS: Metoclopramide 10 MG/2 ML VIAL IVP SCH ×4 (05:28→23:29)
[2017-09-14 05:32] LABS: BUN/Creatinine Ratio 23 (6-26); Blood Urea Nitrogen 18 mg/dL (8-23); Carbon Dioxide 23 mEq/L (23-29); Chloride 109 mEq/L (98-107); Glucose 120 mg/dL (70-105); Osmolality,Calculated 291 (280-300); Phosphorous 3.2 mg/dL (2.7-4.5); Potassium 3.8 mEq/L (3.5-5.1); Sodium 139 mEq/L (136-145); eGFR For African Americans > 60 (> 60); eGFR For Non-African Americans > 60 (> 60)
--- NOTE | 2017-09-14 07:36 | General Surgery Progress Note ---
<Mark Grubbs - Last Filed: 09/14/17 13:40> Date of Encounter: 09/14/17 Time of Encounter: 07:25 - Assessment and Plan (1) Status post exploratory laparotomy Current Visit: Yes Status: Acute POD#7 s/p exploratory laparotomy, lysis of adhesions, repair serosal tears, small bowel resection x2 by Dr. Zhao and Dr. Israel. Condensation in bag evident for flatus. No abdominal discomfort. Surgical site without signs of infection or dehiscence. Vital signs stable. Afebrile overnight. 975 ml urine output. 400 ml NG output. - NPO (continue NG tube for decompression) - Colostomy site flushed with 120 ml warm water. - Magnesium citrate given to stimulate bowel movement. - Abdominal series is nonspecific bowel gas pattern; did not see any small bowel dilatation or air fluid levels - up to chair and ambulate in halls TID - Daily wound care & dressing changes - cont TPN - Electrolyte protocol - Pathology report of small bowel resection shows extensive serosal fibrous adhesions with vascular congestion and chronic inflammation, submucosal vascular congestion and hemorrhage and mucosal hemorrhage. Resection margins are viable. Negative for malignancy. Patient will need to follow-up with a PET scan in outpatient setting. Report on skin lesion on anterior abdominal wall is lentigo simplex. - Continue Zosyn (day 7) and fluconazole (day 7). (2) Small bowel obstruction Current Visit: Yes Status: Acute (3) Urinary tract infection Current Visit: Yes Status: Suspected UA on admission shows: large leuk esterase, TNTC WBCs, moderate Urina Bacteria. Culture results: enteroccus faecalis R only to doxycycline. -Continue zosyn. - Qualifiers: Urinary tract infection type: acute cystitis Hematuria presence: without hematuria Qualified Code(s): N30.00 - Acute cystitis without hematuria (4) Colon cancer Current Visit: No Status: Chronic Pt with Hx of stage IV colon adenocarcinoma S/p open low anterior resection appendectomy, resection of an omental mass, take down of splenic flexure and a colostomy placed by Dr. Zhao July 2014. Qualifiers: Colon location: unspecified part of colon Qualified Code(s): C18.9 - Malignant neoplasm of colon, unspecified (5) DVT prophylaxis Current Visit: Yes Status: Acute Heparin 5000 U subQ BID. Subjective Narrative: Patient denies any abdominal pain. He says that he was dry heaving last night but denies any nausea. He denies any fever, chills, chest pain or shortness of breath. He says that he has been able to ambulate. Denies any output from colostomy site. Objective VITAL SIGNS: Reviewed. See [facility] GENERAL: no apparent distress. HEENT: [Normocephalic, PER, EOMi, oropharynx pink/moist, no JVD noted.] CV: b/l rad pulses 2+, RRR, no murmurs or gallops, no JVD RESPIRATORY: CTAB without wheezes, rales, or rhonchi ABD: soft, non-tender, no rebound/guarding/rigidity, no peritoneal signs. Normal bowel sounds present. INCISION: abdominal incision clean, dry, intact without purulence/bleeding/edema /rubor/calor. Minor serosanguinous draining upon palpation. OSTOMY: condensation in bag with no stools. EXTREMITY: grossly normal motor function, no pedal edema, peripheral pulses 2+ b /l NEUROLOGIC EXAM: AOx3, obeys commands, no speech deficits. PSYCHIATRIC: normal mood and affect SKIN: no gross lesions, rashes, or skin changes Vital Signs - Last 8 Hours Temp Pulse Resp BP Pulse Ox 09/14/17 06:00 143/71 09/14/17 03:48 98.2 F 93 15 157/74 94 Intake and Output 09/13/17 09/13/17 09/14/17 15:59 23:59 07:59 Intake Total 200 / 200 200 / 200 0 / 0 Output Total 0 / 0 1625 / 1625 1375 / 1375 Balance 200 / 200 -1425 / -1425 -1375 / -1375 Intake: IV Fluids 200 / 200 200 / 200 Ofirmev 1,000 mg/100 ml 1,000 100 / 100 100 / 100 mg In 100 ml @ 400 mls/hr IVPB Q8HR [facility] Rx#:[id number] Zosyn 3.375 GM In 0.9 % Sodium 100 / 100 100 / 100 Chloride (Mini-Bag +) 100 ML @ 25 mls/hr IVPB Q8H [facility] Rx#: [id number] Oral 0 / 0 0 / 0 0 / 0 Output: Urine 0 / 0 1375 / 1375 975 / 975 Gastric Drainage 250 / 250 400 / 400 Other: Meal NPO NPO Dinner Blood Glucose* 110 113 114 - Labs 09/14/17 04:39 09/14/17 04:39 Diabetes panel 09/14/17 Range/Units 04:39 Sodium 139 (136-145) mEq/L Potassium 3.8 (3.5-5.1) mEq/L Chloride 109 H (98-107) mEq/L Carbon Dioxide 23 (23-29) mEq/L BUN 18 (8-23) mg/dL Creatinine 0.78 (0.70-1.30) mg/dL Glucose 120 H (70-105) mg/dL Calcium 8.0 L (8.6-10.3) mg/dL Calcium panel 09/14/17 Range/Units 04:39 Calcium 8.0 L (8.6-10.3) mg/dL Phosphorus 3.2 (2.7-4.5) mg/dL Pituitary panel 09/14/17 Range/Units 04:39 Sodium 139 (136-145) mEq/L Potassium 3.8 (3.5-5.1) mEq/L Chloride 109 H (98-107) mEq/L Carbon Dioxide 23 (23-29) mEq/L BUN 18 (8-23) mg/dL Creatinine 0.78 (0.70-1.30) mg/dL Glucose 120 H (70-105) mg/dL Calcium 8.0 L (8.6-10.3) mg/dL Adrenal panel 09/14/17 Range/Units 04:39 Sodium 139 (136-145) mEq/L Potassium 3.8 (3.5-5.1) mEq/L Chloride 109 H (98-107) mEq/L Carbon Dioxide 23 (23-29) mEq/L BUN 18 (8-23) mg/dL Creatinine 0.78 (0.70-1.30) mg/dL Glucose 120 H (70-105) mg/dL Calcium 8.0 L (8.6-10.3) mg/dL - VTE Documentation of Mechanical Device: Intermittent pneumatic compression device Consult Discharge Plan - Plan Referrals: Lobito Lang MD [Primary Care Provider] - <Ayde Zhao - Last Filed: 09/14/17 14:39> Date of Encounter: 09/14/17 Time of Encounter: 11:25 - Assessment and Plan (1) Small bowel obstruction due to adhesions Current Visit: Yes Status: Acute pod #7, ex lap, lysis of adhesions, small randi resection x 2, enterotomy repair awaiting return of bowel function, axr show nonspecific bowel gas pattern ngt to liws - ok to place to gravity and give 1/2 bottle magnesium citrate continue reglan ok ice chips/popcicles prn pain control daily dressing chagnes to midline wound ambulate/PT/OT aggressive pulmonary toilet/IS (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 await return of output (3) Prostate enlargement Current Visit: No Status: Chronic holding home meds urinating well without problems currently (4) Hypertension Current Visit: No Status: Chronic scheduled lopressor, increase dose to 7.5 mg q6hr, prn hydralazine. monitor Qualifiers: Hypertension type: essential hypertension Qualified Code(s): I10 - Essential (primary) hypertension (5) Urinary tract infection Current Visit: Yes Status: Suspected Qualifiers: Urinary tract infection type: acute cystitis Hematuria presence: without hematuria Qualified Code(s): N30.00 - Acute cystitis without hematuria (6) Swelling of right upper extremity Current Visit: Yes Status: Acute US RUE ordered thursday was somehow DC'd - ordered stat US Subjective Patient reports: feels better, still having pain, pain is less, voiding w/o difficulty, no flatus, no bowel movement Objective Vital Signs - Last 8 Hours Temp Pulse Resp BP Pulse Ox 09/14/17 11:20 98.5 F 93 18 153/75 96 09/14/17 07:46 98.1 F 91 18 171/67 96 Intake and Output 09/13/17 09/14/17 09/14/17 23:59 07:59 15:59 Intake Total 300 / 300 100 / 100 100 / 100 Output Total 1625 / 1625 1375 / 1375 310 / 310 Balance -1325 / -1325 -1275 / -1275 -210 / -210 Intake: IV Fluids 300 / 300 100 / 100 100 / 100 Ofirmev 1,000 mg/100 ml 1,000 200 / 200 100 / 100 mg In 100 ml @ 400 mls/hr IVPB Q8HR [facility] Rx#:[id number] Zosyn 3.375 GM In 0.9 % Sodium 100 / 100 100 / 100 Chloride (Mini-Bag +) 100 ML @ 25 mls/hr IVPB Q8H [facility] Rx#: [id number] Oral 0 / 0 0 / 0 0 / 0 Output: Urine 1375 / 1375 975 / 975 200 / 200 Gastric Drainage 250 / 250 400 / 400 110 / 110 Other: Meal NPO Dinner NPO Percent of Meal Consumed 0% Blood Glucose* 113 107 104 - General physical appearance well developed, well nourished, no distress - Eyes PERRL, normal ocular movement - ENT normal mucosa, normocephalic - Neck Neck exam: trachea midline - Respiratory normal expansion, normal respiratory effort - Cardiovascular Cardiovascular exam: Present: RRR - Abdomen Abdomen: Present: bowel sounds present, soft, distended (firm with mild tenderness), tender (appropriate post op tenderness). Absent: guarding, rebound - Incision Incision: Present: clean and dry, serosanguinous, open (packed) - Integumentary no growths - Neurologic CN 2-12 grossly intact - Musculoskeletal normal posture - Psychiatric oriented to time, oriented to person, oriented to place, speech is normal, memory intact - Labs 09/14/17 04:39 09/14/17 04:39 Diabetes panel 09/14/17 Range/Units 04:39 Sodium 139 (136-145) mEq/L Potassium 3.8 (3.5-5.1) mEq/L Chloride 109 H (98-107) mEq/L Carbon Dioxide 23 (23-29) mEq/L BUN 18 (8-23) mg/dL Creatinine 0.78 (0.70-1.30) mg/dL Glucose 120 H (70-105) mg/dL Calcium 8.0 L (8.6-10.3) mg/dL Calcium panel 09/14/17 Range/Units 04:39 Calcium 8.0 L (8.6-10.3) mg/dL Phosphorus 3.2 (2.7-4.5) mg/dL Pituitary panel 09/14/17 Range/Units 04:39 Sodium 139 (136-145) mEq/L Potassium 3.8 (3.5-5.1) mEq/L Chloride 109 H (98-107) mEq/L Carbon Dioxide 23 (23-29) mEq/L BUN 18 (8-23) mg/dL Creatinine 0.78 (0.70-1.30) mg/dL Glucose 120 H (70-105) mg/dL Calcium 8.0 L (8.6-10.3) mg/dL Adrenal panel 09/14/17 Range/Units 04:39 Sodium 139 (136-145) mEq/L Potassium 3.8 (3.5-5.1) mEq/L Chloride 109 H (98-107) mEq/L Carbon Dioxide 23 (23-29) mEq/L BUN 18 (8-23) mg/dL Creatinine 0.78 (0.70-1.30) mg/dL Glucose 120 H (70-105) mg/dL Calcium 8.0 L (8.6-10.3) mg/dL - Attending Attestation I examined this patient and my medical decision-making was reviewed with the Resident Physician. I agree with the documented findings, disposition and treatment plan as described except to the extent set forth below.
[2017-09-14] MEDS: Acetaminophen IV 1,000 MG/100 ML INFUS..BTL IVPB SCH ×3 (07:55→23:28)
[2017-09-14] MEDS: Pantoprazole 40 MG VIAL IVP SCH (07:56)
[2017-09-14] MEDS ORDERED: Chloraseptic Spray 177 ML BOTTLE MM PRN (08:56)
[2017-09-14] MEDS ORDERED: *HR* FentaNYL PATCH 25 MCG PATCH TD SCH (09:00)
[2017-09-14] MEDS ORDERED: *HR* Metoprolol 5 MG/5 ML VIAL IVP PRN (14:30)
[2017-09-14] MEDS ORDERED: Clinimix E 5%-15% SOLUTION 2,000 ML with MVI, adult with vitamin K 10 ML IVC SCH (17:00)
[2017-09-14] MEDS: Fluconazole 200 MG/100 ML 200 MG/100 ML BAG IVPB SCH (20:08)
[2017-09-15] MEDS: Insulin LISPRO 300 UNITS/3 ML VIAL SQ SCH ×6 (00:09→21:14)
[2017-09-15] MEDS: Piperacillin/Tazobactam 3.375 GM in 0.9 % Sodium Chloride Mini Bag 100 ML IVPB SCH ×3 (03:23→18:30)
[2017-09-15] MEDS: *HR* Heparin 5,000 UNIT/ML VIAL SQ SCH (05:43)
[2017-09-15] MEDS: Metoclopramide 10 MG/2 ML VIAL IVP SCH ×3 (05:43→16:53)
[2017-09-15 07:16] LABS: Hematocrit 24.4 % (37.5-50.1); Hemoglobin 8.2 g/dL (12.9-16.9); Mean Corpuscular HGB Conc 33.6 g/dL (31.6-35.5); Mean Corpuscular Hemoglobin 32.9 pg (28.0-33.3); Mean Platelet Volume 10.8 fL (9.4-12.4); Monocytes # 0.4 K/mcL (0.0-1.3); Nucleated Red Blood Cells 0.3 /100 WBC (0); Platelet Count 367 K/mcL (140-400); Red Blood Count 2.49 M/mcL (4.19-5.50); Red Cell Distribution Width 14.2 % (11.5-14.5)
[2017-09-15] MEDS ORDERED: Milk and Molasses Enema 200 ML RC ONE (07:29)
[2017-09-15 07:39] LABS: BUN/Creatinine Ratio 25 (6-26); Blood Urea Nitrogen 18 mg/dL (8-23); Calcium 7.8 mg/dL (8.6-10.3); Carbon Dioxide 22 mEq/L (23-29); Chloride 108 mEq/L (98-107); Glucose 115 mg/dL (70-105); Magnesium 2.6 mg/dL (1.6-2.6); Osmolality,Calculated 289 (280-300); Potassium 4.1 mEq/L (3.5-5.1); Sodium 138 mEq/L (136-145); eGFR For African Americans > 60 (> 60); eGFR For Non-African Americans > 60 (> 60)
[2017-09-15 07:48] LABS: Lymphocytes # 0.2 K/mcL (0.6-4.6); Neutrophils # 10.3 K/mcL (1.6-8.9); Platelet Estimate Normal (Normal)
[2017-09-15] MEDS: Pantoprazole 40 MG VIAL IVP SCH (09:31)
--- NOTE | 2017-09-15 09:41 | General Surgery Progress Note ---
<CeceAyde Jann - Last Filed: 09/15/17 10:53> Date of Encounter: 09/15/17 - Assessment and Plan (1) Small bowel obstruction due to adhesions Current Visit: Yes Status: Resolved pod 8 ex lap, nhan, sbr x2, closure enterotomy continue ngt to liws, patient more firm today than yesterday will have [employer]ER [employer] COORD[employer]ATOR irrigate colostomy with MOM enema continue TPN until adequate po intake gi/dvt prophylaxis ambulate/PT/OT (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 (3) Prostate enlargement Current Visit: No Status: Chronic holding home medication, urinating without incident (4) Hypertension Current Visit: No Status: Chronic continuing elevated bp, added hydralazine scheduled Qualifiers: Hypertension type: essential hypertension Qualified Code(s): I10 - Essential (primary) hypertension (5) Urinary tract infection Current Visit: Yes Status: Suspected will be well treated at this point, continued antibiotics is for abdominal contamination Qualifiers: Urinary tract infection type: acute cystitis Hematuria presence: without hematuria Qualified Code(s): N30.00 - Acute cystitis without hematuria (6) Swelling of right upper extremity Current Visit: Yes Status: Acute RUE subclavian DVT will continue picc start therapuetic lovenox monitor swelling of RUE (7) Ileus following gastrointestinal surgery Current Visit: Yes Status: Acute post op ileus is not an unexpected even given the complexity of his surgery continue reglan monitor cont ngt liws (8) Leukocytosis (leucocytosis) Current Visit: Yes Status: Acute wbc wnl today, continue zosyn and diflucan for intra-abominal surgical contamination monitor Qualifiers: Leukocytosis type: unspecified Qualified Code(s): D72.829 - Elevated white blood cell count, unspecified Subjective Patient reports: still having pain, no flatus, no bowel movement (denies nausea) Objective Vital Signs - Last 8 Hours Temp Pulse Resp BP Pulse Ox 09/15/17 07:13 99.2 F 83 14 153/74 93 09/15/17 03:43 99.0 F 84 15 160/82 95 Intake and Output 09/14/17 09/15/17 09/15/17 23:59 07:59 15:59 Intake Total 300 / 300 350 / 350 100 / 100 Output Total 1999 / 1999 1025 / 1025 350 / 350 Balance -1700 / -1700 -675 / -675 -250 / -250 Intake: IV Fluids 300 / 300 350 / 350 100 / 100 Ofirmev 1,000 mg/100 ml 1,000 100 / 100 100 / 100 mg In 100 ml @ 400 mls/hr IVPB Q8HR [facility] Rx#:[id number] Intralipid 20% 250 ML @ 21 mls/ 250 / 250 hr IVPB DAILY@1700 [facility] Rx#: [id number] Diflucan Premix 200 MG/100 ML 100 / 100 200 mg In 100 ml @ 100 mls/hr IVPB HS [facility] Rx#:[id number] Zosyn 3.375 GM In 0.9 % Sodium 100 / 100 100 / 100 Chloride (Mini-Bag +) 100 ML @ 25 mls/hr IVPB Q8H [facility] Rx#: [id number] Oral 0 / 0 0 / 0 Output: Urine 1450 / 1450 725 / 725 350 / 350 Stool 0 / 0 Gastric Drainage 550 / 550 300 / 300 Other: Meal NPO BREAKFAST Stool Size Small Stool Consistency liquid Stool Color Brown Blood Glucose* 112 116 - General physical appearance well nourished, no distress - Eyes PERRL, normal ocular movement - ENT normal mucosa - Neck Neck exam: trachea midline - Respiratory normal expansion, normal respiratory effort - Cardiovascular Cardiovascular exam: Present: RRR - Abdomen Abdomen: Present: bowel sounds present (faint), soft, distended, tender. Absent : guarding, rebound - Incision Incision: Present: clean and dry, open (packed) - Integumentary no rash - Neurologic CN 2-12 grossly intact - Musculoskeletal normal posture - Psychiatric oriented to time, oriented to person, oriented to place - Labs 09/15/17 06:59 09/15/17 06:59 Short CBC 09/15/17 Range/Units 06:59 WBC 11.0 (4.3-11.1) K/mcL Hgb 8.2 L (12.9-16.9) g/dL Hct 24.4 L (37.5-50.1) % Plt Count 367 (140-400) K/mcL Neutrophils # 10.3 H (1.6-8.9) K/mcL BMP 09/15/17 Range/Units 06:59 Sodium 138 (136-145) mEq/L Potassium 4.1 (3.5-5.1) mEq/L Chloride 108 H (98-107) mEq/L Carbon Dioxide 22 L (23-29) mEq/L BUN 18 (8-23) mg/dL Creatinine 0.72 (0.70-1.30) mg/dL Glucose 115 H (70-105) mg/dL Calcium 7.8 L (8.6-10.3) mg/dL Vital Signs Temp Pulse Resp BP Pulse Ox 09/15/17 07:13 99.2 F 83 14 153/74 93 09/15/17 03:43 99.0 F 84 15 160/82 95 09/14/17 23:15 98.5 F 98 15 162/80 94 09/14/17 20:07 98.4 F 98 15 153/74 95 09/14/17 11:20 98.5 F 93 18 153/75 96 Intake and Output 09/14/17 09/15/17 09/15/17 23:59 07:59 15:59 Intake Total 300 / 300 350 / 350 100 / 100 Output Total 1999 / 1999 1025 / 1025 350 / 350 Balance -1700 / -1700 -675 / -675 -250 / -250 Intake: IV Fluids 300 / 300 350 / 350 100 / 100 Ofirmev 1,000 mg/100 ml 1,000 100 / 100 100 / 100 mg In 100 ml @ 400 mls/hr IVPB Q8HR [facility] Rx#:[id number] Intralipid 20% 250 ML @ 21 mls/ 250 / 250 hr IVPB DAILY@1700 [facility] Rx#: [id number] Diflucan Premix 200 MG/100 ML 100 / 100 200 mg In 100 ml @ 100 mls/hr IVPB HS [facility] Rx#:[id number] Zosyn 3.375 GM In 0.9 % Sodium 100 / 100 100 / 100 Chloride (Mini-Bag +) 100 ML @ 25 mls/hr IVPB Q8H [facility] Rx#: [id number] Oral 0 / 0 0 / 0 Output: Urine 1450 / 1450 725 / 725 350 / 350 Stool 0 / 0 Gastric Drainage 550 / 550 300 / 300 Other: Meal NPO BREAKFAST Stool Size Small Stool Consistency liquid Stool Color Brown Blood Glucose* 112 116 - Imaging Abdominal x-ray: report reviewed Consult Discharge Plan - Plan Referrals: Lobito Lang MD [Primary Care Provider] - - Attending Attestation I examined this patient and my medical decision-making was reviewed with the Resident Physician. I agree with the documented findings, disposition and treatment plan as described except to the extent set forth below. <Mark Grubbs - Last Filed: 09/15/17 16:25> Date of Encounter: 09/15/17 Time of Encounter: 09:25 - Assessment and Plan (1) Status post exploratory laparotomy Current Visit: Yes Status: Acute POD#8 s/p exploratory laparotomy, lysis of adhesions, repair serosal tears, small bowel resection x2 by Dr. Zhao and Dr. Israel. Fecal output evident in colostomy bag. No abdominal discomfort on exam. Surgical site without signs of infection or dehiscence. Vital signs stable. Afebrile overnight. 725 ml urine output. 300 ml NG output. - NPO (continue NG tube for decompression) - Milk of molassess enema. - KUB today shows single loop of dilated small bowel in the right lower quadrant decreased in caliber since the prior exam. - up to chair and ambulate in halls TID - Daily wound care & dressing changes - cont TPN - Electrolyte protocol - Pathology report of small bowel resection shows extensive serosal fibrous adhesions with vascular congestion and chronic inflammation, submucosal vascular congestion and hemorrhage and mucosal hemorrhage. Resection margins are viable. Negative for malignancy. Patient will need to follow-up with a PET scan in outpatient setting. Report on skin lesion on anterior abdominal wall is lentigo simplex. - Continue Zosyn (day 8) and fluconazole (day 8). Abdomen/Pelvis CT 09/03/17 10:34 IMPRESSION: 1. Findings consistent with small-bowel obstruction, with transition point suspected in the left lower quadrant. 2. Dilated gallbladder with gallstones near the gallbladder neck, similar in appearance to prior exam. No findings specific for acute cholecystitis are seen. 3. Postoperative changes of distal colectomy with left lower quadrantcolostomy creation. 4. Possible punctate nonobstructive left-sided renal calculi. D/ / 09/03/2017 11:19:30 Linwood Khalil MD / tea Interpreting Provider: Linwood Khalil MD Chest X-Ray 09/09/17 04:00 IMPRESSION: Fluctuating basilar atelectasis. Unchanged small left effusion. Stable life support device positioning. D/ / Jerrod Boogie / Jerrod Boogie Interpreting Provider: Jerrod Boogie Chest/Abdomen X-ray 09/12/17 13:50 IMPRESSION: 1. Bibasilar atelectasis similar to previous exam. 2. Similar appearance of right PICC line. 3. Enteric tube re- demonstrated with tip at the level of the gastric antrum. 4. Nonspecific bowel gas pattern with no obstructive process identified. D/ / Chan Torres MD / Chan Torres MD Interpreting Provider: Chan Torres MD X-Ray 09/15/17 07:27 IMPRESSION: 1. Enteric tube tip and side port projected over the stomach. 2. Single loop of dilated small bowel in the right lower quadrant decreased in caliber since the prior exam. No other dilated loops of bowel are identified. D/ / Martha Wayne MD / Martha Wayne MD Interpreting Provider: Martha Wayne MD (2) Small bowel obstruction Current Visit: Yes Status: Acute Pt with Hx of stage IV colon adenocarcinoma S/p open low anterior resection appendectomy, resection of an omental mass, take down of splenic flexure and a colostomy placed by Dr. Zhao July 2014. Fecal output today in colostomy bag - See plan above (3) Urinary tract infection Current Visit: Yes Status: Suspected UA on admission shows: large leuk esterase, TNTC WBCs, moderate Urina Bacteria. Culture results: enteroccus faecalis R only to doxycycline. -Continue zosyn. - Qualifiers: Urinary tract infection type: acute cystitis Hematuria presence: without hematuria Qualified Code(s): N30.00 - Acute cystitis without hematuria (4) Colon cancer Current Visit: No Status: Chronic Pt with Hx of stage IV colon adenocarcinoma S/p open low anterior resection appendectomy, resection of an omental mass, take down of splenic flexure and a colostomy placed by Dr. Zhao July 2014. Qualifiers: Colon location: unspecified part of colon Qualified Code(s): C18.9 - Malignant neoplasm of colon, unspecified (5) DVT prophylaxis Current Visit: Yes Status: Acute Heparin 5000 U subQ BID. Subjective Narrative: Patient says his abdominal pain is the same as yesterday, rating it a 3/10. He admits to some nausea but denies any vomiting. He denies any chest pain or shortness of breath. Denies any fever or chills. Objective VITAL SIGNS: Reviewed. See [facility] GENERAL: no apparent distress. HEENT: [Normocephalic, PER, EOMi, oropharynx pink/moist, no JVD noted.] CV: b/l rad pulses 2+, RRR, no murmurs or gallops, no JVD RESPIRATORY: CTAB without wheezes, rales, or rhonchi ABD: soft, non-tender, no rebound/guarding/rigidity, no peritoneal signs INCISION: minor serosanguinous drainage, intact without purulence/bleeding/edema /rubor/calor OSTOMY: thin liquid fecal output. No signs of bleeding, pus, or erythema. EXTREMITY: grossly normal motor function, no pedal edema, peripheral pulses 2+ b /l NEUROLOGIC EXAM: AOx3, obeys commands, no speech deficits. PSYCHIATRIC: normal mood and affect SKIN: no gross lesions, rashes, or skin changes Vital Signs - Last 8 Hours Temp Pulse Resp BP Pulse Ox 09/15/17 07:13 99.2 F 83 14 153/74 93 09/15/17 03:43 99.0 F 84 15 160/82 95 Intake and Output 09/14/17 09/15/17 09/15/17 23:59 07:59 15:59 Intake Total 300 / 300 350 / 350 100 / 100 Output Total 1999 1025 / 1025 350 / 350 Balance -1700 / -1700 -675 / -675 -250 / -250 Intake: IV Fluids 300 / 300 350 / 350 100 / 100 Ofirmev 1,000 mg/100 ml 1,000 100 / 100 100 / 100 mg In 100 ml @ 400 mls/hr IVPB Q8HR [facility] Rx#:[id number] Intralipid 20% 250 ML @ 21 mls/ 250 / 250 hr IVPB DAILY@1700 [facility] Rx#: [id number] Diflucan Premix 200 MG/100 ML 100 / 100 200 mg In 100 ml @ 100 mls/hr IVPB HS [facility] Rx#:[id number] Zosyn 3.375 GM In 0.9 % Sodium 100 / 100 100 / 100 Chloride (Mini-Bag +) 100 ML @ 25 mls/hr IVPB Q8H [facility] Rx#: [id number] Oral 0 / 0 0 / 0 Output: Urine 1450 / 1450 725 / 725 350 / 350 Stool 0 / 0 Gastric Drainage 550 / 550 300 / 300 Other: Meal NPO BREAKFAST Stool Size Small Stool Consistency liquid Stool Color Brown Blood Glucose* 112 116 - Labs 09/15/17 15:39 09/15/17 06:59 Diabetes panel 09/15/17 09/15/17 Range/Units 06:59 06:59 Sodium 138 (136-145) mEq/L Potassium 4.1 (3.5-5.1) mEq/L Chloride 108 H (98-107) mEq/L Carbon Dioxide 22 L (23-29) mEq/L BUN 18 (8-23) mg/dL Creatinine 0.72 (0.70-1.30) mg/dL Glucose 115 H (70-105) mg/dL Calcium 7.8 L (8.6-10.3) mg/dL Triglycerides 98 (< 150) mg/dL Calcium panel 09/15/17 Range/Units 06:59 Calcium 7.8 L (8.6-10.3) mg/dL Phosphorus 3.0 (2.7-4.5) mg/dL Pituitary panel 09/15/17 Range/Units 06:59 Sodium 138 (136-145) mEq/L Potassium 4.1 (3.5-5.1) mEq/L Chloride 108 H (98-107) mEq/L Carbon Dioxide 22 L (23-29) mEq/L BUN 18 (8-23) mg/dL Creatinine 0.72 (0.70-1.30) mg/dL Glucose 115 H (70-105) mg/dL Calcium 7.8 L (8.6-10.3) mg/dL Adrenal panel 09/15/17 Range/Units 06:59 Sodium 138 (136-145) mEq/L Potassium 4.1 (3.5-5.1) mEq/L Chloride 108 H (98-107) mEq/L Carbon Dioxide 22 L (23-29) mEq/L BUN 18 (8-23) mg/dL Creatinine 0.72 (0.70-1.30) mg/dL Glucose 115 H (70-105) mg/dL Calcium 7.8 L (8.6-10.3) mg/dL - VTE Documentation of Mechanical Device: Intermittent pneumatic compression device
[2017-09-15] MEDS ORDERED: *HR* Enoxaparin 100 MG/ML SYRINGE SQ SCH ×2 (12:00→18:00)
[2017-09-15] MEDS ORDERED: Isovue-370 500 ML INFUS..BTL IV ONE (13:36)
--- NOTE | 2017-09-15 14:42 | Event Note ---
Date of Encounter: 09/15/17 Time of Encounter: 13:30 I was called to the patient's room acutely due to his NG tube being and inadvertently pulled out during a transfer to the chair. Upon arrival to the patient's room, he was diaphoretic and stated that he was having difficulty with vision. His speech was slurred and he was very confused which is much different from his baseline. A stat set of vitals were obtained which revealed a heart 120, blood pressure 70/45, oxygen saturation 91% on 2 L of oxygen via nasal cannula. A stroke alert was called due to concerns for change in the patient's status. The hospitalists were present in the room to assess the patient and the patient was sent down for a stat CT of the head as well as CTA of the chest.
[2017-09-15 15:34] LABS: INR 1.4; Prothrombin Time 15.7 Seconds (9.4-12.1)
[2017-09-15 15:37] LABS: Activated Partial Thrombo Time 33.9 Seconds (26.0-36.0)
--- NOTE | 2017-09-15 15:45 | Event Note ---
Date of Encounter: 09/15/17 Time of Encounter: 03:40 Chest CTA revealed presence of moderate emboli. Ultrasound of lower extremities ordered. Ordered cardiac telemetry. Lovenox was stopped and patient was put on heparin drip. Patient currently does not complain of any chest pain or shortness of breath. Completed bedside neuro exam which showed CN II-XII to be intact with no gross deficits. No slurring of speech. No focal deficits noted. NG tube was also ordered. Chest CTA 09/15/17 13:37 IMPRESSION: Small to moderate emboli, primarily proximal descending right lower and segmental right upper lobe pulmonary arteries. The etiology is most likely due to thrombophlebitis, right subclavian vein with abnormal soft tissue density and air surrounding the contained right arm PICC line. This is presumed thrombosis and possibly infected given the air, which raises potential concern for septic pulmonary emboli. Small bilateral pleural effusion and bilateral lower lobe airspace disease, atelectasis versus pneumonia. Findings were discussed with Christiano Brice at 3:16 pm on 09/15/2017. D/ / Surjit Jimenez MD / Surjit Jimenez MD Interpreting Provider: Surjit Jimenez MD Head CT 09/15/17 13:37 IMPRESSION: No acute intracranial abnormality. D/ / Surjit Jimenez MD / Surjit Jimenez MD Interpreting Provider: Surjit Jimenez MD
--- NOTE | 2017-09-15 15:48 | Internal Medicine Consult Note ---
Date of Encounter: 09/15/17 Time of Encounter: 15:44 - Assessment and plan (1) Encephalopathy acute Current Visit: Yes Status: Acute Assessment and plan: transient encephalopathy - now back to baseline Stroke code called [facility] neuro rec MRI brain No TPA given on anticoagulation and resolution of symptoms Neuro checks (2) Pulmonary embolism Current Visit: Yes Status: Acute Assessment and plan: now on heparin gtt. PE is probably line associated from RUE PICC line. Per radiology report, concern for line infection/septic embolism ?? - will monitor clinically for sepsis on zosyn. Would send 2 sets of peripheral and PICC line cx for now. As d/w primary service, if benefit > risk, would consider removing R.PICC line in lieu of the thrombosis - likely provoked by foreign body Continue close monitoring Qualifiers: Pulmonary embolism type: other Chronicity: acute Qualified Code(s): I26.99 - Other pulmonary embolism without acute cor pulmonale (3) DVT (deep venous thrombosis) Current Visit: Yes Status: Acute Assessment and plan: continue anticoagulation, heparin gtt provoked by PICC line placed 09/07/17 Qualifiers: DVT location: upper extremity Affected thrombotic vein of extremity: other upper extremity vein Chronicity: acute Laterality: right Qualified Code(s) : I82.621 - Acute embolism and thrombosis of deep veins of right upper extremity (4) Small bowel obstruction Current Visit: Yes Status: Acute Assessment and plan: surgical management NGT now out s/p ex lap POD 8 (5) Status post exploratory laparotomy Current Visit: Yes Status: Acute Assessment and plan: management per surgery (6) Urinary tract infection Current Visit: Yes Status: Suspected Assessment and plan: on IV zosyn Sensitive E.Faecalis - GI ny Qualifiers: Urinary tract infection type: acute cystitis Hematuria presence: without hematuria Qualified Code(s): N30.00 - Acute cystitis without hematuria (7) Colon cancer Current Visit: No Status: Chronic Assessment and plan: following for now Qualifiers: Colon location: unspecified part of colon Qualified Code(s): C18.9 - Malignant neoplasm of colon, unspecified - Time Spent With Patient Total time spent is greater than 50% in coordination of care (as documented) at patient's floor/unit and/or counseling patient: Internal Medicine - CN: HPI - Data of Consult Requesting Physician: Ayde Zhao MD - Consult Narrative Reason for consult: Medical management History of present illness: Mr. 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 He is currently postoperative day 8 status post exploratory laparoscopy for small bowel obstruction and is under the care of surgery. Hospital course was computed by acute right subclavian thrombosis that is line associated diagnosed on ultrasound 09/15/17. PICC line was placed . This afternoon shortly after getting up from the bed to chair when NG tube was slightly pulled out, he developed diaphoresis shortly after with some generalized weakness, slurring, mumbling. A stroke alert was called. [facility] rec follow up MRI evaluation. On interview symptoms have resolved except for subjective breathing symptoms. A CTA was performed that found PE on prelim read. Also some suspicion whether line is infected. CT/CT stroke alert head wo con IMPRESSION: No acute intracranial abnormality. CT/CT angio chest IMPRESSION: Small to moderate emboli, primarily proximal descending right lower and segmental right upper lobe pulmonary arteries. The etiology is most likely due to thrombophlebitis, right subclavian vein with abnormal soft tissue density and air surrounding the contained right arm PICC line. This is presumed thrombosis and possibly infected given the air, which raises potential concern for septic pulmonary emboli. Small bilateral pleural effusion and bilateral lower lobe airspace disease, atelectasis versus pneumonia. Past Med Surg Social Fam HX - Past Medical History Medical history: cancer (stage 4 colon cancer), other (BPH) Psychiatric history: no psych history - Past Surgical History Surgical History: colostomy - Social History Smoking Status: Former smoker (Currently using vaporized tobacco h/o cigar smoking, quit in 2009) Smokeless Tobacco Status: No Alcohol use: none Drug use: none Review of systems: ROS 14 point review of systems reviewed as best as possible given presentation. Pertinent positive or negative as per HPI or otherwise reviewed as negative Internal Medicine - CN: Meds Metoprolol [Lopressor] 25 mg PO BID 12/27/14 [History] Tamsulosin [Flomax] 0.4 mg PO DAILY 12/27/14 [History] Simvastatin [Zocor] 10 mg PO HS 04/02/15 [History] Finasteride [Proscar] 5 mg PO DAILY 07/23/15 [History] Lisinopril [Zestril] 40 mg PO DAILY 04/23/16 [History] amLODIPine [Norvasc] 7.5 mg PO DAILY 09/03/17 [History] 3 Allergy/AdvReac Type Severity Reaction Status Date / Time No Known Allergies Allergy Verified 09/03/17 12:52 Internal Medicine - CN: Exam - Constitutional Vitals: Temp Pulse Resp BP Pulse Ox 98.7 F 128 22 134/67 95 09/15/17 15:27 09/15/17 15:27 09/15/17 15:27 09/15/17 15:27 09/15/17 15:27 Exam: General - AAO x 3 Psych - Appropriate affect/speech. No agitation Eyes - GLENYS. Eye lids intact. No scleral icterus Neuro - No gross peripheral or central neuro deficits on inspection Heart - Sinus. RRR. S1 and S2 present. No added HS/murmurs appreciated. No elevated JVD appreciated. Lung - Adequate air entry b/l, No crackles/wheezes appreciated GI - Midline abdominal scar. Stoma with dark liquid output. BS+ - No CVA/suprapubic tenderness or palpable bladder distension Skin -RUE PICC line. Intact. No rash/petechiae/ecchymosis. Warm extremities. +2 b/l LE edema Internal Medicine - CN: Reslt - Labs CBC & Chem 7: 09/15/17 06:59 09/15/17 06:59 Labs: Short CBC 09/15/17 Range/Units 06:59 WBC 11.0 (4.3-11.1) K/mcL Hgb 8.2 L (12.9-16.9) g/dL Hct 24.4 L (37.5-50.1) % Plt Count 367 (140-400) K/mcL Neutrophils # 10.3 H (1.6-8.9) K/mcL BMP 09/15/17 06:59 Sodium 138 Potassium 4.1 Chloride 108 H Carbon Dioxide 22 L BUN 18 Creatinine 0.72 Glucose 115 H Calcium 7.8 L - ABG Interpretation ABG results: ABG ABG pH 7.38 pH Units (7.32-7.45) 09/09/17 05:14 ABG pCO2 41 mmHg (35-45) 09/09/17 05:14 ABG pO2 98 mmHg (85-104) 09/09/17 05:14 ABG O2 Saturation 97 % (95-98) 09/09/17 05:14 PT/INR, D-dimer PT 15.7 Seconds (9.4-12.1) H 09/15/17 14:59 - Impressions Impressions KUB X-Ray 09/15/17 07:27 IMPRESSION: 1. Enteric tube tip and side port projected over the stomach. 2. Single loop of dilated small bowel in the right lower quadrant decreased in caliber since the prior exam. No other dilated loops of bowel are identified. D/ / Martha Wayne MD / Martha Wayne MD Interpreting Provider: Martha Wayne MD Chest CTA 09/15/17 13:37 IMPRESSION: Small to moderate emboli, primarily proximal descending right lower and segmental right upper lobe pulmonary arteries. The etiology is most likely due to thrombophlebitis, right subclavian vein with abnormal soft tissue density and air surrounding the contained right arm PICC line. This is presumed thrombosis and possibly infected given the air, which raises potential concern for septic pulmonary emboli. Small bilateral pleural effusion and bilateral lower lobe airspace disease, atelectasis versus pneumonia. Findings were discussed with Christiano Brice at 3:16 pm on 09/15/2017. D/ / Surjit Jimenez MD / Surjit Jimenez MD Interpreting Provider: Surjit Jimenez MD Head CT 09/15/17 13:37 IMPRESSION: No acute intracranial abnormality. D/ / Surjit Jimenez MD / Surjit Jimenez MD Interpreting Provider: Surjit Jimenez MD Consult Discharge Plan - Plan Referrals: Lobito Lang MD [Primary Care Provider] -
[2017-09-15 15:59] LABS: Hematocrit 28.4 % (37.5-50.1); Hemoglobin 9.3 g/dL (12.9-16.9); Mean Corpuscular HGB Conc 32.7 g/dL (31.6-35.5); Mean Corpuscular Hemoglobin 32.1 pg (28.0-33.3); Mean Corpuscular Volume 97.9 fL (83.0-100.0); Mean Platelet Volume 10.7 fL (9.4-12.4); Platelet Count 436 K/mcL (140-400); Red Cell Distribution Width 14.1 % (11.5-14.5)
[2017-09-15 16:08] LABS: INR 1.5; Prothrombin Time 15.9 Seconds (9.4-12.1)
[2017-09-15 16:11] LABS: Activated Partial Thrombo Time 31.8 Seconds (26.0-36.0)
[2017-09-15] MEDS: Heparin 25,000 UNIT/500 ML D5W 25,000 UNIT/500 ML BAG IVC SCH (16:43)
[2017-09-15] MEDS ORDERED: Clinimix E 5%-15% SOLUTION 2,000 ML with MVI, adult with vitamin K 10 ML IVC SCH (17:00)
[2017-09-15] MEDS ORDERED: *HR* Alteplase (Cathflo) 2 MG VIAL IVP ONE ×2 (17:04→17:54)
--- NOTE | 2017-09-15 18:39 | Event Note ---
Date of Encounter: 09/15/17 Time of Encounter: 16:00 Spoke to tele neurologist Dr. yee from [facility]. Pt's symptoms resolved by them time Dr. Yee asses the pt, so it does look like pt had TIA. He is not a candidate for tPA due to vague and improved symptoms, as well as recent surgery and currently on Lovenox SQ inj for DVT. However Dr. Yee suggested to continnue stroke work up such as MRI and lipid profile in AM.. Talked to my colleague Dr. Hein who did the consult on this pt.
[2017-09-15] MEDS: Fluconazole 200 MG/100 ML 200 MG/100 ML BAG IVPB SCH (22:58)
[2017-09-15] MEDS ORDERED: Acetaminophen 325 MG TABLET PO PRN (23:20)
[2017-09-15] MEDS ORDERED: *HR* Heparin 5,000 UNIT/ML VIAL IVP PRN ×2 (23:48)
[2017-09-16] MEDS: Insulin LISPRO 300 UNITS/3 ML VIAL SQ SCH ×7 (01:06→23:57)
[2017-09-16] MEDS: Metoclopramide 10 MG/2 ML VIAL IVP SCH ×4 (01:07→18:37)
[2017-09-16] MEDS: Piperacillin/Tazobactam 3.375 GM in 0.9 % Sodium Chloride Mini Bag 100 ML IVPB SCH ×3 (03:59→18:37)
[2017-09-16 04:14] LABS: Basophils % 0.1 %; Eosinophils # 0.1 K/mcL (0.0-0.6); Eosinophils % 0.8 %; Immature Granulocytes % 1.2 % (0-4); Lymphocytes # 0.5 K/mcL (0.6-4.6); Lymphocytes % 3.7 %; Mean Corpuscular HGB Conc 33.6 g/dL (31.6-35.5); Mean Corpuscular Hemoglobin 33.2 pg (28.0-33.3); Mean Corpuscular Volume 98.7 fL (83.0-100.0); Mean Platelet Volume 10.7 fL (9.4-12.4); Monocytes # 0.6 K/mcL (0.0-1.3); Nucleated Red Blood Cells 0.2 /100 WBC (0); Platelet Count 396 K/mcL (140-400); Red Blood Count 2.23 M/mcL (4.19-5.50); Red Cell Distribution Width 14.3 % (11.5-14.5); Segmented Neutrophils % 90.2 %
[2017-09-16 04:21] LABS: Hemoglobin 7.4 g/dL (12.9-16.9)
[2017-09-16 04:38] LABS: BUN/Creatinine Ratio 23 (6-26); Blood Urea Nitrogen 30 mg/dL (8-23); Calcium 7.6 mg/dL (8.6-10.3); Carbon Dioxide 22 mEq/L (23-29); Chloride 109 mEq/L (98-107); Glucose 106 mg/dL (70-105); Magnesium 2.9 mg/dL (1.6-2.6); Osmolality,Calculated 295 (280-300); Phosphorous 4.6 mg/dL (2.7-4.5); Potassium 4.1 mEq/L (3.5-5.1); Sodium 139 mEq/L (136-145); eGFR For African Americans > 60 (> 60); eGFR For Non-African Americans 54 (> 60)
--- NOTE | 2017-09-16 07:20 | General Surgery Progress Note ---
<Mark Grubbs - Last Filed: 09/16/17 15:05> Date of Encounter: 09/16/17 Time of Encounter: 06:40 - Assessment and Plan (1) Status post exploratory laparotomy Current Visit: Yes Status: Acute POD#9 s/p exploratory laparotomy, lysis of adhesions, repair serosal tears, small bowel resection x2 by Dr. Zhao and Dr. Israel. Fecal output evident in colostomy bag. Minor abdominal discomfort in LLQ on exam. Surgical site without signs of infection or dehiscence. Vital signs stable. Afebrile overnight. 700 ml urine output. Patient has refused to be on NG tube since yesterday afternoon despite our recommendation. He currently denies any nausea or vomiting and continues to have output through his ostomy. Yesterday a stroke alert was called due to patient displaying signs of slurring of speech and becoming diaphoretic. Chest CTA revealed evidence of PE. Patient was placed on heparin drip. U/S of lower extremities were ordered but were held due to pending MRI of brain results per CVA protocol. TTE ordered by medicine. Patient was also started on vancomycin yesterday as precaution due to suspected infected PICC line.. - PICC line removal and culture. - Continue heparin drip. - Limited clear liquid diet 300 cc q8H. - Blood cultures pending. - U/S of lower extremities pending. - Brain MRI results are normal. - up to chair and ambulate in halls TID - Daily wound care & dressing changes - cont TPN - Electrolyte protocol - Pathology report of small bowel resection shows extensive serosal fibrous adhesions with vascular congestion and chronic inflammation, submucosal vascular congestion and hemorrhage and mucosal hemorrhage. Resection margins are viable. Negative for malignancy. Patient will need to follow-up with a PET scan in outpatient setting. Report on skin lesion on anterior abdominal wall is lentigo simplex. - Continue Zosyn (day 9) and fluconazole (day 9). Chest CTA 09/15/17 13:37 IMPRESSION: Small to moderate emboli, primarily proximal descending right lower and segmental right upper lobe pulmonary arteries. The etiology is most likely due to thrombophlebitis, right subclavian vein with abnormal soft tissue density and air surrounding the contained right arm PICC line. This is presumed thrombosis and possibly infected given the air, which raises potential concern for septic pulmonary emboli. Small bilateral pleural effusion and bilateral lower lobe airspace disease, atelectasis versus pneumonia. Findings were discussed with Christiano Brice at 3:16 pm on 09/15/2017. D/ / Surjit Jimenez MD / Surjit Jimenez MD Interpreting Provider: Surjit Jimenez MD Head CT 09/15/17 13:37 IMPRESSION: No acute intracranial abnormality. D/ / Surjit Jimenez MD / Surjit Jimenez MD Interpreting Provider: Surjit Jimenez MD Brain MRI 09/15/17 16:02 IMPRESSION: No evidence of acute intracranial abnormality. Minimal nonspecific cerebral white matter T2 FLAIR hyperintensities. D/ / 09/16/2017 06:58:20 Jin Stewart / joanne Interpreting Provider: Jin Stewart (2) Encephalopathy acute Current Visit: Yes Status: Resolved Per neurologist Dr. yee from [facility], likely TIA. Not candidate for tPA given resolved symptoms and on anticoagulation. Echocardigram reveals EF of 65-70%. (3) Anemia Current Visit: Yes Status: Acute Hgb dropped from 9.3 down to 7.4 today. - Will start iron infusion for now. Qualifiers: Anemia type: unspecified type Qualified Code(s): D64.9 - Anemia, unspecified (4) Small bowel obstruction Current Visit: Yes Status: Acute Pt with Hx of stage IV colon adenocarcinoma S/p open low anterior resection appendectomy, resection of an omental mass, take down of splenic flexure and a colostomy placed by Dr. Zhao July 2014. Fecal output today in colostomy bag - See plan above (5) Urinary tract infection Current Visit: Yes Status: Suspected UA on admission shows: large leuk esterase, TNTC WBCs, moderate Urina Bacteria. Culture results: enteroccus faecalis R only to doxycycline. -Continue zosyn. - Qualifiers: Urinary tract infection type: acute cystitis Hematuria presence: without hematuria Qualified Code(s): N30.00 - Acute cystitis without hematuria (6) Colon cancer Current Visit: No Status: Chronic Pt with Hx of stage IV colon adenocarcinoma S/p open low anterior resection appendectomy, resection of an omental mass, take down of splenic flexure and a colostomy placed by Dr. Zhao July 2014. Qualifiers: Colon location: unspecified part of colon Qualified Code(s): C18.9 - Malignant neoplasm of colon, unspecified (7) DVT prophylaxis Current Visit: Yes Status: Acute On heparin drip. Subjective Narrative: Patient says his abdominal pain continues to improve. He denies any nausea or vomiting. Denies any chest pain or shortness of breath. Denies any dizziness, headaches, or lightheadedness. Denies any fever or chills. Objective VITAL SIGNS: Reviewed. See [facility] GENERAL: no apparent distress. HEENT: [Normocephalic, PER, EOMi, oropharynx pink/moist, no JVD noted.] CV: b/l rad pulses 2+, RRR, no murmurs or gallops, no JVD RESPIRATORY: CTAB without wheezes, rales, or rhonchi ABD: soft, minor tenderness in the LLQ upon deep palpation, no rebound/guarding/ rigidity, no peritoneal signs. Normal bowel sounds. INCISION: abdominal incision clean, moderate serosanguinous drainage on bandages but no active drainage upon palpation, intact without purulence/ bleeding/edema/rubor/calor OSTOMY: Evidence of more soft formed fecal output compared to yesterday. No signs of erythema, bleeding, or pus. EXTREMITY: grossly normal motor function, no pedal edema, peripheral pulses 2+ b /l NEUROLOGIC EXAM: AOx3, obeys commands, no speech deficits, sensations intact, CN II-XII intact with no gross deficits. PSYCHIATRIC: normal mood and affect SKIN: no gross lesions, rashes, or skin changes Vital Signs - Last 8 Hours Temp Pulse Resp BP Pulse Ox 09/16/17 06:41 98.8 F 74 18 126/55 100 09/16/17 04:13 98.2 F 76 16 130/66 96 09/16/17 00:13 98.2 F 97 16 117/65 98 Intake and Output 09/15/17 09/15/17 09/16/17 15:59 23:59 07:59 Intake Total 100 / 100 2616 / 2616 498.4 / 498.4 Output Total 1125 / 1125 800 / 800 700 / 700 Balance -1025 / -1025 1816 / 1816 -201.6 / -201.6 Intake: IV Fluids 100 / 100 2616 / 2616 498.4 / 498.4 Heparin 25,000 UNIT/500 ML D5W 256 / 256 298.4 / 298.4 25,000 unit In 500 ml @ 14 UNIT /KG/HR 26.152 mls/hr IVC . Q19H8M [facility] Rx#:[id number] Clinimix E 5%-15% SOLUTION , 2009 / 2009 000 ML @ 83.3 mls/hr IVC .Q24H [facility] with M.v.i. Adult 10 ml Rx# :[id number] Diflucan Premix 200 MG/100 ML 100 / 100 200 mg In 100 ml @ 100 mls/hr IVPB HS [facility] Rx#:[id number] Zosyn 3.375 GM In 0.9 % Sodium 100 / 100 100 / 100 100 / 100 Chloride (Mini-Bag +) 100 ML @ 25 mls/hr IVPB Q8H [facility] Rx#: [id number] Vancocin 1,250 MG In 0.9 % 250 / 250 Sodium Chloride 250 ML @ 166.67 mls/hr IVPB Q12H [facility] Rx#: [id number] Oral 0 / 0 0 / 0 0 / 0 Output: Urine 800 / 800 500 / 500 700 / 700 Stool 100 / 100 300 / 300 Gastric Drainage 225 / 225 Other: Meal NPO NPO for supper Percent of Meal Consumed 0% Stool Size Small Stool Consistency liquid liquid Stool Color Brown Brown Weight 84.2 kg Blood Glucose* 100 99 111 Patient Weight 09/16/17 23:59 Weight 84.2 kg - Labs 09/16/17 04:00 09/16/17 04:00 Diabetes panel 09/15/17 09/15/17 09/16/17 Range/Units 06:59 06:59 04:00 Sodium 138 139 (136-145) mEq/L Potassium 4.1 4.1 (3.5-5.1) mEq/L Chloride 108 H 109 H (98-107) mEq/L Carbon Dioxide 22 L 22 L (23-29) mEq/L BUN 18 30 H (8-23) mg/dL Creatinine 0.72 1.29 (0.70-1.30) mg/dL Glucose 115 H 106 H (70-105) mg/dL Calcium 7.8 L 7.6 L (8.6-10.3) mg/dL Triglycerides 98 (< 150) mg/dL Calcium panel 09/15/17 09/16/17 Range/Units 06:59 04:00 Calcium 7.8 L 7.6 L (8.6-10.3) mg/dL Phosphorus 3.0 4.6 H (2.7-4.5) mg/dL Pituitary panel 09/15/17 09/16/17 Range/Units 06:59 04:00 Sodium 138 139 (136-145) mEq/L Potassium 4.1 4.1 (3.5-5.1) mEq/L Chloride 108 H 109 H (98-107) mEq/L Carbon Dioxide 22 L 22 L (23-29) mEq/L BUN 18 30 H (8-23) mg/dL Creatinine 0.72 1.29 (0.70-1.30) mg/dL Glucose 115 H 106 H (70-105) mg/dL Calcium 7.8 L 7.6 L (8.6-10.3) mg/dL Adrenal panel 09/15/17 09/16/17 Range/Units 06:59 04:00 Sodium 138 139 (136-145) mEq/L Potassium 4.1 4.1 (3.5-5.1) mEq/L Chloride 108 H 109 H (98-107) mEq/L Carbon Dioxide 22 L 22 L (23-29) mEq/L BUN 18 30 H (8-23) mg/dL Creatinine 0.72 1.29 (0.70-1.30) mg/dL Glucose 115 H 106 H (70-105) mg/dL Calcium 7.8 L 7.6 L (8.6-10.3) mg/dL - VTE Documentation of Mechanical Device: Intermittent pneumatic compression device Consult Discharge Plan - Plan Referrals: Lobito Lang MD [Primary Care Provider] - <Ayde Zhao - Last Filed: 09/18/17 09:04> Date of Encounter: 09/16/17 - Assessment and Plan (1) Small bowel obstruction due to adhesions Current Visit: Yes Status: Resolved (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 colostomy care (3) Prostate enlargement Current Visit: No Status: Chronic hold home meds currently, maybe restart tomorrow if tolerates clears (4) Hypertension Current Visit: No Status: Chronic continue betablocker, monitor Qualifiers: Qualified Code(s): I10 - Essential (primary) hypertension (5) Urinary tract infection Current Visit: Yes Status: Suspected likely treated, continue abx for abdominal contamination Qualifiers: Qualified Code(s): N30.00 - Acute cystitis without hematuria (6) Ileus following gastrointestinal surgery Current Visit: Yes Status: Acute (7) Leukocytosis (leucocytosis) Current Visit: Yes Status: Acute Qualifiers: Qualified Code(s): D72.829 - Elevated white blood cell count, unspecified (8) Pulmonary embolism Current Visit: Yes Status: Acute right subclavian dvt and PE on heparin drip will transfer to [facility] once tolerating po continue aggressive pulmonary toilet, IS, aerosols Qualifiers: Qualified Code(s): I26.99 - Other pulmonary embolism without acute cor pulmonale Subjective Patient reports: no new complaints, feels better, still having pain, pain is less, tolerating liquids well (sips), flatus, bowel movement Objective Vital Signs - Last 8 Hours Temp Pulse Resp BP Pulse Ox 09/18/17 06:52 98.2 F 93 15 149/69 97 09/18/17 05:53 88 143/69 09/18/17 05:19 16 98 09/18/17 03:48 97.9 F 87 15 131/67 97 Intake and Output 09/17/17 09/18/17 09/18/17 23:59 07:59 15:59 Intake Total 500 / 500 450 / 450 Output Total 200 / 200 200 / 200 Balance 300 / 300 250 / 250 Intake: IV Fluids 0 / 0 450 / 450 Heparin 25,000 UNIT/500 ML D5W 0 / 0 25,000 unit In 500 ml @ 14 UNIT /KG/HR 26.152 mls/hr IVC . Q19H8M [facility] Rx#:[id number] Diflucan Premix 200 MG/100 ML 100 / 100 200 mg In 100 ml @ 100 mls/hr IVPB HS [facility] Rx#:[id number] Zosyn 3.375 GM In 0.9 % Sodium 100 / 100 Chloride (Mini-Bag +) 100 ML @ 25 mls/hr IVPB Q8H [facility] Rx#: [id number] Vancocin 1,250 MG In 0.9 % 250 / 250 Sodium Chloride 250 ML @ 166.67 mls/hr IVPB Q12H [facility] Rx#: [id number] Oral 0 / 0 0 / 0 Blood Product 500 / 500 Rbcs Leuko Poor As-1 Unit 500 / 500 [id number] Output: Urine 200 / 200 200 / 200 Stool 0 / 0 Other: Weight 84.731 kg Blood Glucose* 186 97 Patient Weight 09/18/17 23:59 Weight 84.731 kg - General physical appearance well developed, well nourished - Eyes PERRL, normal ocular movement - ENT normal mucosa, normocephalic - Neck Neck exam: trachea midline - Respiratory normal expansion, clear to auscultation - Cardiovascular Cardiovascular exam: Present: RRR - Abdomen Abdomen: Present: bowel sounds present, soft, distended, tender (appropriate post op tenderness). Absent: guarding, rebound - Incision Incision: Present: clean and dry, serosanguinous, open (packed) - Integumentary no rash, no growths - Neurologic CN 2-12 grossly intact - Musculoskeletal normal posture - Psychiatric oriented to time, oriented to person, oriented to place, speech is normal, memory intact - Labs 09/18/17 04:05 09/18/17 04:05 Diabetes panel 09/18/17 Range/Units 04:05 Sodium 142 (136-145) mEq/L Potassium 3.9 (3.5-5.1) mEq/L Chloride 112 H (98-107) mEq/L Carbon Dioxide 21 L (23-29) mEq/L BUN 21 (8-23) mg/dL Creatinine 1.12 (0.70-1.30) mg/dL Glucose 101 (70-105) mg/dL Calcium 7.3 L (8.6-10.3) mg/dL Calcium panel 09/18/17 Range/Units 04:05 Calcium 7.3 L (8.6-10.3) mg/dL Phosphorus 2.7 (2.7-4.5) mg/dL Pituitary panel 09/18/17 Range/Units 04:05 Sodium 142 (136-145) mEq/L Potassium 3.9 (3.5-5.1) mEq/L Chloride 112 H (98-107) mEq/L Carbon Dioxide 21 L (23-29) mEq/L BUN 21 (8-23) mg/dL Creatinine 1.12 (0.70-1.30) mg/dL Glucose 101 (70-105) mg/dL Calcium 7.3 L (8.6-10.3) mg/dL Adrenal panel 09/18/17 Range/Units 04:05 Sodium 142 (136-145) mEq/L Potassium 3.9 (3.5-5.1) mEq/L Chloride 112 H (98-107) mEq/L Carbon Dioxide 21 L (23-29) mEq/L BUN 21 (8-23) mg/dL Creatinine 1.12 (0.70-1.30) mg/dL Glucose 101 (70-105) mg/dL Calcium 7.3 L (8.6-10.3) mg/dL - Attending Attestation I examined this patient and my medical decision-making was reviewed with the Resident Physician. I agree with the documented findings, disposition and treatment plan as described except to the extent set forth below.
[2017-09-16] MEDS: *HR* FentaNYL PATCH 25 MCG PATCH TD SCH (09:32)
[2017-09-16] MEDS: Heparin 25,000 UNIT/500 ML D5W 25,000 UNIT/500 ML BAG IVC SCH (09:34)
[2017-09-16] MEDS: Pantoprazole 40 MG VIAL IVP SCH (09:34)
[2017-09-16] MEDS: Ipratropium/Albuterol Neb 3 ML IH SCH ×3 (11:53→22:48)
[2017-09-16] MEDS: 0.9 % Sodium Chloride 1,000 ML IVC SCH (12:09)
[2017-09-16] MEDS: Iron Sucrose Complex 200 MG in 0.9 % Sodium Chloride 100 ML IVPB SCH (15:11)
--- NOTE | 2017-09-16 15:44 | Internal Med Progress Note ---
Date of Encounter: 09/16/17 Time of Encounter: 10:45 - Assessment and plan (1) Pulmonary embolism Current Visit: Yes Status: Acute Assessment and plan: On IV heparin. Will continue. Monitor blood counts closely. Concern for septic emboli based on CT findings. I agree with removal of PICC line. We will culture catheter tip. Discussed with surgery. They will continue to manage patient's plan of care. We will sign off at this time. Please reconsult with any questions. Qualifiers: Pulmonary embolism type: other Chronicity: acute Qualified Code(s): I26.99 - Other pulmonary embolism without acute cor pulmonale (2) Small bowel obstruction Current Visit: Yes Status: Acute Assessment and plan: postop day 9 after exploratory laparotomy. Surgery following. TPN to be stopped today. Transition to oral diet as tolerated and per surgery recommendations. (3) Colon cancer Current Visit: No Status: Chronic Qualifiers: Colon location: unspecified part of colon Qualified Code(s): C18.9 - Malignant neoplasm of colon, unspecified (4) Urinary tract infection Current Visit: Yes Status: Suspected Assessment and plan: Patient is on broad-spectrum antibiotics currently due to possibility of septic emboli. Urine culture growing Enterococcus faecalis. Qualifiers: Urinary tract infection type: acute cystitis Hematuria presence: without hematuria Qualified Code(s): N30.00 - Acute cystitis without hematuria (5) Status post exploratory laparotomy Current Visit: Yes Status: Acute (6) DVT (deep venous thrombosis) Current Visit: Yes Status: Acute Assessment and plan: Right upper extremity thrombophlebitis related to PICC line. On IV heparin currently. Qualifiers: DVT location: upper extremity Affected thrombotic vein of extremity: other upper extremity vein Chronicity: acute Laterality: right Qualified Code(s) : I82.621 - Acute embolism and thrombosis of deep veins of right upper extremity (7) Encephalopathy acute Current Visit: Yes Status: Resolved Assessment and plan: Resolved. - Time Spent With Patient Total time spent is greater than 50% in coordination of care (as documented) at patient's floor/unit and/or counseling patient: - Subjective Interval history: Patient is doing better today. Is awake and alert. Understands his medical condition and issues that came up yesterday. Denies any chest pain or palpitations. No fever reported overnight. Did have a bowel movement yesterday after he received enema. No focal weakness. No longer having any blurred vision. - Constitutional Vitals: Temp Pulse Resp BP Pulse Ox 98.4 F 90 18 123/63 96 09/16/17 15:22 09/16/17 15:22 09/16/17 15:22 09/16/17 15:22 09/16/17 15:22 General appearance: Present: cooperative, A&O X 3, answers questions appropriately - Neck Neck exam general surgery: Present: supple, trachea midline. Absent: lymphadenopathy - Respiratory Respiratory exam: Present: CTAB. Absent: accessory muscle use, rales, rhonchi, wheezes - Cardiovascular Cardiovascular exam: Present: RRR, +S1, +S2. Absent: diastolic murmur, gallop, rubs, systolic murmur - GI/Abdominal GI/Abdominal exam: Present: normal bowel sounds, soft, no peritoneal signs. Absent: distended, tenderness - Extremities Exam Extremities exam: Present: warm, radial pulses palpable and symmetrical. Absent : calf tenderness, cyanotic, pedal edema Internal Medicine: Result - Labs CBC & Chem 7: 09/16/17 04:00 09/16/17 04:00 Labs: Short CBC 09/15/17 09/16/17 Range/Units 15:39 04:00 WBC 12.0 H 14.4 H (4.3-11.1) K/mcL Hgb 9.3 L 7.4 L D (12.9-16.9) g/dL Hct 28.4 L 22.0 L (37.5-50.1) % Plt Count 436 H 396 (140-400) K/mcL Neutrophils # 13.0 H (1.6-8.9) K/mcL BMP 09/16/17 04:00 Sodium 139 Potassium 4.1 Chloride 109 H Carbon Dioxide 22 L BUN 30 H Creatinine 1.29 Glucose 106 H Calcium 7.6 L - ABG Interpretation ABG results: ABG ABG pH 7.38 pH Units (7.32-7.45) 09/09/17 05:14 ABG pCO2 41 mmHg (35-45) 09/09/17 05:14 ABG pO2 98 mmHg (85-104) 09/09/17 05:14 ABG O2 Saturation 97 % (95-98) 09/09/17 05:14 PT/INR, D-dimer PT 15.9 Seconds (9.4-12.1) H 09/15/17 15:39 - Impressions Impressions Brain MRI 09/15/17 16:02 IMPRESSION: No evidence of acute intracranial abnormality. Minimal nonspecific cerebral white matter T2 FLAIR hyperintensities. D/ / 09/16/2017 06:58:20 Jin Stewart / joanne Interpreting Provider: Jin Stewart Echocardiogram 09/16/17 16:03 Impressions: LVEF 65-70%. Mild left ventricular diastolic dysfunction. Normal right ventricular structure and function. No significant valvular dysfunction. No pulmonary hypertension. Left Ventricular Wall Motion: Rest Echo Findings All wall segments showed normal motion. Findings: Study Quality * Technically adequate exam. ECG Findings * Normal sinus rhythm. Left Ventricle * LVEF 65-70%. * Normal LV chamber size. * Mild basal septal hypertrophy. No LVOTO. * Mild left ventricular diastolic dysfunction. Right Ventricle * Normal right ventricular structure and function. Left Atrium * Mildly dilated left atrium. Right Atrium * Normal right atrial size. Mitral Valve * Normal mitral valve structure. * No mitral stenosis. * No mitral regurgitation. Aortic Valve * No aortic regurgitation. * Trileaflet aortic valve. * No aortic stenosis. Tricuspid Valve * Tricuspid valve not well visualized. * No tricuspid regurgitation. Pulmonic Valve * Pulmonic valve is not well visualized. * No pulmonic stenosis. * No pulmonic regurgitation. Pulmonary Artery * Pulmonary artery not well visualized. Aorta * Normally sized aortic root. Pericardium * There is no pericardial effusion present. Interatrial Septum * No evidence of PFO with agitated saline contrast. IVC * The IVC is not well evaluated. - VTE Documentation of Mechanical Device: Intermittent pneumatic compression device Consult Discharge Plan - Plan Referrals: Lobito Lang MD [Primary Care Provider] -
--- NOTE | 2017-09-16 16:28 | Electrocardiograph Report ---
[address] [address] Test Date: 2017-09-15 Pat Name: Eros Bower Department: 104 Room: 3A34 Gender: M Data Input Clerk: ZAHIDA : 1945 Requested By: Evelyn Vela Order Number: [id number] Reading MD: Marixa Hancock Measurements Intervals [place] Rate: 136 P: 116 IA: 131 QRS: 213 QRSD: 94 T: 108 QT: 262 QTc: 342 Interpretive Statements SINUS TACHYCARDIA ARM LEADS REVERSED [INVERTED P AND QRS IN I] ABNORMAL RHYTHM ECG Electronically Signed On 09-16-2017 16:26:20 EDT by Marixa Hancock
[2017-09-16] MEDS: Fluconazole 200 MG/100 ML 200 MG/100 ML BAG IVPB SCH (20:21)
[2017-09-17] MEDS: Metoclopramide 10 MG/2 ML VIAL IVP SCH ×4 (00:04→17:55)
[2017-09-17] MEDS: 0.9 % Sodium Chloride 1,000 ML IVC SCH ×2 (00:14→21:55)
[2017-09-17] MEDS ORDERED: Acetaminophen 325 MG TABLET PO ONE (00:51)
[2017-09-17] MEDS: Heparin 25,000 UNIT/500 ML D5W 25,000 UNIT/500 ML BAG IVC SCH (01:46)
[2017-09-17] MEDS: Ipratropium/Albuterol Neb 3 ML IH SCH ×4 (03:22→19:56)
[2017-09-17] MEDS: Piperacillin/Tazobactam 3.375 GM in 0.9 % Sodium Chloride Mini Bag 100 ML IVPB SCH ×3 (03:32→22:29)
[2017-09-17] MEDS: Insulin LISPRO 300 UNITS/3 ML VIAL SQ SCH ×5 (04:14→22:31)
[2017-09-17 05:02] LABS: Basophils % 0.2 %; Eosinophils # 0.1 K/mcL (0.0-0.6); Hematocrit 21.9 % (37.5-50.1); Hemoglobin 7.3 g/dL (12.9-16.9); Immature Granulocytes % 1.8 % (0-4); Lymphocytes # 0.6 K/mcL (0.6-4.6); Lymphocytes % 6.1 %; Mean Corpuscular HGB Conc 33.3 g/dL (31.6-35.5); Mean Corpuscular Hemoglobin 33.2 pg (28.0-33.3); Mean Corpuscular Volume 99.5 fL (83.0-100.0); Mean Platelet Volume 11.1 fL (9.4-12.4); Monocytes # 0.5 K/mcL (0.0-1.3); Monocytes % 5.7 %; Neutrophils # 7.6 K/mcL (1.6-8.9); Nucleated Red Blood Cells 0.2 /100 WBC (0); Platelet Count 467 K/mcL (140-400); Red Cell Distribution Width 14.6 % (11.5-14.5); Segmented Neutrophils % 85.2 %
[2017-09-17 05:14] LABS: BUN/Creatinine Ratio 24 (6-26); Blood Urea Nitrogen 25 mg/dL (8-23); Calcium 7.2 mg/dL (8.6-10.3); Carbon Dioxide 21 mEq/L (23-29); Chloride 114 mEq/L (98-107); Glucose 95 mg/dL (70-105); Magnesium 2.7 mg/dL (1.6-2.6); Osmolality,Calculated 298 (280-300); Phosphorous 3.7 mg/dL (2.7-4.5); Potassium 4.2 mEq/L (3.5-5.1); Sodium 142 mEq/L (136-145); eGFR For African Americans > 60 (> 60); eGFR For Non-African Americans > 60 (> 60)
[2017-09-17] MEDS: Pantoprazole 40 MG VIAL IVP SCH (09:18)
[2017-09-17] MEDS: OXYCODONE Oral CONC 10 MG/0.5 ML ORAL.SYG SL PRN (09:28)
[2017-09-17] MEDS: Ondansetron 4 MG/2 ML VIAL IVP PRN (09:28)
--- NOTE | 2017-09-17 10:19 | General Surgery Progress Note ---
Date of Encounter: 09/17/17 Time of Encounter: 10:19 - Assessment and Plan (1) Small bowel obstruction Current Visit: Yes Status: Acute Date of procedure: 09/07/17 Pre-op diagnosis: small bowel obstruction Post-op diagnosis: same (severe adhesions, metastatic colon cancer) Procedure: Exploratory laparotomy, lysis of adhesions 3 hours, small bowel resection x2 POD #10 as above. Abdominal exam is as expected. Final pathology detailed below. Plan: continue supportive care and discomfort management clear liquid diet and protein supplements ambulate and halls TID out of bed to chair for all meals PT and OT following premedicate prior to narcotic administration with Zofran as patient states narcotics make him feel nauseated. A. Skin lesion, anterior abdominal wall; shave biopsy: Lentigo Simplex B. Small bowel resection: Segment of small bowel with extensive serosal fibrous adhesions with vascular congestion and chronic inflammation, submucosal vascular congestion and hemorrhage and mucosal hemorrhage. Resection margins are viable. Negative for malignancy. (2) Colon cancer Current Visit: No Status: Chronic Pt with Hx of stage IV colon adenocarcinoma s/p open low anterior resection appendectomy, resection of an omental mass, take down of splenic flexure and a colostomy placed by Dr. Zhao. Qualifiers: Colon location: unspecified part of colon Qualified Code(s): C18.9 - Malignant neoplasm of colon, unspecified (3) Leukocytosis (leucocytosis) Current Visit: Yes Status: Acute WBC currently 9.0 and without bandemia will continue to monitor repeat a.m. labs Repeat UA given c/o increased low abd pain Qualifiers: Leukocytosis type: unspecified Qualified Code(s): D72.829 - Elevated white blood cell count, unspecified (4) Pulmonary embolism Current Visit: Yes Status: Acute Small to moderate emboli, primarily proximal descending right lower and segmental right upper lobe pulmonary arteries. Continue therapeutic heparin will continue to closely monitor PRN oxygen for shortness of breath titrate to keep stats greater than 92% Qualifiers: Pulmonary embolism type: other Chronicity: acute Qualified Code(s): I26.99 - Other pulmonary embolism without acute cor pulmonale (5) DVT (deep venous thrombosis) Current Visit: Yes Status: Acute PICC line d/c'd yesterday See assessment and plan above Qualifiers: DVT location: upper extremity Affected thrombotic vein of extremity: other upper extremity vein Chronicity: acute Laterality: right Qualified Code(s) : I82.621 - Acute embolism and thrombosis of deep veins of right upper extremity (6) Anemia Current Visit: Yes Status: Acute Patient reports that when he gets up out of bed and ambulate that he feels lightheaded, pale, and his heart racing. Bedside RN confirms he is tachycardic in the 120s, becomes diaphragmatic, and pale. He returns to baseline when he sits down. Plan Iron infusions 200 mg IV x5 (day 2 of ) will transfuse one unit packed red blood cells for symptomatic anemia of chronic disease Qualifiers: Anemia type: unspecified type Qualified Code(s): D64.9 - Anemia, unspecified Subjective Narrative: Eros states his abdominal discomfort is overall and well-controlled. He did have some increase lower abdominal discomfort this morning. He reports that when he got out of bed and walked he began feeling lightheaded, dizzy, nauseated , and felt as though he would pass out. The bedside RN reports he had an increased heart rate and was pale during this episode. He states once he sat down the symptoms began to resolve. He was medicated with Zofran for nausea. He is concerned whether these feelings could be related to oxycodone or "blood being low." He denies fevers, chills, or urinary symptoms. He reports flatus and output in his ostomy. Objective Vital Signs - Last 8 Hours Temp Pulse Resp BP Pulse Ox 09/17/17 07:04 97.6 F 90 16 166/78 97 09/17/17 04:03 98.7 F 87 17 134/65 97 09/17/17 03:22 18 98 Intake and Output 09/16/17 09/17/17 09/17/17 23:59 07:59 15:59 Intake Total 389 / 389 1470 / 1470 Output Total 800 / 800 875 / 875 Balance -411 / -411 595 / 595 Intake: IV Fluids 379 / 379 1450 / 1450 0.9 % Sodium Chloride 1,000 ML 1000 / 1000 @ 75 mls/hr IVC .[id number] [facility] Rx #:[id number] Heparin 25,000 UNIT/500 ML D5W 169 / 169 25,000 unit In 500 ml @ 14 UNIT /KG/HR 26.152 mls/hr IVC . Q19H8M [facility] Rx#:[id number] Diflucan Premix 200 MG/100 ML 100 / 100 200 mg In 100 ml @ 100 mls/hr IVPB HS [facility] Rx#:[id number] Venofer 200 MG In 0.9 % Sodium 110 / 110 Chloride 100 ML @ 200 mls/hr IVPB DAILY [facility] Rx#:[id number] Zosyn 3.375 GM In 0.9 % Sodium 100 / 100 100 / 100 Chloride (Mini-Bag +) 100 ML @ 25 mls/hr IVPB Q8H [facility] Rx#: [id number] Vancocin 1,250 MG In 0.9 % 250 / 250 Sodium Chloride 250 ML @ 166.67 mls/hr IVPB ONCE ONE Rx#: [id number] Oral Output: Urine 600 / 600 875 / 875 Stool 200 / 200 0 / 0 Other: Weight 84.78 kg Blood Glucose* 95 95 Patient Weight 09/17/17 23:59 Weight 84.78 kg VITAL SIGNS: Reviewed. See [facility] GENERAL: In no apparent distress. HEENT: Normocephalic, atraumatic, pupils are equal and reactive, extraocular motions intact, oropharynx is pink and moist, there is no neck adenopathy or JVD noted. Conjunctiva pale CHEST/RESPIRATORY: The thorax is free from signs of trauma. Lung sounds: clear to auscultation, normal respiratory effort CARDIAC: Regular rate and rhythm. Normal S1 and S2, without murmurs, gallops, or rubs. Tachycardic with activity VASCULAR: No Edema. 2+ peripheral pulses. ABDOMEN: soft, expected postoperative tenderness, active bowel sounds INCISION: Surgical incision is clean, dry, and intact. There are no signs of cellulitis or infection noted. WOUNDS/DRAINS: stoma grossly within normal limits MUSCULOSKELETAL: Good range of motion of all major joints. Extremities without clubbing, cyanosis or edema. NEUROLOGIC EXAM: Alert and oriented x 3. Speech normal. Follows commands. PSYCHIATRIC: Mood normal. SKIN: No rash or lesions. - Labs 09/17/17 04:35 09/17/17 04:35 Diabetes panel 09/17/17 Range/Units 04:35 Sodium 142 (136-145) mEq/L Potassium 4.2 (3.5-5.1) mEq/L Chloride 114 H (98-107) mEq/L Carbon Dioxide 21 L (23-29) mEq/L BUN 25 H (8-23) mg/dL Creatinine 1.05 (0.70-1.30) mg/dL Glucose 95 (70-105) mg/dL Calcium 7.2 L (8.6-10.3) mg/dL Calcium panel 09/17/17 09/17/17 Range/Units 04:35 04:35 Calcium 7.2 L (8.6-10.3) mg/dL Phosphorus 3.7 (2.7-4.5) mg/dL Pituitary panel 09/17/17 Range/Units 04:35 Sodium 142 (136-145) mEq/L Potassium 4.2 (3.5-5.1) mEq/L Chloride 114 H (98-107) mEq/L Carbon Dioxide 21 L (23-29) mEq/L BUN 25 H (8-23) mg/dL Creatinine 1.05 (0.70-1.30) mg/dL Glucose 95 (70-105) mg/dL Calcium 7.2 L (8.6-10.3) mg/dL Adrenal panel 09/17/17 Range/Units 04:35 Sodium 142 (136-145) mEq/L Potassium 4.2 (3.5-5.1) mEq/L Chloride 114 H (98-107) mEq/L Carbon Dioxide 21 L (23-29) mEq/L BUN 25 H (8-23) mg/dL Creatinine 1.05 (0.70-1.30) mg/dL Glucose 95 (70-105) mg/dL Calcium 7.2 L (8.6-10.3) mg/dL - VTE Documentation of Mechanical Device: Intermittent pneumatic compression device Consult Discharge Plan - Plan Referrals: Lobito Lang MD [Primary Care Provider] -
[2017-09-17] MEDS ORDERED: Furosemide 20 MG/2 ML VIAL IVP ONE (10:20)
[2017-09-17] MEDS: Iron Sucrose Complex 200 MG in 0.9 % Sodium Chloride 100 ML IVPB SCH (10:37)
[2017-09-17] MEDS ORDERED: *HR* HYDROcodone/Acet 5/325 mg TABLET PO PRN (10:43)
[2017-09-17] MEDS ORDERED: Ondansetron ODT 4 MG TAB.RAPDIS SL PRN (10:43)
[2017-09-17] MEDS ORDERED: 0.9 % Sodium Chloride 250 ML ONE (12:56)
[2017-09-17] MEDS: Fluconazole 200 MG/100 ML 200 MG/100 ML BAG IVPB SCH (22:30)
[2017-09-18] MEDS: Metoclopramide 10 MG/2 ML VIAL IVP SCH ×4 (00:29→20:30)
[2017-09-18] MEDS: Insulin LISPRO 300 UNITS/3 ML VIAL SQ SCH ×5 (00:38→20:28)
[2017-09-18] MEDS: Piperacillin/Tazobactam 3.375 GM in 0.9 % Sodium Chloride Mini Bag 100 ML IVPB SCH ×3 (03:13→22:46)
[2017-09-18 05:13] LABS: Basophils % 0.3 %; Eosinophils # 0.1 K/mcL (0.0-0.6); Hematocrit 22.8 % (37.5-50.1); Hemoglobin 7.5 g/dL (12.9-16.9); Immature Granulocytes % 1.6 % (0-4); Lymphocytes # 0.5 K/mcL (0.6-4.6); Lymphocytes % 6.5 %; Mean Corpuscular HGB Conc 32.9 g/dL (31.6-35.5); Mean Corpuscular Hemoglobin 32.3 pg (28.0-33.3); Mean Corpuscular Volume 98.3 fL (83.0-100.0); Mean Platelet Volume 10.9 fL (9.4-12.4); Monocytes # 0.5 K/mcL (0.0-1.3); Monocytes % 7.4 %; Neutrophils # 5.9 K/mcL (1.6-8.9); Nucleated Red Blood Cells 0.3 /100 WBC (0); Platelet Count 518 K/mcL (140-400); Red Blood Count 2.32 M/mcL (4.19-5.50); Red Cell Distribution Width 15.7 % (11.5-14.5); Segmented Neutrophils % 83.2 %
[2017-09-18] MEDS: Ipratropium/Albuterol Neb 3 ML IH SCH ×4 (05:19→21:08)
[2017-09-18 05:36] LABS: BUN/Creatinine Ratio 19 (6-26); Blood Urea Nitrogen 21 mg/dL (8-23); Calcium 7.3 mg/dL (8.6-10.3); Carbon Dioxide 21 mEq/L (23-29); Chloride 112 mEq/L (98-107); Glucose 101 mg/dL (70-105); Magnesium 2.6 mg/dL (1.6-2.6); Osmolality,Calculated 297 (280-300); Phosphorous 2.7 mg/dL (2.7-4.5); Potassium 3.9 mEq/L (3.5-5.1); Sodium 142 mEq/L (136-145); eGFR For African Americans > 60 (> 60); eGFR For Non-African Americans > 60 (> 60)
[2017-09-18] MEDS ORDERED: Aminoglycoside Consult 1 EACH MC ONE (07:22)
--- NOTE | 2017-09-18 08:43 | General Surgery Progress Note ---
<Cherelle Prado Jessica - Last Filed: 09/18/17 10:32> Date of Encounter: 09/18/17 Time of Encounter: 08:30 - Assessment and Plan (1) Small bowel obstruction Current Visit: Yes Status: Acute POD #11 exploratory laparotomy with SBR X2 and lysis of adhesions with Dr. Zhao Advance to full liquids today Protein supplements Supportive care Ambulate hallways TID with assistance Incentive spirometer every 1 hour while awake PPI therapy daily IV antibiotics- Zosyn Continue daily wound packing Social service consult to discuss discharge needs Pathology- A. Skin lesion, anterior abdominal wall; shave biopsy: Lentigo Simplex B. Small bowel resection: Segment of small bowel with extensive serosal fibrous adhesions with vascular congestion and chronic inflammation, submucosal vascular congestion and hemorrhage and mucosal hemorrhage. Resection margins are viable. Negative for malignancy. (2) Colon cancer Current Visit: No Status: Chronic The patient has a history of stage IV adenocarcinoma Status post lysis of adhesion, resection of omental mass, takedown of splenic flexure and colostomy We will plan for follow-up with oncology as an outpatient with Dr. Diop Qualifiers: Colon location: unspecified part of colon Qualified Code(s): C18.9 - Malignant neoplasm of colon, unspecified (3) Pulmonary embolism Current Visit: Yes Status: Acute Continue heparin drip- stop at 2000 tonight Transition to Xarelto 15mg BID for 21 days and then 20mg daily for 6 months Continue supplemental oxygen for supportive care Continue aerosol treatments every 6 hours Continue incentive spirometer every 1 hour while awake Qualifiers: Pulmonary embolism type: other Chronicity: acute Acute cor pulmonale presence: without acute cor pulmonale Qualified Code(s): I26.99 - Other pulmonary embolism without acute cor pulmonale (4) DVT (deep venous thrombosis) Current Visit: Yes Status: Acute DVT in the right upper extremity- subclavian vein PICC line removed and sent for culture- caheter tip no growth at this time Continue heparin drip Qualifiers: DVT location: upper extremity Affected thrombotic vein of extremity: other upper extremity vein Chronicity: acute Laterality: right Qualified Code(s) : I82.621 - Acute embolism and thrombosis of deep veins of right upper extremity (5) Anemia Current Visit: Yes Status: Acute Hgb- 7.3>7.5 PRBC 1 unit transfused 09/17/17 Continue iron infusions (last infusion due on 09/21/17) Qualifiers: Anemia type: unspecified type Qualified Code(s): D64.9 - Anemia, unspecified Subjective Patient reports: no new complaints, feels better, tolerating liquids well, voiding w/o difficulty, flatus, bowel movement (minimal liquid via colostomy), afebrile Objective Vital Signs - Last 8 Hours Temp Pulse Resp BP Pulse Ox 09/18/17 06:52 98.2 F 93 15 149/69 97 09/18/17 05:53 88 143/69 09/18/17 05:19 16 98 09/18/17 03:48 97.9 F 87 15 131/67 97 Intake and Output 09/17/17 09/18/17 09/18/17 23:59 07:59 15:59 Intake Total 500 / 500 450 / 450 Output Total 200 / 200 200 / 200 Balance 300 / 300 250 / 250 Intake: IV Fluids 0 / 0 450 / 450 Heparin 25,000 UNIT/500 ML D5W 0 / 0 25,000 unit In 500 ml @ 14 UNIT /KG/HR 26.152 mls/hr IVC . Q19H8M [facility] Rx#:[id number] Diflucan Premix 200 MG/100 ML 100 / 100 200 mg In 100 ml @ 100 mls/hr IVPB HS [facility] Rx#:[id number] Zosyn 3.375 GM In 0.9 % Sodium 100 / 100 Chloride (Mini-Bag +) 100 ML @ 25 mls/hr IVPB Q8H [facility] Rx#: [id number] Vancocin 1,250 MG In 0.9 % 250 / 250 Sodium Chloride 250 ML @ 166.67 mls/hr IVPB Q12H [facility] Rx#: [id number] Oral 0 / 0 0 / 0 Blood Product 500 / 500 Rbcs Leuko Poor As-1 Unit 500 / 500 [id number] Output: Urine 200 / 200 200 / 200 Stool 0 / 0 Other: Weight 84.731 kg Blood Glucose* 186 97 Patient Weight 09/18/17 23:59 Weight 84.731 kg - General physical appearance well developed, no distress, no pain - Eyes normal ocular movement - ENT normal mucosa, atraumatic, normocephalic - Neck Neck exam: trachea midline - Respiratory normal respiratory effort, clear to auscultation, other (diminished bibasilar bases) - Cardiovascular Cardiovascular exam: Present: RRR - Abdomen Abdomen: Present: bowel sounds present, soft, non tender, wound (Ostomy is pink and moist with small amount of flatus and small amount of liquid, brown stool noted) - Neurologic CN 2-12 grossly intact - Musculoskeletal other (physical deconditioning) - Psychiatric oriented to time, oriented to person, oriented to place, speech is normal, memory intact - Labs 09/18/17 04:05 09/18/17 04:05 Diabetes panel 09/18/17 Range/Units 04:05 Sodium 142 (136-145) mEq/L Potassium 3.9 (3.5-5.1) mEq/L Chloride 112 H (98-107) mEq/L Carbon Dioxide 21 L (23-29) mEq/L BUN 21 (8-23) mg/dL Creatinine 1.12 (0.70-1.30) mg/dL Glucose 101 (70-105) mg/dL Calcium 7.3 L (8.6-10.3) mg/dL Calcium panel 09/18/17 Range/Units 04:05 Calcium 7.3 L (8.6-10.3) mg/dL Phosphorus 2.7 (2.7-4.5) mg/dL Pituitary panel 09/18/17 Range/Units 04:05 Sodium 142 (136-145) mEq/L Potassium 3.9 (3.5-5.1) mEq/L Chloride 112 H (98-107) mEq/L Carbon Dioxide 21 L (23-29) mEq/L BUN 21 (8-23) mg/dL Creatinine 1.12 (0.70-1.30) mg/dL Glucose 101 (70-105) mg/dL Calcium 7.3 L (8.6-10.3) mg/dL Adrenal panel 09/18/17 Range/Units 04:05 Sodium 142 (136-145) mEq/L Potassium 3.9 (3.5-5.1) mEq/L Chloride 112 H (98-107) mEq/L Carbon Dioxide 21 L (23-29) mEq/L BUN 21 (8-23) mg/dL Creatinine 1.12 (0.70-1.30) mg/dL Glucose 101 (70-105) mg/dL Calcium 7.3 L (8.6-10.3) mg/dL - VTE Documentation of Mechanical Device: Intermittent pneumatic compression device Consult Discharge Plan - Plan Referrals: Lobito Lang MD [Primary Care Provider] - <Ayde Zhao Jann - Last Filed: 09/19/17 14:44> Date of Encounter: 09/18/17 Time of Encounter: 10:00 - Assessment and Plan (1) Colostomy care Current Visit: Yes Status: Chronic (2) Prostate enlargement Current Visit: No Status: Chronic holding home medication, urinating without issues (3) Hypertension Current Visit: No Status: Chronic continue scheduled medications and prns monitor Qualifiers: Hypertension type: essential hypertension Qualified Code(s): I10 - Essential (primary) hypertension (4) Ileus following gastrointestinal surgery Current Visit: Yes Status: Acute (5) Pulmonary embolism Current Visit: Yes Status: Acute continue heparin drip Qualifiers: Pulmonary embolism type: other Chronicity: acute Acute cor pulmonale presence: without acute cor pulmonale Qualified Code(s): I26.99 - Other pulmonary embolism without acute cor pulmonale (6) Status post exploratory laparotomy Current Visit: Yes Status: Acute patient with bile coming from midline lower dressing, will obtain stat CT concern for bowel perforation or anastomotic leak npo ivf asking IR to place central line as PICC team unable to place picc at left arm continue antibiotics Subjective Patient reports: feels better, tolerating liquids well, voiding w/o difficulty, flatus, bowel movement Objective Vital Signs - Last 8 Hours Temp Pulse Resp BP Pulse Ox 09/19/17 11:17 98.1 F 92 16 152/64 96 09/19/17 09:54 16 97 09/19/17 07:19 98.8 F 93 16 144/69 97 Intake and Output 09/18/17 09/19/17 09/19/17 23:59 07:59 15:59 Intake Total 200 / 200 0 / 0 350 / 350 Output Total 850 / 850 935 / 935 425 / 425 Balance -650 / -650 -935 / -935 -75 / -75 Intake: IV Fluids 200 / 200 350 / 350 Intralipid 20% 250 ML @ 21 mls/ 250 / 250 hr IVPB DAILY@1700 [facility] Rx#: [id number] Diflucan Premix 200 MG/100 ML 100 / 100 200 mg In 100 ml @ 100 mls/hr IVPB HS [facility] Rx#:[id number] Zosyn 3.375 GM In 0.9 % Sodium 100 / 100 100 / 100 Chloride (Mini-Bag +) 100 ML @ 25 mls/hr IVPB Q8H [facility] Rx#: [id number] Oral 0 / 0 0 / 0 Output: Urine 550 / 550 Stool 300 / 300 0 / 0 Estimated Blood Loss 5 / 5 Urine Amount (Catheter) 380 / 380 Catheter 550 / 550 350 / 350 Gastric Drainage 50 / 50 Wound Drainage / Lower Abdomen Other: Blood Glucose* 102 144 128 - General physical appearance well developed, no distress, no pain - Eyes normal ocular movement - ENT normal mucosa, normocephalic - Neck Neck exam: trachea midline - Respiratory clear to auscultation - Cardiovascular Cardiovascular exam: Present: RRR - Abdomen Abdomen: Present: bowel sounds present, soft, non tender, wound (Ostomy is pink and moist with small amount of flatus and small amount of liquid, brown stool noted /bile at inferior aspect) - Incision Incision: Present: clean and dry, open (packed) - Genitourinary normal penis with no external lesions - Integumentary no rash, no growths - Neurologic CN 2-12 grossly intact - Musculoskeletal normal posture - Psychiatric oriented to time, oriented to person, oriented to place, speech is normal, memory intact - Labs 09/19/17 12:05 09/19/17 04:00 Diabetes panel 09/19/17 Range/Units 04:00 Sodium 140 (136-145) mEq/L Potassium 4.3 (3.5-5.1) mEq/L Chloride 111 H (98-107) mEq/L Carbon Dioxide 24 (23-29) mEq/L BUN 15 (8-23) mg/dL Creatinine 1.05 (0.70-1.30) mg/dL Glucose 127 H (70-105) mg/dL Calcium 9.0 (8.6-10.3) mg/dL Calcium panel 09/19/17 Range/Units 04:00 Calcium 9.0 (8.6-10.3) mg/dL Phosphorus 3.3 (2.7-4.5) mg/dL Pituitary panel 09/19/17 Range/Units 04:00 Sodium 140 (136-145) mEq/L Potassium 4.3 (3.5-5.1) mEq/L Chloride 111 H (98-107) mEq/L Carbon Dioxide 24 (23-29) mEq/L BUN 15 (8-23) mg/dL Creatinine 1.05 (0.70-1.30) mg/dL Glucose 127 H (70-105) mg/dL Calcium 9.0 (8.6-10.3) mg/dL Adrenal panel 09/19/17 Range/Units 04:00 Sodium 140 (136-145) mEq/L Potassium 4.3 (3.5-5.1) mEq/L Chloride 111 H (98-107) mEq/L Carbon Dioxide 24 (23-29) mEq/L BUN 15 (8-23) mg/dL Creatinine 1.05 (0.70-1.30) mg/dL Glucose 127 H (70-105) mg/dL Calcium 9.0 (8.6-10.3) mg/dL - Attending Attestation I have personally performed a face to face evaluation on this patient. I have reviewed and agree with the care plan. History and Exam by me shows:
[2017-09-18] MEDS: Pantoprazole 40 MG VIAL IVP SCH (09:11)
[2017-09-18] MEDS: Iron Sucrose Complex 200 MG in 0.9 % Sodium Chloride 100 ML IVPB SCH (11:00)
[2017-09-18] MEDS ORDERED: MORPHINE SUL Oral CONC 10 MG/0.5 ML ORAL.SYG PO PRN (11:39)
[2017-09-18] MEDS ORDERED: OXYCODONE Oral CONC 10 MG/0.5 ML ORAL.SYG SL PRN (11:39)
[2017-09-18] MEDS ORDERED: Lidocaine -MPF 1% 5 ML AMPUL INFILT ONE (12:18)
[2017-09-18] MEDS ORDERED: 0.9 % Sodium Chloride 1,000 ML IVC SCH ×2 (12:21→13:30)
[2017-09-18] MEDS ORDERED: D5% in 0.45% NACL 1,000 ML IVC SCH (13:00)
[2017-09-18] MEDS ORDERED: D10% in Water 500 ML IVC PRN (13:35)
[2017-09-18] MEDS ORDERED: Heparin 1,000 UNITS/500 mL 500 ML ONE ×2 (14:44→23:33)
--- NOTE | 2017-09-18 15:10 | IR Procedure Note ---
Date of procedure: 09/18/17 Consent Obtained: Verbal consent Timeout: Correct patient and procedure verified, Correct site verified, Time out performed, Skin prep completed Local anesthetic: Lidocaine 1% Indications: Need for IV access Procedure Performed: Central line placement Was there an health care assistant present: No Site/Technique: Right IJ central venous line placed in VIR Results/Findings: Central venous line in good position Estimated blood loss (cc): 1 Complications: None; Tolerated procedure well Post Procedure Treatment Plan: May use the central line now Specimen: None
[2017-09-18] MEDS ORDERED: Clinimix E 5%-15% SOLUTION 2,000 ML with MVI, adult with vitamin K 10 ML IVC SCH (17:00)
[2017-09-18] MEDS ORDERED: Lidocaine -MPF 2% 2 ML VIAL ONE ×2 (18:17→21:45)
[2017-09-18] MEDS ORDERED: *HR* Succinylcholine 200 MG/10 ML VIAL IVP ONE ×2 (18:17→21:45)
[2017-09-18] MEDS ORDERED: Neostigmine Methylsulfate 3 MG/3 ML SYRINGE ONE (18:17)
[2017-09-18] MEDS ORDERED: *HR* Propofol 200 MG/20 ML VIAL IVP ONE ×2 (18:17→21:41)
[2017-09-18] MEDS ORDERED: Ondansetron 4 MG/2 ML VIAL ONE (18:17)
[2017-09-18] MEDS ORDERED: Dexamethasone 4 MG/ML VIAL ONE (18:17)
[2017-09-18] MEDS ORDERED: *HR* Rocuronium Bromide 50 MG/5 ML VIAL ONE ×2 (18:17→21:45)
[2017-09-18] MEDS ORDERED: *HR* FentaNYL (PF) 100 MCG/2 ML VIAL ONE ×2 (18:17→21:41)
[2017-09-18] MEDS ORDERED: Lidocaine -MPF 1% 5 ML AMPUL ONE (18:21)
[2017-09-18] MEDS: Heparin 25,000 UNIT/500 ML D5W 25,000 UNIT/500 ML BAG IVC SCH (20:27)
[2017-09-18] MEDS: Fluconazole 200 MG/100 ML 200 MG/100 ML BAG IVPB SCH (20:32)
[2017-09-18] MEDS ORDERED: *HR* Rivaroxaban 15 MG TABLET PO SCH (21:00)
--- NOTE | 2017-09-18 21:00 | Anesthesia Evaluation PreOp ---
Date of Encounter: 09/18/17 Time of Encounter: 22:51 - Past History Planned Operation: Exp laparotomy Cardiac History: HTN, Hyperlipidemia, Other (09/15: Right SC vein DVT, and PE) Pulmonary History: Smoker [employer] History: TIA Other Medical History: Other (Colon CA, post complex laparotomy 09/07, now with anastmotic leak and peritoneal free air & oral contrast) Anesthesia History: No Prior Anesthetic Complications, Past Anesthesia Alcohol Use: none Drug use: none Medications and Allergies Metoprolol [Lopressor] 25 mg PO BID 12/27/14 [History] Tamsulosin [Flomax] 0.4 mg PO DAILY 12/27/14 [History] Simvastatin [Zocor] 10 mg PO HS 04/02/15 [History] Finasteride [Proscar] 5 mg PO DAILY 07/23/15 [History] Lisinopril [Zestril] 40 mg PO DAILY 04/23/16 [History] amLODIPine [Norvasc] 7.5 mg PO DAILY 09/03/17 [History] 3 Allergy/AdvReac Type Severity Reaction Status Date / Time No Known Allergies Allergy Verified 09/03/17 12:52 - Meds/Allergy Pre-op Review Medications Reviewed: Yes Allergies Reviewed: Yes Beta Blockers on Current Med List: Yes Anesthesia Results - Labs 09/18/17 04:05 09/18/17 04:05 Laboratory Tests 09/18/17 04:05 Calcium 7.3 L Magnesium 2.6 - Imaging Additional studies: TTE 09/16/2017: LVEF 65-70%. Mild left ventricular diastolic dysfunction. Normal right ventricular structure and function. No significant valvular dysfunction. No pulmonary hypertension. Anesthesia Exam Vital Signs/O2 Sat/Glucose, Most Recent Temp Pulse Resp BP Pulse Ox 99.5 F 90 16 123/66 96 09/18/17 20:12 09/18/17 20:12 09/18/17 21:09 09/18/17 20:12 09/18/17 21:09 Blood Glucose* 102 Weight: 85 kg - BMI 26 NPO (# of Hours): 1400 Oral contrast - HEENT Mallampati: III Teeth: Missing, Poor dentition Oral Opening: Greater than 3 - [employer] LOC: Oriented - Cardiac Rhythm: Regular - Pulmonary Breath Sounds: bilateral Clear - Additional Findings Patient on TPN, Intralipid.' Right IJ CVC 20 ga left FA iv. Anesthesia Assess/Plan ASA Score: 5, E Modified Sergio Scale for Level of Consciousness: Cooperative, oriented, and tranquil Anesthetic Plan: General Autologous Blood: Yes Monitoring Plan: Standard Monitors, A-Line Recovery Plan: PACU (Possible post op [facility], avonh ventilation) Anes Supervising Prov Stmt: Patient informed and consented. Risks, benefits, and alternatives discussed. Patient wishes to proceed.
[2017-09-18] MEDS: 0.9 % Sodium Chloride 1,000 ML IVC SCH (22:47)
[2017-09-18] MEDS ORDERED: Hydrocortisone Sodium Succ 100 MG/2 ML VIAL ONE (23:09)
[2017-09-18] MEDS ORDERED: *HR* PHENYLEPHRINE 1,000 MCG/10 ML SYRINGE IVP ONE (23:34)
[2017-09-19] MEDS: Insulin LISPRO 300 UNITS/3 ML VIAL SQ SCH ×6 (00:04→20:41)
[2017-09-19] MEDS: Metoclopramide 10 MG/2 ML VIAL IVP SCH (00:04)
[2017-09-19] MEDS ORDERED: *HR* HYDROmorphone (PF) 1 MG/ML SYRINGE IVP PRN (00:50)
[2017-09-19] MEDS ORDERED: MORPHINE SUL Oral CONC 10 MG/0.5 ML ORAL.SYG SL PRN (00:50)
--- NOTE | 2017-09-19 00:50 | Anesthesia Evaluation Post Op ---
Date of Encounter: 09/19/17 Time of Encounter: 01:55 - Vital Signs Vital Signs: Vital Signs/O2 Sat, Most Current Temp Pulse Resp BP Pulse Ox 98.5 F 89 16 154/76 94 09/19/17 01:42 09/19/17 01:42 09/19/17 01:42 09/19/17 01:42 09/19/17 01:42 Notes: Patient's vital signs have been reviewed. Patient is stable postoperatively and has adequately recovered from anesthesia. Patient is determined to have stable airway patency and respiratory function including respiratory rate and oxygen saturation. Patient has a stable heart rate, blood pressure and adequate hydration. Patients mental status is acceptable. Patients temperature is appropriate. Pain and nausea are adequately controlled. - Discharge PostOp Status: Transfer Patient to floor
--- NOTE | 2017-09-19 01:03 | Operative Note ---
Date of procedure: 09/19/17 Pre-op diagnosis: anastamotic leak Post-op diagnosis: same (bowel perforation/possible anastomotic leak, frozen abdomen, serosal tears x2) Procedure: Exploratory laparotomy, lysis of adhesions, closure serosal tear x 2, wound vac placement Complications: none immediate Anesthesia: GETA Surgeon: Ayde Zhao Was there an costumer assistant present: Yes Oncology Nurse Navigator: Shani Lozano Estimated blood loss (cc): 5 Specimen: none Condition: critical Disposition: PACU Procedure in Detail: Patient was brought to the operating suite and placed supine on the operating table. Sign in was performed and everyone was in agreement. Anesthesia was induced and patient was endotracheally intubated by anesthesia without incident. Saavedra catheter was placed by circulating nurse. NG tube was placed by anesthesia. A new ostomy appliance that was trimmed was placed over the left colostomy. Mehul were removed from the midline incision. The abdomen was prepped and draped in the usual sterile fashion with Betadine. The incision was opened with the Bovie. There was bile staining at the middle of the incision. The previous fascial closure had pulled apart. Extremely dense adhesions between the anterior abdominal wall and the small bowel was encountered. 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 Attempts at lysis of adhesions resulted in 2 serosal tears which given the nature of the patient's disease process is not unexpected and was unavoidable. Each serosal tear was closed with 3-0 silk interrupted stitches reapproximating the serosa. No large fluid collections were encountered. I was unable to get down to the left abdominal fluid collection seen on CT due to dense adhesions. There was an area of small bowel, which I was unable to tell if it was an anastomosis which had bile staining and appeared to contain a perforation. Due to patients frozen abdomen further lysis of adhesions was not attempted. At the inferior aspect of his abdominal wall the fascia was reapproximated with three #1 PDS figure of eight fascial stitches. At the superior of the incision the fascia was retracted , the subcutaneous tissue was reapproximated with 3-0 vicryl interrupted stitches. The skin superiorly was closed with mehul. The mid portion of the abdominal wound was left open for wound vac placement. A trimmed piece of adaptic was placed over the small bowel. Black foam was then trimmed and placed in the wound, another piece of black foam was placed over the subcutaneous tissue inferiorly. 1/2" iodoform was placed over the patients upper closed incision. Plastic vac drape was placed over the incision and the vac tubing placed and connected to the wound vac, which placed to 100 mmHg continuous suction. Patient tolerated procedure well. All lap and instrument counts were correct at the end of the case. Patient was awoken by anesthesia and extubated without incident. Saavedra catheter and ngt remained with patient. He was taken to pacu in stable condition Plan: plan to speak to [facility] regarding possible transfer of patient care will ask IR to place drain into LLQ fluid collection.
[2017-09-19] MEDS: *HR* FentaNYL (PF) 100 MCG/2 ML VIAL IVP PRN ×2 (01:20→01:51)
[2017-09-19] MEDS ORDERED: D10% in Water 500 ML IVC PRN ×2 (02:18→11:27)
[2017-09-19] MEDS ORDERED: *HR* Heparin 5,000 UNIT/ML VIAL IVP PRN (02:18)
[2017-09-19] MEDS ORDERED: *HR* Dextrose 50 % in Water (Syg) 50 ML SYRINGE IVP PRN (02:18)
[2017-09-19] MEDS ORDERED: Dextrose Gel 15 GM/37.5 ML TUBE PO PRN ×2 (02:18)
[2017-09-19] MEDS ORDERED: D5% in Water 1,000 ML IVC PRN (02:18)
[2017-09-19] MEDS ORDERED: *HR* Metoprolol 5 MG/5 ML VIAL IVP PRN (02:18)
[2017-09-19] MEDS ORDERED: Chloraseptic Spray 177 ML BOTTLE MM PRN (02:18)
[2017-09-19] MEDS ORDERED: Clinimix E 5%-15% SOLUTION 2,000 ML with MVI, adult with vitamin K 10 ML IVC SCH ×2 (02:18→17:00)
[2017-09-19] MEDS: 0.9 % Sodium Chloride 1,000 ML IVC SCH (02:47)
[2017-09-19] MEDS: Piperacillin/Tazobactam 3.375 GM in 0.9 % Sodium Chloride Mini Bag 100 ML IVPB SCH ×3 (02:48→20:10)
[2017-09-19] MEDS: Heparin 25,000 UNIT/500 ML D5W 25,000 UNIT/500 ML BAG IVC SCH ×2 (02:48→11:38)
[2017-09-19] MEDS: Ondansetron 4 MG/2 ML VIAL IVP PRN (03:28)
[2017-09-19] MEDS: OXYCODONE Oral CONC 10 MG/0.5 ML ORAL.SYG SL PRN (03:29)
[2017-09-19] MEDS: Ipratropium/Albuterol Neb 3 ML IH SCH ×4 (03:55→22:12)
[2017-09-19 05:14] LABS: BUN/Creatinine Ratio 14 (6-26); Blood Urea Nitrogen 15 mg/dL (8-23); Carbon Dioxide 24 mEq/L (23-29); Chloride 111 mEq/L (98-107); Glucose 127 mg/dL (70-105); Magnesium 2.4 mg/dL (1.6-2.6); Osmolality,Calculated 292 (280-300); Phosphorous 3.3 mg/dL (2.7-4.5); Potassium 4.3 mEq/L (3.5-5.1); Sodium 140 mEq/L (136-145); eGFR For African Americans > 60 (> 60); eGFR For Non-African Americans > 60 (> 60)
[2017-09-19] MEDS: Pantoprazole 40 MG VIAL IVP SCH (08:28)
[2017-09-19] MEDS: *HR* FentaNYL PATCH 25 MCG PATCH TD SCH (08:28)
[2017-09-19] MEDS: Iron Sucrose Complex 200 MG in 0.9 % Sodium Chloride 100 ML IVPB SCH (08:42)
[2017-09-19 12:26] LABS: Basophils % 0.3 %; Hematocrit 24.8 % (37.5-50.1); Hemoglobin 8.2 g/dL (12.9-16.9); Immature Granulocytes % 3.2 % (0-4); Lymphocytes # 0.3 K/mcL (0.6-4.6); Lymphocytes % 4.1 %; Mean Corpuscular HGB Conc 33.1 g/dL (31.6-35.5); Mean Corpuscular Hemoglobin 32.5 pg (28.0-33.3); Mean Corpuscular Volume 98.4 fL (83.0-100.0); Mean Platelet Volume 10.3 fL (9.4-12.4); Monocytes # 0.4 K/mcL (0.0-1.3); Neutrophils # 5.5 K/mcL (1.6-8.9); Nucleated Red Blood Cells 0.3 /100 WBC (0); Platelet Count 527 K/mcL (140-400); Red Blood Count 2.52 M/mcL (4.19-5.50); Red Cell Distribution Width 15.3 % (11.5-14.5); Segmented Neutrophils % 86.4 %
[2017-09-19 12:34] LABS: INR 1.3; Prothrombin Time 14.5 Seconds (9.4-12.1)
--- NOTE | 2017-09-19 15:47 | General Surgery Progress Note ---
Date of Encounter: 09/19/17 Time of Encounter: 11:10 - Assessment and Plan (1) Colostomy care Current Visit: Yes Status: Chronic colostomy care (2) Prostate enlargement Current Visit: No Status: Chronic holding home medication, urinating without issues (3) Hypertension Current Visit: No Status: Chronic continue scheduled medications and prns monitor Qualifiers: Hypertension type: essential hypertension Qualified Code(s): I10 - Essential (primary) hypertension (4) Pulmonary embolism Current Visit: Yes Status: Acute continue heparin drip Qualifiers: Pulmonary embolism type: other Chronicity: acute Acute cor pulmonale presence: without acute cor pulmonale Qualified Code(s): I26.99 - Other pulmonary embolism without acute cor pulmonale (5) Status post exploratory laparotomy Current Visit: Yes Status: Acute patient with bile coming from midline lower incision yesterday CT scan showed leak of po contrast from gi tract likely form an anastomosis exploratory laparotomy yesterday with severe adhesion and inability to get down to LLQ where leak is, serosal tears x2 -repaired, midline incision closed proximally and distallly with wound vac at midline - no bile in vac today have spoken with IR and they are going to place drain at site of fluid cavity in abdomen which contains contrast from leak - contained. patient with an essentially frozen abdomen have discussed concerns with patient regarding my concern that further attempts at abdominal surgery given the severity of his adhesions will cause further intraoabdominal organ/bowel injury will place drain in hopes of controlling leak, hopefully with a controlled ECF patients vitals are stable, wbc normal on zosyn and diflucan, no fevers - monitor will discuss patients case wiht Dr Israel on thursday for second opinion continue npo, ngt to liws continue TPN Subjective Patient reports: no new complaints, pain is less, flatus, bowel movement ( liquid in colostomy), afebrile Objective Vital Signs - Last 8 Hours Temp Pulse Resp BP Pulse Ox 09/19/17 11:17 98.1 F 92 16 152/64 96 09/19/17 09:54 16 97 Intake and Output 09/18/17 09/19/17 09/19/17 23:59 07:59 15:59 Intake Total 200 / 200 0 / 0 350 / 350 Output Total 850 / 850 935 / 935 425 / 425 Balance -650 / -650 -935 / -935 -75 / -75 Intake: IV Fluids 200 / 200 350 / 350 Intralipid 20% 250 ML @ 21 mls/ 250 / 250 hr IVPB DAILY@1700 [facility] Rx#: [id number] Diflucan Premix 200 MG/100 ML 100 / 100 200 mg In 100 ml @ 100 mls/hr IVPB HS [facility] Rx#:[id number] Zosyn 3.375 GM In 0.9 % Sodium 100 / 100 100 / 100 Chloride (Mini-Bag +) 100 ML @ 25 mls/hr IVPB Q8H [facility] Rx#: [id number] Oral 0 / 0 0 / 0 Output: Urine 550 / 550 Stool 300 / 300 0 / 0 Estimated Blood Loss 5 / 5 Urine Amount (Catheter) 380 / 380 Catheter 550 / 550 350 / 350 Gastric Drainage 50 / 50 Wound Drainage 25 / 25 Lower Abdomen 25 / Other: Blood Glucose* 102 144 128 - General physical appearance well developed, well nourished, no distress - Eyes PERRL, normal ocular movement - ENT normal mucosa, normocephalic - Neck Neck exam: trachea midline - Respiratory normal expansion, clear to auscultation - Cardiovascular Cardiovascular exam: Present: RRR - Abdomen Abdomen: Present: bowel sounds present (faint), distended, tender (expected post op tenderness). Absent: guarding, rebound - Incision Incision: Present: clean and dry, open (wound vac in place wiht serousang drainage) - Genitourinary other (steen with clear yellow urine) - Integumentary no rash - Neurologic CN 2-12 grossly intact - Musculoskeletal normal posture - Psychiatric oriented to time, oriented to person, oriented to place, speech is normal, memory intact - Labs 09/19/17 12:05 09/19/17 04:00 Diabetes panel 09/19/17 Range/Units 04:00 Sodium 140 (136-145) mEq/L Potassium 4.3 (3.5-5.1) mEq/L Chloride 111 H (98-107) mEq/L Carbon Dioxide 24 (23-29) mEq/L BUN 15 (8-23) mg/dL Creatinine 1.05 (0.70-1.30) mg/dL Glucose 127 H (70-105) mg/dL Calcium 9.0 (8.6-10.3) mg/dL Calcium panel 09/19/17 Range/Units 04:00 Calcium 9.0 (8.6-10.3) mg/dL Phosphorus 3.3 (2.7-4.5) mg/dL Pituitary panel 09/19/17 Range/Units 04:00 Sodium 140 (136-145) mEq/L Potassium 4.3 (3.5-5.1) mEq/L Chloride 111 H (98-107) mEq/L Carbon Dioxide 24 (23-29) mEq/L BUN 15 (8-23) mg/dL Creatinine 1.05 (0.70-1.30) mg/dL Glucose 127 H (70-105) mg/dL Calcium 9.0 (8.6-10.3) mg/dL Adrenal panel 09/19/17 Range/Units 04:00 Sodium 140 (136-145) mEq/L Potassium 4.3 (3.5-5.1) mEq/L Chloride 111 H (98-107) mEq/L Carbon Dioxide 24 (23-29) mEq/L BUN 15 (8-23) mg/dL Creatinine 1.05 (0.70-1.30) mg/dL Glucose 127 H (70-105) mg/dL Calcium 9.0 (8.6-10.3) mg/dL - VTE Documentation of Mechanical Device: Intermittent pneumatic compression device Consult Discharge Plan - Plan Referrals: Lobito Lang MD [Primary Care Provider] -
--- NOTE | 2017-09-19 18:10 | IR Procedure Note ---
Date of procedure: 09/19/17 Consent Obtained: Verbal consent Timeout: Correct patient and procedure verified, Correct site verified, Time out performed, Skin prep completed Local anesthetic: Lidocaine 1% Indications: Bowel leak in left abdomen, recent surgery Procedure Performed: CT drain placement Was there an medical staff assistant present: No Site/Technique: Left lateral lower abdomen. Liquid stool output. Results/Findings: 14fr drain placed laterally, tolerated well. Done with local. Estimated blood loss (cc): 0 Complications: None; Tolerated procedure well Post Procedure Treatment Plan: Monitoring in pts room Specimen: N/a
[2017-09-19] MEDS: Fluconazole 200 MG/100 ML 200 MG/100 ML BAG IVPB SCH (20:16)
[2017-09-20] MEDS: Insulin LISPRO 300 UNITS/3 ML VIAL SQ SCH ×6 (00:17→20:59)
[2017-09-20] MEDS: 0.9 % Sodium Chloride 1,000 ML IVC SCH (00:22)
[2017-09-20] MEDS: OXYCODONE Oral CONC 10 MG/0.5 ML ORAL.SYG SL PRN ×3 (00:28→10:29)
[2017-09-20 02:52] LABS: Hematocrit 24.4 % (37.5-50.1); Mean Corpuscular HGB Conc 32.8 g/dL (31.6-35.5); Mean Corpuscular Hemoglobin 32.5 pg (28.0-33.3); Mean Corpuscular Volume 99.2 fL (83.0-100.0); Mean Platelet Volume 10.2 fL (9.4-12.4); Nucleated Red Blood Cells 0.8 /100 WBC (0); Platelet Count 526 K/mcL (140-400); Red Blood Count 2.46 M/mcL (4.19-5.50); Red Cell Distribution Width 15.4 % (11.5-14.5)
[2017-09-20] MEDS: Piperacillin/Tazobactam 3.375 GM in 0.9 % Sodium Chloride Mini Bag 100 ML IVPB SCH ×3 (03:07→18:25)
[2017-09-20 03:08] LABS: Lymphocytes # 1.2 K/mcL (0.6-4.6); Monocytes # 0.5 K/mcL (0.0-1.3); Neutrophils # 4.2 K/mcL (1.6-8.9); Platelet Estimate Increased (Normal); Polychromasia 1+ (Not Present); Reactive Lymphocytes Present (Not Present)
[2017-09-20 03:13] LABS: BUN/Creatinine Ratio 16 (6-26); Blood Urea Nitrogen 17 mg/dL (8-23); Carbon Dioxide 24 mEq/L (23-29); Chloride 110 mEq/L (98-107); Glucose 118 mg/dL (70-105); Magnesium 2.1 mg/dL (1.6-2.6); Osmolality,Calculated 293 (280-300); Phosphorous 3.2 mg/dL (2.7-4.5); Potassium 3.7 mEq/L (3.5-5.1); Sodium 140 mEq/L (136-145); eGFR For African Americans > 60 (> 60); eGFR For Non-African Americans > 60 (> 60)
[2017-09-20] MEDS: *HR* Heparin 5,000 UNIT/ML VIAL IVP PRN (03:19)
[2017-09-20] MEDS: Ipratropium/Albuterol Neb 3 ML IH SCH ×4 (04:23→21:42)
[2017-09-20] MEDS: Heparin 25,000 UNIT/500 ML D5W 25,000 UNIT/500 ML BAG IVC SCH ×2 (05:41→19:32)
[2017-09-20] MEDS: Pantoprazole 40 MG VIAL IVP SCH (10:28)
[2017-09-20] MEDS: *HR* Promethazine 25 MG/ML VIAL IVP PRN (10:30)
[2017-09-20] MEDS: Iron Sucrose Complex 200 MG in 0.9 % Sodium Chloride 100 ML IVPB SCH (10:36)
--- NOTE | 2017-09-20 15:26 | General Surgery Progress Note ---
Date of Encounter: 09/20/17 Time of Encounter: 11:15 - Assessment and Plan (1) Colostomy care Current Visit: Yes Status: Chronic colostomy care (2) Prostate enlargement Current Visit: No Status: Chronic holding home medication, urinating without issues (3) Hypertension Current Visit: No Status: Chronic continue scheduled medications and prns monitor Qualifiers: Hypertension type: essential hypertension Qualified Code(s): I10 - Essential (primary) hypertension (4) Pulmonary embolism Current Visit: Yes Status: Acute continue heparin drip aggressive pulmonary toilet IS aerosols Qualifiers: Pulmonary embolism type: other Chronicity: acute Acute cor pulmonale presence: without acute cor pulmonale Qualified Code(s): I26.99 - Other pulmonary embolism without acute cor pulmonale (5) Status post exploratory laparotomy Current Visit: Yes Status: Acute patient had drain placed yesterday by IR. succus/bile in drain patient with an essentially frozen abdomen have discussed concerns with patient regarding my concern that further attempts at abdominal surgery given the severity of his adhesions will cause further intraoabdominal organ/bowel injury patients vitals are stable, wbc normal on zosyn and diflucan, no fevers - monitor continue npo, ngt to liws continue TPN continue antibiotics wound vac change thursday Subjective Patient reports: no new complaints, feels better, still having pain, pain is less, no flatus, no bowel movement, afebrile Objective Vital Signs - Last 8 Hours Temp Pulse Resp BP Pulse Ox 09/20/17 11:24 98.4 F 89 16 168/69 97 09/20/17 07:42 98.6 F 92 15 161/69 95 Intake and Output 09/19/17 09/20/17 09/20/17 23:59 07:59 15:59 Intake Total 1251 / 1251 649 / 649 454 / 454 Output Total 1150 / 1150 1175 / 1175 710 / 710 Balance 101 / 101 -526 / -526 -256 / -256 Intake: IV Fluids 1251 / 1251 649 / 649 454 / 454 0.9 % Sodium Chloride 1,000 ML 1000 / 1000 @ 50 mls/hr IVC .Q20H [facility] Rx#: [id number] Heparin 25,000 UNIT/500 ML D5W 151 / 151 349 / 349 244 / 244 25,000 unit In 500 ml @ 14 UNIT /KG/HR 26.152 mls/hr IVC . Q19H8M [facility] Rx#:[id number] Diflucan Premix 200 MG/100 ML 100 / 100 200 mg In 100 ml @ 100 mls/hr IVPB HS [facility] Rx#:[id number] Venofer 200 MG In 0.9 % Sodium 110 / 110 Chloride 100 ML @ 200 mls/hr IVPB DAILY [facility] Rx#:[id number] Zosyn 3.375 GM In 0.9 % Sodium 100 / 100 200 / 200 100 / 100 Chloride (Mini-Bag +) 100 ML @ 25 mls/hr IVPB Q8H [facility] Rx#: [id number] Oral 0 / 0 0 / 0 0 / 0 Output: Stool 0 / 0 0 / 0 Catheter 1000 / 1000 850 / 850 600 / 600 Gastric Drainage 0 / 0 200 / 200 Wound Drainage 150 / 150 125 / 125 110 / 110 Left JAYESH 0 / 0 Lower Abdomen 150 / 150 125 / 125 50 / 50 Wound vac 60 / 60 Other: Blood Glucose* 133 122 121 - General physical appearance well developed, well nourished, no distress - Eyes PERRL, normal ocular movement - ENT normal mucosa, normocephalic - Neck Neck exam: trachea midline - Respiratory normal expansion, clear to auscultation - Cardiovascular Cardiovascular exam: Present: RRR - Abdomen Abdomen: Present: bowel sounds present (faint), soft, tender (generalized, minimal). Absent: guarding, rebound - Incision Incision: Present: clean and dry, open (wound vac in place with serosang drainage) - Genitourinary normal penis with no external lesions, other (steen with clear yellow urine) - Integumentary no rash, no growths - Neurologic normal sensation - Musculoskeletal normal posture - Psychiatric oriented to time, oriented to person, oriented to place, speech is normal, memory intact - Labs 09/20/17 02:35 09/20/17 02:35 Short CBC 09/20/17 Range/Units 02:35 WBC 6.2 (4.3-11.1) K/mcL Hgb 8.0 L (12.9-16.9) g/dL Hct 24.4 L (37.5-50.1) % Plt Count 526 H (140-400) K/mcL Neutrophils # 4.2 (1.6-8.9) K/mcL BMP 09/20/17 Range/Units 02:35 Sodium 140 (136-145) mEq/L Potassium 3.7 (3.5-5.1) mEq/L Chloride 110 H (98-107) mEq/L Carbon Dioxide 24 (23-29) mEq/L BUN 17 (8-23) mg/dL Creatinine 1.08 (0.70-1.30) mg/dL Glucose 118 H (70-105) mg/dL Calcium 8.0 L (8.6-10.3) mg/dL Vital Signs Temp Pulse Resp BP Pulse Ox 09/20/17 11:24 98.4 F 89 16 168/69 97 09/20/17 07:42 98.6 F 92 15 161/69 95 09/20/17 04:23 16 94 09/20/17 03:15 98.8 F 85 16 146/67 94 09/19/17 23:59 99.0 F 86 16 158/72 96 09/19/17 22:14 14 99 09/19/17 18:35 99.0 F 85 15 157/72 97 09/19/17 17:58 87 13 129/84 96 09/19/17 17:12 98.2 F 90 16 149/71 97 09/19/17 15:45 16 96 Intake and Output 09/19/17 09/20/17 09/20/17 23:59 07:59 15:59 Intake Total 1251 / 1251 649 / 649 454 / 454 Output Total 1150 / 1150 1175 / 1175 710 / 710 Balance 101 / 101 -526 / -526 -256 / -256 Intake: IV Fluids 1251 / 1251 649 / 649 454 / 454 0.9 % Sodium Chloride 1,000 ML 1000 / 1000 @ 50 mls/hr IVC .Q20H [facility] Rx#: [id number] Heparin 25,000 UNIT/500 ML D5W 151 / 151 349 / 349 244 / 244 25,000 unit In 500 ml @ 14 UNIT /KG/HR 26.152 mls/hr IVC . Q19H8M [facility] Rx#:[id number] Diflucan Premix 200 MG/100 ML 100 / 100 200 mg In 100 ml @ 100 mls/hr IVPB HS [facility] Rx#:[id number] Venofer 200 MG In 0.9 % Sodium 110 / 110 Chloride 100 ML @ 200 mls/hr IVPB DAILY [facility] Rx#:[id number] Zosyn 3.375 GM In 0.9 % Sodium 100 / 100 200 / 200 100 / 100 Chloride (Mini-Bag +) 100 ML @ 25 mls/hr IVPB Q8H [facility] Rx#: [id number] Oral 0 / 0 0 / 0 0 / 0 Output: Stool 0 / 0 0 / 0 Catheter 1000 / 1000 850 / 850 600 / 600 Gastric Drainage 0 / 0 200 / 200 Wound Drainage 150 / 150 125 / 125 110 / 110 Left JAYESH 0 / 0 Lower Abdomen 150 / 150 125 / 125 50 / 50 Wound vac 60 / 60 Other: Blood Glucose* 133 122 121 - VTE Documentation of Mechanical Device: Intermittent pneumatic compression device Consult Discharge Plan - Plan Referrals: Lobito Lang MD [Primary Care Provider] -
[2017-09-20] MEDS ORDERED: Clinimix E 5%-15% SOLUTION 2,000 ML with MVI, adult with vitamin K 10 ML IVC SCH (17:00)
[2017-09-20] MEDS: Fluconazole 200 MG/100 ML 200 MG/100 ML BAG IVPB SCH (21:02)
[2017-09-21] MEDS: Insulin LISPRO 300 UNITS/3 ML VIAL SQ SCH ×6 (00:12→23:26)
[2017-09-21] MEDS: Ipratropium/Albuterol Neb 3 ML IH SCH ×4 (03:36→22:09)
[2017-09-21] MEDS: Piperacillin/Tazobactam 3.375 GM in 0.9 % Sodium Chloride Mini Bag 100 ML IVPB SCH ×3 (04:00→20:21)
[2017-09-21 04:07] LABS: Basophils # 0.1 K/mcL (0.0-0.2); Eosinophils # 0.2 K/mcL (0.0-0.6); Eosinophils % 1.8 %; Hematocrit 27.1 % (37.5-50.1); Immature Granulocytes % 14.1 % (0-4); Lymphocytes # 0.9 K/mcL (0.6-4.6); Lymphocytes % 8.2 %; Mean Corpuscular HGB Conc 33.2 g/dL (31.6-35.5); Mean Corpuscular Volume 99.3 fL (83.0-100.0); Mean Platelet Volume 10.2 fL (9.4-12.4); Monocytes # 0.8 K/mcL (0.0-1.3); Monocytes % 7.6 %; Neutrophils # 7.2 K/mcL (1.6-8.9); Nucleated Red Blood Cells 0.8 /100 WBC (0); Platelet Count 603 K/mcL (140-400); Red Blood Count 2.73 M/mcL (4.19-5.50); Red Cell Distribution Width 15.8 % (11.5-14.5); Segmented Neutrophils % 67.3 %
[2017-09-21 04:27] LABS: BUN/Creatinine Ratio 18 (6-26); Blood Urea Nitrogen 19 mg/dL (8-23); Calcium 8.3 mg/dL (8.6-10.3); Carbon Dioxide 25 mEq/L (23-29); Chloride 108 mEq/L (98-107); Glucose 107 mg/dL (70-105); Magnesium 2.1 mg/dL (1.6-2.6); Osmolality,Calculated 291 (280-300); Phosphorous 3.3 mg/dL (2.7-4.5); Potassium 3.9 mEq/L (3.5-5.1); Sodium 139 mEq/L (136-145); eGFR For African Americans > 60 (> 60); eGFR For Non-African Americans > 60 (> 60)
[2017-09-21 04:43] LABS: Platelet Estimate Increased (Normal)
[2017-09-21 04:44] LABS: Toxic Granulation Present (Not Present)
[2017-09-21] MEDS ORDERED: *HR* Metoprolol 5 MG/5 ML VIAL IVP PRN (09:21)
--- NOTE | 2017-09-21 09:49 | General Surgery Progress Note ---
<Mark Grubbs - Last Filed: 09/21/17 15:40> Date of Encounter: 09/21/17 Time of Encounter: 07:25 - Assessment and Plan (1) Status post exploratory laparotomy Current Visit: Yes Status: Acute s/p exploratory laparotomy, lysis of adhesions, repair serosal tears, small bowel resection x2 by Dr. Zhao and Dr. Israel on 09/07/17. Exploratory laparotomy, lysis of adhesions, closure serosal tear x 2, wound vac placement on 09/19/17. Patient had drain placed by IR. harikaus/bile in drain. POD#2. Patient with an essentially frozen abdomen. No fecal output evident in ostomy today however with signs of passing gas. Low grade fever of 99.8 overnight. Vitals stable. White blood cell count of 10.7. Hemoglobin stable at 9. NG output of 400 mL. One VAC output of 175 mL. JAYESH output of 65 mL - IV tylenol 1000 mg with parameters to be used only when febrile. - Continue heparin drip. - Blood culture and PICC line culture shows no growth - Up to chair and ambulate in halls TID - Wound care for midline per surgery (wound vac changes every 2 days). - RN to change up dressing daily. - Continue NPO, NGT to LIWS - Cont TPN - Pathology report of small bowel resection shows extensive serosal fibrous adhesions with vascular congestion and chronic inflammation, submucosal vascular congestion and hemorrhage and mucosal hemorrhage. Resection margins are viable. Negative for malignancy. Patient will need to follow-up with a PET scan in outpatient setting. Report on skin lesion on anterior abdominal wall is lentigo simplex. - Continue Zosyn (day 13) and fluconazole (day 13). Chest CTA 09/15/17 13:37 IMPRESSION: Small to moderate emboli, primarily proximal descending right lower and segmental right upper lobe pulmonary arteries. The etiology is most likely due to thrombophlebitis, right subclavian vein with abnormal soft tissue density and air surrounding the contained right arm PICC line. This is presumed thrombosis and possibly infected given the air, which raises potential concern for septic pulmonary emboli. Small bilateral pleural effusion and bilateral lower lobe airspace disease, atelectasis versus pneumonia. Findings were discussed with Christiano Brice at 3:16 pm on 09/15/2017. D/ / Surjit Jimenez MD / Surjit Jimenez MD Interpreting Provider: Surjit Jimenez MD Head CT 09/15/17 13:37 IMPRESSION: No acute intracranial abnormality. D/ / Surjit Jimenez MD / Surjit Jimenez MD Interpreting Provider: Surjit Jimenez MD Brain MRI 09/15/17 16:02 IMPRESSION: No evidence of acute intracranial abnormality. Minimal nonspecific cerebral white matter T2 FLAIR hyperintensities. D/ / 09/16/2017 06:58:20 Jin Stewart / joanne Interpreting Provider: Jin Stewart (2) Encephalopathy acute Current Visit: Yes Status: Resolved Per neurologist Dr. yee from [facility], likely TIA. Not candidate for tPA given resolved symptoms and on anticoagulation. Echocardigram reveals EF of 65-70%. (3) Anemia Current Visit: Yes Status: Acute Hemoglobin stable at 9. Yesterday at 8.0 Qualifiers: Anemia type: unspecified type Qualified Code(s): D64.9 - Anemia, unspecified (4) Small bowel obstruction Current Visit: Yes Status: Acute Pt with Hx of stage IV colon adenocarcinoma S/p open low anterior resection appendectomy, resection of an omental mass, take down of splenic flexure and a colostomy placed by Dr. Zhao July 2014. - See plan above (5) Urinary tract infection Current Visit: Yes Status: Suspected UA on admission shows: large leuk esterase, TNTC WBCs, moderate Urina Bacteria. Culture results: enteroccus faecalis R only to doxycycline. -Continue zosyn. - Qualifiers: Urinary tract infection type: acute cystitis Hematuria presence: without hematuria Qualified Code(s): N30.00 - Acute cystitis without hematuria (6) Colon cancer Current Visit: No Status: Chronic Pt with Hx of stage IV colon adenocarcinoma S/p open low anterior resection appendectomy, resection of an omental mass, take down of splenic flexure and a colostomy placed by Dr. Zhao July 2014. Qualifiers: Colon location: unspecified part of colon Qualified Code(s): C18.9 - Malignant neoplasm of colon, unspecified (7) DVT prophylaxis Current Visit: Yes Status: Acute On heparin drip. Subjective Narrative: When seen today patient denies any abdominal pain. He denies any nausea or vomiting. Denies any chest pain or shortness of breath. Denies any fever or chills. Objective VITAL SIGNS: Reviewed. See [facility] GENERAL: No apparent distress. HEENT: [Normocephalic, PER, EOMi, oropharynx pink/moist, no JVD noted.] CV: b/l rad pulses 2+, RRR, no murmurs or gallops, no JVD RESPIRATORY: CTAB without wheezes, rales, or rhonchi ABD: soft, non-tender, no rebound/guarding/rigidity, no peritoneal signs. Normal bowel sounds present. OSTOMY: No output from ostomy. Signs of condensation in bag indicative of passing gas. No signs of active bleeding or drainage. INCISION: Wound VAC intact. No signs of bleeding, pus, or erythema around site. Minor serosanguinous drainage around site. DRAINS: JAYESH site left lower quadrant without signs of infection; bulb contains brown/green fluid. WOUND VAC: Intact. No signs of bleeding pus around site. Minor serosanguinous drainage. EXTREMITY: grossly normal motor function, no pedal edema, peripheral pulses 2+ b /l NEUROLOGIC EXAM: AOx3, obeys commands, no speech deficits. PSYCHIATRIC: normal mood and affect SKIN: no gross lesions, rashes, or skin changes Vital Signs - Last 8 Hours Temp Pulse Resp BP Pulse Ox 09/21/17 06:31 98.1 F 63 16 172/78 95 09/21/17 03:36 16 94 09/21/17 03:10 99.8 F H 94 15 175/81 94 Intake and Output 09/20/17 09/21/17 09/21/17 23:59 07:59 15:59 Intake Total 516 / 516 310 / 310 Output Total 2190 / 2190 1550 / 1550 Balance -1674 / -1674 -1240 / -1240 Intake: IV Fluids 456 / 456 250 / 250 Heparin 25,000 UNIT/500 ML D5W 256 / 256 25,000 unit In 500 ml @ 14 UNIT /KG/HR 26.152 mls/hr IVC . Q19H8M [facility] Rx#:[id number] Intralipid 20% 250 ML @ 21 mls/ 250 / 250 hr IVPB DAILY@1700 [facility] Rx#: [id number] Diflucan Premix 200 MG/100 ML 100 / 100 200 mg In 100 ml @ 100 mls/hr IVPB HS [facility] Rx#:[id number] Zosyn 3.375 GM In 0.9 % Sodium 100 / 100 Chloride (Mini-Bag +) 100 ML @ 25 mls/hr IVPB Q8H [facility] Rx#: [id number] Oral 60 / 60 60 / 60 Output: Urine 1925 / 1925 1550 / 1550 Stool 0 / 0 0 / 0 Gastric Drainage 200 / 200 0 / 0 Wound Drainage 65 / 65 0 / 0 Left JAYESH 65 / 65 0 / 0 Other: Blood Glucose* 110 129 124 - Labs 09/21/17 03:50 09/21/17 03:50 Diabetes panel 09/21/17 Range/Units 03:50 Sodium 139 (136-145) mEq/L Potassium 3.9 (3.5-5.1) mEq/L Chloride 108 H (98-107) mEq/L Carbon Dioxide 25 (23-29) mEq/L BUN 19 (8-23) mg/dL Creatinine 1.08 (0.70-1.30) mg/dL Glucose 107 H (70-105) mg/dL Calcium 8.3 L (8.6-10.3) mg/dL Calcium panel 09/21/17 Range/Units 03:50 Calcium 8.3 L (8.6-10.3) mg/dL Phosphorus 3.3 (2.7-4.5) mg/dL Pituitary panel 09/21/17 Range/Units 03:50 Sodium 139 (136-145) mEq/L Potassium 3.9 (3.5-5.1) mEq/L Chloride 108 H (98-107) mEq/L Carbon Dioxide 25 (23-29) mEq/L BUN 19 (8-23) mg/dL Creatinine 1.08 (0.70-1.30) mg/dL Glucose 107 H (70-105) mg/dL Calcium 8.3 L (8.6-10.3) mg/dL Adrenal panel 09/21/17 Range/Units 03:50 Sodium 139 (136-145) mEq/L Potassium 3.9 (3.5-5.1) mEq/L Chloride 108 H (98-107) mEq/L Carbon Dioxide 25 (23-29) mEq/L BUN 19 (8-23) mg/dL Creatinine 1.08 (0.70-1.30) mg/dL Glucose 107 H (70-105) mg/dL Calcium 8.3 L (8.6-10.3) mg/dL - VTE Documentation of Mechanical Device: Intermittent pneumatic compression device Consult Discharge Plan - Plan Referrals: Lobito Lang MD [Primary Care Provider] - <Ayde Zhao - Last Filed: 09/22/17 07:51> Date of Encounter: 09/21/17 Time of Encounter: 13:35 - Assessment and Plan (1) Colostomy care Current Visit: Yes Status: Chronic (2) Hypertension Current Visit: No Status: Chronic elevated BP, medication adjusted, monitor Qualifiers: Hypertension type: essential hypertension Qualified Code(s): I10 - Essential (primary) hypertension (3) Pulmonary embolism Current Visit: Yes Status: Acute continue heparin drip continue aggressive pulmonary toilet/IS/aerosols Qualifiers: Pulmonary embolism type: other Chronicity: acute Acute cor pulmonale presence: without acute cor pulmonale Qualified Code(s): I26.99 - Other pulmonary embolism without acute cor pulmonale (4) Status post exploratory laparotomy Current Visit: Yes Status: Acute patient with frozen hostile abdomen which due to this his two surgeries to try to attempt to alleviate his sbo resulted in two small bowel resections, serosal tear repairs and enterotomy repair. Patient with contained leak (presumable from LLQ anastomosis seen on CT). IR has placed drain into collection and is succus/bile. Patient with open abdomen (midline) and wound vac placement - to be changed 3 x weekly only by surgical [employer]OW[employer] RO[employer] O[employer]ATOR or physician. Patients prognosis is grim given his surgical abdominal complications and current condition as well as his presumed (given intra-abdominal findings) of recurrent metastatic colon cancer and cea 6.7. Have discussed his care and case with two surgical colleagues and they agree with drainage of fluid collections, antibiotics and conservative management. I do not believe patient is a further surgical candidate. Continue antibiotics. Will reCT abdomen in a few days to ensure collections being adequately drained. continue prn pain control continue npo ngt to liws TPN prn antiemetics ok to continue PT/OT grim prognosis Subjective Patient reports: no new complaints, still having pain, voiding w/o difficulty ( steen in place), flatus, no bowel movement, afebrile Objective Vital Signs - Last 8 Hours Temp Pulse Resp BP Pulse Ox 09/22/17 07:08 98.2 F 93 16 167/79 94 09/22/17 04:10 16 93 09/22/17 03:43 98.0 F 86 17 168/78 93 Intake and Output 09/21/17 09/21/17 09/22/17 15:59 23:59 07:59 Intake Total 600 / 600 200 / 200 750 / 750 Output Total 400 / 400 1100 / 1100 1100 / 1100 Balance 200 / 200 -900 / -900 -350 / -350 Intake: IV Fluids 600 / 600 200 / 200 750 / 750 Heparin 25,000 UNIT/500 ML D5W 500 / 500 500 / 500 25,000 unit In 500 ml @ 14 UNIT /KG/HR 26.152 mls/hr IVC . Q19H8M [facility] Rx#:[id number] Intralipid 20% 250 ML @ 21 mls/ 250 / 250 hr IVPB DAILY@1700 [facility] Rx#: [id number] Diflucan Premix 200 MG/100 ML 100 / 100 200 mg In 100 ml @ 100 mls/hr IVPB HS [facility] Rx#:[id number] Zosyn 3.375 GM In 0.9 % Sodium 100 / 100 100 / 100 Chloride (Mini-Bag +) 100 ML @ 25 mls/hr IVPB Q8H [facility] Rx#: [id number] Oral 0 / 0 0 / 0 0 / 0 Output: Urine 400 / 400 850 / 850 1100 / 1100 Stool 0 / 0 Gastric Tube Lavage Amount 100 / 100 Left Nare 100 / 100 Gastric Drainage 150 / 150 0 / 0 Wound Drainage 0 / 0 0 / 0 Left JAYESH 0 / 0 0 / 0 Other: Meal NPO Percent of Meal Consumed 0% Weight 85.9 kg Blood Glucose* 127 117 118 Patient Weight 09/22/17 23:59 Weight 85.9 kg - General physical appearance well developed, no distress - Eyes PERRL, normal ocular movement - ENT normal mucosa, normocephalic - Neck Neck exam: trachea midline - Respiratory normal expansion, clear to auscultation - Cardiovascular Cardiovascular exam: Present: RRR - Abdomen Abdomen: Present: bowel sounds present (faint), soft (softer than previously), tender (minimal discomfort with exam). Absent: guarding, rebound Additional Comments: ostomy appliance in place, pink colostomy, no stool, scant air - Incision Incision: Present: open (wound vac in place with serosang drainage in collection appliance) - Integumentary no rash, no growths - Neurologic CN 2-12 grossly intact - Musculoskeletal normal posture - Psychiatric oriented to time, oriented to person, oriented to place, speech is normal, memory intact - Labs 09/22/17 04:00 09/22/17 03:38 Diabetes panel 09/22/17 Range/Units 03:38 Sodium 139 (136-145) mEq/L Potassium 4.0 (3.5-5.1) mEq/L Chloride 107 (98-107) mEq/L Carbon Dioxide 26 (23-29) mEq/L BUN 17 (8-23) mg/dL Creatinine 0.91 (0.70-1.30) mg/dL Glucose 107 H (70-105) mg/dL Calcium 8.4 L (8.6-10.3) mg/dL Triglycerides 85 (< 150) mg/dL Calcium panel 09/22/17 Range/Units 03:38 Calcium 8.4 L (8.6-10.3) mg/dL Phosphorus 3.4 (2.7-4.5) mg/dL Pituitary panel 09/22/17 Range/Units 03:38 Sodium 139 (136-145) mEq/L Potassium 4.0 (3.5-5.1) mEq/L Chloride 107 (98-107) mEq/L Carbon Dioxide 26 (23-29) mEq/L BUN 17 (8-23) mg/dL Creatinine 0.91 (0.70-1.30) mg/dL Glucose 107 H (70-105) mg/dL Calcium 8.4 L (8.6-10.3) mg/dL Adrenal panel 09/22/17 Range/Units 03:38 Sodium 139 (136-145) mEq/L Potassium 4.0 (3.5-5.1) mEq/L Chloride 107 (98-107) mEq/L Carbon Dioxide 26 (23-29) mEq/L BUN 17 (8-23) mg/dL Creatinine 0.91 (0.70-1.30) mg/dL Glucose 107 H (70-105) mg/dL Calcium 8.4 L (8.6-10.3) mg/dL
[2017-09-21] MEDS: Pantoprazole 40 MG VIAL IVP SCH (10:12)
[2017-09-21] MEDS: Iron Sucrose Complex 200 MG in 0.9 % Sodium Chloride 100 ML IVPB SCH (10:12)
[2017-09-21] MEDS: Heparin 25,000 UNIT/500 ML D5W 25,000 UNIT/500 ML BAG IVC SCH (11:35)
[2017-09-21] MEDS ORDERED: *HR* FentaNYL (PF) 100 MCG/2 ML VIAL IVP ONE (13:14)
[2017-09-21] MEDS ORDERED: Clinimix E 5%-15% SOLUTION 2,000 ML with MVI, adult with vitamin K 10 ML IVC SCH (17:00)
[2017-09-21] MEDS ORDERED: Acetaminophen IV 1,000 MG/100 ML INFUS..BTL IVPB PRN (18:00)
[2017-09-21] MEDS: Fluconazole 200 MG/100 ML 200 MG/100 ML BAG IVPB SCH (21:28)
[2017-09-21] MEDS: OXYCODONE Oral CONC 10 MG/0.5 ML ORAL.SYG SL PRN (21:40)
[2017-09-22] MEDS: Heparin 25,000 UNIT/500 ML D5W 25,000 UNIT/500 ML BAG IVC SCH (01:48)
[2017-09-22] MEDS: Piperacillin/Tazobactam 3.375 GM in 0.9 % Sodium Chloride Mini Bag 100 ML IVPB SCH ×3 (03:41→18:38)
[2017-09-22 03:57] LABS: Basophils # 0.1 K/mcL (0.0-0.2); Basophils % 0.8 %; Eosinophils # 0.3 K/mcL (0.0-0.6); Hematocrit 28.4 % (37.5-50.1); Hemoglobin 9.3 g/dL (12.9-16.9); Immature Granulocytes % 15.5 % (0-4); Immature Platelets 4.1 % (1.1-6.1); Lymphocytes # 0.9 K/mcL (0.6-4.6); Lymphocytes % 7.3 %; Mean Corpuscular HGB Conc 32.7 g/dL (31.6-35.5); Mean Corpuscular Hemoglobin 32.7 pg (28.0-33.3); Mean Platelet Volume 10.1 fL (9.4-12.4); Monocytes # 0.9 K/mcL (0.0-1.3); Monocytes % 6.9 %; Neutrophils # 8.6 K/mcL (1.6-8.9); Nucleated Red Blood Cells 0.9 /100 WBC (0); Platelet Count 657 K/mcL (140-400); Red Blood Count 2.84 M/mcL (4.19-5.50); Red Cell Distribution Width 15.8 % (11.5-14.5); Segmented Neutrophils % 67.5 %
[2017-09-22] MEDS: Insulin LISPRO 300 UNITS/3 ML VIAL SQ SCH ×5 (04:06→21:44)
[2017-09-22] MEDS: Ipratropium/Albuterol Neb 3 ML IH SCH ×4 (04:10→22:07)
[2017-09-22 04:19] LABS: Anisocytosis 1+ (Not Present); Platelet Estimate Increased (Normal); Poikilocytosis 1+ (Not Present); Polychromasia 1+ (Not Present)
[2017-09-22 04:43] LABS: Bilirubin,Urine Negative (Negative); Blood,Urine Negative (Negative); Clarity,Urine Clear (Clear); Color,Urine Yellow (Yellow); Glucose,Urine (UA) Normal (Normal); Ketones,Urine Negative (Negative); Leukocyte Esterase,Urine Negative (Negative); Nitrite,Urine Negative (Negative); Protein,Urine Negative (Neg-Trace); Urobilinogen,Urine Normal (Normal)
[2017-09-22 05:10] LABS: BUN/Creatinine Ratio 19 (6-26); Blood Urea Nitrogen 17 mg/dL (8-23); Calcium 8.4 mg/dL (8.6-10.3); Carbon Dioxide 26 mEq/L (23-29); Chloride 107 mEq/L (98-107); Glucose 107 mg/dL (70-105); Osmolality,Calculated 290 (280-300); Phosphorous 3.4 mg/dL (2.7-4.5); Sodium 139 mEq/L (136-145); Triglycerides 85 mg/dL (< 150); eGFR For African Americans > 60 (> 60); eGFR For Non-African Americans > 60 (> 60)
[2017-09-22] MEDS ORDERED: Isovue-370 500 ML INFUS..BTL IV ONE ×2 (08:52→08:58)
--- NOTE | 2017-09-22 09:06 | General Surgery Progress Note ---
<Mark Grubbs - Last Filed: 09/22/17 14:29> Date of Encounter: 09/22/17 Time of Encounter: 06:45 - Assessment and Plan (1) Status post exploratory laparotomy Current Visit: Yes Status: Acute s/p exploratory laparotomy, lysis of adhesions, repair serosal tears, small bowel resection x2 by Dr. Zhao and Dr. Israel on 09/07/17. Exploratory laparotomy, lysis of adhesions, closure serosal tear x 2, wound vac placement on 09/19/17. Patient had drain placed by IR. succus/bile in drain. POD#3. Patient with an essentially frozen abdomen. Residual fecal output evident in ostomy today with signs of passing gas. Afebrile overnight. Vitals stable. White blood cell count increased from 10.7 up to 12.7. Hemoglobin stable at 9.3. Patient c/o increased urinary frequency overnight. UA performed today shows no signs of infection. NG output of 100 mL. Wound VAC output of < 50 mL. - CT of abdomen/pelvis and chest (IV contrast no oral) tomorrow morning. - IV tylenol 1000 mg with parameters to be used only when febrile. - Continue heparin drip. - Blood culture and PICC line culture shows no growth - Up to chair and ambulate in halls TID - Wound care for midline per surgery (wound vac changes every 2 days). - RN to change up dressing daily. - Continue NPO, NGT to LIWS - TPN reduced due to patient c/o urinary frequency overnight. Intake of 1860 and output of 3725 since yesterday. - Pathology report of small bowel resection shows extensive serosal fibrous adhesions with vascular congestion and chronic inflammation, submucosal vascular congestion and hemorrhage and mucosal hemorrhage. Resection margins are viable. Negative for malignancy. Patient will need to follow-up with a PET scan in outpatient setting. Report on skin lesion on anterior abdominal wall is lentigo simplex. - Continue Zosyn (day 14) and fluconazole (day 14). - Physical therapy. Chest CTA 09/15/17 13:37 IMPRESSION: Small to moderate emboli, primarily proximal descending right lower and segmental right upper lobe pulmonary arteries. The etiology is most likely due to thrombophlebitis, right subclavian vein with abnormal soft tissue density and air surrounding the contained right arm PICC line. This is presumed thrombosis and possibly infected given the air, which raises potential concern for septic pulmonary emboli. Small bilateral pleural effusion and bilateral lower lobe airspace disease, atelectasis versus pneumonia. Findings were discussed with Christiano Brice at 3:16 pm on 09/15/2017. D/ / Surjit Jimenez MD / Surjit Jimenez MD Interpreting Provider: Surjit Jimenez MD Head CT 09/15/17 13:37 IMPRESSION: No acute intracranial abnormality. D/ / Surjit Jimenez MD / Surjit Jimenez MD Interpreting Provider: Surjit Jimenez MD Brain MRI 09/15/17 16:02 IMPRESSION: No evidence of acute intracranial abnormality. Minimal nonspecific cerebral white matter T2 FLAIR hyperintensities. D/ / 09/16/2017 06:58:20 Jin Stewart / joanne Interpreting Provider: Jin Stewart (3) Anemia Current Visit: Yes Status: Acute Hemoglobin stable at 9.3. Yesterday at 9.0 Qualifiers: Anemia type: unspecified type Qualified Code(s): D64.9 - Anemia, unspecified (4) Colon cancer Current Visit: No Status: Chronic Pt with Hx of stage IV colon adenocarcinoma S/p open low anterior resection appendectomy, resection of an omental mass, take down of splenic flexure and a colostomy placed by Dr. Zhao July 2014. Qualifiers: Colon location: unspecified part of colon Qualified Code(s): C18.9 - Malignant neoplasm of colon, unspecified (5) DVT prophylaxis Current Visit: Yes Status: Acute On heparin drip. Subjective Narrative: Patient attests to an increase in urinary frequency overnight. Denies any dysuria or hematuria. Denies any nausea or vomiting. Denies any fever overnight. Admits to minor diffuse abdominal discomfort. Denies any chest pain or shortness of breath. Objective VITAL SIGNS: Reviewed. See [facility] GENERAL: No apparent distress. HEENT: [Normocephalic, PER, EOMi, oropharynx pink/moist, no JVD noted.] CV: b/l rad pulses 2+, RRR, no murmurs or gallops, no JVD RESPIRATORY: CTAB without wheezes, rales, or rhonchi ABD: soft, minor diffuse tenderness with deep palpation, no rebound/guarding/ rigidity, no peritoneal signs. Normal bowel sounds. Abdomen appears softer than yesterday. INCISION: Wound VAC intact. clean, dry, intact without purulence/bleeding/edema/ rubor/calor DRAINS: RADHA site on left lower flank region without signs of infection; bulb contains green/brown fluid. EXTREMITY: grossly normal motor function, no pedal edema, peripheral pulses 2+ b /l NEUROLOGIC EXAM: AOx3, obeys commands, no speech deficits. PSYCHIATRIC: normal mood and affect SKIN: no gross lesions, rashes, or skin changes Vital Signs - Last 8 Hours Temp Pulse Resp BP Pulse Ox 09/22/17 07:08 98.2 F 93 16 167/79 94 09/22/17 04:10 16 93 09/22/17 03:43 98.0 F 86 17 168/78 93 Intake and Output 09/21/17 09/22/17 09/22/17 23:59 07:59 15:59 Intake Total 200 / 200 750 / 750 Output Total 1100 / 1100 1100 / 1100 Balance -900 / -900 -350 / -350 Intake: IV Fluids 200 / 200 750 / 750 Heparin 25,000 UNIT/500 ML D5W 500 / 500 25,000 unit In 500 ml @ 14 UNIT /KG/HR 26.152 mls/hr IVC . Q19H8M [facility] Rx#:[id number] Intralipid 20% 250 ML @ 21 mls/ 250 / 250 hr IVPB DAILY@1700 [facility] Rx#: [id number] Diflucan Premix 200 MG/100 ML 100 / 100 200 mg In 100 ml @ 100 mls/hr IVPB HS [facility] Rx#:[id number] Zosyn 3.375 GM In 0.9 % Sodium 100 / 100 Chloride (Mini-Bag +) 100 ML @ 25 mls/hr IVPB Q8H [facility] Rx#: [id number] Oral 0 / 0 0 / 0 Output: Urine 850 / 850 1100 / 1100 Stool 0 / 0 Gastric Tube Lavage Amount 100 / 100 Left Nare 100 / 100 Gastric Drainage 150 / 150 0 / 0 Wound Drainage 0 / 0 0 / 0 Left RADHA 0 / 0 0 / 0 Other: Weight 85.9 kg Blood Glucose* 117 118 Patient Weight 09/22/17 23:59 Weight 85.9 kg - Labs 09/22/17 04:00 09/22/17 03:38 Diabetes panel 09/22/17 Range/Units 03:38 Sodium 139 (136-145) mEq/L Potassium 4.0 (3.5-5.1) mEq/L Chloride 107 (98-107) mEq/L Carbon Dioxide 26 (23-29) mEq/L BUN 17 (8-23) mg/dL Creatinine 0.91 (0.70-1.30) mg/dL Glucose 107 H (70-105) mg/dL Calcium 8.4 L (8.6-10.3) mg/dL Triglycerides 85 (< 150) mg/dL Calcium panel 09/22/17 Range/Units 03:38 Calcium 8.4 L (8.6-10.3) mg/dL Phosphorus 3.4 (2.7-4.5) mg/dL Pituitary panel 09/22/17 Range/Units 03:38 Sodium 139 (136-145) mEq/L Potassium 4.0 (3.5-5.1) mEq/L Chloride 107 (98-107) mEq/L Carbon Dioxide 26 (23-29) mEq/L BUN 17 (8-23) mg/dL Creatinine 0.91 (0.70-1.30) mg/dL Glucose 107 H (70-105) mg/dL Calcium 8.4 L (8.6-10.3) mg/dL Adrenal panel 09/22/17 Range/Units 03:38 Sodium 139 (136-145) mEq/L Potassium 4.0 (3.5-5.1) mEq/L Chloride 107 (98-107) mEq/L Carbon Dioxide 26 (23-29) mEq/L BUN 17 (8-23) mg/dL Creatinine 0.91 (0.70-1.30) mg/dL Glucose 107 H (70-105) mg/dL Calcium 8.4 L (8.6-10.3) mg/dL - VTE Documentation of Mechanical Device: Intermittent pneumatic compression device Consult Discharge Plan - Plan Referrals: Lobito Lang MD [Primary Care Provider] - <Ayde Zhao - Last Filed: 09/24/17 14:17> Date of Encounter: 09/22/17 Time of Encounter: 09:40 - Assessment and Plan (1) Colostomy care Current Visit: Yes Status: Chronic (2) Hypertension Current Visit: No Status: Chronic controlled, monitor Qualifiers: Hypertension type: essential hypertension Qualified Code(s): I10 - Essential (primary) hypertension (3) Pulmonary embolism Current Visit: Yes Status: Acute continue heparin drip Qualifiers: Pulmonary embolism type: other Chronicity: acute Acute cor pulmonale presence: without acute cor pulmonale Qualified Code(s): I26.99 - Other pulmonary embolism without acute cor pulmonale (4) Status post exploratory laparotomy Current Visit: Yes Status: Acute discussed with patient current condition, bowel leak, inability to provide further surgical intervention, grim prognosis, patient understands we will continue to do everything we possibly can with conservative measures, drain fluid collections, antibiotics, npo, TPN, pain control, PT/OT, treat PE but if condition worsens or he becomes septic there is no surgical intervention that can be done, patient expressed understanding will plan CT abd/pelvis tomorrow am to evaluate that IR placed drain is adequately draining fluid collection Subjective Narrative: complains of mild intermittent abdominal pain, no nausea or emesis. no fevers is thirsty Objective Vital Signs - Last 8 Hours Temp Pulse Resp BP Pulse Ox 09/24/17 13:50 100.4 F H 96 15 130/71 09/24/17 11:00 99.2 F 99 12 137/73 97 09/24/17 07:27 100.4 F H 105 14 124/56 96 Intake and Output 09/23/17 09/24/17 09/24/17 23:59 07:59 15:59 Intake Total 0 / 0 800 / 800 Output Total 700 / 700 1100 / 1100 400 / 400 Balance -700 / -700 -300 / -300 -400 / -400 Intake: IV Fluids 800 / 800 Heparin 25,000 UNIT/500 ML D5W 500 / 500 25,000 unit In 500 ml @ 14 UNIT /KG/HR 26.152 mls/hr IVC . Q19H8M [facility] Rx#:[id number] Diflucan Premix 200 MG/100 ML 100 / 100 200 mg In 100 ml @ 100 mls/hr IVPB HS [facility] Rx#:[id number] Zosyn 3.375 GM In 0.9 % Sodium 200 / 200 Chloride (Mini-Bag +) 100 ML @ 25 mls/hr IVPB Q8H [facility] Rx#: [id number] Oral 0 / 0 Output: Gastric Tube Lavage Amount 200 / 200 Left Nare 200 / 200 Catheter 700 / 700 650 / 650 400 / 400 Wound Drainage 0 / 0 250 / 250 Left RADHA 0 / 0 Wound vac 250 / 250 Other: Meal NPO npo Weight 90 kg Blood Glucose* 134 125 131 Patient Weight 09/24/17 23:59 Weight 90 kg - General physical appearance well developed, no distress - Eyes PERRL, normal ocular movement - ENT normal mucosa, dry mucosa, normocephalic - Neck Neck exam: trachea midline - Respiratory normal expansion, clear to auscultation - Cardiovascular Cardiovascular exam: Present: RRR - Abdomen Abdomen: Present: soft, tender (generalized, mild). Absent: bowel sounds present, distended, guarding, rebound - Incision Incision: Present: open (wound vac) - Integumentary no rash, no growths - Neurologic CN 2-12 grossly intact - Musculoskeletal normal posture - Psychiatric oriented to time, oriented to person, oriented to place, speech is normal, memory intact - Additional Exam Radha - bilious/succus vac - serosang - Labs 09/24/17 03:10 09/24/17 03:10 Diabetes panel 09/24/17 Range/Units 03:10 Sodium 137 (136-145) mEq/L Potassium 4.1 (3.5-5.1) mEq/L Chloride 105 (98-107) mEq/L Carbon Dioxide 26 (23-29) mEq/L BUN 22 (8-23) mg/dL Creatinine 1.05 (0.70-1.30) mg/dL Glucose 120 H (70-105) mg/dL Calcium 8.3 L (8.6-10.3) mg/dL Calcium panel 09/24/17 09/24/17 Range/Units 03:10 07:04 Calcium 8.3 L (8.6-10.3) mg/dL Phosphorus 3.3 (2.7-4.5) mg/dL Pituitary panel 09/24/17 Range/Units 03:10 Sodium 137 (136-145) mEq/L Potassium 4.1 (3.5-5.1) mEq/L Chloride 105 (98-107) mEq/L Carbon Dioxide 26 (23-29) mEq/L BUN 22 (8-23) mg/dL Creatinine 1.05 (0.70-1.30) mg/dL Glucose 120 H (70-105) mg/dL Calcium 8.3 L (8.6-10.3) mg/dL Adrenal panel 09/24/17 Range/Units 03:10 Sodium 137 (136-145) mEq/L Potassium 4.1 (3.5-5.1) mEq/L Chloride 105 (98-107) mEq/L Carbon Dioxide 26 (23-29) mEq/L BUN 22 (8-23) mg/dL Creatinine 1.05 (0.70-1.30) mg/dL Glucose 120 H (70-105) mg/dL Calcium 8.3 L (8.6-10.3) mg/dL
[2017-09-22] MEDS: *HR* FentaNYL PATCH 25 MCG PATCH TD SCH (09:29)
[2017-09-22] MEDS: Pantoprazole 40 MG VIAL IVP SCH (09:31)
[2017-09-22] MEDS: OXYCODONE Oral CONC 10 MG/0.5 ML ORAL.SYG SL PRN ×2 (09:43→18:41)
[2017-09-22] MEDS: *HR* Heparin 5,000 UNIT/ML VIAL IVP PRN (11:21)
[2017-09-22] MEDS ORDERED: *HR* FentaNYL (PF) 100 MCG/2 ML VIAL IVP STA (11:46)
[2017-09-22] MEDS ORDERED: Clinimix E 5%-20% SOLUTION 2,000 ML with MVI, adult with vitamin K 10 ML IVC SCH (17:00)
[2017-09-22] MEDS: Fluconazole 200 MG/100 ML 200 MG/100 ML BAG IVPB SCH (21:57)
[2017-09-23] MEDS: Insulin LISPRO 300 UNITS/3 ML VIAL SQ SCH ×6 (03:20→21:20)
[2017-09-23] MEDS: Piperacillin/Tazobactam 3.375 GM in 0.9 % Sodium Chloride Mini Bag 100 ML IVPB SCH ×3 (03:49→19:26)
[2017-09-23 03:54] LABS: Basophils # 0.1 K/mcL (0.0-0.2); Basophils % 0.8 %; Eosinophils # 0.2 K/mcL (0.0-0.6); Eosinophils % 1.6 %; Hematocrit 27.9 % (37.5-50.1); Hemoglobin 9.1 g/dL (12.9-16.9); Immature Granulocytes % 11.5 % (0-4); Lymphocytes # 0.9 K/mcL (0.6-4.6); Lymphocytes % 6.7 %; Mean Corpuscular HGB Conc 32.6 g/dL (31.6-35.5); Mean Corpuscular Hemoglobin 32.7 pg (28.0-33.3); Mean Corpuscular Volume 100.4 fL (83.0-100.0); Mean Platelet Volume 9.8 fL (9.4-12.4); Monocytes # 0.9 K/mcL (0.0-1.3); Monocytes % 6.5 %; Nucleated Red Blood Cells 0.5 /100 WBC (0); Platelet Count 538 K/mcL (140-400); Red Blood Count 2.78 M/mcL (4.19-5.50); Segmented Neutrophils % 72.9 %
[2017-09-23] MEDS: Ipratropium/Albuterol Neb 3 ML IH SCH ×4 (03:56→21:39)
[2017-09-23 04:00] LABS: Neutrophils # 9.8 K/mcL (1.6-8.9)
[2017-09-23 04:12] LABS: Magnesium 2.1 mg/dL (1.6-2.6); Phosphorous 3.4 mg/dL (2.7-4.5)
[2017-09-23 04:13] LABS: BUN/Creatinine Ratio 18 (6-26); Blood Urea Nitrogen 18 mg/dL (8-23); Calcium 8.3 mg/dL (8.6-10.3); Carbon Dioxide 25 mEq/L (23-29); Chloride 107 mEq/L (98-107); Glucose 112 mg/dL (70-105); Osmolality,Calculated 289 (280-300); Potassium 4.1 mEq/L (3.5-5.1); Sodium 138 mEq/L (136-145); eGFR For African Americans > 60 (> 60); eGFR For Non-African Americans > 60 (> 60)
[2017-09-23 04:38] LABS: Large Platelets Present (Not Present); Macrocytosis Present (Not Present); Platelet Estimate Increased (Normal); Poikilocytosis 1+ (Not Present); Toxic Granulation Present (Not Present)
--- NOTE | 2017-09-23 09:01 | General Surgery Progress Note ---
<Mark Grubbs - Last Filed: 09/23/17 10:37> Date of Encounter: 09/23/17 Time of Encounter: 08:00 - Assessment and Plan (1) Status post exploratory laparotomy Current Visit: Yes Status: Acute s/p exploratory laparotomy, lysis of adhesions, repair serosal tears, small bowel resection x2 by Dr. Zhao and Dr. Israel on 09/07/17. Exploratory laparotomy, lysis of adhesions, closure serosal tear x 2, wound vac placement on 09/19/17. Patient had drain placed by IR. succus/bile in drain 4 days ago. Patient with an essentially frozen abdomen. No fecal output evident in ostomy today, however there are signs of passing gas. Afebrile overnight. Vitals stable. Hemoglobin stable at 9.1. Patient had steen placed overnight. NG output of 150 mL. Wound VAC output of < 50 mL. Wound vac was changed yesterday. CT of the abdomen shows an overall decrease in the size of the collection of fluid from the anastamosis leak. CT of abdomen also showed adjacent to the tip of the stump or pouch, there is a partially loculated fluid collection measuring approximately 8.8 x 3.5 cm in maximum dimensions with mild peripheral wall thickening along the posterior aspect. This previously measured 9.7 cm x 4.7 cm. There has been interval placement of a percutaneous drainage catheter into a left lower quadrant fluid collection which has decompressed since the prior exam. When compared to the prior exams, these collections likely communicate. IR was consulted for possible drain. - Consult ot IR for possible drain. - Milk of molasses. - IV tylenol 1000 mg with parameters to be used only when febrile. - Continue heparin drip. - Blood culture and PICC line culture shows no growth - Up to chair and ambulate in halls TID - Wound care for midline per surgery (wound vac changes every 2 days). Plan for change tomorrow. - RN to change up dressing daily. - Continue NPO, NGT to LIWS - TPN reduced due to patient c/o urinary frequency overnight. Intake of 1350 and output of 4700 since yesterday. - Pathology report of small bowel resection shows extensive serosal fibrous adhesions with vascular congestion and chronic inflammation, submucosal vascular congestion and hemorrhage and mucosal hemorrhage. Resection margins are viable. Negative for malignancy. Patient will need to follow-up with a PET scan in outpatient setting. Report on skin lesion on anterior abdominal wall is lentigo simplex. - Continue Zosyn (day 15) and fluconazole (day 15). - Physical therapy. Abdomen/Pelvis CT 09/23/17 07:30 IMPRESSION: 1. Interval placement left lower quadrant pigtail drainage catheter with decompression of the dominant gas and fluid collection compatible with known anastomotic leak. There has been overall decrease in size of a partially loculated collection within the mid pelvis abutting the rectal pouch anastomosis which likely communicates with this dominant collection. 2. There is been slight interval increase in size of a 5.6 x 2.4 cm fluid collection in the anterior pelvis just below the level the midline incision which extends to the skin surface. 3. Enteric contrast is is not seen on today's study within any of these collections in this could be related to placement of the drainage catheter and lack of additional enteric contrast administered today. However a small focus of extraluminal gas persists in the left lower quadrant adjacent to the anastomosis. 4. Mild small bowel wall thickening in the pelvis with associated inflammatory changes within the most. , likely reactive. 5. New small to moderate bilateral pleural effusions, left greater than right with near complete atelectasis of the lower lobes. 6. Cholelithiasis. 7. 4.1 cm ascending aortic aneurysm. The findings were sent to the [facility] at 8:35 am on 09/23/2017to be communicated to a licensed caregiver. D/ / Martha Wayne MD / Martha Wayne MD Interpreting Provider: Martha Wayne MD Chest CT 09/23/17 07:30 IMPRESSION: 1. Interval placement left lower quadrant pigtail drainage catheter with decompression of the dominant gas and fluid collection compatible with known anastomotic leak. There has been overall decrease in size of a partially loculated collection within the mid pelvis abutting the rectal pouch anastomosis which likely communicates with this dominant collection. 2. There is been slight interval increase in size of a 5.6 x 2.4 cm fluid collection in the anterior pelvis just below the level the midline incision which extends to the skin surface. 3. Enteric contrast is is not seen on today's study within any of these collections in this could be related to placement of the drainage catheter and lack of additional enteric contrast administered today. However a small focus of extraluminal gas persists in the left lower quadrant adjacent to the anastomosis. 4. Mild small bowel wall thickening in the pelvis with associated inflammatory changes within the most. , likely reactive. 5. New small to moderate bilateral pleural effusions, left greater than right with near complete atelectasis of the lower lobes. 6. Cholelithiasis. 7. 4.1 cm ascending aortic aneurysm. The findings were sent to the [facility] Communication [facility] at 8:35 am on 09/23/2017to be communicated to a licensed caregiver. D/ / Martha Wayne MD / Martha Wayne MD Interpreting Provider: Martha Wayne MD (2) Pleural effusion Current Visit: Yes Status: Acute CT of the chest shows new small to moderate b/l pleural effusions (L greater than R) with near complete atelectassis of the lower lobes. White blood cell count increased from 12.7 up to 13.4. Patient has been afebrile overnight. He has no crackles on lung exam. He does appear to be slightly fluid overloaded with a +1 pitting edema in the sacral region. - Consult to respiratory therapy for aggressive pulm toileting. Acu-pap. - Standing weight measurement. - Lasix 20 mg IV qd. - Daily weight measurements. - Monitor I/O's. - Continue zosyn. Chest CT 09/23/17 07:30 IMPRESSION: 1. Interval placement left lower quadrant pigtail drainage catheter with decompression of the dominant gas and fluid collection compatible with known anastomotic leak. There has been overall decrease in size of a partially loculated collection within the mid pelvis abutting the rectal pouch anastomosis which likely communicates with this dominant collection. 2. There is been slight interval increase in size of a 5.6 x 2.4 cm fluid collection in the anterior pelvis just below the level the midline incision which extends to the skin surface. 3. Enteric contrast is is not seen on today's study within any of these collections in this could be related to placement of the drainage catheter and lack of additional enteric contrast administered today. However a small focus of extraluminal gas persists in the left lower quadrant adjacent to the anastomosis. 4. Mild small bowel wall thickening in the pelvis with associated inflammatory changes within the most. , likely reactive. 5. New small to moderate bilateral pleural effusions, left greater than right with near complete atelectasis of the lower lobes. 6. Cholelithiasis. 7. 4.1 cm ascending aortic aneurysm. The findings were sent to the Radiology Results Communication [facility] at 8:35 am on 09/23/2017to be communicated to a licensed caregiver. D/ / Martha Wayne MD / Martha Wayne MD Interpreting Provider: Martha Wayne MD (3) Anemia Current Visit: Yes Status: Acute Hemoglobin stable at 9.1. Yesterday at 9.3 Qualifiers: Anemia type: unspecified type Qualified Code(s): D64.9 - Anemia, unspecified (4) Colon cancer Current Visit: No Status: Chronic Pt with Hx of stage IV colon adenocarcinoma S/p open low anterior resection appendectomy, resection of an omental mass, take down of splenic flexure and a colostomy placed by Dr. Zhao July 2014. Qualifiers: Colon location: unspecified part of colon Qualified Code(s): C18.9 - Malignant neoplasm of colon, unspecified (5) DVT prophylaxis Current Visit: Yes Status: Acute On heparin drip. Subjective Narrative: Patient denies any abdominal pain overnight. Denies any nausea or vomiting. Denies any overnight fever or chills. Denies any chest pain or shortness of breath. Objective VITAL SIGNS: Reviewed. See [facility] GENERAL: no apparent distress. HEENT: [Normocephalic, PER, EOMi, oropharynx pink/moist, no JVD noted.] CV: b/l rad pulses 2+, RRR, no murmurs or gallops, no JVD RESPIRATORY: CTAB without wheezes, rales, or rhonchi ABD: soft, non-tender, no rebound/guarding/rigidity, no peritoneal signs. Normal bowel sounds. INCISION: Wound vac intact. clean, dry, intact without purulence/bleeding/edema/ rubor/calor. DRAINS: JAYESH site without signs of infection; bulb contains serosanguinos fluid. OSTOMY: No fecal output today. No signs of erythema, pus, drainage, or infection. EXTREMITY: grossly normal motor function, no pedal edema, peripheral pulses 2+ b /l NEUROLOGIC EXAM: AOx3, obeys commands, no speech deficits. PSYCHIATRIC: normal mood and affect SKIN: no gross lesions, rashes, or skin changes NOTE: +1 sacral pitting edema. Vital Signs - Last 8 Hours Temp Pulse Resp BP Pulse Ox 09/23/17 07:00 98.6 F 74 16 133/78 100 09/23/17 03:56 17 95 09/23/17 03:47 98.4 F 98 17 156/80 95 Intake and Output 09/22/17 09/23/17 09/23/17 23:59 07:59 15:59 Intake Total 0 / 0 450 / 450 Output Total 850 / 850 1875 / 1875 Balance -850 / -850 -1425 / -1425 Intake: IV Fluids 0 / 0 450 / 450 Heparin 25,000 UNIT/500 ML D5W 0 / 0 25,000 unit In 500 ml @ 14 UNIT /KG/HR 26.152 mls/hr IVC . Q19H8M [facility] Rx#:[id number] Intralipid 20% 250 ML @ 21 mls/ 250 / 250 hr IVPB DAILY@1700 [facility] Rx#: [id number] Diflucan Premix 200 MG/100 ML 100 / 100 200 mg In 100 ml @ 100 mls/hr IVPB HS [facility] Rx#:[id number] Zosyn 3.375 GM In 0.9 % Sodium 100 / 100 Chloride (Mini-Bag +) 100 ML @ 25 mls/hr IVPB Q8H [facility] Rx#: [id number] Output: Stool 0 / 0 Catheter 825 / 825 1700 / 1700 Gastric Drainage 175 / 175 Wound Drainage 25 / 25 0 / 0 Left JAYESH 25 / 25 0 / 0 Other: Blood Glucose* 121 102 106 - Labs 09/23/17 03:45 09/23/17 03:45 Diabetes panel 09/23/17 Range/Units 03:45 Sodium 138 (136-145) mEq/L Potassium 4.1 (3.5-5.1) mEq/L Chloride 107 (98-107) mEq/L Carbon Dioxide 25 (23-29) mEq/L BUN 18 (8-23) mg/dL Creatinine 0.98 (0.70-1.30) mg/dL Glucose 112 H (70-105) mg/dL Calcium 8.3 L (8.6-10.3) mg/dL Calcium panel 09/23/17 09/23/17 Range/Units 03:45 03:45 Calcium 8.3 L (8.6-10.3) mg/dL Phosphorus 3.4 (2.7-4.5) mg/dL Pituitary panel 09/23/17 Range/Units 03:45 Sodium 138 (136-145) mEq/L Potassium 4.1 (3.5-5.1) mEq/L Chloride 107 (98-107) mEq/L Carbon Dioxide 25 (23-29) mEq/L BUN 18 (8-23) mg/dL Creatinine 0.98 (0.70-1.30) mg/dL Glucose 112 H (70-105) mg/dL Calcium 8.3 L (8.6-10.3) mg/dL Adrenal panel 09/23/17 Range/Units 03:45 Sodium 138 (136-145) mEq/L Potassium 4.1 (3.5-5.1) mEq/L Chloride 107 (98-107) mEq/L Carbon Dioxide 25 (23-29) mEq/L BUN 18 (8-23) mg/dL Creatinine 0.98 (0.70-1.30) mg/dL Glucose 112 H (70-105) mg/dL Calcium 8.3 L (8.6-10.3) mg/dL - VTE Documentation of Mechanical Device: Intermittent pneumatic compression device Consult Discharge Plan - Plan Referrals: Lobito Lang MD [Primary Care Provider] - <Ayde Zhao - Last Filed: 09/24/17 14:50> Date of Encounter: 09/23/17 Time of Encounter: 12:05 - Assessment and Plan (1) Colostomy care Current Visit: Yes Status: Chronic (2) Hypertension Current Visit: No Status: Chronic controlled, monitor Qualifiers: Hypertension type: essential hypertension Qualified Code(s): I10 - Essential (primary) hypertension (3) Pulmonary embolism Current Visit: Yes Status: Acute continue heparin gtt Qualifiers: Pulmonary embolism type: other Chronicity: acute Acute cor pulmonale presence: without acute cor pulmonale Qualified Code(s): I26.99 - Other pulmonary embolism without acute cor pulmonale (4) Status post exploratory laparotomy Current Visit: Yes Status: Acute npo, ngt decompression for bowel rest TPN/ivf hydration prn pain control JAYESH drainage of bowel leak continue antibiotics - zosyn and diflucan increased wbc today, IR to put drain drain in anterior abdominal wall fluid collection PT/OT, oob to chair aggressive pulmonary toilet/IS/aerosols gi prophylaxis prn pain control wound vac changes three times weekly (5) Unable to eat Current Visit: Yes Status: Acute since we are trying to control bowel leak presumably from an anastomotic leak, patient will remain npo, ngt decompression, JAYESH drainage of leak TPN (6) Anastomotic leak of intestine Current Visit: Yes Status: Acute continue to discuss patients condition with him daily will continue conservative measures CT reviewed and have asked IR to place drain continue LLQ JAYESH drain continue antibiotics patient with frozen abdomen and any attempts at further surgical intervention would only be detrimental to patient, no longer a surgical candidate, patient understands leukocystosis, monitor, no bands Subjective Narrative: claims only mild intermittent abdominal pain, no nausea or emesis, no chills, NS or fevers no chest pain or sob c/o sore throat Objective Vital Signs - Last 8 Hours Temp Pulse Resp BP Pulse Ox 09/24/17 13:50 100.4 F H 96 15 130/71 09/24/17 11:00 99.2 F 99 12 137/73 97 09/24/17 07:27 100.4 F H 105 14 124/56 96 Intake and Output 09/23/17 09/24/17 09/24/17 23:59 07:59 15:59 Intake Total 0 / 0 800 / 800 Output Total 700 / 700 1100 / 1100 400 / 400 Balance -700 / -700 -300 / -300 -400 / -400 Intake: IV Fluids 800 / 800 Heparin 25,000 UNIT/500 ML D5W 500 / 500 25,000 unit In 500 ml @ 14 UNIT /KG/HR 26.152 mls/hr IVC . Q19H8M [facility] Rx#:[id number] Diflucan Premix 200 MG/100 ML 100 / 100 200 mg In 100 ml @ 100 mls/hr IVPB HS [facility] Rx#:[id number] Zosyn 3.375 GM In 0.9 % Sodium 200 / 200 Chloride (Mini-Bag +) 100 ML @ 25 mls/hr IVPB Q8H [facility] Rx#: [id number] Oral 0 / 0 Output: Gastric Tube Lavage Amount 200 / 200 Left Nare 200 / 200 Catheter 700 / 700 650 / 650 400 / 400 Wound Drainage 0 / 0 250 / 250 Left JAYESH 0 / 0 Wound vac 250 / 250 Other: Meal NPO npo Weight 90 kg Blood Glucose* 134 125 131 Patient Weight 09/24/17 23:59 Weight 90 kg - General physical appearance well developed, no distress - Eyes PERRL, normal ocular movement - ENT normal mucosa, dry mucosa, normocephalic - Neck Neck exam: trachea midline - Respiratory normal expansion, clear to auscultation - Cardiovascular Cardiovascular exam: Present: RRR - Abdomen Abdomen: Present: soft, tender (minimal). Absent: bowel sounds present, distended, guarding, rebound - Incision Incision: Present: open (wound vac in place - serosang drainage) - Integumentary no rash, no growths - Neurologic normal sensation - Musculoskeletal normal posture - Psychiatric oriented to time, oriented to person, oriented to place, speech is normal, memory intact - Additional Exam JAYESH - bilious/succus - Labs 09/24/17 03:10 09/24/17 03:10 Diabetes panel 09/24/17 Range/Units 03:10 Sodium 137 (136-145) mEq/L Potassium 4.1 (3.5-5.1) mEq/L Chloride 105 (98-107) mEq/L Carbon Dioxide 26 (23-29) mEq/L BUN 22 (8-23) mg/dL Creatinine 1.05 (0.70-1.30) mg/dL Glucose 120 H (70-105) mg/dL Calcium 8.3 L (8.6-10.3) mg/dL Calcium panel 09/24/17 09/24/17 Range/Units 03:10 07:04 Calcium 8.3 L (8.6-10.3) mg/dL Phosphorus 3.3 (2.7-4.5) mg/dL Pituitary panel 09/24/17 Range/Units 03:10 Sodium 137 (136-145) mEq/L Potassium 4.1 (3.5-5.1) mEq/L Chloride 105 (98-107) mEq/L Carbon Dioxide 26 (23-29) mEq/L BUN 22 (8-23) mg/dL Creatinine 1.05 (0.70-1.30) mg/dL Glucose 120 H (70-105) mg/dL Calcium 8.3 L (8.6-10.3) mg/dL Adrenal panel 09/24/17 Range/Units 03:10 Sodium 137 (136-145) mEq/L Potassium 4.1 (3.5-5.1) mEq/L Chloride 105 (98-107) mEq/L Carbon Dioxide 26 (23-29) mEq/L BUN 22 (8-23) mg/dL Creatinine 1.05 (0.70-1.30) mg/dL Glucose 120 H (70-105) mg/dL Calcium 8.3 L (8.6-10.3) mg/dL - Imaging CT scan - abdomen: report reviewed, image reviewed CT Scan - head: report reviewed, image reviewed (discussed with IR to place drain in anterior pelvis fluid collection) - Attending Attestation I examined this patient and my medical decision-making was reviewed with the Resident Physician. I agree with the documented findings, disposition and treatment plan as described except to the extent set forth below.
[2017-09-23] MEDS ORDERED: Saliva Stimulant 100ml BOTTLE PO PRN (09:35)
[2017-09-23] MEDS: Pantoprazole 40 MG VIAL IVP SCH (10:20)
[2017-09-23] MEDS: Furosemide 20 MG/2 ML VIAL IVP SCH (10:20)
[2017-09-23] MEDS: Heparin 25,000 UNIT/500 ML D5W 25,000 UNIT/500 ML BAG IVC SCH (10:34)
[2017-09-23] MEDS: Milk and Molasses Enema 200 ML RC SCH ×2 (11:39→17:48)
[2017-09-23] MEDS ORDERED: Clinimix E 5%-20% SOLUTION 2,000 ML with MVI, adult with vitamin K 10 ML IVC SCH (17:00)
[2017-09-23] MEDS: OXYCODONE Oral CONC 10 MG/0.5 ML ORAL.SYG SL PRN (18:15)
[2017-09-23] MEDS: Fluconazole 200 MG/100 ML 200 MG/100 ML BAG IVPB SCH (21:25)
[2017-09-24] MEDS: Insulin LISPRO 300 UNITS/3 ML VIAL SQ SCH ×6 (00:15→21:06)
[2017-09-24] MEDS: Milk and Molasses Enema 200 ML RC SCH ×3 (00:33→13:12)
[2017-09-24] MEDS: Heparin 25,000 UNIT/500 ML D5W 25,000 UNIT/500 ML BAG IVC SCH ×2 (01:28→20:02)
[2017-09-24] MEDS: *HR* Promethazine 25 MG/ML VIAL IVP PRN (01:54)
[2017-09-24] MEDS: Ipratropium/Albuterol Neb 3 ML IH SCH ×4 (03:25→22:25)
[2017-09-24] MEDS: Piperacillin/Tazobactam 3.375 GM in 0.9 % Sodium Chloride Mini Bag 100 ML IVPB SCH ×3 (03:36→19:49)
[2017-09-24 03:38] LABS: Hematocrit 27.5 % (37.5-50.1); Mean Corpuscular HGB Conc 32.7 g/dL (31.6-35.5); Mean Corpuscular Hemoglobin 33.1 pg (28.0-33.3); Mean Corpuscular Volume 101.1 fL (83.0-100.0); Mean Platelet Volume 9.8 fL (9.4-12.4); Platelet Count 514 K/mcL (140-400); Red Blood Count 2.72 M/mcL (4.19-5.50); Red Cell Distribution Width 16.7 % (11.5-14.5)
[2017-09-24] MEDS: OXYCODONE Oral CONC 10 MG/0.5 ML ORAL.SYG SL PRN (03:38)
[2017-09-24 03:39] LABS: Nucleated Red Blood Cells 0.4 /100 WBC (0)
[2017-09-24 04:00] LABS: BUN/Creatinine Ratio 21 (6-26); Blood Urea Nitrogen 22 mg/dL (8-23); Calcium 8.3 mg/dL (8.6-10.3); Carbon Dioxide 26 mEq/L (23-29); Chloride 105 mEq/L (98-107); Glucose 120 mg/dL (70-105); Osmolality,Calculated 289 (280-300); Potassium 4.1 mEq/L (3.5-5.1); Sodium 137 mEq/L (136-145); eGFR For African Americans > 60 (> 60); eGFR For Non-African Americans > 60 (> 60)
[2017-09-24 04:14] LABS: Lymphocytes # 1.1 K/mcL (0.6-4.6); Monocytes # 0.8 K/mcL (0.0-1.3); Neutrophils # 17.1 K/mcL (1.6-8.9)
[2017-09-24 04:15] LABS: Hypochromasia Present (Not Present); Platelet Estimate Increased (Normal)
[2017-09-24 08:03] LABS: Magnesium 2.1 mg/dL (1.6-2.6); Phosphorous 3.3 mg/dL (2.7-4.5)
[2017-09-24] MEDS ORDERED: *HR* FentaNYL (PF) 100 MCG/2 ML VIAL IVP ONE (08:31)
[2017-09-24] MEDS ORDERED: *HR* Promethazine 25 MG/ML VIAL IVP ONE (08:32)
[2017-09-24] MEDS: Pantoprazole 40 MG VIAL IVP SCH (08:41)
[2017-09-24] MEDS: Furosemide 20 MG/2 ML VIAL IVP SCH (08:41)
--- NOTE | 2017-09-24 09:42 | General Surgery Progress Note ---
<Mark Grubbs - Last Filed: 09/24/17 12:03> Date of Encounter: 09/24/17 Time of Encounter: 08:00 - Assessment and Plan (1) Status post exploratory laparotomy Current Visit: Yes Status: Acute s/p exploratory laparotomy, lysis of adhesions, repair serosal tears, small bowel resection x2 by Dr. Zhao and Dr. Israel on 09/07/17. Exploratory laparotomy, lysis of adhesions, closure serosal tear x 2, wound vac placement on 09/19/17. Patient had drain placed by IR. succus/bile in drain 5 days ago. Patient with an essentially frozen abdomen. Fecal output evident in ostomy today. Afebrile overnight. Vitals stable. Hemoglobin stable at 9.0. NG output of 300 mL. Wound VAC output of [address] of the abdomen shows an overall decrease in the size of the collection of fluid from the anastamosis leak. CT of abdomen also showed adjacent to the tip of the stump or pouch, there is a partially loculated fluid collection measuring approximately 8.8 x 3.5 cm in maximum dimensions with mild peripheral wall thickening along the posterior aspect. This previously measured 9.7 cm x 4.7 cm. There has been interval placement of a percutaneous drainage catheter into a left lower quadrant fluid collection which has decompressed since the prior exam. When compared to the prior exams, these collections likely communicate. IR was consulted for possible drain. Nurses report that overnight patient's wound VAC came apart and started leaking fecal fluid. The wound VAC was subsequently stabilized. We were able to change the wound VAC in the morning. - Plan is for patient to be sent to IR today for drain placement. - Consult to palliative care. - IV tylenol 1000 mg with parameters to be used only when febrile. - Heparin drip will be put on hold 1 hour before patient will be taken to IR for drain placement. We will continue heparin drip afterwards. - Blood culture and PICC line culture shows no growth - Up to chair and ambulate in halls TID - Wound care for midline per surgery (wound vac changes every 2 days). Wound VAC was changed today. - RN to change up dressing daily. - Continue NPO, NGT to LIWS - TPN reduced due to patient c/o urinary frequency overnight. Intake of 1650 and output of 5050 since yesterday. - Pathology report of small bowel resection shows extensive serosal fibrous adhesions with vascular congestion and chronic inflammation, submucosal vascular congestion and hemorrhage and mucosal hemorrhage. Resection margins are viable. Negative for malignancy. Patient will need to follow-up with a PET scan in outpatient setting. Report on skin lesion on anterior abdominal wall is lentigo simplex. - Continue Zosyn (day 16) and fluconazole (day 16). - Physical therapy. Abdomen/Pelvis CT 09/23/17 07:30 IMPRESSION: 1. Interval placement left lower quadrant pigtail drainage catheter with decompression of the dominant gas and fluid collection compatible with known anastomotic leak. There has been overall decrease in size of a partially loculated collection within the mid pelvis abutting the rectal pouch anastomosis which likely communicates with this dominant collection. 2. There is been slight interval increase in size of a 5.6 x 2.4 cm fluid collection in the anterior pelvis just below the level the midline incision which extends to the skin surface. 3. Enteric contrast is is not seen on today's study within any of these collections in this could be related to placement of the drainage catheter and lack of additional enteric contrast administered today. However a small focus of extraluminal gas persists in the left lower quadrant adjacent to the anastomosis. 4. Mild small bowel wall thickening in the pelvis with associated inflammatory changes within the most. , likely reactive. 5. New small to moderate bilateral pleural effusions, left greater than right with near complete atelectasis of the lower lobes. 6. Cholelithiasis. 7. 4.1 cm ascending aortic aneurysm. The findings were sent to the Radiology [facility] Communication [facility] at 8:35 am on 09/23/2017to be communicated to a licensed caregiver. D/ / Martha Wayne MD / Martha Wayne MD Interpreting Provider: Martha Wayne MD Chest CT 09/23/17 07:30 IMPRESSION: 1. Interval placement left lower quadrant pigtail drainage catheter with decompression of the dominant gas and fluid collection compatible with known anastomotic leak. There has been overall decrease in size of a partially loculated collection within the mid pelvis abutting the rectal pouch anastomosis which likely communicates with this dominant collection. 2. There is been slight interval increase in size of a 5.6 x 2.4 cm fluid collection in the anterior pelvis just below the level the midline incision which extends to the skin surface. 3. Enteric contrast is is not seen on today's study within any of these collections in this could be related to placement of the drainage catheter and lack of additional enteric contrast administered today. However a small focus of extraluminal gas persists in the left lower quadrant adjacent to the anastomosis. 4. Mild small bowel wall thickening in the pelvis with associated inflammatory changes within the most. , likely reactive. 5. New small to moderate bilateral pleural effusions, left greater than right with near complete atelectasis of the lower lobes. 6. Cholelithiasis. 7. 4.1 cm ascending aortic aneurysm. The findings were sent to the Radiology Results Communication [facility] at 8:35 am on 09/23/2017to be communicated to a licensed caregiver. D/ / Martha Wayne MD / Martha Wayne MD Interpreting Provider: Martha Wayne MD (2) Pleural effusion Current Visit: Yes Status: Acute CT of the chest shows new small to moderate b/l pleural effusions (L greater than R) with near complete atelectassis of the lower lobes. White blood cell count increased from 13.4 up to 19. Patient has been afebrile overnight. He has no crackles on lung exam. No pitting edema observed in the sacral region. - Consult to respiratory therapy for aggressive pulm toileting. Acu-pap. - Lasix 20 mg IV qd. - Daily weight measurements. (90 kg yesterday before treatment with lasix). - Monitor I/O's. Intake of 1650 and output of 5050 since yesterday. - Continue zosyn. Chest CT 09/23/17 07:30 IMPRESSION: 1. Interval placement left lower quadrant pigtail drainage catheter with decompression of the dominant gas and fluid collection compatible with known anastomotic leak. There has been overall decrease in size of a partially loculated collection within the mid pelvis abutting the rectal pouch anastomosis which likely communicates with this dominant collection. 2. There is been slight interval increase in size of a 5.6 x 2.4 cm fluid collection in the anterior pelvis just below the level the midline incision which extends to the skin surface. 3. Enteric contrast is is not seen on today's study within any of these collections in this could be related to placement of the drainage catheter and lack of additional enteric contrast administered today. However a small focus of extraluminal gas persists in the left lower quadrant adjacent to the anastomosis. 4. Mild small bowel wall thickening in the pelvis with associated inflammatory changes within the most. , likely reactive. 5. New small to moderate bilateral pleural effusions, left greater than right with near complete atelectasis of the lower lobes. 6. Cholelithiasis. 7. 4.1 cm ascending aortic aneurysm. The findings were sent to the Radiology Results Communication Center at 8:35 am on 09/23/2017to be communicated to a licensed caregiver. D/ / Martha Wayne MD / Martha Wayne MD Interpreting Provider: Martha Wayne MD (3) Anemia Current Visit: Yes Status: Acute Hemoglobin stable at 9.0. Yesterday at 9.1 Old blood was noted in the abdominal incision this morning when his wound vac was replaced. No active bleeding was noted. Qualifiers: Anemia type: unspecified type Qualified Code(s): D64.9 - Anemia, unspecified (4) Colon cancer Current Visit: No Status: Chronic Pt with Hx of stage IV colon adenocarcinoma S/p open low anterior resection appendectomy, resection of an omental mass, take down of splenic flexure and a colostomy placed by Dr. Zhao July 2014. Qualifiers: Colon location: unspecified part of colon Qualified Code(s): C18.9 - Malignant neoplasm of colon, unspecified (5) DVT prophylaxis Current Visit: Yes Status: Acute On heparin drip. Subjective Narrative: Patient admits to having nausea since last night. He denies any vomiting. He admits to coughing with phlegm. He admits to intermittent abdominal pain last night but currently denies any. Denies any fever or chills. Denies any chest pain or shortness of breath. Objective VITAL SIGNS: Reviewed. See [facility] GENERAL: No apparent distressI HEENT: [Normocephalic, PER, EOMi, oropharynx pink/moist, no JVD noted.] CV: b/l rad pulses 2+, RRR, no murmurs or gallops, no JVD RESPIRATORY: CTAB without wheezes, rales, or rhonchi ABD: soft, non-tender, no rebound/guarding/rigidity, no peritoneal signs. Normal bowel sounds. INCISION: Wound VAC was not intact. Signs of dark brown bilious fecal fluid. No signs of surrounding erythema, edema, bleeding, or infection. Wound VAC container contained 325 mL of dark brown bilious fecal fluid. DRAINS: JAYESH site on L flank without signs of infection; bulb contains dark red serosanguineous fluid. OSTOMY: Fecal output observed. No signs of erythema, bleeding, or purulent drainage. EXTREMITY: grossly normal motor function, no pedal edema, peripheral pulses 2+ b /l NEUROLOGIC EXAM: AOx3, obeys commands, no speech deficits. PSYCHIATRIC: normal mood and affect SKIN: no gross lesions, rashes, or skin changes Vital Signs - Last 8 Hours Temp Pulse Resp BP Pulse Ox 09/24/17 07:27 100.4 F H 105 14 124/56 96 09/24/17 04:20 98.3 F 104 17 125/69 95 09/24/17 03:29 16 95 Intake and Output 09/23/17 09/24/17 09/24/17 23:59 07:59 15:59 Intake Total 0 / 0 700 / 700 Output Total 700 / 700 1100 / 1100 Balance -700 / -700 -400 / -400 Intake: IV Fluids 700 / 700 Heparin 25,000 UNIT/500 ML D5W 500 / 500 25,000 unit In 500 ml @ 14 UNIT /KG/HR 26.152 mls/hr IVC . Q19H8M PAD[facility]A Rx#:[id number] Diflucan Premix 200 MG/100 ML 100 / 100 200 mg In 100 ml @ 100 mls/hr IVPB HS PADILLA Rx#:[id number] Zosyn 3.375 GM In 0.9 % Sodium 100 / 100 Chloride (Mini-Bag +) 100 ML @ 25 mls/hr IVPB Q8H PADILLA Rx#: [id number] Oral 0 / 0 Output: Gastric Tube Lavage Amount 200 / 200 Left Nare 200 / 200 Catheter 700 / 700 650 / 650 Wound Drainage 0 / 0 250 / 250 Left JAYESH 0 / 0 Wound vac 250 / 250 Other: Meal NPO Weight 90 kg Blood Glucose* 134 125 Patient Weight 09/24/17 23:59 Weight 90 kg - Labs 09/24/17 03:10 09/24/17 03:10 Diabetes panel 09/24/17 Range/Units 03:10 Sodium 137 (136-145) mEq/L Potassium 4.1 (3.5-5.1) mEq/L Chloride 105 (98-107) mEq/L Carbon Dioxide 26 (23-29) mEq/L BUN 22 (8-23) mg/dL Creatinine 1.05 (0.70-1.30) mg/dL Glucose 120 H (70-105) mg/dL Calcium 8.3 L (8.6-10.3) mg/dL Calcium panel 09/24/17 09/24/17 Range/Units 03:10 07:04 Calcium 8.3 L (8.6-10.3) mg/dL Phosphorus 3.3 (2.7-4.5) mg/dL Pituitary panel 09/24/17 Range/Units 03:10 Sodium 137 (136-145) mEq/L Potassium 4.1 (3.5-5.1) mEq/L Chloride 105 (98-107) mEq/L Carbon Dioxide 26 (23-29) mEq/L BUN 22 (8-23) mg/dL Creatinine 1.05 (0.70-1.30) mg/dL Glucose 120 H (70-105) mg/dL Calcium 8.3 L (8.6-10.3) mg/dL Adrenal panel 09/24/17 Range/Units 03:10 Sodium 137 (136-145) mEq/L Potassium 4.1 (3.5-5.1) mEq/L Chloride 105 (98-107) mEq/L Carbon Dioxide 26 (23-29) mEq/L BUN 22 (8-23) mg/dL Creatinine 1.05 (0.70-1.30) mg/dL Glucose 120 H (70-105) mg/dL Calcium 8.3 L (8.6-10.3) mg/dL - VTE Documentation of Mechanical Device: Intermittent pneumatic compression device Consult Discharge Plan - Plan Referrals: Lobito Lang MD [Primary Care Provider] - <Ayde Zhao - Last Filed: 09/24/17 15:02> Date of Encounter: 09/24/17 - Assessment and Plan (1) Colostomy care Current Visit: Yes Status: Chronic (2) Hypertension Current Visit: No Status: Chronic primarily controlled, continue scheduled antihypertensives and prn's monitor Qualifiers: Hypertension type: essential hypertension Qualified Code(s): I10 - Essential (primary) hypertension (3) Pulmonary embolism Current Visit: Yes Status: Acute contiue heparin gtt aggressive pulmonary toilet Qualifiers: Pulmonary embolism type: other Chronicity: acute Acute cor pulmonale presence: without acute cor pulmonale Qualified Code(s): I26.99 - Other pulmonary embolism without acute cor pulmonale (4) Status post exploratory laparotomy Current Visit: Yes Status: Acute continue conservative therapy, will consult ID for antibiotic recommendations [employer] has discussed with patient code status and prognosis and has recommended he talk with hospice, which he has agreed will continue to treat drainage bowel leaks npo, ngt to liws prn pain control prn antiemetics OOB to chair/ambulate/PT/OT dvt prophylaxis continue antibiotics wound vac changes three times weekly continue TPN, pt npo for bowel rest (5) Unable to eat Current Visit: Yes Status: Acute continue TPN (6) Anastomotic leak of intestine Current Visit: Yes Status: Acute continue drainage IR stated nothing to drain in anterior abdominal wall today (7) Colon cancer metastasized to multiple sites Current Visit: Yes Status: Chronic patient cea 6.7 given patients findings during his first surgery, assumptive recurrent metastatic colon cancer Subjective Narrative: some intermittent abdominal pain, some nausea overnight, no emesis OOB to chair yesterday no fevers or chills no ostomy output Objective Vital Signs - Last 8 Hours Temp Pulse Resp BP Pulse Ox 09/24/17 13:50 100.4 F H 96 15 130/71 09/24/17 11:00 99.2 F 99 12 137/73 97 09/24/17 07:27 100.4 F H 105 14 124/56 96 Intake and Output 09/23/17 09/24/17 09/24/17 23:59 07:59 15:59 Intake Total 0 / 0 800 / 800 Output Total 700 / 700 1100 / 1100 400 / 400 Balance -700 / -700 -300 / -300 -400 / -400 Intake: IV Fluids 800 / 800 Heparin 25,000 UNIT/500 ML D5W 500 / 500 25,000 unit In 500 ml @ 14 UNIT /KG/HR 26.152 mls/hr IVC . Q19H8M PADILLA Rx#:[id number] Diflucan Premix 200 MG/100 ML 100 / 100 200 mg In 100 ml @ 100 mls/hr IVPB HS PADILLA Rx#:[id number] Zosyn 3.375 GM In 0.9 % Sodium 200 / 200 Chloride (Mini-Bag +) 100 ML @ 25 mls/hr IVPB Q8H PADILLA Rx#: [id number] Oral 0 / 0 Output: Gastric Tube Lavage Amount 200 / 200 Left Nare 200 / 200 Catheter 700 / 700 650 / 650 400 / 400 Wound Drainage 0 / 0 250 / 250 Left JAYESH 0 / 0 Wound vac 250 / 250 Other: Meal NPO npo Weight 90 kg Blood Glucose* 134 125 131 Patient Weight 09/24/17 23:59 Weight 90 kg - General physical appearance well developed, no distress - Eyes PERRL, normal ocular movement - ENT normal mucosa, dry mucosa, normocephalic - Neck Neck exam: trachea midline - Respiratory normal expansion, clear to auscultation, other (decreased breath sounds at bases ) - Abdomen Abdomen: Present: soft, tender (minimal). Absent: bowel sounds present, distended, guarding, rebound Additional Comments: LLQ JAYESH - bilious/succus - Incision Incision: Present: open (wound vac with serosang/bilous drainage) - Musculoskeletal normal posture - Psychiatric oriented to time, oriented to person, oriented to place, speech is normal, memory intact - Labs 09/24/17 03:10 09/24/17 03:10 Diabetes panel 09/24/17 Range/Units 03:10 Sodium 137 (136-145) mEq/L Potassium 4.1 (3.5-5.1) mEq/L Chloride 105 (98-107) mEq/L Carbon Dioxide 26 (23-29) mEq/L BUN 22 (8-23) mg/dL Creatinine 1.05 (0.70-1.30) mg/dL Glucose 120 H (70-105) mg/dL Calcium 8.3 L (8.6-10.3) mg/dL Calcium panel 09/24/17 09/24/17 Range/Units 03:10 07:04 Calcium 8.3 L (8.6-10.3) mg/dL Phosphorus 3.3 (2.7-4.5) mg/dL Pituitary panel 09/24/17 Range/Units 03:10 Sodium 137 (136-145) mEq/L Potassium 4.1 (3.5-5.1) mEq/L Chloride 105 (98-107) mEq/L Carbon Dioxide 26 (23-29) mEq/L BUN 22 (8-23) mg/dL Creatinine 1.05 (0.70-1.30) mg/dL Glucose 120 H (70-105) mg/dL Calcium 8.3 L (8.6-10.3) mg/dL Adrenal panel 09/24/17 Range/Units 03:10 Sodium 137 (136-145) mEq/L Potassium 4.1 (3.5-5.1) mEq/L Chloride 105 (98-107) mEq/L Carbon Dioxide 26 (23-29) mEq/L BUN 22 (8-23) mg/dL Creatinine 1.05 (0.70-1.30) mg/dL Glucose 120 H (70-105) mg/dL Calcium 8.3 L (8.6-10.3) mg/dL - Attending Attestation I examined this patient and my medical decision-making was reviewed with the Resident Physician. I agree with the documented findings, disposition and treatment plan as described except to the extent set forth below.
--- NOTE | 2017-09-24 10:57 | Palliative - Consult Note ---
Date of Encounter: 09/24/17 Time of Encounter: 10:15 - Assessment and Plan (1) Goals of care, counseling/discussion Current Visit: Yes Status: Acute Assessment and plan: pt has already requested dnr cca dni status and this seems very appropriate given hsi understanding that surgery has no more procedures to offer (per pt and per surgical team) I asked patient if he had any questions about hospice since i was told that was one of the reasons for the consult, he asked taht i go over hospice or him, I did so and at the end of our discussion he would like to give the tpn, and antibiotics a while longer to work and see how he does, so palliative will follow along will also ask sw to look into mpoa for patient he wishes his brother to be [facility] [place] [phone] (2) Abdominal pain Current Visit: Yes Status: Acute Assessment and plan: pt states hsi pain is under good control for about 5-6 hrs after his prn oxycodone, I informed him it is already written for every 4 hrs and therefore he can have more he only has to ask for it. taste of all the liquid opiates is poor i have d/w pharmacy if pt can tolerate al little mor vol perhaps 1/2 ml of strong citrus taste might make the meds tolerable w/o causing problems with his npo status Lemon or orange would be a good starting place. changing to sl morphine is also a possibility although my experience is that most patients taking the liquid morphine freya find the taste very poor dose would be 15 mg oral morphine (0.75 ml of the 20 mg/ml morphine solution) is equianalgesic as thr dosinginterval seems appropriate I don't recommend any change in that Qualifiers: Abdominal location: generalized Qualified Code(s): R10.84 - Generalized abdominal pain (3) Ileus following gastrointestinal surgery Current Visit: Yes Status: Acute Assessment and plan: management per surgerical team Palliative-CN HPI - Data of Consult Patient: new to practice Requesting Physician: Ayde Zhao MD Primary Care Provider: Lobito Lang - Consult Narrative Palliative Care/Comfort Measures: Palliative care Reason for consult: questions about hospice, end of life care History of present illness: Mr. Bower is a 72 year old male was seen for sbo after 5 days of low abd pain and no output form ostomy hx of statge 4 colon cancer after surgery in july 2014 he appearently has done well since hsi surgeries in july 2014 but as above developed problems before admission with sbo this has nowe required speat surgery for lysis of adhesions and small bowel rescetion x2 as well as repair of anastomotic leak and frozen abdomen. As patient cont to not be able to tolerate po diet and no further surgical options are open for him palliative was consulted after pt requested change in code status. He cont to c/o abd pain low and deep ache worse with mvt better with rest meds are effective but he is not asking for them properly (he states he only gets them q 8, however they are written q 4 ) patch is working for him to a degree. see recommendations in a&P CC: Ayde Zhao MD abd pain Past Med Surg Social Fam HX - Past Medical History Medical history: cancer (stage 4 colon cancer), other (BPH) Psychiatric history: no psych history - Past Surgical History Surgical History: colostomy - Social History Smoking Status: Former smoker (Currently using vaporized tobacco h/o cigar smoking, quit in 2009) Smokeless Tobacco Status: No Alcohol use: none Drug use: none Medications and Allergies Metoprolol [Lopressor] 25 mg PO BID 12/27/14 [History] Tamsulosin [Flomax] 0.4 mg PO DAILY 12/27/14 [History] Simvastatin [Zocor] 10 mg PO HS 04/02/15 [History] Finasteride [Proscar] 5 mg PO DAILY 07/23/15 [History] Lisinopril [Zestril] 40 mg PO DAILY 04/23/16 [History] amLODIPine [Norvasc] 7.5 mg PO DAILY 09/03/17 [History] 3 Allergy/AdvReac Type Severity Reaction Status Date / Time No Known Allergies Allergy Verified 09/03/17 12:52 - Constitutional Constitutional ROS PAL: decreased appetite, anorexia - EENT Eyes: no dry eye, no pain Ears: no ear discharge, no ear pain Ears, nose, mouth, throat: no mouth pain, no nasal congestion - Cardiovascular Cardiovascular ROS: no chest pain, no chest pain at rest - Respiratory Respiratory: no cough, no dyspnea - Gastrointestinal Gastrointestinal: diarrhea (ostomy has some output), nausea (with taking opoid meds) - Genitourinary Genitourinary ROS male: no urinary frequency, no urinary hesitancy, no urinary incontinence - Musculoskeletal Musculoskeletal ROS IM: muscle weakness, no myalgias, no neck pain - Integumentary ROS Integumentary: sores (post op) - Neurological Neurological ROS: no headache(s), no lack of coordination, no memory loss - Psychiatric Psychiatric general PM: change in appetite, no anhedonia, no confusion, no homicidal ideation, no suicidal ideation - Endocrine Additional comments: none Palliative Care-Exam - Constitutional Vitals: Temp Pulse Resp BP Pulse Ox 100.4 F H 105 14 124/56 96 09/24/17 07:27 09/24/17 07:27 09/24/17 07:27 09/24/17 07:27 09/24/17 07:27 General appearance: Present: no acute distress, thin - Head Head Exam: Present: atraumatic, normal inspection - ENT ENT exam: Present: mucous membranes dry - Neck Neck exam: Present: normal inspection (central line of the right) - Respiratory Respiratory exam: Present: decreased breath sounds - Expanded Respiratory Exam Location: decreased breath sounds: Left - Cardiovascular Cardiovascular exam: Present: RRR - GI/Abdominal Exam GI/Abdominal exam: Present: diminished bowel sounds, soft, tenderness - Catheter Type: Urethral (Saavedra) - Neurological Exam Neurological exam: Present: alert, oriented X3 - Psychiatric Psychiatric exam: Present: normal affect, normal mood. Absent: agitated, anxious - Skin Skin exam: Present: dry, warm Internal Medicine - CN: Reslt - Labs CBC & Chem 7: 09/24/17 03:10 09/24/17 03:10 Labs: Short CBC 09/24/17 Range/Units 03:10 WBC 19.0 H (4.3-11.1) K/mcL Hgb 9.0 L (12.9-16.9) g/dL Hct 27.5 L (37.5-50.1) % Plt Count 514 H (140-400) K/mcL Neutrophils # 17.1 H (1.6-8.9) K/mcL BMP 09/24/17 03:10 Sodium 137 Potassium 4.1 Chloride 105 Carbon Dioxide 26 BUN 22 Creatinine 1.05 Glucose 120 H Calcium 8.3 L - ABG Interpretation ABG results: ABG ABG pH 7.38 pH Units (7.32-7.45) 09/09/17 05:14 ABG pCO2 41 mmHg (35-45) 09/09/17 05:14 ABG pO2 98 mmHg (85-104) 09/09/17 05:14 ABG O2 Saturation 97 % (95-98) 09/09/17 05:14 PT/INR, D-dimer PT 14.5 Seconds (9.4-12.1) H 09/19/17 12:05 Consult Discharge Plan - Plan Referrals: Lobito Lang MD [Primary Care Provider] - Palliative Quality Palliative Quality: Screen for Code Status: Yes, Screen for Goals of Care: Yes, Screen for Pain: Yes, If Pain Regimen Started, Initiate Bowel Regimen: Yes, Screen for Nausea/Vomitting: Yes Code Status: 09/03/17 13:26 Resuscitation Status: Active [RES] Routine Comment: Resuscitation Status: Full Code 09/24/17 08:42 CODE [Resuscitation Status: Active] [RES] Routine Comment: Resuscitation Status: [id number]
[2017-09-24] MEDS: Ondansetron 4 MG/2 ML VIAL IVP PRN (15:31)
--- NOTE | 2017-09-24 16:41 | Infectious Disease Consult ---
Date of Encounter: 09/24/17 Time of Encounter: 16:41 Assessment and Plan (1) Sepsis Status: Acute Assessment and plan: The patient has three SIRS criteria. Etiology unclear, but likely related to intra-abdominal fluid collections. The patient does have a central line and has been on TPN. The central line does not appear infected. Blood cultures drawn 09/12/14 x 3 sets were negative (2 peripheral, 1 PICC). The patient has had continued worsening leukocytosis with new-onset fever and tachycardia this morning. Repeat blood cultures x 2 sets now. Qualifiers: Sepsis type: sepsis due to unspecified organism Qualified Code(s): A41.9 - Sepsis, unspecified organism (2) Intra-abdominal fluid collection Status: Acute Assessment and plan: Likely secondary to anastamosis leak. Location: Left lower quadrant x2, anterior pelvis. CT scan of the abdomen and pelvis completed September 18 showed a 14 x 6.8 x 6.5; her collection of air and oral contrast along the left lateral abdomen, consistent with an anastomosis leak. The sign of leakage is suspected to be at the surgical staple line along the left lower quadrant. There is also noted to be a loculated fluid collection in the central/posterior lower abdomen, measuring 8 x 5.5 x 8.6 cm with no internal air to specifically suggest an abscess, although this cannot be entirely excluded. There was scattered air and mottled material in the subcutaneous soft tissues along the surgical staple line, concerning for infection, however, no well ill-defined abscess was seen. The patient was taken back to the operating room on September 19, but due to extensive intra-abdominal adhesions, the surgical team was unable to access the fluid collection or the site of the anastomosis. Interventional radiology was consulted and placed a pigtail drain in the left pericolic fluid collection. He has had about 25 mL on the past [address] scan September 23 showed interval placement of the left lower quadrant pigtail drainage catheter with decompression of the dominant gas and fluid collection compatible with known anastomosis leak. There has been overall decrease the size of a partially loculated collection within the mid pelvis abutting the rectal pouch anastomosis which likely communicates with this dominant fluid collection. There was noted to be a slight interval increase in the size of a 5.6 x 2.4 Center fluid collection in the anterior pelvis just below the level of the midline incision extending to the skin surface. There is no enteric contrast noted on this study within any of the fluid collections which could be related to the placement of the drainage catheter and lack of additional enteric contrast administered during this testing. Interventional radiology was again consulted to assist with management of the fluid collection in the anterior pelvis. A limited CT scan was repeated today that did not reveal any fluid that was able to be aspirated. Case discussed with the surgery team. Unfortunately, the patient's adhesions prevent any further abdominal surgical intervention at this time. Without adequate source control, it is likely that the patient will continue to have sepsis. Will start Vancomycin IV. Pharmacy to dose. Goal trough ~15. Discontinue Fluconazole. Start Micafungin 100mg IV daily. Continue Zosyn 3.375grams IV Q8H. Duration of treatment depends on the clincal picture. Monitor renal function and for drug toxicity and dose-adjust antibiotics. (3) Small bowel obstruction Status: Acute Assessment and plan: Status post exploratory laparotomy with lysis of adhesions, enterotomy 1, and small bowel resection 2. Wound care and activity restrictions per the primary team. Nutritional support per TPN. (4) Anastomotic leak of intestine Status: Acute (5) Abdominal pain Status: Acute Qualifiers: Abdominal location: generalized Qualified Code(s): R10.84 - Generalized abdominal pain (6) Urinary tract infection Status: Suspected Assessment and plan: Asymptomatic bacteriuria versus true infection. The patient did report some abdominal pain on admission, but this was likely secondary to small bowel obstruction. The patient has received multiple antibiotics that would treat his UTI appropriately. No additional antibiotics are recommended at this time. Qualifiers: Urinary tract infection type: acute cystitis Hematuria presence: without hematuria Qualified Code(s): N30.00 - Acute cystitis without hematuria (7) Status post exploratory laparotomy Status: Acute (8) Acute respiratory failure Status: Resolved Qualifiers: Respiratory failure complication: unspecified whether with hypoxia or hypercapnia Qualified Code(s): J96.00 - Acute respiratory failure, unspecified whether with hypoxia or hypercapnia (9) Pulmonary embolism Status: Acute Assessment and plan: Likely secondary to thrombophlebitis from his right upper extremity DVT. Does not appear hypoxic. Management per the primary team. Qualifiers: Pulmonary embolism type: other Chronicity: acute Acute cor pulmonale presence: without acute cor pulmonale Qualified Code(s): I26.99 - Other pulmonary embolism without acute cor pulmonale (10) DVT (deep venous thrombosis) Status: Acute Assessment and plan: Location: Right upper extremity subclavian vein. Management per the primary team Qualifiers: DVT location: upper extremity Affected thrombotic vein of extremity: other upper extremity vein Chronicity: acute Laterality: right Qualified Code(s) : I82.621 - Acute embolism and thrombosis of deep veins of right upper extremity (11) Anemia Status: Acute Assessment and plan: Chronic Likely multifactorial: Acute blood loss anemia status post surgery, poor nutritional status, etc. There is some what appears to be blood tinged stool noted in the ostomy bag at this time. I expect that this is normal postoperative finding, we will will defer further workup and management to the primary team. Transfusion parameters per the primary team. Qualifiers: Anemia type: unspecified type Qualified Code(s): D64.9 - Anemia, unspecified (12) Pleural effusion Status: Acute Assessment and plan: Likely secondary to fluid volume overload. Patient is not in any acute respiratory distress. Management per the primary team. (13) Hypertension Status: Chronic Qualifiers: Hypertension type: essential hypertension Qualified Code(s): I10 - Essential (primary) hypertension (14) Colon cancer Status: Chronic Assessment and plan: Status post bowel resection with colostomy back in 2014. Qualifiers: Colon location: unspecified part of colon Qualified Code(s): C18.9 - Malignant neoplasm of colon, unspecified Infectious Disease HPI - Data of Consult Patient: new to practice Consult date: 09/24/17 Requesting Physician: Ayde Zhao MD Primary Care Provider: Lobito Lang - Consult Narrative Reason for consult: Intra-abdominal fluid collection History of present illness: Mr. Bower is a 72 year old male with a past medical history of colon cancer status post colectomy with colostomy back in 2014, hypertension, hyperlipidemia , and BPH. The patient was admitted to the hospital September 03 for small bowel obstruction. We are consulted September 20 or further recommendations regarding sepsis and intra-abdominal fluid collection. Briefly, the patient is a 72-year-old male with past medical history as stated above. The patient has a remote history of colon cancer status post colostomy back in 2014. Since then he has been doing well and did not require any further chemotherapy or radiation. He states that a couple of days prior to admission, he began to experience abdominal pain and decreased output from his colostomy so he presented to the emergency department. Upon arrival to the ER, the patient was afebrile, but he was tachycardic. His white blood cell count was normal. He had an acute kidney injury. Urinalysis was positive for pyuria and culture growing Enterococcus faecalis. He had a CT of the abdomen and pelvis that showed a small bowel obstruction. General surgery team was consulted and recommended conservative treatment with bowel rest and decompression with NG tube. The patient was admitted to the hospital for further evaluation. After admission, the patient remained afebrile hemodynamically stable. He had a KUB on September 07 that showed a stable small bowel obstruction. The patient continued to have no output from his colostomy, so he was taken to the operating room on September 07 and underwent exploratory laparotomy with lysis of adhesions, enterotomy 1, and small bowel resection 2. Pathology was negative for malignancy. Postoperatively, the patient remained intubated until September 09 when he was extubated. He also developed leukocytosis with bandemia. Chest x- ray showed fluctuating bibasilar atelectasis. Leukocytosis improved, but remained mildly elevated. On September 15, the patient had altered mental status and diaphoresis. He had a CTA of the chest that showed a small to moderate PE in the right lung. He had a CT of the head that was negative. A stroke alert was called and neurology at [facility] was consulted who did not recommend TPA. He did have an MRI of the brain that was negative. The patient became febrile with a MAXIMUM TEMPERATURE of 100.4. He had peripheral blood cultures drawn 2 that were negative. He also had one set drawn from his PICC line was negative. He had bilateral upper extremity DVT studies that were positive for DVT in the right subclavian vein. Clinically, the patient improved. He had venous Doppler studies of the bilateral lower results were negative. PICC line was discontinued due to concerns that his PEs were secondary to thrombophlebitis. Catheter tip culture was negative as well. The patient later developed increasing abdominal pain and distention. On September [address] of the abdomen and pelvis that showed a left lateral abdominal anastomosis leak loculated fluid collection in the central/posterior lower abdomen. He was taken back to the operating room on September 19 and had expiratory laparotomy, lysis of adhesions, and serosal tear closure 2 with wound VAC placement. Due to the extensive lysis of adhesions, the left lower quadrant fluid collection noted on the previous CT was unable to be accessed. IR was consulted and was able to place a drain in the left pericolic fluid collection. 100 mL's of what appeared to be stool is aspirated. Initially, the patient did well postoperatively, but over the past couple of days has had increasing leukocytosis with neutrophilic predominance. This morning, he spiked a fever with MAXIMUM TEMPERATURE of 100.4 and he is tachycardic. He had a repeat CT the abdomen and pelvis on September 23 that showed decompression of the left lower quadrant would collection as well as decrease in the loculated collection in the mid pelvis with findings consistent with communication between the 2 fluid collections. There was noted to be an increase in the anterior pelvis fluid collection. IR was again consulted and a repeat CT was done today that was negative for the previously seen enlarging abscess in the midline abdomen. Palliative care has been consulted to assist with code status. The patient has remained on IV antibiotics since admission. Initially, the patient was started on Cipro. He was transitioned to ampicillin when his urine culture came back positive for enterococcus. Postoperatively, he was started on Zosyn and fluconazole and has remained on these medications since then. We have been asked to evaluate and make further recommendations. During my exam today, the patient endorses a history as stated above. He states that overall he feels okay. He denies any known fevers or chills or rigors. He denies any headache or neck pain. He denies any congestion, earache , or sore throat. He denies any chest pain, shortness of breath, or cough. He does report some intermittent nausea, but denies any vomiting. He reports some discomfort at the abdominal surgical site. He reports that until today he was not having any output from colostomy, but states he received an enema through the colostomy and he had a large amount of output since then. He denies any back or extremity pain. He denies any oral thrush or skin lesions. He currently has a Saavedra catheter that he had have replaced 2 days ago when he was unable to void. The patient lives at home with his brother. He does not work outside the home. He reports that he uses a vapor cigarette. He denies any alcohol or illicit drug use. He denies recent travel outside the [facility]. CC: Ayde Zhao MD Past Med Surg Social Fam HX - Past Medical History Attestation: Yes The following information was validated with the patient. Source: patient, old records reviewed, nursing notes reviewed Medical history: cancer (stage 4 colon cancer status post bowel resection with colostomy 2014), other (BPH) Psychiatric history: no psych history - Past Surgical History Surgical History: colostomy - Social History Smoking Status: Former smoker (Currently using vaporized tobacco h/o cigar smoking, quit in 2009) Smokeless Tobacco Status: No Alcohol use: none Drug use: none Occupational status: unemployed Current living situation: Home, With Family Activity Level: Independent ambulation Recent Out of Country Travel Within the Last 8 Weeks: No Exposure or Possible Exposure to Illness During Travel: No Infectious Disease-CN:Meds Metoprolol [Lopressor] 25 mg PO BID 12/27/14 [History] Tamsulosin [Flomax] 0.4 mg PO DAILY 12/27/14 [History] Simvastatin [Zocor] 10 mg PO HS 04/02/15 [History] Finasteride [Proscar] 5 mg PO DAILY 07/23/15 [History] Lisinopril [Zestril] 40 mg PO DAILY 04/23/16 [History] amLODIPine [Norvasc] 7.5 mg PO DAILY 09/03/17 [History] 3 Allergy/AdvReac Type Severity Reaction Status Date / Time No Known Allergies Allergy Verified 09/03/17 12:52 All systems: reviewed and no additional remarkable complaints except as stated Exam - Constitutional Vitals: Temp Pulse Resp BP Pulse Ox 100.5 F H 101 15 131/65 96 09/24/17 16:27 09/24/17 16:27 09/24/17 16:27 09/24/17 16:27 09/24/17 16:27 General appearance: average body habitus, cooperative, no acute distress - Head Head exam: Present: atraumatic, normal inspection, normocephalic - Eye Eye exam: Present: EOMI, normal appearance, PERRL Pupils: Present: normal accommodation - ENT ENT exam: Present: mucous membranes moist - Neck Neck exam: Present: normal inspection - Respiratory Respiratory exam: Present: CTAB. Absent: rales, respiratory distress, rhonchi, wheezes - Cardiovascular Cardiovascular exam: Present: +S1, +S2, tachycardia. Absent: irregular rhythm - GI/Abdominal GI/Abdominal exam: Present: hypoactive bowel sounds, soft, tenderness ( Generalized). Absent: distended Additional comments: Midline abdominal incision with wound VAC intact. Sponge will compress. JAYESH drain noted in the left abdomen with moderate amount of cloudy brown drainage noted. Colostomy noted to the left lower quadrant with moderate amount of dark black blood-tinged stool. Saavedra catheter draining clear yellow urine. NG tube noted to the left Lane to low intermittent wall suction with small amount of brown drainage noted. - Extremities Exam Extremities exam: Present: normal inspection. Absent: joint swelling, pedal edema, tenderness - Back Exam Back exam: Present: normal inspection. Absent: paraspinal tenderness, vertebral tenderness - Neurological Exam Neurological exam: Present: alert, oriented X3, no focal deficits - Psychiatric Psychiatric exam: Present: normal affect, normal mood - Skin Skin exam: Present: dry, intact, normal color, warm Infectious Disease CN: Results - Labs CBC & Chem 7: 09/24/17 03:10 09/24/17 03:10 Cultures: Cultures 09/15/17 16:08 Blood Culture - Final Peripheral Venipuncture No growth. 09/15/17 21:05 Blood Culture - Final Peripheral Central Cath, Picc No growth. 09/15/17 16:08 Blood Culture - Final Peripheral Venipuncture No growth. 09/16/17 09:46 Catheter Tip Culture - Final Intravenous or Arterial Cath No growth. Serology: Serology 09/22/17 Range/Units 04:25 Urine Color Yellow (Yellow) Urine Clarity Clear (Clear) Urine pH 7.0 (5.0-8.0) pH Units Ur Specific [place] 1.010 (1.010-1.025) Urine Protein Negative (Neg-Trace) mg/dL Urine Glucose (UA) Normal (Normal) mg/dL Urine Ketones Negative (Negative) mg/dL Urine Blood Negative (Negative) Urine Nitrite Negative (Negative) Urine Bilirubin Negative (Negative) Urine Urobilinogen Normal (Normal) mg/dL Ur Leukocyte Esterase Negative (Negative) Ur Culture Indicated? NO (NO) - VTE Documentation of Mechanical Device: Intermittent pneumatic compression device Consult Discharge Plan - Plan Referrals: Lobito Lang MD [Primary Care Provider] - - Attending Attestation I examined this patient and my medical decision-making was reviewed with the Resident Physician. I agree with the documented findings, disposition and treatment plan as described except to the extent set forth below. This is an addendum to original report dictated by Safia Tracey CNP. Please refer to Yanira nguynễ for full detail. Patient seen and examined. Agree with above history and hospital course and was review of system and the clinical exam. Assessment and plan: Sepsis Intra-abdominal fluid collection/abscesses Small bowel obstruction Anastomotic leak of the intestine Abdominal pain Year tract infection Status post exploratory laparotomy Acute respiratory failure Pleural effusion Was colon cancer stage IV diagnosed in 2015 Recommendations: As for the intra-abdominal fluid collection with the anastomosis leak status post drain by IR with fecal material out. More fluid was noted possible anterior pelvic area but IR unable to get to it. Patient is not a surgical candidate because of frozen abdomen. Patient will continue to the worse clinically there is no source control for his infection. He clearly keeps peeling antra viscus material into his intra-abdominal cavity. Patient has been on Diflucan and Zosyn which is I believe adequate but because he continues to spike fever and worse clinically, consider broaden the antibiotic/antifungal medication. Continue the Zosyn, DC the Diflucan and start micafungin. Also add vancomycin for enterococcus that might be ampicillin resistant. Will also repeat blood cultures since the patient has a central line and is on TPN and concern for bacteremia. Overall prognosis is guarded at best if not poor we will continue to follow closely.
[2017-09-24] MEDS ORDERED: Clinimix E 5%-20% SOLUTION 2,000 ML with MVI, adult with vitamin K 10 ML IVC SCH (17:00)
[2017-09-24] MEDS: Micafungin 100 MG in 0.9 % Sodium Chloride Mini Bag 100 ML IVPB SCH (18:23)
[2017-09-25] MEDS: Insulin LISPRO 300 UNITS/3 ML VIAL SQ SCH ×6 (00:03→20:46)
[2017-09-25] MEDS: Ondansetron 4 MG/2 ML VIAL IVP PRN (03:44)
[2017-09-25] MEDS: Ipratropium/Albuterol Neb 3 ML IH SCH ×4 (04:18→22:30)
[2017-09-25] MEDS: Piperacillin/Tazobactam 3.375 GM in 0.9 % Sodium Chloride Mini Bag 100 ML IVPB SCH ×3 (04:27→18:41)
[2017-09-25 04:44] LABS: Basophils # 0.1 K/mcL (0.0-0.2); Basophils % 0.4 %; Eosinophils # 0.3 K/mcL (0.0-0.6); Eosinophils % 1.7 %; Hematocrit 24.2 % (37.5-50.1); Hemoglobin 7.8 g/dL (12.9-16.9); Immature Granulocytes % 4.8 % (0-4); Lymphocytes % 6.2 %; Mean Corpuscular HGB Conc 32.2 g/dL (31.6-35.5); Mean Corpuscular Hemoglobin 32.8 pg (28.0-33.3); Mean Corpuscular Volume 101.7 fL (83.0-100.0); Mean Platelet Volume 10.3 fL (9.4-12.4); Monocytes # 1.1 K/mcL (0.0-1.3); Monocytes % 6.9 %; Neutrophils # 12.4 K/mcL (1.6-8.9); Nucleated Red Blood Cells 0.3 /100 WBC (0); Platelet Count 419 K/mcL (140-400); Red Blood Count 2.38 M/mcL (4.19-5.50); Red Cell Distribution Width 16.7 % (11.5-14.5)
[2017-09-25 05:03] LABS: BUN/Creatinine Ratio 24 (6-26); Blood Urea Nitrogen 22 mg/dL (8-23); Carbon Dioxide 27 mEq/L (23-29); Chloride 105 mEq/L (98-107); Glucose 102 mg/dL (70-105); Osmolality,Calculated 286 (280-300); Phosphorous 3.1 mg/dL (2.7-4.5); Sodium 136 mEq/L (136-145); eGFR For African Americans > 60 (> 60); eGFR For Non-African Americans > 60 (> 60)
--- NOTE | 2017-09-25 08:32 | General Surgery Progress Note ---
<IvanEffie Forte - Last Filed: 09/25/17 11:53> Date of Encounter: 09/25/17 Time of Encounter: 07:30 - Assessment and Plan (1) Small bowel obstruction Current Visit: Yes Status: Acute 1) Date of procedure: 09/07/17 Pre-op diagnosis: small bowel obstruction Post-op diagnosis: same (severe adhesions, metastatic colon cancer) Procedure: Exploratory laparotomy, lysis of adhesions 3 hours, small bowel resection x2 2) Take back d/t anastomotic leak Date of procedure: 09/19/17 Pre-op diagnosis: anastamotic leak Post-op diagnosis: same (bowel perforation/possible anastomotic leak, frozen abdomen, serosal tears x2) Procedure: Exploratory laparotomy, lysis of adhesions, closure serosal tear x 2 , wound vac placement POD # 18 (1) and POD #6 (2) as above Wound Vac in place. Noted with 375 Ml mixed bilious and dark maroon material. BRB is noted in the perimeter of the wound vac dressing with a collection of old blood at the bottom. WV dressing changed per this PROCESSOR INSPECTOR and noteably the midline is now with a large adherent clot mixed with what appears to be necrotic bowel. WV reapplied. Further reviewed with patient the grim prognosis and unlikeliness of him surviving this episode with patient and his brother, Jose Juan,(who will be in at aprox 1030 to see pateint). Pt remains with the opinion that he would like to continue attempts at resolution of fistula with wound vac and I assured the Mr. Bower that surgery would continue to attempt resolution, but not escalate care, until Mr. Bower feels he is ready for hospice. Code status is currently DNR-CCA/DNI. Patient does not want pressors. We will continue the wound VAC, antibiotics, supportive care at this time. Plan: continue supportive care and discomfort management adjust medications for optimizing pain control and nausea relief continue NG tube low intermittent wall suction; NPO except ice chips sparingly for comfort; Biotene and Chloraeptic for comfort continue TPN continue Saavedra for acute urinary retention/accurate I&O continue wound VAC and JAYESH drain continue PT and OT serial abdominal exams repeat a.m. labs (2) Colon cancer Current Visit: No Status: Chronic Pt with Hx of stage IV colon adenocarcinoma s/p open low anterior resection appendectomy, resection of an omental mass, take down of splenic flexure and a colostomy placed by Dr. Zhao. See assessment and plan above Qualifiers: Colon location: unspecified part of colon Qualified Code(s): C18.9 - Malignant neoplasm of colon, unspecified (3) Leukocytosis (leucocytosis) Current Visit: Yes Status: Acute WBC (last 3 days) 13.4 19.0>>15.5 Infectious diseases following for antibiotic recommendations. We appreciate your assistance in the care of Mr. Bower. Continue IV antibiotics per ID Qualifiers: Leukocytosis type: unspecified Qualified Code(s): D72.829 - Elevated white blood cell count, unspecified (4) Pulmonary embolism Current Visit: Yes Status: Acute Small to moderate emboli, primarily proximal descending right lower and segmental right upper lobe pulmonary arteries. Per chest CT 09/15/2017 Patient was on heparin drip (therapeutic) beginning 09/15/2017. The heparin was stopped today due to bloody output in the wound VAC and ostomy associated with hemoglobin decrease from 9.0 to 7.8. Continue EPCDs while in bed will resume prophylactic versus therapeutic heparin when safe to do so. will continue to closely follow code status currently DNRCC-A/DNI. No pressors. Qualifiers: Pulmonary embolism type: other Chronicity: acute Acute cor pulmonale presence: without acute cor pulmonale Qualified Code(s): I26.99 - Other pulmonary embolism without acute cor pulmonale (5) DVT (deep venous thrombosis) Current Visit: Yes Status: Acute See assessment and plan above Qualifiers: DVT location: upper extremity Affected thrombotic vein of extremity: other upper extremity vein Chronicity: acute Laterality: right Qualified Code(s) : I82.621 - Acute embolism and thrombosis of deep veins of right upper extremity (6) Anemia Current Visit: Yes Status: Acute See assessment and plan above Qualifiers: Anemia type: unspecified type Qualified Code(s): D64.9 - Anemia, unspecified (7) Poor prognosis Current Visit: Yes Status: Acute Palliative care is following and we appreciate their assistance. Noted that palliative care will not be available over the weekend and will re-eval patient on Thursday. Please see assessment and plan above. Subjective Patient reports: still having pain, voiding w/o difficulty (Per Saavedra), no flatus, blood in stool (Per ostomy), nausea, fever Narrative: Mr. Bower c/o abdominal pain, leaking around his wound VAC, nausea, no vomiting. He reports feeling fevered and getting lightheaded if he tries to sit up. He reports feeling tired. Objective Vital Signs - Last 8 Hours Temp Pulse Resp BP Pulse Ox 09/25/17 07:23 100.5 F H 96 18 149/70 97 09/25/17 05:04 97.9 F 94 18 159/83 94 09/25/17 04:18 18 96 Intake and Output 09/24/17 09/25/17 09/25/17 23:59 07:59 15:59 Intake Total 100 / 100 777 / 777 Output Total 1250 / 1250 950 / 950 Balance -1150 / -1150 -173 / -173 Intake: IV Fluids 100 / 100 777 / 777 Heparin 25,000 UNIT/500 ML D5W 177 / 177 25,000 unit In 500 ml @ 14 UNIT /KG/HR 26.152 mls/hr IVC . Q19H8M [facility] Rx#:[id number] Intralipid 20% 250 ML @ 21 mls/ 250 / 250 hr IVPB DAILY@1700 [facility] Rx#: [id number] Mycamine 100 MG In 0.9 % Sodium 100 / 100 Chloride (Mini-Bag +) 100 ML @ 100 mls/hr IVPB DAILY [facility] Rx#: [id number] Zosyn 3.375 GM In 0.9 % Sodium 100 / 100 Chloride (Mini-Bag +) 100 ML @ 25 mls/hr IVPB Q8H [facility] Rx#: [id number] Vancocin 1,250 MG In 0.9 % 250 / 250 Sodium Chloride 250 ML @ 166.67 mls/hr IVPB Q12H [facility] Rx#: [id number] Oral 0 / 0 0 / 0 Output: Stool 100 / 100 Catheter 750 / 750 600 / 600 Gastric Drainage 300 / 300 250 / 250 Wound Drainage 100 / 100 100 / 100 Wound vac 100 / 100 100 / 100 Other: Stool Color Dark Red Blood Weight 90.3 kg Blood Glucose* 124 125 130 Patient Weight 09/25/17 23:59 Weight 90.3 kg VITAL SIGNS: Reviewed. Febrile, heart rate less than 100, slightly hypertensive, See [facility] GENERAL: Reclined in bed. HEENT: Normocephalic, atraumatic, pupils are equal and reactive, extraocular motions intact, oropharynx is pink and dry, there is no JVD noted. Right neck central line noted. NG noted in the left nares. CHEST/RESPIRATORY: The thorax is free from signs of trauma. Lung sounds: decreased and course CARDIAC: Regular rate and rhythm. Normal S1 and S2, with 2/6 systolic murmurs, no gallops, or rubs. VASCULAR: pitting sacral edema. ABDOMEN: absent bowel sounds. Wound VAC is in place and with moderate amount of mixed bloody and bilious drainage in the periphery of the wound VAC dressing. Tender to palpation. There is approximately 100 ML's of bloody drainage in the NG tube. INCISION: open. See above. WOUNDS/DRAINS: wound VAC with 375 ML's mixed bloody/bilious material in the canister. There is drainage collected beneath the wound VAC dressing. The colostomy is with a small amount of maroon output. The stoma is pink and moist. MUSCULOSKELETAL: generalized weakness noted.. NEUROLOGIC EXAM: Alert and oriented x 3. Speech normal. Follows commands. PSYCHIATRIC: Mood normal. SKIN: No rash or lesions. Pale. - Labs 09/25/17 04:21 09/25/17 04:21 Diabetes panel 09/25/17 Range/Units 04:21 Sodium 136 (136-145) mEq/L Potassium 4.0 (3.5-5.1) mEq/L Chloride 105 (98-107) mEq/L Carbon Dioxide 27 (23-29) mEq/L BUN 22 (8-23) mg/dL Creatinine 0.91 (0.70-1.30) mg/dL Glucose 102 (70-105) mg/dL Calcium 8.0 L (8.6-10.3) mg/dL Calcium panel 09/25/17 09/25/17 Range/Units 04:21 04:21 Calcium 8.0 L (8.6-10.3) mg/dL Phosphorus 3.1 (2.7-4.5) mg/dL Pituitary panel 09/25/17 Range/Units 04:21 Sodium 136 (136-145) mEq/L Potassium 4.0 (3.5-5.1) mEq/L Chloride 105 (98-107) mEq/L Carbon Dioxide 27 (23-29) mEq/L BUN 22 (8-23) mg/dL Creatinine 0.91 (0.70-1.30) mg/dL Glucose 102 (70-105) mg/dL Calcium 8.0 L (8.6-10.3) mg/dL Adrenal panel 09/25/17 Range/Units 04:21 Sodium 136 (136-145) mEq/L Potassium 4.0 (3.5-5.1) mEq/L Chloride 105 (98-107) mEq/L Carbon Dioxide 27 (23-29) mEq/L BUN 22 (8-23) mg/dL Creatinine 0.91 (0.70-1.30) mg/dL Glucose 102 (70-105) mg/dL Calcium 8.0 L (8.6-10.3) mg/dL - VTE Documentation of Mechanical Device: Intermittent pneumatic compression device Consult Discharge Plan - Plan Referrals: Lobito Lang MD [Primary Care Provider] - <Ayde Zhao - Last Filed: 09/25/17 18:29> Date of Encounter: 09/25/17 - Assessment and Plan (1) Colostomy care Current Visit: Yes Status: Chronic (2) Hypertension Current Visit: No Status: Chronic controlled Qualifiers: Hypertension type: essential hypertension Qualified Code(s): I10 - Essential (primary) hypertension (3) Pulmonary embolism Current Visit: Yes Status: Acute Qualifiers: Pulmonary embolism type: other Chronicity: acute Acute cor pulmonale presence: without acute cor pulmonale Qualified Code(s): I26.99 - Other pulmonary embolism without acute cor pulmonale (4) Status post exploratory laparotomy Current Visit: Yes Status: Acute (5) Unable to eat Current Visit: Yes Status: Acute continue TPN (6) Anastomotic leak of intestine Current Visit: Yes Status: Acute have discussed with patient, palliative care, infectious disease, patient is not a surgical candidate grim prognosis as I think it is likely we will not be able to control his bowel leak(s) and subsequent likely impending sepsis or he has decided a DNR, no intubation, no chest compressions, no pressors status palliateve care is following and we appreciate their input and assistance ID has changed his antibiotic coverage continued wound vac therapy to try to control succus/bile drainage continue NPO ngt liws wound vacs to be changed by PROCESSOR INSPECTOR or physicians continue JAYESH to LLQ prn pain control gi/dvt prophylaxis ok to continue PT/OT as patient can tolerate (7) Colon cancer metastasized to multiple sites Current Visit: Yes Status: Chronic Subjective Narrative: complains of pain, is primarily controlled with pain medication no nausea or emesis. Objective Vital Signs - Last 8 Hours Temp Pulse Resp BP Pulse Ox 09/25/17 16:30 99.5 F 95 20 121/68 95 09/25/17 15:21 18 99 09/25/17 12:00 99.0 F 96 17 133/68 09/25/17 10:40 17 98 Intake and Output 09/25/17 09/25/17 09/25/17 07:59 15:59 23:59 Intake Total 777 / 777 450 / 450 Output Total 950 / 950 1600 / 1600 600 / 600 Balance -173 / -173 -1150 / -1150 -600 / -600 Intake: IV Fluids 777 / 777 450 / 450 Heparin 25,000 UNIT/500 ML D5W 177 / 177 25,000 unit In 500 ml @ 14 UNIT /KG/HR 26.152 mls/hr IVC . Q19H8M [facility] Rx#:[id number] Intralipid 20% 250 ML @ 21 mls/ 250 / 250 hr IVPB DAILY@1700 [facility] Rx#: [id number] Mycamine 100 MG In 0.9 % Sodium 100 / 100 Chloride (Mini-Bag +) 100 ML @ 100 mls/hr IVPB DAILY [facility] Rx#: [id number] Zosyn 3.375 GM In 0.9 % Sodium 100 / 100 100 / 100 Chloride (Mini-Bag +) 100 ML @ 25 mls/hr IVPB Q8H [facility] Rx#: [id number] Vancocin 1,250 MG In 0.9 % 250 / 250 250 / 250 Sodium Chloride 250 ML @ 166.67 mls/hr IVPB Q12H [facility] Rx#: [id number] Oral 0 / 0 0 / 0 Output: Catheter 600 / 600 1275 / 1275 600 / 600 Gastric Drainage 250 / 250 Wound Drainage 100 / 100 325 / 325 Left JAYESH 25 / 25 Wound vac 100 / 100 300 / 300 Other: Meal NPO Weight 90.3 kg Blood Glucose* 125 119 132 Patient Weight 09/25/17 23:59 Weight 90.3 kg - General physical appearance well developed, no distress, moderate pain - Eyes PERRL, normal ocular movement - ENT normal mucosa, normocephalic - Neck Neck exam: trachea midline - Respiratory normal expansion, normal respiratory effort - Cardiovascular Cardiovascular exam: Present: tachycardia - Abdomen Abdomen: Present: soft, tender. Absent: bowel sounds present Additional Comments: JAYESH with purulent bloody succus - Incision Incision: Present: open (wound vac in place with bloody succus) - Integumentary no abnormal pigmentation - Neurologic CN 2-12 grossly intact - Musculoskeletal other (generalized weakness and deconditioning) - Psychiatric oriented to time, oriented to person, memory intact - Labs 09/25/17 04:21 09/25/17 04:21 Diabetes panel 09/25/17 Range/Units 04:21 Sodium 136 (136-145) mEq/L Potassium 4.0 (3.5-5.1) mEq/L Chloride 105 (98-107) mEq/L Carbon Dioxide 27 (23-29) mEq/L BUN 22 (8-23) mg/dL Creatinine 0.91 (0.70-1.30) mg/dL Glucose 102 (70-105) mg/dL Calcium 8.0 L (8.6-10.3) mg/dL Calcium panel 09/25/17 09/25/17 Range/Units 04:21 04:21 Calcium 8.0 L (8.6-10.3) mg/dL Phosphorus 3.1 (2.7-4.5) mg/dL Pituitary panel 09/25/17 Range/Units 04:21 Sodium 136 (136-145) mEq/L Potassium 4.0 (3.5-5.1) mEq/L Chloride 105 (98-107) mEq/L Carbon Dioxide 27 (23-29) mEq/L BUN 22 (8-23) mg/dL Creatinine 0.91 (0.70-1.30) mg/dL Glucose 102 (70-105) mg/dL Calcium 8.0 L (8.6-10.3) mg/dL Adrenal panel 09/25/17 Range/Units 04:21 Sodium 136 (136-145) mEq/L Potassium 4.0 (3.5-5.1) mEq/L Chloride 105 (98-107) mEq/L Carbon Dioxide 27 (23-29) mEq/L BUN 22 (8-23) mg/dL Creatinine 0.91 (0.70-1.30) mg/dL Glucose 102 (70-105) mg/dL Calcium 8.0 L (8.6-10.3) mg/dL - Attending Attestation I have personally performed a face to face evaluation on this patient. I have reviewed and agree with the care plan. History and Exam by me shows:
[2017-09-25] MEDS ORDERED: *HR* FentaNYL (PF) 100 MCG/2 ML VIAL IVP ONE ×2 (08:36→17:20)
[2017-09-25] MEDS ORDERED: *HR* Promethazine 25 MG/ML VIAL IVP ONE (08:36)
[2017-09-25 08:44] LABS: INR 1.5; Prothrombin Time 16.2 Seconds (9.4-12.1)
[2017-09-25 08:47] LABS: Activated Partial Thrombo Time 105.4 Seconds (26.0-36.0)
--- NOTE | 2017-09-25 10:22 | Infectious Disease Progress No ---
Date of Encounter: 09/25/17 Time of Encounter: 10:19 - Assessment and Plan (1) Sepsis Current Visit: Yes Status: Acute The patient has three SIRS criteria. Etiology unclear, but likely related to intra-abdominal fluid collections. The patient does have a central line and has been on TPN. The central line does not appear infected. Blood cultures drawn 09/12/14 x 3 sets were negative (2 peripheral, 1 PICC). The patient had continued worsening leukocytosis with new-onset fever and tachycardia. He continues to have fevers, but leukocytosis is improved today. Repeat blood cultures x 2 sets drawn 09/24/17 are pending. Qualifiers: Sepsis type: sepsis due to unspecified organism Qualified Code(s): A41.9 - Sepsis, unspecified organism (2) Intra-abdominal fluid collection Current Visit: Yes Status: Acute Likely secondary to anastamosis leak. Location: Left lower quadrant x2, anterior pelvis. CT scan of the abdomen and pelvis completed September 18 showed a 14 x 6.8 x 6.5; her collection of air and oral contrast along the left lateral abdomen, consistent with an anastomosis leak. The sign of leakage is suspected to be at the surgical staple line along the left lower quadrant. There is also noted to be a loculated fluid collection in the central/posterior lower abdomen, measuring 8 x 5.5 x 8.6 cm with no internal air to specifically suggest an abscess, although this cannot be entirely excluded. There was scattered air and mottled material in the subcutaneous soft tissues along the surgical staple line, concerning for infection, however, no well ill-defined abscess was seen. The patient was taken back to the operating room on September 19, but due to extensive intra-abdominal adhesions, the surgical team was unable to access the fluid collection or the site of the anastomosis. Interventional radiology was consulted and placed a pigtail drain in the left pericolic fluid collection. He has had about 25 mL on the past [address] scan September 23 showed interval placement of the left lower quadrant pigtail drainage catheter with decompression of the dominant gas and fluid collection compatible with known anastomosis leak. There has been overall decrease the size of a partially loculated collection within the mid pelvis abutting the rectal pouch anastomosis which likely communicates with this dominant fluid collection. There was noted to be a slight interval increase in the size of a 5.6 x 2.4 Center fluid collection in the anterior pelvis just below the level of the midline incision extending to the skin surface. There is no enteric contrast noted on this study within any of the fluid collections which could be related to the placement of the drainage catheter and lack of additional enteric contrast administered during this testing. Interventional radiology was again consulted to assist with management of the fluid collection in the anterior pelvis. A limited CT scan was repeated the following lora that did not reveal any fluid that was able to be aspirated. Case discussed with the surgery team. Unfortunately, the patient's adhesions prevent any further abdominal surgical intervention at this time. Without adequate source control, it is likely that the patient will continue to have sepsis. Continue Vancomycin IV. Pharmacy to dose. Goal trough ~15. Continue Micafungin 100mg IV daily. Continue Zosyn 3.375grams IV Q8H. Duration of treatment depends on the clincal picture. Monitor renal function and for drug toxicity and dose-adjust antibiotics. (3) Small bowel obstruction Current Visit: Yes Status: Acute Status post exploratory laparotomy with lysis of adhesions, enterotomy 1, and small bowel resection 2. Wound care and activity restrictions per the primary team. Nutritional support per TPN. (4) Anastomotic leak of intestine Current Visit: Yes Status: Acute (5) Abdominal pain Current Visit: Yes Status: Acute Qualifiers: Abdominal location: generalized Qualified Code(s): R10.84 - Generalized abdominal pain (6) Urinary tract infection Current Visit: Yes Status: Suspected Asymptomatic bacteriuria versus true infection. The patient did report some abdominal pain on admission, but this was likely secondary to small bowel obstruction. The patient has received multiple antibiotics that would treat his UTI appropriately. No additional antibiotics are recommended at this time. Qualifiers: Urinary tract infection type: acute cystitis Hematuria presence: without hematuria Qualified Code(s): N30.00 - Acute cystitis without hematuria (7) Status post exploratory laparotomy Current Visit: Yes Status: Acute (8) Acute respiratory failure Current Visit: Yes Status: Resolved Qualifiers: Respiratory failure complication: unspecified whether with hypoxia or hypercapnia Qualified Code(s): J96.00 - Acute respiratory failure, unspecified whether with hypoxia or hypercapnia (9) Pulmonary embolism Current Visit: Yes Status: Acute Likely secondary to thrombophlebitis from his right upper extremity DVT. Does not appear hypoxic. Management per the primary team. Qualifiers: Pulmonary embolism type: other Chronicity: acute Acute cor pulmonale presence: without acute cor pulmonale Qualified Code(s): I26.99 - Other pulmonary embolism without acute cor pulmonale (10) DVT (deep venous thrombosis) Current Visit: Yes Status: Acute Location: Right upper extremity subclavian vein. Management per the primary team Qualifiers: DVT location: upper extremity Affected thrombotic vein of extremity: other upper extremity vein Chronicity: acute Laterality: right Qualified Code(s) : I82.621 - Acute embolism and thrombosis of deep veins of right upper extremity (11) Anemia Current Visit: Yes Status: Acute Chronic Likely multifactorial: Acute blood loss anemia status post surgery, poor nutritional status, acute bleeding from surgical wound, etc. There is some what appears to be blood tinged stool noted in the ostomy bag at this time. I expect that this is normal postoperative finding, we will will defer further workup and management to the primary team. Transfusion parameters per the primary team. Qualifiers: Anemia type: unspecified type Qualified Code(s): D64.9 - Anemia, unspecified (12) Pleural effusion Current Visit: Yes Status: Acute Likely secondary to fluid volume overload. Patient is not in any acute respiratory distress. Management per the primary team. (13) Hypertension Current Visit: No Status: Chronic Qualifiers: Hypertension type: essential hypertension Qualified Code(s): I10 - Essential (primary) hypertension (14) Colon cancer Current Visit: No Status: Chronic Status post bowel resection with colostomy back in 2014. Qualifiers: Colon location: unspecified part of colon Qualified Code(s): C18.9 - Malignant neoplasm of colon, unspecified - Subjective Interval history: Patient seen and examined. Patient had acute onset of bleeding from the abdominal surgical wound overnight. Seen with surgery team during wound VAC and ostomy dressing change. Patient states he feels okay. Denies fevers, chills, or rigors, but was febrile with Tmax 100.5 overnight. Denies chest pain, shortness of breath, or cough. Denies abdominal pain at this time as he was pre-medicated with prior to dressing change. Denies nausea or vomiting. Saavedra catheter remains patent. Denies oral thrush or skin lesions. Infect Dis PN-Objective Data - Labs CBC & Chem 7: 09/25/17 04:21 09/25/17 04:21 Labs: Laboratory Results - last 24 hr 0509/24/17 09/24/17 11:38 16:23 20:24 WBC RBC Hgb Hct MCV MCH MCHC RDW Plt Count MPV Immature Gran % Seg Neutrophils % Lymphocytes % Monocytes % Eosinophils % Basophils % Neutrophils # Lymphocytes # Monocytes # Eosinophils # Basophils # Nucleated RBCs/100 WBC PT INR APTT Sodium Potassium Chloride Carbon Dioxide BUN Creatinine Est GFR ( Amer) Est GFR (Non-Af Amer) BUN/Creatinine Ratio Glucose POC Glucose 131 H 129 H 109 H Calculated Osmolality Calcium Phosphorus Magnesium 09/24/17 09/24/17 09/25/17 23:45 23:47 04:21 WBC RBC Hgb Hct MCV MCH MCHC RDW Plt Count MPV Immature Gran % Seg Neutrophils % Lymphocytes % Monocytes % Eosinophils % Basophils % Neutrophils # Lymphocytes # Monocytes # Eosinophils # Basophils # Nucleated RBCs/100 WBC PT INR APTT 98.2 H Sodium 136 Potassium 4.0 Chloride 105 Carbon Dioxide 27 BUN 22 Creatinine 0.91 Est GFR ( Amer) > 60 Est GFR (Non-Af Amer) > 60 BUN/Creatinine Ratio 24 Glucose 102 POC Glucose 124 H Calculated Osmolality 286 Calcium 8.0 L Phosphorus Magnesium 09/25/17 09/25/17 09/25/17 04:21 04:21 04:59 WBC 15.5 H RBC 2.38 L Hgb 7.8 L Hct 24.2 L MCV 101.7 H MCH 32.8 MCHC 32.2 RDW 16.7 H Plt Count 419 H MPV 10.3 Immature Gran % 4.8 H Seg Neutrophils % 80.0 Lymphocytes % 6.2 Monocytes % 6.9 Eosinophils % 1.7 Basophils % 0.4 Neutrophils # 12.4 H Lymphocytes # 1.0 Monocytes # 1.1 Eosinophils # 0.3 Basophils # 0.1 Nucleated RBCs/100 WBC 0.3 H PT INR APTT Sodium Potassium Chloride Carbon Dioxide BUN Creatinine Est GFR ( Amer) Est GFR (Non-Af Amer) BUN/Creatinine Ratio Glucose POC Glucose 125 H Calculated Osmolality Calcium Phosphorus 3.1 Magnesium 2.0 09/25/17 09/25/17 07:15 08:02 WBC RBC Hgb Hct MCV MCH MCHC RDW Plt Count MPV Immature Gran % Seg Neutrophils % Lymphocytes % Monocytes % Eosinophils % Basophils % Neutrophils # Lymphocytes # Monocytes # Eosinophils # Basophils # Nucleated RBCs/100 WBC PT 16.2 H INR 1.5 APTT 105.4 H Sodium Potassium Chloride Carbon Dioxide BUN Creatinine Est GFR ( Amer) Est GFR (Non-Af Amer) BUN/Creatinine Ratio Glucose POC Glucose 130 H Calculated Osmolality Calcium Phosphorus Magnesium Cultures: Cultures 09/15/17 16:08 Blood Culture - Final Peripheral Venipuncture No growth. 09/15/17 21:05 Blood Culture - Final Peripheral Central Cath, Picc No growth. 09/15/17 16:08 Blood Culture - Final Peripheral Venipuncture No growth. 09/16/17 09:46 Catheter Tip Culture - Final Intravenous or Arterial Cath No growth. Serology 09/22/17 Range/Units 04:25 Urine Color Yellow (Yellow) Urine Clarity Clear (Clear) Urine pH 7.0 (5.0-8.0) pH Units Ur Specific [place] 1.010 (1.010-1.025) Urine Protein Negative (Neg-Trace) mg/dL Urine Glucose (UA) Normal (Normal) mg/dL Urine Ketones Negative (Negative) mg/dL Urine Blood Negative (Negative) Urine Nitrite Negative (Negative) Urine Bilirubin Negative (Negative) Urine Urobilinogen Normal (Normal) mg/dL Ur Leukocyte Esterase Negative (Negative) Ur Culture Indicated? NO (NO) - Impressions Impressions Limited Followup Study CT 09/24/17 00:00 IMPRESSION: Nonvisualization of the previously seen enlarging abscess in the midline. No drainage catheter was placed D/ / Chan Alicea MD / Chan Alicea MD Interpreting Provider: Chan Alicea MD Exam - Constitutional Vitals: Temp Pulse Resp BP Pulse Ox 100.5 F H 96 18 149/70 97 09/25/17 07:23 09/25/17 07:23 09/25/17 07:23 09/25/17 07:23 09/25/17 07:23 General appearance: average body habitus, cooperative, no acute distress - Head Head exam: Present: atraumatic, normal inspection, normocephalic - Eye Eye exam: Present: EOMI, normal appearance, PERRL Pupils: Present: normal accommodation - ENT ENT exam: Present: mucous membranes moist - Neck Neck exam: Present: normal inspection Additional comments: Triple lumen CVC noted to the right neck with transparent dressing C/D/I. No erythema, warmth, or tenderness noted. - Respiratory Respiratory exam: Present: CTAB. Absent: rales, respiratory distress, rhonchi, wheezes - Cardiovascular Cardiovascular exam: Present: RRR, +S1, +S2 - GI/Abdominal GI/Abdominal exam: Present: hypoactive bowel sounds, soft, tenderness ( generalized). Absent: distended Additional comments: Midline abdominal incision with wound VAC dressing with moderate amount of bloody drainage. Jaya drain noted to the left abdomen with small amount of brown drainage. Colostomy site with beefy red stoma. Small amount of dark brown/red drainage noted in the old ostomy bag. NG tube noted to the left nare with small amount of brown drainage noted. - Extremities Exam Extremities exam: Present: normal inspection. Absent: joint swelling, pedal edema, tenderness - Neurological Exam Neurological exam: Present: alert, oriented X3, no focal deficits - Psychiatric Psychiatric exam: Present: normal affect, normal mood - Skin Skin exam: Present: dry, intact, normal color, warm - VTE Documentation of Mechanical Device: Intermittent pneumatic compression device Consult Discharge Plan - Plan Referrals: Lobito Lang MD [Primary Care Provider] - - Attending Attestation I examined this patient and my medical decision-making was reviewed with the Resident Physician. I agree with the documented findings, disposition and treatment plan as described except to the extent set forth below.
--- NOTE | 2017-09-25 10:23 | Palliative Progress Note ---
Date of Encounter: 09/25/17 Time of Encounter: 07:40 - Assessment and plan (1) Goals of care, counseling/discussion Current Visit: Yes Status: Acute Assessment and plan: CODE STATUS was already established yesterday DNR CCA DNI. Patient does endorse this CODE STATUS. With regard to goals of care patient does understand he cannot have any further surgery. I did discuss with him this morning the the apparent bleeding that he is having as well. With over a full program of globin drop since yesterday. Surgery is aware of this. The patient understands that there are no further surgical procedures available to him due to the amount of adhesions or tissue in his abdomen. Discussed with him where hospice fits into the situation given his diagnoses this would require stopping antibiotics as well as TPN. This time he wishes to continue those, however he does not wish to have any pressors done in course the CODE STATUS is as above. Discussed this with the surgical team are aware. There will be no palliative coverage over this weekend, we will follow on Thursday. (2) Abdominal pain Current Visit: Yes Status: Acute Assessment and plan: Medications appear to be effective, the patient has had trouble with the amount of taste, however the medications again are effective. As per my note yesterday the patient can tolerate a small increase in there fluids go a strong citrus like lemon or orange make the oxycodone more palatable. Also the consideration of changing it over to morphine, however O's patients and I have spoken to save the morphine so taste quite lousy, and I have no idea which is worse. I did discuss with sitting, as well as pharmacy and other than the idea for small amounts of strong citrus we have no other ideas on how to make the issue more palatable. At this time the dose appears to be appropriate, the dosing interval appears to be appropriate and I would not change the fentanyl patch due to the fact that the when necessary usage has not been enough. Qualifiers: Qualified Code(s): R10.84 - Generalized abdominal pain (3) Ileus following gastrointestinal surgery Current Visit: Yes Status: Acute Assessment and plan: Surgery is following. - Time Spent With Patient Total time spent is greater than 50% in coordination of care (as documented) at patient's floor/unit and/or counseling patient: - Subjective Interval history: She has no complaint of pain this morning, as there has been very very little output in his ostomy bag, did have some nausea which was well controlled by medications but he feels like the medications wear off too quickly. Pain meds continue to be effective although they still tastes bad. - Constitutional Vitals: Abnormal lab results WBC 15.5 K/mcL (4.3-11.1) H 09/25/17 04:21 RBC 2.38 M/mcL (4.19-5.50) L 09/25/17 04:21 Hgb 7.8 g/dL (12.9-16.9) L 09/25/17 04:21 Hct 24.2 % (37.5-50.1) L 09/25/17 04:21 MCV 101.7 fL (83.0-100.0) H 09/25/17 04:21 RDW 16.7 % (11.5-14.5) H 09/25/17 04:21 Plt Count 419 K/mcL (140-400) H 09/25/17 04:21 Immature Gran % 4.8 % (0-4) H 09/25/17 04:21 Myelocytes % 4.0 % (0) H 09/20/17 02:35 Neutrophils # 12.4 K/mcL (1.6-8.9) H 09/25/17 04:21 Nucleated RBCs/100 WBC 0.3 /100 WBC (0) H 09/25/17 04:21 Reactive Lymphocytes Present (Not Present) A 09/20/17 02:35 Toxic Granulation Present (Not Present) A 09/23/17 03:45 Platelet Estimate Increased (Normal) H 09/24/17 03:10 Large Platelets Present (Not Present) A 09/23/17 03:45 Polychromasia 1+ (Not Present) A 09/22/17 04:00 Hypochromasia Present (Not Present) A 09/24/17 03:10 Poikilocytosis 1+ (Not Present) A 09/23/17 03:45 Anisocytosis 1+ (Not Present) A 09/22/17 04:00 Macrocytosis Present (Not Present) A 09/23/17 03:45 PT 16.2 Seconds (9.4-12.1) H 09/25/17 07:15 APTT 105.4 Seconds (26.0-36.0) H 09/25/17 07:15 POC Glucose 130 mg/dL (70-99) H 09/25/17 08:02 Calcium 8.0 mg/dL (8.6-10.3) L 09/25/17 04:21 Venous Ioniz Calcium 1.12 mmol/L (1.15-1.35) L 09/09/17 04:07 Total Bilirubin 1.7 mg/dL (0.3-1.0) H 09/03/17 10:18 Direct Bilirubin 0.4 mg/dL (0.0-0.2) H 09/03/17 10:18 Indirect Bilirubin 1.3 mg/dL (0.0-1.2) H 09/03/17 10:18 Prealbumin 11.6 mg/dL (17.0-34.0) L 09/08/17 04:50 Carcinoembryonic Ag 6.7 ng/mL (Less than 5.0) H 09/19/17 04:00 Urine Microscopic RBC 5-15 per hpf (0-3) H 09/03/17 11:37 Urine Microscopic WBC TNTC per hpf (0-3) H 09/03/17 11:37 Urine Bacteria Moderate per hpf (None-Few) H 09/03/17 11:37 Vancomycin Trough 14 mcg/mL (5-10) H 09/17/17 08:26 General appearance: Present: no acute distress - Respiratory Respiratory exam: Present: CTAB - Cardiovascular Cardiovascular exam: Present: RRR - GI/Abdominal GI/Abdominal exam: Present: hypoactive bowel sounds, soft, tenderness - Extremities Exam Extremities exam: Absent: tenderness - Neurological Exam Neurological exam: Present: alert, oriented X3 - Psychiatric Psychiatric exam: Absent: agitated, anxious - Skin Skin exam: Present: dry, warm Palliative Quality Palliative Quality: Screen for Code Status: Yes, Screen for Goals of Care: Yes, Screen for Pain: Yes, If Pain Regimen Started, Initiate Bowel Regimen: Yes, Screen for Nausea/Vomitting: Yes Code Status: 09/03/17 13:26 Resuscitation Status: Active [RES] Routine Comment: Resuscitation Status: Full Code 09/24/17 08:42 CODE [Resuscitation Status: Active] [RES] Routine Comment: Resuscitation Status: [id number] - Labs CBC & Chem 7: 09/25/17 04:21 09/25/17 04:21 Labs: Laboratory Results - last 24 hr 09/24/17 09/24/17 09/24/17 11:38 16:23 20:24 WBC RBC Hgb Hct MCV MCH MCHC RDW Plt Count MPV Immature Gran % Seg Neutrophils % Lymphocytes % Monocytes % Eosinophils % Basophils % Neutrophils # Lymphocytes # Monocytes # Eosinophils # Basophils # Nucleated RBCs/100 WBC PT INR APTT Sodium Potassium Chloride Carbon Dioxide BUN Creatinine Est GFR ( Amer) Est GFR (Non-Af Amer) BUN/Creatinine Ratio Glucose POC Glucose 131 H 129 H 109 H Calculated Osmolality Calcium Phosphorus Magnesium 09/24/17 09/24/17 09/25/17 23:45 23:47 04:21 WBC RBC Hgb Hct MCV MCH MCHC RDW Plt Count MPV Immature Gran % Seg Neutrophils % Lymphocytes % Monocytes % Eosinophils % Basophils % Neutrophils # Lymphocytes # Monocytes # Eosinophils # Basophils # Nucleated RBCs/100 WBC PT INR APTT 98.2 H Sodium 136 Potassium 4.0 Chloride 105 Carbon Dioxide 27 BUN 22 Creatinine 0.91 Est GFR ( Amer) > 60 Est GFR (Non-Af Amer) > 60 BUN/Creatinine Ratio 24 Glucose 102 POC Glucose 124 H Calculated Osmolality 286 Calcium 8.0 L Phosphorus Magnesium 09/25/17 09/25/17 09/25/17 04:21 04:21 04:59 WBC 15.5 H RBC 2.38 L Hgb 7.8 L Hct 24.2 L MCV 101.7 H MCH 32.8 MCHC 32.2 RDW 16.7 H Plt Count 419 H MPV 10.3 Immature Gran % 4.8 H Seg Neutrophils % 80.0 Lymphocytes % 6.2 Monocytes % 6.9 Eosinophils % 1.7 Basophils % 0.4 Neutrophils # 12.4 H Lymphocytes # 1.0 Monocytes # 1.1 Eosinophils # 0.3 Basophils # 0.1 Nucleated RBCs/100 WBC 0.3 H PT INR APTT Sodium Potassium Chloride Carbon Dioxide BUN Creatinine Est GFR ( Amer) Est GFR (Non-Af Amer) BUN/Creatinine Ratio Glucose POC Glucose 125 H Calculated Osmolality Calcium Phosphorus 3.1 Magnesium 2.0 09/25/17 09/25/17 07:15 08:02 WBC RBC Hgb Hct MCV MCH MCHC RDW Plt Count MPV Immature Gran % Seg Neutrophils % Lymphocytes % Monocytes % Eosinophils % Basophils % Neutrophils # Lymphocytes # Monocytes # Eosinophils # Basophils # Nucleated RBCs/100 WBC PT 16.2 H INR 1.5 APTT 105.4 H Sodium Potassium Chloride Carbon Dioxide BUN Creatinine Est GFR ( Amer) Est GFR (Non-Af Amer) BUN/Creatinine Ratio Glucose POC Glucose 130 H Calculated Osmolality Calcium Phosphorus Magnesium - Impressions Impressions Limited Followup Study CT 09/24/17 00:00 IMPRESSION: Nonvisualization of the previously seen enlarging abscess in the midline. No drainage catheter was placed D/ / Chan Alicea MD / Chan Alicea MD Interpreting Provider: Chan Alicea MD - ABG Interpretation ABG results: ABG ABG pH 7.38 pH Units (7.32-7.45) 09/09/17 05:14 ABG pCO2 41 mmHg (35-45) 09/09/17 05:14 ABG pO2 98 mmHg (85-104) 09/09/17 05:14 ABG O2 Saturation 97 % (95-98) 09/09/17 05:14 PT/INR, D-dimer PT 16.2 Seconds (9.4-12.1) H 09/25/17 07:15 Consult Discharge Plan - Plan Referrals: Lobito Lang MD [Primary Care Provider] -
[2017-09-25] MEDS: Micafungin 100 MG in 0.9 % Sodium Chloride Mini Bag 100 ML IVPB SCH (10:45)
[2017-09-25] MEDS: Pantoprazole 40 MG VIAL IVP SCH (10:47)
[2017-09-25] MEDS: Furosemide 20 MG/2 ML VIAL IVP SCH (10:47)
[2017-09-25] MEDS: Ondansetron 4 MG/2 ML VIAL IVP SCH ×4 (11:33→23:33)
[2017-09-25] MEDS ORDERED: *HR* Promethazine 25 MG/ML VIAL IVP SCH (12:00)
[2017-09-25] MEDS: *HR* FentaNYL PATCH 25 MCG PATCH TD SCH (13:05)
[2017-09-25] MEDS ORDERED: Clinimix E 5%-20% SOLUTION 2,000 ML with MVI, adult with vitamin K 10 ML IVC SCH (17:00)
[2017-09-25] MEDS: Scopolamine Patch 1.5 MG PATCH.TD72 TD SCH (18:40)
[2017-09-26] MEDS: Insulin LISPRO 300 UNITS/3 ML VIAL SQ SCH ×6 (02:59→22:59)
[2017-09-26] MEDS: Piperacillin/Tazobactam 3.375 GM in 0.9 % Sodium Chloride Mini Bag 100 ML IVPB SCH ×3 (03:26→19:00)
[2017-09-26] MEDS: OXYCODONE Oral CONC 10 MG/0.5 ML ORAL.SYG SL PRN (03:32)
[2017-09-26] MEDS: Ondansetron 4 MG/2 ML VIAL IVP SCH ×5 (03:32→19:36)
[2017-09-26] MEDS: Ipratropium/Albuterol Neb 3 ML IH SCH ×4 (03:58→23:01)
[2017-09-26 04:33] LABS: BUN/Creatinine Ratio 20 (6-26); Blood Urea Nitrogen 18 mg/dL (8-23); Carbon Dioxide 26 mEq/L (23-29); Chloride 105 mEq/L (98-107); Glucose 115 mg/dL (70-105); Magnesium 2.1 mg/dL (1.6-2.6); Osmolality,Calculated 287 (280-300); Phosphorous 2.8 mg/dL (2.7-4.5); Potassium 4.1 mEq/L (3.5-5.1); Sodium 137 mEq/L (136-145); eGFR For African Americans > 60 (> 60); eGFR For Non-African Americans > 60 (> 60)
[2017-09-26] MEDS: *HR* Promethazine 25 MG/ML VIAL IVP PRN (06:03)
[2017-09-26] MEDS: Furosemide 20 MG/2 ML VIAL IVP SCH (09:51)
[2017-09-26] MEDS: Micafungin 100 MG in 0.9 % Sodium Chloride Mini Bag 100 ML IVPB SCH (09:51)
[2017-09-26] MEDS: Pantoprazole 40 MG VIAL IVP SCH (09:51)
--- NOTE | 2017-09-26 14:23 | General Surgery Progress Note ---
<Ronal Bee - Last Filed: 09/26/17 14:21> Date of Encounter: 09/26/17 Time of Encounter: 11:45 - Assessment and Plan (1) Status post exploratory laparotomy Current Visit: Yes Status: Acute Admitted on 09/03/2017 with small bowel obstruction as suggested by CT scan and urinary tract infection (initially started on Cipro). Conservative measures attempted for SBO which failed prompting exploratory laparotomy on 09/07/[address] Zhao and Dr. Israel. Procedure required extensive adhesion lyses, multiple bowel resections, irrigation, and assistance from second surgeon. Colostomy ultimately preserved. Initially intubated and managed by pulm team in ICU, but was extubated on 09/09/17. POD#19 s/p exploratory laparotomy, lysis of adhesions, repair serosal tears, small bowel resection x2 by Dr. Zhao and Dr. Israel. POD#7 take back due to anastomotic leak (09/19/17) ID is onboard for persistent infection with inaccessible abscess. Has open midline surgical wound with wound vac in place. No further prospects for improvement with surgical measures at this time. Palliative onboard due to poor prognosis. Wound stable with WV in place and well-sealed. Pt states comfortable at this time. Brother present. No new changes in plan today. Plans: SBO, Colon Cancer, S/P Ex-Lap with adhesion lysis, S/P Take-back for anastomotic leak - continue supportive care and discomfort management - adjust medications for optimizing pain control and nausea relief - continue NG tube low intermittent wall suction; NPO except ice chips sparingly for comfort; Biotene and Chloraeptic for comfort - continue TPN - continue Saavedra for acute urinary retention/accurate I&O - continue wound VAC and JAYESH drain - continue PT and OT - serial abdominal exams - repeat a.m. labs Leukocytosis - ID onboard for leukocytosis; appreciate their contribution to pt care. Abx include Vanco, Micafungin, & Zosyn. PE/DVT - cont mechanical DVT prophylaxis; still holding therapeutic heparin due to bleeding. Monitoring Hgb (pending). Anemia - monitoring Hgb daily for anemia (pending); will revisit possibility of transfusion with patient if warranted at any point Poor prognosis - Palliative team onboard, will revisit with patient on 09/29/17. - adhering to their comfort care recommendations (2) Small bowel obstruction due to adhesions Current Visit: Yes Status: Resolved As above (3) Colon cancer Current Visit: No Status: Chronic As above Qualifiers: Colon location: unspecified part of colon Qualified Code(s): C18.9 - Malignant neoplasm of colon, unspecified (4) Pulmonary embolism Current Visit: Yes Status: Acute Small to moderate emboli, primarily proximal descending right lower and segmental right upper lobe pulmonary arteries. Per chest CT 09/15/2017 Patient was on heparin drip (therapeutic) beginning 09/15/2017. The heparin was stopped due to bloody output in the wound VAC and ostomy associated with hemoglobin decrease from 9.0 to 7.8. Plans as above Qualifiers: Pulmonary embolism type: other Chronicity: acute Acute cor pulmonale presence: without acute cor pulmonale Qualified Code(s): I26.99 - Other pulmonary embolism without acute cor pulmonale (5) DVT (deep venous thrombosis) Current Visit: Yes Status: Acute plans as above Qualifiers: DVT location: upper extremity Affected thrombotic vein of extremity: other upper extremity vein Chronicity: acute Laterality: right Qualified Code(s) : I82.621 - Acute embolism and thrombosis of deep veins of right upper extremity (6) Anemia Current Visit: Yes Status: Acute plans as above Qualifiers: Anemia type: unspecified type Qualified Code(s): D64.9 - Anemia, unspecified (7) Goals of care, counseling/discussion Current Visit: Yes Status: Acute Poor prognosis at this stage. Comfort care measures and continue non-surgical treatment modalities. All other plans as above. Subjective Narrative: No acute complaints. Feeling somewhat better. His brother is present in the room on examination. Wound VAC appears intact/sealed without any leakage. No overnight events per nursing. Hypertensive, otherwise vital signs stable; afebrile overnight. Objective Vital Signs - Last 8 Hours Temp Pulse Resp BP Pulse Ox 09/26/17 14:19 98.6 F 86 16 133/71 96 09/26/17 10:39 98.1 F 88 14 125/75 95 09/26/17 10:16 16 97 09/26/17 07:30 98.2 F 87 14 171/81 96 Intake and Output 09/25/17 09/26/17 09/26/17 23:59 07:59 15:59 Intake Total 700 / 700 100 / 100 Output Total 1375 / 1375 1200 / 1200 2300 / 2300 Balance -675 / -675 -1100 / -1100 -2300 / -2300 Intake: IV Fluids 700 / 700 100 / 100 Zosyn 3.375 GM In 0.9 % Sodium 200 / 200 100 / 100 Chloride (Mini-Bag +) 100 ML @ 25 mls/hr IVPB Q8H [facility] Rx#: [id number] Vancocin 1,250 MG In 0.9 % 500 / 500 Sodium Chloride 250 ML @ 166.67 mls/hr IVPB Q12H [facility] Rx#: [id number] Oral 0 / 0 Output: Stool 0 / 0 0 / 0 Catheter 600 / 600 1200 / 1200 2150 / 2150 Gastric Drainage 150 / 150 0 / 0 150 / 150 Wound Drainage 625 / 625 0 / 0 0 / 0 Left JAYESH 50 / 50 0 / 0 0 / 0 Wound vac 575 / 575 Other: Meal NPO npo Percent of Meal Consumed 0% 0% # Bowel Movements 0 Weight 89.3 kg Blood Glucose* 122 84 116 Patient Weight 09/26/17 23:59 Weight 89.3 kg VITAL SIGNS: Reviewed. See [employer]; rate and temperature normal today; SBP 171mmHg GENERAL: alert and comfortably supine. No acute distress. Answers questions appropriately. HEENT: normocephalic, PER, oropharynx moist CV: RRR RESPIRATORY: CTAB ABD: hypoactive, soft, no guarding, no rigidity/distention, incision open with WV in place WV: well-sealed without any leak EXTREMITY: no pedal edema, radial pulse 2+ b/l NEUROLOGIC EXAM: AOx3, obeys commands, no speech deficits. PSYCHIATRIC: normal mood and affect SKIN: no gross lesions, rashes, or skin changes - Labs 09/25/17 04:21 09/26/17 03:42 Diabetes panel 09/26/17 Range/Units 03:42 Sodium 137 (136-145) mEq/L Potassium 4.1 (3.5-5.1) mEq/L Chloride 105 (98-107) mEq/L Carbon Dioxide 26 (23-29) mEq/L BUN 18 (8-23) mg/dL Creatinine 0.91 (0.70-1.30) mg/dL Glucose 115 H (70-105) mg/dL Calcium 8.0 L (8.6-10.3) mg/dL Calcium panel 09/26/17 Range/Units 03:42 Calcium 8.0 L (8.6-10.3) mg/dL Phosphorus 2.8 (2.7-4.5) mg/dL Pituitary panel 09/26/17 Range/Units 03:42 Sodium 137 (136-145) mEq/L Potassium 4.1 (3.5-5.1) mEq/L Chloride 105 (98-107) mEq/L Carbon Dioxide 26 (23-29) mEq/L BUN 18 (8-23) mg/dL Creatinine 0.91 (0.70-1.30) mg/dL Glucose 115 H (70-105) mg/dL Calcium 8.0 L (8.6-10.3) mg/dL Adrenal panel 09/26/17 Range/Units 03:42 Sodium 137 (136-145) mEq/L Potassium 4.1 (3.5-5.1) mEq/L Chloride 105 (98-107) mEq/L Carbon Dioxide 26 (23-29) mEq/L BUN 18 (8-23) mg/dL Creatinine 0.91 (0.70-1.30) mg/dL Glucose 115 H (70-105) mg/dL Calcium 8.0 L (8.6-10.3) mg/dL - VTE Documentation of Mechanical Device: Intermittent pneumatic compression device Consult Discharge Plan - Plan Referrals: Lobito Lang MD [Primary Care Provider] - <Abner Reyes - Last Filed: 09/26/17 18:45> Date of Encounter: 09/26/17 Objective Vital Signs - Last 8 Hours Temp Pulse Resp BP Pulse Ox 09/26/17 15:28 16 98 09/26/17 14:19 98.6 F 86 16 133/71 96 Intake and Output 09/26/17 09/26/17 09/26/17 07:59 15:59 23:59 Intake Total 350 / 350 0 / 0 350 / 350 Output Total 1200 / 1200 2300 / 2300 0 / 0 Balance -850 / -850 -2300 / -2300 350 / 350 Intake: IV Fluids 350 / 350 350 / 350 Intralipid 20% 250 ML @ 21 mls/ 250 / 250 hr IVPB DAILY@1700 [facility] Rx#: [id number] Zosyn 3.375 GM In 0.9 % Sodium 100 / 100 100 / 100 Chloride (Mini-Bag +) 100 ML @ 25 mls/hr IVPB Q8H [facility] Rx#: [id number] Vancocin 1,250 MG In 0.9 % 250 / 250 Sodium Chloride 250 ML @ 166.67 mls/hr IVPB Q12H [facility] Rx#: [id number] Oral 0 / 0 0 / 0 0 / 0 Output: Stool 0 / 0 0 / 0 Catheter 1200 / 1200 2150 / 2150 Gastric Drainage 0 / 0 150 / 150 Wound Drainage 0 / 0 0 / 0 0 / 0 Left JAYESH 0 / 0 0 / 0 0 / 0 Other: Meal NPO NPO NPO Percent of Meal Consumed 0% 0% 0% # Bowel Movements 0 Weight 89.3 kg Blood Glucose* 84 116 128 Patient Weight 09/26/17 23:59 Weight 89.3 kg - Labs 09/25/17 04:21 09/26/17 03:42 Diabetes panel 09/26/17 Range/Units 03:42 Sodium 137 (136-145) mEq/L Potassium 4.1 (3.5-5.1) mEq/L Chloride 105 (98-107) mEq/L Carbon Dioxide 26 (23-29) mEq/L BUN 18 (8-23) mg/dL Creatinine 0.91 (0.70-1.30) mg/dL Glucose 115 H (70-105) mg/dL Calcium 8.0 L (8.6-10.3) mg/dL Calcium panel 09/26/17 Range/Units 03:42 Calcium 8.0 L (8.6-10.3) mg/dL Phosphorus 2.8 (2.7-4.5) mg/dL Pituitary panel 09/26/17 Range/Units 03:42 Sodium 137 (136-145) mEq/L Potassium 4.1 (3.5-5.1) mEq/L Chloride 105 (98-107) mEq/L Carbon Dioxide 26 (23-29) mEq/L BUN 18 (8-23) mg/dL Creatinine 0.91 (0.70-1.30) mg/dL Glucose 115 H (70-105) mg/dL Calcium 8.0 L (8.6-10.3) mg/dL Adrenal panel 09/26/17 Range/Units 03:42 Sodium 137 (136-145) mEq/L Potassium 4.1 (3.5-5.1) mEq/L Chloride 105 (98-107) mEq/L Carbon Dioxide 26 (23-29) mEq/L BUN 18 (8-23) mg/dL Creatinine 0.91 (0.70-1.30) mg/dL Glucose 115 H (70-105) mg/dL Calcium 8.0 L (8.6-10.3) mg/dL - Attending Attestation I have personally seen and examined the patient. I have reviewed pertinent labs , imaging, progress notes, including this one. I agree with the above assessment and plan and wish to include the following... cont supportive care;
[2017-09-26] MEDS ORDERED: Clinimix E 5%-20% SOLUTION 2,000 ML with MVI, adult with vitamin K 10 ML IVC SCH (17:00)
[2017-09-26] MEDS: MORPHINE SUL Oral CONC 10 MG/0.5 ML ORAL.SYG SL PRN (19:36)
[2017-09-27] MEDS: OXYCODONE Oral CONC 10 MG/0.5 ML ORAL.SYG SL PRN (00:04)
[2017-09-27] MEDS: Ondansetron 4 MG/2 ML VIAL IVP SCH ×7 (00:07→23:53)
[2017-09-27] MEDS: Insulin LISPRO 300 UNITS/3 ML VIAL SQ SCH ×6 (00:34→20:39)
[2017-09-27] MEDS: Piperacillin/Tazobactam 3.375 GM in 0.9 % Sodium Chloride Mini Bag 100 ML IVPB SCH ×3 (03:01→18:45)
[2017-09-27] MEDS: *HR* Promethazine 25 MG/ML VIAL IVP PRN (03:08)
[2017-09-27] MEDS: Ipratropium/Albuterol Neb 3 ML IH SCH ×4 (04:07→22:58)
[2017-09-27 04:18] LABS: Basophils % 0.3 %; Eosinophils # 0.4 K/mcL (0.0-0.6); Eosinophils % 2.4 %; Hematocrit 25.1 % (37.5-50.1); Hemoglobin 8.2 g/dL (12.9-16.9); Immature Granulocytes % 1.7 % (0-4); Lymphocytes # 0.6 K/mcL (0.6-4.6); Lymphocytes % 4.2 %; Mean Corpuscular HGB Conc 32.7 g/dL (31.6-35.5); Mean Corpuscular Hemoglobin 33.6 pg (28.0-33.3); Mean Corpuscular Volume 102.9 fL (83.0-100.0); Mean Platelet Volume 10.6 fL (9.4-12.4); Monocytes # 0.8 K/mcL (0.0-1.3); Monocytes % 5.6 %; Neutrophils # 12.9 K/mcL (1.6-8.9); Nucleated Red Blood Cells 0.3 /100 WBC (0); Platelet Count 356 K/mcL (140-400); Red Blood Count 2.44 M/mcL (4.19-5.50); Red Cell Distribution Width 16.2 % (11.5-14.5); Segmented Neutrophils % 85.8 %
[2017-09-27 04:34] LABS: BUN/Creatinine Ratio 21 (6-26); Blood Urea Nitrogen 19 mg/dL (8-23); Calcium 8.5 mg/dL (8.6-10.3); Carbon Dioxide 27 mEq/L (23-29); Chloride 103 mEq/L (98-107); Glucose 130 mg/dL (70-105); Osmolality,Calculated 284 (280-300); Sodium 135 mEq/L (136-145); eGFR For African Americans > 60 (> 60); eGFR For Non-African Americans > 60 (> 60)
[2017-09-27 07:56] LABS: Magnesium 2.1 mg/dL (1.6-2.6); Phosphorous 2.6 mg/dL (2.7-4.5)
[2017-09-27] MEDS: Pantoprazole 40 MG VIAL IVP SCH (08:57)
[2017-09-27] MEDS: Furosemide 20 MG/2 ML VIAL IVP SCH (08:58)
[2017-09-27] MEDS: Micafungin 100 MG in 0.9 % Sodium Chloride Mini Bag 100 ML IVPB SCH (08:58)
--- NOTE | 2017-09-27 11:07 | General Surgery Progress Note ---
<Ronal Bee - Last Filed: 09/27/17 12:49> Date of Encounter: 09/27/17 Time of Encounter: 07:30 - Assessment and Plan (1) Status post exploratory laparotomy Current Visit: Yes Status: Acute Conservative measures attempted for SBO which failed prompting exploratory laparotomy on 09/07/[address] Zhao and Dr. Israel. POD#20 s/p exploratory laparotomy, lysis of adhesions, repair serosal tears, small bowel resection x2 by Dr. Zhao and Dr. Israel. POD#8 take back due to anastomotic leak (09/19/17) S/P Ex-Lap with adhesion lysis, S/P Take-back for anastomotic leak - continue supportive care and discomfort management - adjust medications for optimizing pain control and nausea relief - continue NG tube low intermittent wall suction; NPO except ice chips sparingly for comfort; Biotene and Chloraseptic for comfort - continue TPN - continue Steen for acute urinary retention/accurate I&O (UOP 3950, NG 150, WV "0"); balance -3050 - continue wound VAC and JAYESH drain; plan to change vac 09/28/17 - continue PT and OT - serial abdominal exams - follow serial a.m. labs Poor prognosis - Palliative team onboard, will revisit with patient on 09/29/17. - adhering to their comfort care recommendations (2) Small bowel obstruction due to adhesions Current Visit: Yes Status: Resolved (3) Colon cancer Current Visit: No Status: Chronic As above Qualifiers: Colon location: unspecified part of colon Qualified Code(s): C18.9 - Malignant neoplasm of colon, unspecified (4) Pulmonary embolism Current Visit: Yes Status: Acute - restarting subcutaneous heparin at prophylactic doses for now - Monitoring Hgb and for signed of recurrent bleeding. Qualifiers: Pulmonary embolism type: other Chronicity: acute Acute cor pulmonale presence: without acute cor pulmonale Qualified Code(s): I26.99 - Other pulmonary embolism without acute cor pulmonale (5) DVT (deep venous thrombosis) Current Visit: Yes Status: Acute - restarting subcutaneous heparin at prophylactic doses for now - Monitoring Hgb and for signed of recurrent bleeding. Qualifiers: DVT location: upper extremity Affected thrombotic vein of extremity: other upper extremity vein Chronicity: acute Laterality: right Qualified Code(s) : I82.621 - Acute embolism and thrombosis of deep veins of right upper extremity (6) Anemia Current Visit: Yes Status: Acute - monitoring Hgb daily for anemia; will revisit possibility of transfusion with patient if warranted at any point. Hgb stable. Qualifiers: Anemia type: unspecified type Qualified Code(s): D64.9 - Anemia, unspecified Subjective Narrative: Seated at bedside chair. States feels comfortable, but a little nauseated. Pain is well-controlled. Worked with PT today. Objective Vital Signs - Last 8 Hours Temp Pulse Resp BP Pulse Ox 09/27/17 10:53 98.6 F 98 16 159/81 96 09/27/17 09:36 20 96 09/27/17 07:27 98.7 F 84 16 154/77 96 09/27/17 04:49 98.3 F 91 15 149/77 96 Intake and Output 09/26/17 09/27/17 09/27/17 23:59 07:59 15:59 Intake Total 700 / 700 100 / 100 0 / 0 Output Total 600 / 600 1475 / 1475 900 / 900 Balance 100 / 100 -1375 / -1375 -900 / -900 Intake: IV Fluids 700 / 700 100 / 100 Zosyn 3.375 GM In 0.9 % Sodium 200 / 200 100 / 100 Chloride (Mini-Bag +) 100 ML @ 25 mls/hr IVPB Q8H [facility] Rx#: [id number] Vancocin 1,250 MG In 0.9 % 500 / 500 Sodium Chloride 250 ML @ 166.67 mls/hr IVPB Q12H [facility] Rx#: [id number] Oral 0 / 0 0 / 0 Output: Stool 0 / 0 Catheter 600 / 600 1025 / 1025 900 / 900 Gastric Drainage 450 / 450 Wound Drainage 0 / 0 0 / 0 0 / 0 Left JAYESH 0 / 0 0 / 0 0 / 0 Other: Meal NPO npo Percent of Meal Consumed 0% Blood Glucose* 130 120 VITAL SIGNS: Reviewed. GENERAL: alert and comfortably seated in bedside chair. No acute distress. Answers questions appropriately. HEENT: normocephalic, PER, oropharynx moist CV: RRR RESPIRATORY: CTAB ABD: hypoactive, soft, no guarding, no rigidity/distention, incision open with WV in place WV: well-sealed without any leak EXTREMITY: no pedal edema, radial pulse 2+ b/l NEUROLOGIC EXAM: AOx3, obeys commands, no speech deficits. PSYCHIATRIC: appears tired, but just got done with PT. Otherwise normal mood/ affect. SKIN: no gross lesions, rashes, or skin changes - Labs 09/27/17 03:48 09/27/17 03:48 Diabetes panel 09/27/17 Range/Units 03:48 Sodium 135 L (136-145) mEq/L Potassium 4.0 (3.5-5.1) mEq/L Chloride 103 (98-107) mEq/L Carbon Dioxide 27 (23-29) mEq/L BUN 19 (8-23) mg/dL Creatinine 0.92 (0.70-1.30) mg/dL Glucose 130 H (70-105) mg/dL Calcium 8.5 L (8.6-10.3) mg/dL Calcium panel 09/27/17 Range/Units 03:48 Calcium 8.5 L (8.6-10.3) mg/dL Phosphorus 2.6 L (2.7-4.5) mg/dL Pituitary panel 09/27/17 Range/Units 03:48 Sodium 135 L (136-145) mEq/L Potassium 4.0 (3.5-5.1) mEq/L Chloride 103 (98-107) mEq/L Carbon Dioxide 27 (23-29) mEq/L BUN 19 (8-23) mg/dL Creatinine 0.92 (0.70-1.30) mg/dL Glucose 130 H (70-105) mg/dL Calcium 8.5 L (8.6-10.3) mg/dL Adrenal panel 09/27/17 Range/Units 03:48 Sodium 135 L (136-145) mEq/L Potassium 4.0 (3.5-5.1) mEq/L Chloride 103 (98-107) mEq/L Carbon Dioxide 27 (23-29) mEq/L BUN 19 (8-23) mg/dL Creatinine 0.92 (0.70-1.30) mg/dL Glucose 130 H (70-105) mg/dL Calcium 8.5 L (8.6-10.3) mg/dL - VTE Documentation of Mechanical Device: Intermittent pneumatic compression device Consult Discharge Plan - Plan Referrals: Lobito Lang MD [Primary Care Provider] - <Ayde Zhao - Last Filed: 09/27/17 13:20> Date of Encounter: 09/27/17 Time of Encounter: 10:00 - Assessment and Plan (1) Colostomy care Current Visit: Yes Status: Chronic (2) Hypertension Current Visit: No Status: Chronic controlled, continue medication, monitor Qualifiers: Hypertension type: essential hypertension Qualified Code(s): I10 - Essential (primary) hypertension (3) Pulmonary embolism Current Visit: Yes Status: Acute holding heparin due to intra-abdominal/gi bleed restart SQ heparin q12 today and see how he does trend Hb Qualifiers: Pulmonary embolism type: other Chronicity: acute Acute cor pulmonale presence: without acute cor pulmonale Qualified Code(s): I26.99 - Other pulmonary embolism without acute cor pulmonale (4) Status post exploratory laparotomy Current Visit: Yes Status: Acute patient is not a further surgical candidate - this has been discussed with patient and his brother by myself and the [facility] continue JAYESH drainage and wound vac drainage of bowel leak/s continue abx continue bowel rest with ngt, npo continue TPN PT/OT/patient continues to get OOB to chair prn pain control prn antiemetics (5) Unable to eat Current Visit: Yes Status: Acute Tpn continue (6) Anastomotic leak of intestine Current Visit: Yes Status: Acute continue drainage with JAYESH drain and wound vacs continue antibiotics appreciate ID/palliative inputs (7) Colon cancer metastasized to multiple sites Current Visit: Yes Status: Chronic presuming given intraabdominal finding and elevated CEA patient with recurrence metastatic disease Subjective Patient reports: still having pain, pain is less, no flatus, no bowel movement, afebrile Objective Vital Signs - Last 8 Hours Temp Pulse Resp BP Pulse Ox 09/27/17 10:53 98.6 F 98 16 159/81 96 09/27/17 09:36 20 96 09/27/17 07:27 98.7 F 84 16 154/77 96 Intake and Output 09/26/17 09/27/17 09/27/17 23:59 07:59 15:59 Intake Total 700 / 700 100 / 100 0 / 0 Output Total 600 / 600 1475 / 1475 900 / 900 Balance 100 / 100 -1375 / -1375 -900 / -900 Intake: IV Fluids 700 / 700 100 / 100 Zosyn 3.375 GM In 0.9 % Sodium 200 / 200 100 / 100 Chloride (Mini-Bag +) 100 ML @ 25 mls/hr IVPB Q8H [facility] Rx#: [id number] Vancocin 1,250 MG In 0.9 % 500 / 500 Sodium Chloride 250 ML @ 166.67 mls/hr IVPB Q12H [facility] Rx#: [id number] Oral 0 / 0 0 / 0 Output: Stool 0 / 0 Catheter 600 / 600 1025 / 1025 900 / 900 Gastric Drainage 450 / 450 Wound Drainage 0 / 0 0 / 0 0 / 0 Left JAYESH 0 / 0 0 / 0 0 / 0 Medial Abdomen 0 / 0 0 / 0 Other: Meal NPO npo Percent of Meal Consumed 0% Blood Glucose* 130 120 133 - General physical appearance no distress - Eyes PERRL, normal ocular movement - ENT normal mucosa, dry mucosa, normocephalic - Neck Neck exam: trachea midline - Respiratory normal expansion, clear to auscultation - Cardiovascular Cardiovascular exam: Present: RRR - Abdomen Abdomen: Present: soft, tender (minimal tenderness ). Absent: bowel sounds present, guarding, rebound Additional Comments: LLQ JAYESH with purulent brown drainage wound vacs with bilious/succus - Incision Incision: Present: clean and dry, open (wound vac) - Genitourinary other (steen with clear yellow urine) - Musculoskeletal normal posture - Psychiatric oriented to time, oriented to person, oriented to place, speech is normal, memory intact - Labs 09/27/17 03:48 09/27/17 03:48 Short CBC 09/27/17 Range/Units 03:48 WBC 15.0 H (4.3-11.1) K/mcL Hgb 8.2 L (12.9-16.9) g/dL Hct 25.1 L (37.5-50.1) % Plt Count 356 (140-400) K/mcL Neutrophils # 12.9 H (1.6-8.9) K/mcL BMP 09/27/17 Range/Units 03:48 Sodium 135 L (136-145) mEq/L Potassium 4.0 (3.5-5.1) mEq/L Chloride 103 (98-107) mEq/L Carbon Dioxide 27 (23-29) mEq/L BUN 19 (8-23) mg/dL Creatinine 0.92 (0.70-1.30) mg/dL Glucose 130 H (70-105) mg/dL Calcium 8.5 L (8.6-10.3) mg/dL Vital Signs Temp Pulse Resp BP Pulse Ox 09/27/17 10:53 98.6 F 98 16 159/81 96 09/27/17 09:36 20 96 09/27/17 07:27 98.7 F 84 16 154/77 96 09/27/17 04:49 98.3 F 91 15 149/77 96 09/26/17 23:01 16 96 09/26/17 21:32 98.6 F 81 16 130/70 96 09/26/17 15:28 16 98 09/26/17 14:19 98.6 F 86 16 133/71 96 Intake and Output 09/26/17 09/27/17 09/27/17 23:59 07:59 15:59 Intake Total 700 / 700 100 / 100 0 / 0 Output Total 600 / 600 1475 / 1475 900 / 900 Balance 100 / 100 -1375 / -1375 -900 / -900 Intake: IV Fluids 700 / 700 100 / 100 Zosyn 3.375 GM In 0.9 % Sodium 200 / 200 100 / 100 Chloride (Mini-Bag +) 100 ML @ 25 mls/hr IVPB Q8H [facility] Rx#: [id number] Vancocin 1,250 MG In 0.9 % 500 / 500 Sodium Chloride 250 ML @ 166.67 mls/hr IVPB Q12H [facility] Rx#: [id number] Oral 0 / 0 0 / 0 Output: Stool 0 / 0 Catheter 600 / 600 1025 / 1025 900 / 900 Gastric Drainage 450 / 450 Wound Drainage 0 / 0 0 / 0 0 / 0 Left JAYESH 0 / 0 0 / 0 0 / 0 Medial Abdomen 0 / 0 0 / 0 Other: Meal NPO npo Percent of Meal Consumed 0% Blood Glucose* 130 120 133 - Attending Attestation I examined this patient and my medical decision-making was reviewed with the Resident Physician. I agree with the documented findings, disposition and treatment plan as described except to the extent set forth below.
[2017-09-27] MEDS: Saline Nasal Spray 44 ML BOTTLE NS PRN (12:16)
[2017-09-27] MEDS ORDERED: Clinimix E 5%-20% SOLUTION 2,000 ML with MVI, adult with vitamin K 10 ML IVC SCH (17:00)
[2017-09-27] MEDS: *HR* Heparin 5,000 UNIT/ML VIAL SQ SCH (18:30)
[2017-09-28] MEDS: Insulin LISPRO 300 UNITS/3 ML VIAL SQ SCH ×6 (01:27→21:52)
[2017-09-28] MEDS: Ondansetron 4 MG/2 ML VIAL IVP SCH ×5 (03:20→21:53)
[2017-09-28] MEDS: Piperacillin/Tazobactam 3.375 GM in 0.9 % Sodium Chloride Mini Bag 100 ML IVPB SCH ×3 (03:20→19:38)
[2017-09-28 03:46] LABS: Basophils % 0.4 %; Eosinophils # 0.3 K/mcL (0.0-0.6); Eosinophils % 2.8 %; Hemoglobin 8.3 g/dL (12.9-16.9); Immature Granulocytes % 1.8 % (0-4); Immature Platelets 4.5 % (1.1-6.1); Lymphocytes # 0.8 K/mcL (0.6-4.6); Lymphocytes % 7.6 %; Mean Corpuscular HGB Conc 31.9 g/dL (31.6-35.5); Mean Corpuscular Hemoglobin 33.2 pg (28.0-33.3); Mean Platelet Volume 10.3 fL (9.4-12.4); Monocytes # 0.8 K/mcL (0.0-1.3); Monocytes % 7.9 %; Neutrophils # 7.8 K/mcL (1.6-8.9); Nucleated Red Blood Cells 0.4 /100 WBC (0); Platelet Count 444 K/mcL (140-400); Red Cell Distribution Width 16.3 % (11.5-14.5); Segmented Neutrophils % 79.5 %
[2017-09-28] MEDS: Ipratropium/Albuterol Neb 3 ML IH SCH ×4 (03:49→22:33)
[2017-09-28 04:12] LABS: BUN/Creatinine Ratio 20 (6-26); Blood Urea Nitrogen 20 mg/dL (8-23); Calcium 8.7 mg/dL (8.6-10.3); Carbon Dioxide 27 mEq/L (23-29); Chloride 103 mEq/L (98-107); Glucose 117 mg/dL (70-105); Osmolality,Calculated 286 (280-300); Phosphorous 2.8 mg/dL (2.7-4.5); Sodium 136 mEq/L (136-145); eGFR For African Americans > 60 (> 60); eGFR For Non-African Americans > 60 (> 60)
[2017-09-28] MEDS: *HR* Heparin 5,000 UNIT/ML VIAL SQ SCH (06:24)
[2017-09-28] MEDS: Pantoprazole 40 MG VIAL IVP SCH (08:07)
[2017-09-28] MEDS: Micafungin 100 MG in 0.9 % Sodium Chloride Mini Bag 100 ML IVPB SCH (08:07)
[2017-09-28] MEDS: Furosemide 20 MG/2 ML VIAL IVP SCH (08:07)
--- NOTE | 2017-09-28 10:42 | General Surgery Progress Note ---
<EstuardonicolasamarciaMark oshea - Last Filed: 09/28/17 14:05> Date of Encounter: 09/28/17 Time of Encounter: 07:25 - Assessment and Plan (1) Status post exploratory laparotomy Current Visit: Yes Status: Acute POD#21 s/p exploratory laparotomy, lysis of adhesions, repair serosal tears, small bowel resection x2 by Dr. Zhao and Dr. Israel. POD#9 take back due to anastomotic leak (09/19/17) - Pallative team on board, will revisit patient on 09/29/17. In agreement with code status. In agreement with pain management plan. - continue supportive care and discomfort management - adjust medications for optimizing pain control and nausea relief - continue NG tube low intermittent wall suction; NPO except ice chips sparingly for comfort; Biotene and Chloraseptic for comfort - continue TPN - continue Steen for acute urinary retention/accurate I&O (UOP 2425 yesterday and 1375 today so far, NG 50, W[place] "50"); balance -2275 yesterday and -1530 today so far. - continue wound VAC and JAYESH drain; plan to change wound vac today. - continue PT and OT - serial abdominal exams - follow serial a.m. labs (2) Colon cancer Current Visit: No Status: Chronic Pt with Hx of stage IV colon adenocarcinoma S/p open low anterior resection appendectomy, resection of an omental mass, take down of splenic flexure and a colostomy placed by Dr. Zhao July 2014. Qualifiers: Colon location: unspecified part of colon Qualified Code(s): C18.9 - Malignant neoplasm of colon, unspecified (3) Anemia Current Visit: Yes Status: Acute Hemoglobin stable at 8.3. Yesterday at 8.2. - monitoring Hgb daily for anemia; will revisit possibility of transfusion with patient if warranted at any point. Hgb stable. Qualifiers: Anemia type: unspecified type Qualified Code(s): D64.9 - Anemia, unspecified (4) Pulmonary embolism Current Visit: Yes Status: Acute - on subcutaneous heparin at prophylactic doses for now - Monitoring Hgb and for signed of recurrent bleeding. Qualifiers: Pulmonary embolism type: other Chronicity: acute Acute cor pulmonale presence: without acute cor pulmonale Qualified Code(s): I26.99 - Other pulmonary embolism without acute cor pulmonale (5) DVT prophylaxis Current Visit: Yes Status: Acute Heparin 5000 U SQ BID. Subjective Narrative: Patient denies any abdominal pain. He does admit to some minor nausea due to the nasogastric tube. Denies any vomiting. Denies any chest pain or shortness of breath. Denies any overnight fever. Objective VITAL SIGNS: Reviewed. See [facility] GENERAL: No apparent distress. HEENT: [Normocephalic, PER, EOMi, oropharynx pink/moist, no JVD noted.] CV: b/l rad pulses 2+, RRR, no murmurs or gallops, no JVD RESPIRATORY: CTAB without wheezes, rales, or rhonchi ABD: soft, non-tender, no rebound/guarding/rigidity, no peritoneal signs. Wound VAC intact. No signs of surrounding drainage, leak, bleeding, or erythema. Serosanguineous output of less than 50 mL today. Normal bowel sounds present. OSTOMY: No fecal output evident. No signs of erythema, bleeding, pus, or drainage. INCISION: wound vac intact. No signs of surrounding drainage, leak, bleeding, or erythema DRAINS: L flank JAYESH site without signs of infection; bulb contains minimal brown fluid. EXTREMITY: grossly normal motor function, no pedal edema, peripheral pulses 2+ b /l NEUROLOGIC EXAM: AOx3, obeys commands, no speech deficits. PSYCHIATRIC: normal mood and affect SKIN: no rashes or skin changes Vital Signs - Last 8 Hours Temp Pulse Resp BP Pulse Ox 09/28/17 09:58 16 98 09/28/17 04:22 98.1 F 85 15 151/85 97 09/28/17 03:49 15 97 Intake and Output 09/27/17 09/28/17 09/28/17 23:59 07:59 15:59 Intake Total 950 / 950 120 / 120 250 / 250 Output Total 425 / 425 1750 / 1750 150 / 150 Balance 525 / 525 -1630 / -1630 100 / 100 Intake: IV Fluids 950 / 950 250 / 250 Intralipid 20% 250 ML @ 21 mls/ 250 / 250 hr IVPB DAILY@1700 [facility] Rx#: [id number] Zosyn 3.375 GM In 0.9 % Sodium 200 / 200 Chloride (Mini-Bag +) 100 ML @ 25 mls/hr IVPB Q8H [facility] Rx#: [id number] Vancocin 1,250 MG In 0.9 % 500 / 500 250 / 250 Sodium Chloride 250 ML @ 166.67 mls/hr IVPB Q12H [facility] Rx#: [id number] Oral 0 / 0 120 / 120 Output: Urine 425 / 425 0 / 0 Stool 0 / 0 Emesis 150 / 150 Catheter 1375 / 1375 Gastric Drainage 375 / 375 Wound Drainage 0 / 0 0 / 0 Left JAYESH 0 / 0 0 / 0 Wound vac 0 / 0 0 / 0 Other: Meal NPO Percent of Meal Consumed 0% Weight 80.9 kg Blood Glucose* 113 121 Patient Weight 09/28/17 23:59 Weight 80.9 kg - Labs 09/28/17 03:23 09/28/17 03:23 Diabetes panel 09/28/17 Range/Units 03:23 Sodium 136 (136-145) mEq/L Potassium 4.0 (3.5-5.1) mEq/L Chloride 103 (98-107) mEq/L Carbon Dioxide 27 (23-29) mEq/L BUN 20 (8-23) mg/dL Creatinine 0.99 (0.70-1.30) mg/dL Glucose 117 H (70-105) mg/dL Calcium 8.7 (8.6-10.3) mg/dL Calcium panel 09/28/17 Range/Units 03:23 Calcium 8.7 (8.6-10.3) mg/dL Phosphorus 2.8 (2.7-4.5) mg/dL Pituitary panel 09/28/17 Range/Units 03:23 Sodium 136 (136-145) mEq/L Potassium 4.0 (3.5-5.1) mEq/L Chloride 103 (98-107) mEq/L Carbon Dioxide 27 (23-29) mEq/L BUN 20 (8-23) mg/dL Creatinine 0.99 (0.70-1.30) mg/dL Glucose 117 H (70-105) mg/dL Calcium 8.7 (8.6-10.3) mg/dL Adrenal panel 09/28/17 Range/Units 03:23 Sodium 136 (136-145) mEq/L Potassium 4.0 (3.5-5.1) mEq/L Chloride 103 (98-107) mEq/L Carbon Dioxide 27 (23-29) mEq/L BUN 20 (8-23) mg/dL Creatinine 0.99 (0.70-1.30) mg/dL Glucose 117 H (70-105) mg/dL Calcium 8.7 (8.6-10.3) mg/dL - VTE Documentation of Mechanical Device: Intermittent pneumatic compression device Consult Discharge Plan - Plan Referrals: Lobito Lang MD [Primary Care Provider] - <Ayde Zhao - Last Filed: 09/28/17 14:14> Date of Encounter: 09/28/17 - Assessment and Plan (1) Colostomy care Current Visit: Yes Status: Chronic (2) Hypertension Current Visit: No Status: Chronic controlled, continue current regimen Qualifiers: Hypertension type: essential hypertension Qualified Code(s): I10 - Essential (primary) hypertension (3) Pulmonary embolism Current Visit: Yes Status: Acute stop sq heparin and restart heparin dripp/no bolus if patient has bleeding again will not be able to restart heparin drip but only likely do sq heparin Qualifiers: Pulmonary embolism type: other Chronicity: acute Acute cor pulmonale presence: without acute cor pulmonale Qualified Code(s): I26.99 - Other pulmonary embolism without acute cor pulmonale (4) Status post exploratory laparotomy Current Visit: Yes Status: Acute minimal output from JAYESH drain in LLQ and wound vac - continue both ngt output decreased as well patient abdomen softer today than has been entire hospital stay thus far no colostomy output continue conservative therapy, npo ngt liws prn pain control TPN PT/OT/OOB steen for accureat I/O wound vac change tomorrow (one of vacs off due to "blockage" registering on machine) continue abx per ID (5) Unable to eat Current Visit: Yes Status: Acute continue TPN (6) Anastomotic leak of intestine Current Visit: Yes Status: Acute continue conservative therapy as mentioned above (7) Colon cancer metastasized to multiple sites Current Visit: Yes Status: Chronic poor prognosis overall as patient would not be a candidate for potential therapy for some time due to current medical/surgical issues Subjective Narrative: denies abdominal pain no nausea or emesis overnight nothing out colostomy wound vac without leak Objective Vital Signs - Last 8 Hours Temp Pulse Resp BP Pulse Ox 09/28/17 10:34 97.9 F 86 15 138/79 99 09/28/17 09:58 16 98 Intake and Output 09/27/17 09/28/17 09/28/17 23:59 07:59 15:59 Intake Total 950 / 950 220 / 220 350 / 350 Output Total 425 / 425 1750 / 1750 1000 / 1000 Balance 525 / 525 -1530 / -1530 -650 / -650 Intake: IV Fluids 950 / 950 100 / 100 350 / 350 Intralipid 20% 250 ML @ 21 mls/ 250 / 250 hr IVPB DAILY@1700 [facility] Rx#: [id number] Mycamine 100 MG In 0.9 % Sodium 100 / 100 Chloride (Mini-Bag +) 100 ML @ 100 mls/hr IVPB DAILY [facility] Rx#: [id number] Zosyn 3.375 GM In 0.9 % Sodium 200 / 200 100 / 100 Chloride (Mini-Bag +) 100 ML @ 25 mls/hr IVPB Q8H [facility] Rx#: [id number] Vancocin 1,250 MG In 0.9 % 500 / 500 250 / 250 Sodium Chloride 250 ML @ 166.67 mls/hr IVPB Q12H [facility] Rx#: [id number] Oral 0 / 0 120 / 120 Output: Urine 425 / 425 0 / 0 Stool 0 / 0 0 / 0 Emesis 150 / 150 Catheter 1375 / 1375 850 / 850 Gastric Drainage 375 / 375 0 / 0 Wound Drainage 0 / 0 0 / 0 0 / 0 Left JAYESH 0 / 0 0 / 0 0 / 0 Wound vac 0 / 0 0 / 0 Other: Meal NPO NPO Percent of Meal Consumed 0% Weight 80.9 kg Blood Glucose* 113 121 140 Patient Weight 09/28/17 23:59 Weight 80.9 kg - General physical appearance well developed, well nourished, no distress - Eyes PERRL, normal ocular movement - ENT normal mucosa, normocephalic - Neck Neck exam: trachea midline - Respiratory normal expansion, clear to auscultation - Cardiovascular Cardiovascular exam: Present: RRR - Abdomen Abdomen: Present: soft. Absent: bowel sounds present, distended, tender, guarding, rebound - Incision Incision: Present: clean and dry, open (wound vac with minimal bilious drainage) - Genitourinary other (steen wiht clear yellow drainage) - Integumentary no growths - Neurologic CN 2-12 grossly intact - Musculoskeletal normal posture - Psychiatric oriented to time, oriented to person, oriented to place, speech is normal, memory intact - Labs 09/28/17 03:23 09/28/17 03:23 Diabetes panel 09/28/17 Range/Units 03:23 Sodium 136 (136-145) mEq/L Potassium 4.0 (3.5-5.1) mEq/L Chloride 103 (98-107) mEq/L Carbon Dioxide 27 (23-29) mEq/L BUN 20 (8-23) mg/dL Creatinine 0.99 (0.70-1.30) mg/dL Glucose 117 H (70-105) mg/dL Calcium 8.7 (8.6-10.3) mg/dL Calcium panel 09/28/17 Range/Units 03:23 Calcium 8.7 (8.6-10.3) mg/dL Phosphorus 2.8 (2.7-4.5) mg/dL Pituitary panel 09/28/17 Range/Units 03:23 Sodium 136 (136-145) mEq/L Potassium 4.0 (3.5-5.1) mEq/L Chloride 103 (98-107) mEq/L Carbon Dioxide 27 (23-29) mEq/L BUN 20 (8-23) mg/dL Creatinine 0.99 (0.70-1.30) mg/dL Glucose 117 H (70-105) mg/dL Calcium 8.7 (8.6-10.3) mg/dL Adrenal panel 09/28/17 Range/Units 03:23 Sodium 136 (136-145) mEq/L Potassium 4.0 (3.5-5.1) mEq/L Chloride 103 (98-107) mEq/L Carbon Dioxide 27 (23-29) mEq/L BUN 20 (8-23) mg/dL Creatinine 0.99 (0.70-1.30) mg/dL Glucose 117 H (70-105) mg/dL Calcium 8.7 (8.6-10.3) mg/dL - Attending Attestation I examined this patient and my medical decision-making was reviewed with the Resident Physician. I agree with the documented findings, disposition and treatment plan as described except to the extent set forth below.
[2017-09-28] MEDS: *HR* FentaNYL PATCH 25 MCG PATCH TD SCH (13:03)
[2017-09-28] MEDS ORDERED: *HR* FentaNYL (PF) 100 MCG/2 ML VIAL IVP PRN (13:51)
[2017-09-28] MEDS: Heparin 25,000 UNIT/500 ML D5W 25,000 UNIT/500 ML BAG IVC SCH (14:50)
[2017-09-28] MEDS ORDERED: Clinimix E 5%-20% SOLUTION 2,000 ML with MVI, adult with vitamin K 10 ML IVC SCH (17:00)
[2017-09-28] MEDS: Scopolamine Patch 1.5 MG PATCH.TD72 TD SCH (19:48)
[2017-09-29] MEDS: Insulin LISPRO 300 UNITS/3 ML VIAL SQ SCH ×6 (00:21→21:05)
[2017-09-29] MEDS: Ondansetron 4 MG/2 ML VIAL IVP SCH ×6 (00:35→21:38)
[2017-09-29] MEDS: OXYCODONE Oral CONC 10 MG/0.5 ML ORAL.SYG SL PRN ×3 (03:21→18:23)
[2017-09-29] MEDS: Piperacillin/Tazobactam 3.375 GM in 0.9 % Sodium Chloride Mini Bag 100 ML IVPB SCH ×3 (03:22→18:24)
[2017-09-29] MEDS: Ipratropium/Albuterol Neb 3 ML IH SCH ×4 (04:00→22:34)
[2017-09-29 05:19] LABS: Basophils # 0.1 K/mcL (0.0-0.2); Basophils % 0.5 %; Eosinophils # 0.3 K/mcL (0.0-0.6); Eosinophils % 2.5 %; Hematocrit 26.6 % (37.5-50.1); Hemoglobin 8.3 g/dL (12.9-16.9); Immature Granulocytes % 1.2 % (0-4); Lymphocytes # 0.9 K/mcL (0.6-4.6); Lymphocytes % 7.6 %; Mean Corpuscular HGB Conc 31.2 g/dL (31.6-35.5); Mean Corpuscular Hemoglobin 32.2 pg (28.0-33.3); Mean Corpuscular Volume 103.1 fL (83.0-100.0); Mean Platelet Volume 10.4 fL (9.4-12.4); Monocytes # 0.9 K/mcL (0.0-1.3); Monocytes % 7.6 %; Neutrophils # 9.6 K/mcL (1.6-8.9); Platelet Count 424 K/mcL (140-400); Red Blood Count 2.58 M/mcL (4.19-5.50); Red Cell Distribution Width 16.6 % (11.5-14.5); Segmented Neutrophils % 80.6 %
[2017-09-29] MEDS: Furosemide 20 MG/2 ML VIAL IVP SCH (09:06)
[2017-09-29] MEDS: Pantoprazole 40 MG VIAL IVP SCH (09:06)
[2017-09-29] MEDS: Micafungin 100 MG in 0.9 % Sodium Chloride Mini Bag 100 ML IVPB SCH (09:07)
--- NOTE | 2017-09-29 09:11 | General Surgery Progress Note ---
Date of Encounter: 09/29/17 Time of Encounter: 09:07 - Assessment and Plan (1) Small bowel obstruction Current Visit: Yes Status: Acute 1) Date of procedure: 09/07/17 Pre-op diagnosis: small bowel obstruction Post-op diagnosis: same (severe adhesions, metastatic colon cancer) Procedure: Exploratory laparotomy, lysis of adhesions 3 hours, small bowel resection x2 2) Take back d/t anastomotic leak Date of procedure: 09/19/17 Pre-op diagnosis: anastamotic leak Post-op diagnosis: same (bowel perforation/possible anastomotic leak, frozen abdomen, serosal tears x2) Procedure: Exploratory laparotomy, lysis of adhesions, closure serosal tear x 2 , wound vac placement POD # 22 (1) and POD #10 (2) as above Wound Vac changed today. Decreased from two drains to one in the inferior most aspect. Fistula remains. Previously seen clot has resolved. Noted change inJP drainage to more purulence. Will continue to monitor as patient denies any increase in discomfort. Steen remains. Given enlarged prostate and inability to take flomax d/t NPO status will continue. Code status is currently DNR-CCA/DNI. Patient does not want pressors. We will continue the wound VAC, antibiotics, supportive care at this time. Plan: continue supportive care and discomfort management continue NG tube low intermittent wall suction; NPO except ice chips sparingly for comfort; Biotene and Chloraeptic for comfort (unknown timeframe) continue TPN continue Steen for acute urinary retention/accurate I&O continue wound VAC and JAYESH drain continue PT and OT serial abdominal exams repeat a.m. labs (2) Anastomotic leak of intestine Current Visit: Yes Status: Acute See a/p as above Noted continued draining of succous. states nausea improved after changing medications and adding scopolamine. (3) Leukocytosis (leucocytosis) Current Visit: Yes Status: Acute WBC increased today. ATBX manangment per ID. Will obtain CXR and UA for possible source. Infectious diseases following for antibiotic recommendations. We appreciate your assistance in the care of Mr. Bower. Continue IV antibiotics per ID Qualifiers: Leukocytosis type: unspecified Qualified Code(s): D72.829 - Elevated white blood cell count, unspecified (4) Pulmonary embolism Current Visit: Yes Status: Acute Small to moderate emboli, primarily proximal descending right lower and segmental right upper lobe pulmonary arteries. Per chest CT 09/15/2017 Patient was on heparin drip (therapeutic) beginning 09/15/2017. The heparin was stopped 09/25/2017 due to bloody output in the wound VAC and ostomy associated with hemoglobin decrease from 9.0 to 7.8. Heparin was restarted 09/28/2017 code status remains DNRCC-A/DNI. No pressors. Qualifiers: Pulmonary embolism type: other Chronicity: acute Acute cor pulmonale presence: without acute cor pulmonale Qualified Code(s): I26.99 - Other pulmonary embolism without acute cor pulmonale (5) DVT (deep venous thrombosis) Current Visit: Yes Status: Acute See assessment and plan above Qualifiers: DVT location: upper extremity Affected thrombotic vein of extremity: other upper extremity vein Chronicity: acute Laterality: right Qualified Code(s) : I82.621 - Acute embolism and thrombosis of deep veins of right upper extremity (6) Anemia Current Visit: Yes Status: Acute See assessment and plan above No overt signs of bleeding. VSS Qualifiers: Anemia type: unspecified type Qualified Code(s): D64.9 - Anemia, unspecified (7) Poor prognosis Current Visit: Yes Status: Acute Palliative care is following and we appreciate their assistance. Subjective Patient reports: no new complaints, still having pain, pain is less, voiding w/ o difficulty (per steen), no flatus, no bowel movement (per ostomy), afebrile Narrative: Sates nausea is better with scopolamine patch and discomfort is well controlled. He has no new complaints today. RT is noted at bedside administering duoneb at this time. Objective Vital Signs - Last 8 Hours Temp Pulse Resp BP Pulse Ox 09/29/17 08:17 97.8 F 80 14 144/71 95 09/29/17 04:02 14 94 09/29/17 03:53 98.1 F 85 15 146/78 95 Intake and Output 09/28/17 09/29/17 09/29/17 23:59 07:59 15:59 Intake Total 428 / 428 281 / 281 Output Total 500 / 500 850 / 850 350 / 350 Balance -72 / -72 -569 / -569 -350 / -350 Intake: IV Fluids 428 / 428 281 / 281 Heparin 25,000 UNIT/500 ML D5W 178 / 178 181 / 181 25,000 unit In 500 ml @ 14 UNIT /KG/HR 22.652 mls/hr IVC . [id number] [facility] Rx#:[id number] Zosyn 3.375 GM In 0.9 % Sodium 100 / 100 Chloride (Mini-Bag +) 100 ML @ 25 mls/hr IVPB Q8H [facility] Rx#: [id number] Vancocin 1,250 MG In 0.9 % 250 / 250 Sodium Chloride 250 ML @ 166.67 mls/hr IVPB Q12H [facility] Rx#: [id number] Oral 0 / 0 0 / 0 Output: Urine 450 / 450 Stool 0 / 0 Catheter 500 / 500 200 / 200 350 / 350 Gastric Drainage 200 / 200 Wound Drainage 0 / 0 Left JAYESH 0 / 0 Other: Meal NPO Percent of Meal Consumed 0% Weight 80 kg Blood Glucose* 123 133 120 Patient Weight 09/29/17 23:59 Weight 80 kg - General physical appearance no distress, moderate pain - ENT atraumatic, normocephalic - Neck Neck exam: trachea midline, other (right Central line noted) - Respiratory other (decreased course breath sounds) - Cardiovascular Cardiovascular exam: Present: RRR, murmurs - Abdomen Abdomen: Present: soft, tender, wound (wound vac and JAYESH in place.). Absent: bowel sounds present (absent) Hernia: none - Incision Incision: Present: open (WV in place) - Genitourinary other (steen cath noted) - Integumentary no rash - Neurologic normal coordination, normal sensation - Musculoskeletal normal posture, other (generalized weakness noted) - Psychiatric oriented to time, oriented to person, oriented to place, speech is normal, memory intact - Labs 09/29/17 05:00 09/28/17 03:23 Diabetes panel 09/29/17 Range/Units 05:00 Triglycerides 89 (< 150) mg/dL - VTE Documentation of Mechanical Device: Intermittent pneumatic compression device Consult Discharge Plan - Plan Referrals: Lobito Lang MD [Primary Care Provider] -
--- NOTE | 2017-09-29 09:46 | Infectious Disease Progress No ---
Date of Encounter: 09/29/17 Time of Encounter: 09:43 - Assessment and Plan (1) Sepsis Current Visit: Yes Status: Acute The patient has three SIRS criteria. Etiology unclear, but likely related to intra-abdominal fluid collections. The patient does have a central line and has been on TPN. The central line does not appear infected. Blood cultures drawn 09/12/14 x 3 sets were negative (2 peripheral, 1 PICC). The patient had continued worsening leukocytosis with new-onset fever and tachycardia. He has been afebrile since 09/25. Leukocytosis is improved. Repeat blood cultures x 2 sets drawn 09/24/17 are NGTD x 2 sets. Qualifiers: Sepsis type: sepsis due to unspecified organism Qualified Code(s): A41.9 - Sepsis, unspecified organism (2) Intra-abdominal fluid collection Current Visit: Yes Status: Acute Likely secondary to anastamosis leak. Location: Left lower quadrant x2, anterior pelvis. CT scan of the abdomen and pelvis completed September 18 showed a 14 x 6.8 x 6.5; her collection of air and oral contrast along the left lateral abdomen, consistent with an anastomosis leak. The sign of leakage is suspected to be at the surgical staple line along the left lower quadrant. There is also noted to be a loculated fluid collection in the central/posterior lower abdomen, measuring 8 x 5.5 x 8.6 cm with no internal air to specifically suggest an abscess, although this cannot be entirely excluded. There was scattered air and mottled material in the subcutaneous soft tissues along the surgical staple line, concerning for infection, however, no well ill-defined abscess was seen. The patient was taken back to the operating room on September 19, but due to extensive intra-abdominal adhesions, the surgical team was unable to access the fluid collection or the site of the anastomosis. Interventional radiology was consulted and placed a pigtail drain in the left pericolic fluid collection. He has had about 25 mL on the past [address] scan September 23 showed interval placement of the left lower quadrant pigtail drainage catheter with decompression of the dominant gas and fluid collection compatible with known anastomosis leak. There has been overall decrease the size of a partially loculated collection within the mid pelvis abutting the rectal pouch anastomosis which likely communicates with this dominant fluid collection. There was noted to be a slight interval increase in the size of a 5.6 x 2.4 Center fluid collection in the anterior pelvis just below the level of the midline incision extending to the skin surface. There is no enteric contrast noted on this study within any of the fluid collections which could be related to the placement of the drainage catheter and lack of additional enteric contrast administered during this testing. Interventional radiology was again consulted to assist with management of the fluid collection in the anterior pelvis. A limited CT scan was repeated the following day that did not reveal any fluid that was able to be aspirated. Case discussed with the surgery team. Unfortunately, the patient's adhesions prevent any further abdominal surgical intervention at this time. Without adequate source control, it is likely that the patient will continue to have sepsis. May need to consider repeating imaging later this week to evaluate fluid collections. Drainage from the LLQ drain has markedly diminished. Continue Vancomycin IV. Pharmacy to dose. Goal trough ~15. Continue Micafungin 100mg IV daily. Continue Zosyn 3.375grams IV Q8H. Duration of treatment depends on the clincal picture. Monitor renal function and for drug toxicity and dose-adjust antibiotics. (3) Small bowel obstruction Current Visit: Yes Status: Acute Status post exploratory laparotomy with lysis of adhesions, enterotomy 1, and small bowel resection 2. Wound care and activity restrictions per the primary team. Nutritional support per TPN. (4) Anastomotic leak of intestine Current Visit: Yes Status: Acute (5) Abdominal pain Current Visit: Yes Status: Acute Qualifiers: Abdominal location: generalized Qualified Code(s): R10.84 - Generalized abdominal pain (6) Urinary tract infection Current Visit: Yes Status: Resolved Asymptomatic bacteriuria versus true infection. The patient did report some abdominal pain on admission, but this was likely secondary to small bowel obstruction. The patient has received multiple antibiotics that would treat his UTI appropriately. No additional antibiotics are recommended at this time. Qualifiers: Urinary tract infection type: acute cystitis Hematuria presence: without hematuria Qualified Code(s): N30.00 - Acute cystitis without hematuria (7) Status post exploratory laparotomy Current Visit: Yes Status: Acute (8) Acute respiratory failure Current Visit: Yes Status: Resolved Qualifiers: Respiratory failure complication: unspecified whether with hypoxia or hypercapnia Qualified Code(s): J96.00 - Acute respiratory failure, unspecified whether with hypoxia or hypercapnia (9) Pulmonary embolism Current Visit: Yes Status: Acute Likely secondary to thrombophlebitis from his right upper extremity DVT. Does not appear hypoxic. Management per the primary team. Qualifiers: Pulmonary embolism type: other Chronicity: acute Acute cor pulmonale presence: without acute cor pulmonale Qualified Code(s): I26.99 - Other pulmonary embolism without acute cor pulmonale (10) DVT (deep venous thrombosis) Current Visit: Yes Status: Acute Location: Right upper extremity subclavian vein. Management per the primary team Qualifiers: DVT location: upper extremity Affected thrombotic vein of extremity: other upper extremity vein Chronicity: acute Laterality: right Qualified Code(s) : I82.621 - Acute embolism and thrombosis of deep veins of right upper extremity (11) Anemia Current Visit: Yes Status: Acute Chronic Likely multifactorial: Acute blood loss anemia status post surgery, poor nutritional status, acute bleeding from surgical wound, etc. Transfusion parameters per the primary team. Qualifiers: Anemia type: unspecified type Qualified Code(s): D64.9 - Anemia, unspecified (12) Pleural effusion Current Visit: Yes Status: Acute Likely secondary to fluid volume overload. Patient is not in any acute respiratory distress. Management per the primary team. (13) Hypertension Current Visit: No Status: Chronic Qualifiers: Hypertension type: essential hypertension Qualified Code(s): I10 - Essential (primary) hypertension (14) Colon cancer Current Visit: No Status: Resolved Status post bowel resection with colostomy back in 2014. Qualifiers: Colon location: unspecified part of colon Qualified Code(s): C18.9 - Malignant neoplasm of colon, unspecified - Subjective Interval history: Patient seen and examined. Weekend notes reviewed. No acute events noted. Patient states he feels okay. Denies fevers, chills, or rigors. Denies chest pain, shortness of breath, or cough. Denies abdominal pain at this time as he was pre-medicated recently in preparation for wound VAC dressing change. Denies nausea or vomiting. Saavedra catheter remains patent. Denies oral thrush or skin lesions. Complains of throat soreness secondary to NG tube. No stool output via colostomy for several day. Infect Dis PN-Objective Data - Labs CBC & Chem 7: 09/29/17 05:00 09/28/17 03:23 Labs: Laboratory Results - last 24 hr 09/28/17 09/28/17 09/28/17 11:26 13:35 16:28 WBC RBC Hgb Hct MCV MCH MCHC RDW Plt Count MPV Immature Gran % Seg Neutrophils % Lymphocytes % Monocytes % Eosinophils % Basophils % Neutrophils # Lymphocytes # Monocytes # Eosinophils # Basophils # APTT 31.2 D POC Glucose 140 H 126 H Triglycerides Vancomycin Trough 09/28/17 09/28/17 09/29/17 20:10 21:46 00:11 WBC RBC Hgb Hct MCV MCH MCHC RDW Plt Count MPV Immature Gran % Seg Neutrophils % Lymphocytes % Monocytes % Eosinophils % Basophils % Neutrophils # Lymphocytes # Monocytes # Eosinophils # Basophils # APTT 41.7 H POC Glucose 123 H 128 H Triglycerides Vancomycin Trough 09/29/17 09/29/17 09/29/17 03:52 05:00 05:00 WBC RBC Hgb Hct MCV MCH MCHC RDW Plt Count MPV Immature Gran % Seg Neutrophils % Lymphocytes % Monocytes % Eosinophils % Basophils % Neutrophils # Lymphocytes # Monocytes # Eosinophils # Basophils # APTT POC Glucose 133 H Triglycerides 89 Vancomycin Trough 24 H 09/29/17 09/29/17 09/29/17 05:00 05:00 08:11 WBC 12.0 H RBC 2.58 L Hgb 8.3 L Hct 26.6 L MCV 103.1 H MCH 32.2 MCHC 31.2 L RDW 16.6 H Plt Count 424 H MPV 10.4 Immature Gran % 1.2 Seg Neutrophils % 80.6 Lymphocytes % 7.6 Monocytes % 7.6 Eosinophils % 2.5 Basophils % 0.5 Neutrophils # 9.6 H Lymphocytes # 0.9 Monocytes # 0.9 Eosinophils # 0.3 Basophils # 0.1 APTT 69.8 H D POC Glucose 120 H Triglycerides Vancomycin Trough Cultures: Cultures 09/24/17 18:28 Blood Culture - Preliminary Peripheral Venipuncture No growth. 09/24/17 18:28 Blood Culture - Preliminary Peripheral Venipuncture No growth. 09/24/17 18:28 Blood Culture - Preliminary Peripheral Venipuncture No growth. 09/15/17 16:08 Blood Culture - Final Peripheral Venipuncture No growth. 09/15/17 21:05 Blood Culture - Final Peripheral Central Cath, Picc No growth. 09/15/17 16:08 Blood Culture - Final Peripheral Venipuncture No growth. 09/16/17 09:46 Catheter Tip Culture - Final Intravenous or Arterial Cath No growth. Serology 09/22/17 Range/Units 04:25 Urine Color Yellow (Yellow) Urine Clarity Clear (Clear) Urine pH 7.0 (5.0-8.0) pH Units Ur Specific Cascade 1.010 (1.010-1.025) Urine Protein Negative (Neg-Trace) mg/dL Urine Glucose (UA) Normal (Normal) mg/dL Urine Ketones Negative (Negative) mg/dL Urine Blood Negative (Negative) Urine Nitrite Negative (Negative) Urine Bilirubin Negative (Negative) Urine Urobilinogen Normal (Normal) mg/dL Ur Leukocyte Esterase Negative (Negative) Ur Culture Indicated? NO (NO) - Impressions Impressions KUB X-Ray 09/28/17 13:30 IMPRESSION: Enteric tube tip just distal to the GE junction with the side port in the distal esophagus. Recommend advancement. D/ / Martha Wayne MD / Martha Wayne MD Interpreting Provider: Martha Wayne MD Exam - Constitutional Vitals: Temp Pulse Resp BP Pulse Ox 97.8 F 80 17 144/71 96 09/29/17 08:17 09/29/17 08:17 09/29/17 09:30 09/29/17 08:17 09/29/17 09:30 General appearance: average body habitus, cooperative, no acute distress - Head Head exam: Present: atraumatic, normal inspection, normocephalic - Eye Eye exam: Present: EOMI, normal appearance, PERRL Pupils: Present: normal accommodation - ENT ENT exam: Present: mucous membranes moist - Neck Neck exam: Present: normal inspection Additional comments: TL CVC noted to the right neck with transparent dressing C/D/I. No erythema, warmth, or drainage noted. - Respiratory Respiratory exam: Present: CTAB. Absent: rales, respiratory distress, rhonchi, wheezes - Cardiovascular Cardiovascular exam: Present: RRR, +S1, +S2 - GI/Abdominal GI/Abdominal exam: Present: hypoactive bowel sounds, soft. Absent: distended, tenderness Additional comments: NG tube noted to LIWS with scant amount of green drainage noted. Saavedra catheter remains patent draining clear yellow urine. Wound VAC noted to the midline abdomen with sponge well-compressed and transparent dressing intact. Colostomy noted to the LLQ with no drainage noted in the bag. Stoma is beefy pink and moist. JAYESH drain noted to the LLQ with small amount of dark brown drainage. - Extremities Exam Extremities exam: Present: normal inspection. Absent: joint swelling, pedal edema, tenderness - Neurological Exam Neurological exam: Present: alert, oriented X3, no focal deficits - Psychiatric Psychiatric exam: Present: normal affect, normal mood - Skin Skin exam: Present: dry, intact, normal color, warm - VTE Documentation of Mechanical Device: Intermittent pneumatic compression device Consult Discharge Plan - Plan Referrals: Lobito Lang MD [Primary Care Provider] - - Attending Attestation I examined this patient and my medical decision-making was reviewed with the Resident Physician. I agree with the documented findings, disposition and treatment plan as described except to the extent set forth below.
--- NOTE | 2017-09-29 15:18 | Palliative Progress Note ---
Date of Encounter: 09/29/17 Time of Encounter: 10:40 - Assessment and plan (1) Goals of care, counseling/discussion Current Visit: Yes Status: Acute Assessment and plan: CODE STATUS was already established yesterday DNR CCA DNI. Patient does endorse this CODE STATUS. With regard to goals of care patient does understand he cannot have any further surgery. I did discuss with him this morning the the apparent bleeding that he is having as well. With over a full program of globin drop since yesterday. Surgery is aware of this. The patient understands that there are no further surgical procedures available to him due to the amount of adhesions or tissue in his abdomen. Discussed with him where hospice fits into the situation given his diagnoses this would require stopping antibiotics as well as TPN. This time he wishes to continue those, however he does not wish to have any pressors done in course the CODE STATUS is as above. Discussed this with the surgical team are aware. As above, I really went over with him today where hospice fits into his plans at this time it does not, however he does understand he can opt for whenever he wishes. As already noted in the surgical note patient also does not wish to have pressors. We will continue to follow. (2) Abdominal pain Current Visit: Yes Status: Acute Assessment and plan: . Qualifiers: Abdominal location: generalized Qualified Code(s): R10.84 - Generalized abdominal pain (3) Ileus following gastrointestinal surgery Current Visit: Yes Status: Acute Assessment and plan: Surgery is following. (4) Nausea Current Visit: Yes Status: Acute Assessment and plan: Changes made by surgery are working quite well. Patient is lot more comfortable today to follow and watch. - Time Spent With Patient Total time spent is greater than 50% in coordination of care (as documented) at patient's floor/unit and/or counseling patient: - Subjective Interval history: He is feeling fairly well today, and medications are working all based although they still continue to taste report nausea is under much better control. Overall patient feels like he is slightly improved does recognize his overall prognosis continues to be quite poor. - Constitutional Vitals: Abnormal lab results WBC 12.0 K/mcL (4.3-11.1) H 09/29/17 05:00 RBC 2.58 M/mcL (4.19-5.50) L 09/29/17 05:00 Hgb 8.3 g/dL (12.9-16.9) L 09/29/17 05:00 Hct 26.6 % (37.5-50.1) L 09/29/17 05:00 MCV 103.1 fL (83.0-100.0) H 09/29/17 05:00 MCHC 31.2 g/dL (31.6-35.5) L 09/29/17 05:00 RDW 16.6 % (11.5-14.5) H 09/29/17 05:00 Plt Count 424 K/mcL (140-400) H 09/29/17 05:00 Myelocytes % 4.0 % (0) H 09/20/17 02:35 Neutrophils # 9.6 K/mcL (1.6-8.9) H 09/29/17 05:00 Nucleated RBCs/100 WBC 0.4 /100 WBC (0) H 09/28/17 03:23 Reactive Lymphocytes Present (Not Present) A 09/20/17 02:35 Toxic Granulation Present (Not Present) A 09/23/17 03:45 Platelet Estimate Increased (Normal) H 09/24/17 03:10 Large Platelets Present (Not Present) A 09/23/17 03:45 Polychromasia 1+ (Not Present) A 09/22/17 04:00 Hypochromasia Present (Not Present) A 09/24/17 03:10 Poikilocytosis 1+ (Not Present) A 09/23/17 03:45 Anisocytosis 1+ (Not Present) A 09/22/17 04:00 Macrocytosis Present (Not Present) A 09/23/17 03:45 PT 16.2 Seconds (9.4-12.1) H 09/25/17 07:15 Glucose 117 mg/dL (70-105) H 09/28/17 03:23 POC Glucose 127 mg/dL (70-99) H 09/29/17 12:17 Venous Ioniz Calcium 1.12 mmol/L (1.15-1.35) L 09/09/17 04:07 Total Bilirubin 1.7 mg/dL (0.3-1.0) H 09/03/17 10:18 Direct Bilirubin 0.4 mg/dL (0.0-0.2) H 09/03/17 10:18 Indirect Bilirubin 1.3 mg/dL (0.0-1.2) H 09/03/17 10:18 Prealbumin 11.6 mg/dL (17.0-34.0) L 09/08/17 04:50 Carcinoembryonic Ag 6.7 ng/mL (Less than 5.0) H 09/19/17 04:00 Urine Microscopic RBC 5-15 per hpf (0-3) H 09/03/17 11:37 Urine Microscopic WBC TNTC per hpf (0-3) H 09/03/17 11:37 Urine Bacteria Moderate per hpf (None-Few) H 09/03/17 11:37 Vancomycin Trough 24 mcg/mL (5-10) H 09/29/17 05:00 General appearance: Present: no acute distress - Respiratory Respiratory exam: Present: decreased breath sounds - Cardiovascular Cardiovascular exam: Present: RRR - GI/Abdominal GI/Abdominal exam: Present: hypoactive bowel sounds (Really no bowel sounds), soft (Wound VAC in place, JAYESH in place) - Extremities Exam Extremities exam: Present: normal inspection. Absent: pedal edema, tenderness - Neurological Exam Neurological exam: Present: alert, oriented X3 - Psychiatric Psychiatric exam: Absent: agitated, anxious - Skin Skin exam: Present: dry, warm Palliative Quality Palliative Quality: Screen for Code Status: Yes, Screen for Goals of Care: Yes, Screen for Pain: Yes, If Pain Regimen Started, Initiate Bowel Regimen: Yes, Screen for Nausea/Vomitting: Yes Code Status: 09/03/17 13:26 Resuscitation Status: Active [RES] Routine Comment: Resuscitation Status: Full Code 09/24/17 08:42 CODE [Resuscitation Status: Active] [RES] Routine Comment: Resuscitation Status: [id number] - Labs CBC & Chem 7: 09/29/17 05:00 09/28/17 03:23 Labs: Laboratory Results - last 24 hr 09/28/17 09/28/17 09/28/17 16:28 20:10 21:46 WBC RBC Hgb Hct MCV MCH MCHC RDW Plt Count MPV Immature Gran % Seg Neutrophils % Lymphocytes % Monocytes % Eosinophils % Basophils % Neutrophils # Lymphocytes # Monocytes # Eosinophils # Basophils # APTT 41.7 H POC Glucose 126 H 123 H Triglycerides Vancomycin Trough 09/29/17 09/29/17 09/29/17 00:11 03:52 05:00 WBC RBC Hgb Hct MCV MCH MCHC RDW Plt Count MPV Immature Gran % Seg Neutrophils % Lymphocytes % Monocytes % Eosinophils % Basophils % Neutrophils # Lymphocytes # Monocytes # Eosinophils # Basophils # APTT POC Glucose 128 H 133 H Triglycerides 89 Vancomycin Trough 09/29/17 09/29/17 09/29/17 05:00 05:00 05:00 WBC 12.0 H RBC 2.58 L Hgb 8.3 L Hct 26.6 L MCV 103.1 H MCH 32.2 MCHC 31.2 L RDW 16.6 H Plt Count 424 H MPV 10.4 Immature Gran % 1.2 Seg Neutrophils % 80.6 Lymphocytes % 7.6 Monocytes % 7.6 Eosinophils % 2.5 Basophils % 0.5 Neutrophils # 9.6 H Lymphocytes # 0.9 Monocytes # 0.9 Eosinophils # 0.3 Basophils # 0.1 APTT 69.8 H D POC Glucose Triglycerides Vancomycin Trough 24 H 09/29/17 09/29/17 09/29/17 08:11 12:17 13:00 WBC RBC Hgb Hct MCV MCH MCHC RDW Plt Count MPV Immature Gran % Seg Neutrophils % Lymphocytes % Monocytes % Eosinophils % Basophils % Neutrophils # Lymphocytes # Monocytes # Eosinophils # Basophils # APTT 32.8 D POC Glucose 120 H 127 H Triglycerides Vancomycin Trough - Impressions Impressions Chest X-Ray 09/29/17 09:45 IMPRESSION: Trace left pleural effusion. Bibasilar airspace disease, worse on the left than the right may reflect atelectasis. Pneumonia cannot be excluded in the correct clinical setting. D/ / 09/29/2017 10:28:05 Brody Wayne MD / james Interpreting Provider: Brody Wayne MD - ABG Interpretation ABG results: ABG ABG pH 7.38 pH Units (7.32-7.45) 09/09/17 05:14 ABG pCO2 41 mmHg (35-45) 09/09/17 05:14 ABG pO2 98 mmHg (85-104) 09/09/17 05:14 ABG O2 Saturation 97 % (95-98) 09/09/17 05:14 PT/INR, D-dimer PT 16.2 Seconds (9.4-12.1) H 09/25/17 07:15 Consult Discharge Plan - Plan Referrals: Lobito Lang MD [Primary Care Provider] -
[2017-09-29] MEDS ORDERED: *HR* Heparin 5,000 UNIT/ML VIAL IVP PRN ×2 (15:42)
[2017-09-29] MEDS ORDERED: Clinimix E 5%-20% SOLUTION 2,000 ML with MVI, adult with vitamin K 10 ML IVC SCH (17:00)
[2017-09-29 20:07] LABS: Activated Partial Thrombo Time 175.9 Seconds (26.0-36.0)
[2017-09-29] MEDS: Heparin 25,000 UNIT/500 ML D5W 25,000 UNIT/500 ML BAG IVC SCH (21:47)
[2017-09-30 00:22] LABS: Bilirubin,Urine Negative (Negative); Blood,Urine Negative (Negative); Clarity,Urine Cloudy (Clear); Color,Urine Yellow (Yellow); Glucose,Urine (UA) Normal (Normal); Ketones,Urine Negative (Negative); Leukocyte Esterase,Urine Small (Negative); Nitrite,Urine Negative (Negative); Protein,Urine Trace mg/dL (Neg-Trace); Specific Gravity,Urine 1.027 (1.010-1.025); Urobilinogen,Urine Normal (Normal)
[2017-09-30] MEDS: Ondansetron 4 MG/2 ML VIAL IVP SCH ×6 (00:23→19:38)
[2017-09-30 00:24] LABS: RBC,Urine 0-3 per hpf (0-3); Squamous Epithelial Cell,Urine Many per lpf (None-Few); WBC,Urine 15-30 per hpf (0-3)
[2017-09-30 00:36] LABS: Bacteria,Urine Few per hpf (None-Few); Hyaline Casts,Urine Few per lpf (None-Few); Mucus,Urine Few (Few); Yeast,Urine Few per hpf (None Seen)
[2017-09-30] MEDS: Insulin LISPRO 300 UNITS/3 ML VIAL SQ SCH ×6 (01:03→19:34)
[2017-09-30 03:52] LABS: Eosinophils # 0.4 K/mcL (0.0-0.6); Hemoglobin 8.4 g/dL (12.9-16.9); Mean Corpuscular HGB Conc 31.1 g/dL (31.6-35.5); Mean Corpuscular Hemoglobin 31.9 pg (28.0-33.3); Mean Corpuscular Volume 102.7 fL (83.0-100.0); Mean Platelet Volume 10.3 fL (9.4-12.4); Platelet Count 442 K/mcL (140-400); Red Blood Count 2.63 M/mcL (4.19-5.50); Red Cell Distribution Width 16.7 % (11.5-14.5)
[2017-09-30] MEDS: Ipratropium/Albuterol Neb 3 ML IH SCH ×4 (03:57→22:06)
[2017-09-30 04:10] LABS: Albumin 2.8 g/dL (3.5-5.7); Albumin/Globulin Ratio 0.8 (1.1-2.2); Bilirubin,Direct 0.3 mg/dL (0.0-0.2); Bilirubin,Indirect 0.3 mg/dL (0.0-1.2); Bilirubin,Total 0.6 mg/dL (0.3-1.0); Globulin 3.5 g/dL (2.4-3.5); Total Protein 6.3 g/dL (6.4-8.9)
[2017-09-30 04:15] LABS: BUN/Creatinine Ratio 22 (6-26); Blood Urea Nitrogen 23 mg/dL (8-23); Calcium 8.7 mg/dL (8.6-10.3); Carbon Dioxide 29 mEq/L (23-29); Chloride 100 mEq/L (98-107); Glucose 98 mg/dL (70-105); Magnesium 2.1 mg/dL (1.6-2.6); Osmolality,Calculated 282 (280-300); Phosphorous 3.2 mg/dL (2.7-4.5); Potassium 3.9 mEq/L (3.5-5.1); Sodium 134 mEq/L (136-145); eGFR For African Americans > 60 (> 60); eGFR For Non-African Americans > 60 (> 60)
[2017-09-30] MEDS: Piperacillin/Tazobactam 3.375 GM in 0.9 % Sodium Chloride Mini Bag 100 ML IVPB SCH ×3 (04:21→18:03)
[2017-09-30 04:52] LABS: Basophils # 0.2 K/mcL (0.0-0.2); Lymphocytes # 0.7 K/mcL (0.6-4.6); Macrocytosis Present (Not Present); Monocytes # 0.7 K/mcL (0.0-1.3); Neutrophils # 9.1 K/mcL (1.6-8.9)
[2017-09-30 04:53] LABS: Hypochromasia Present (Not Present)
[2017-09-30] MEDS: Heparin 25,000 UNIT/500 ML D5W 25,000 UNIT/500 ML BAG IVC SCH (06:00)
[2017-09-30] MEDS: OXYCODONE Oral CONC 10 MG/0.5 ML ORAL.SYG SL PRN ×2 (08:36→13:20)
[2017-09-30] MEDS: Pantoprazole 40 MG VIAL IVP SCH (08:37)
[2017-09-30] MEDS: Furosemide 20 MG/2 ML VIAL IVP SCH (08:37)
[2017-09-30] MEDS: Micafungin 100 MG in 0.9 % Sodium Chloride Mini Bag 100 ML IVPB SCH (08:43)
--- NOTE | 2017-09-30 09:55 | Palliative Progress Note ---
Date of Encounter: 09/30/17 Time of Encounter: 09:10 - Assessment and plan (1) Goals of care, counseling/discussion Current Visit: Yes Status: Acute Assessment and plan: CODE STATUS was already established yesterday DNR CCA DNI. Patient does endorse this CODE STATUS. With regard to goals of care patient does understand he cannot have any further surgery. I did discuss with him this morning the the apparent bleeding that he is having as well. With over a full program of globin drop since yesterday. Surgery is aware of this. The patient understands that there are no further surgical procedures available to him due to the amount of adhesions or tissue in his abdomen. Discussed with him where hospice fits into the situation given his diagnoses this would require stopping antibiotics as well as TPN. This time he wishes to continue those, however he does not wish to have any pressors done in course the CODE STATUS is as above. Discussed this with the surgical team are aware. As above, I really went over with him today where hospice fits into his plans at this time it does not, however he does understand he can opt for whenever he wishes. As already noted in the surgical note patient also does not wish to have pressors. We will continue to follow. No changes to above at this time. (2) Abdominal pain Current Visit: Yes Status: Acute Assessment and plan: . Pain meds are working well, they still do not taste good Qualifiers: Abdominal location: generalized Qualified Code(s): R10.84 - Generalized abdominal pain (3) Ileus following gastrointestinal surgery Current Visit: Yes Status: Acute Assessment and plan: Surgery is following. (4) Nausea Current Visit: Yes Status: Acute Assessment and plan: Changes made by surgery are working quite well. Patient is lot more comfortable today to follow and watch. She does report still needing to continue the medications however they continued to be effective. - Time Spent With Patient Total time spent is greater than 50% in coordination of care (as documented) at patient's floor/unit and/or counseling patient: - Subjective Interval history: He is feeling fairly well today, and medications are working patient was actively per dissipating with PT time of my arrival. Complaints of. - Constitutional Vitals: Abnormal lab results RBC 2.63 M/mcL (4.19-5.50) L 09/30/17 03:40 Hgb 8.4 g/dL (12.9-16.9) L 09/30/17 03:40 Hct 27.0 % (37.5-50.1) L 09/30/17 03:40 MCV 102.7 fL (83.0-100.0) H 09/30/17 03:40 MCHC 31.1 g/dL (31.6-35.5) L 09/30/17 03:40 RDW 16.7 % (11.5-14.5) H 09/30/17 03:40 Plt Count 442 K/mcL (140-400) H 09/30/17 03:40 Myelocytes % 4.0 % (0) H 09/20/17 02:35 Neutrophils # 9.1 K/mcL (1.6-8.9) H 09/30/17 03:40 Nucleated RBCs/100 WBC 0.4 /100 WBC (0) H 09/28/17 03:23 Reactive Lymphocytes Present (Not Present) A 09/20/17 02:35 Toxic Granulation Present (Not Present) A 09/23/17 03:45 Platelet Estimate Slight increase (Normal) H 09/30/17 03:40 Large Platelets Present (Not Present) A 09/23/17 03:45 Polychromasia 1+ (Not Present) A 09/22/17 04:00 Hypochromasia Present (Not Present) A 09/30/17 03:40 Poikilocytosis 1+ (Not Present) A 09/23/17 03:45 Anisocytosis 1+ (Not Present) A 09/22/17 04:00 Macrocytosis Present (Not Present) A 09/30/17 03:40 PT 16.2 Seconds (9.4-12.1) H 09/25/17 07:15 APTT 80.2 Seconds (26.0-36.0) H D 09/30/17 03:40 Heparin Anti-Xa, Unfract 1.00 IU/mL (0.30-0.70) H* 09/29/17 19:33 Sodium 134 mEq/L (136-145) L 09/30/17 03:40 POC Glucose 132 mg/dL (70-99) H 09/30/17 08:13 Venous Ioniz Calcium 1.12 mmol/L (1.15-1.35) L 09/09/17 04:07 Direct Bilirubin 0.3 mg/dL (0.0-0.2) H 09/30/17 03:40 Alkaline Phosphatase 205 Units/L (34-104) H 09/30/17 03:40 Serum Total Protein 6.3 g/dL (6.4-8.9) L 09/30/17 03:40 Albumin 2.8 g/dL (3.5-5.7) L 09/30/17 03:40 Albumin/Globulin Ratio 0.8 (1.1-2.2) L 09/30/17 03:40 Prealbumin 11.6 mg/dL (17.0-34.0) L 09/08/17 04:50 Carcinoembryonic Ag 6.7 ng/mL (Less than 5.0) H 09/19/17 04:00 Urine Clarity Cloudy (Clear) A 09/29/17 23:48 Ur Specific [place] 1.027 (1.010-1.025) H 09/29/17 23:48 Ur Leukocyte Esterase Small (Negative) H 09/29/17 23:48 Urine Microscopic WBC 15-30 per hpf (0-3) H 09/29/17 23:48 Ur Squamous Epith Cells Many per lpf (None-Few) H 09/29/17 23:48 Urine Yeast Few per hpf (None Seen) H 09/29/17 23:48 Ur Culture Indicated? NO. (NO) A 09/29/17 23:48 Vancomycin Trough 24 mcg/mL (5-10) H 09/29/17 05:00 General appearance: Present: no acute distress - Head Head exam: Present: atraumatic, normal inspection Palliative Quality Palliative Quality: Screen for Code Status: Yes, Screen for Goals of Care: Yes, Screen for Pain: Yes, If Pain Regimen Started, Initiate Bowel Regimen: Yes, Screen for Nausea/Vomitting: Yes Code Status: 09/03/17 13:26 Resuscitation Status: Active [RES] Routine Comment: Resuscitation Status: Full Code 09/24/17 08:42 CODE [Resuscitation Status: Active] [RES] Routine Comment: Resuscitation Status: [id number] - Labs CBC & Chem 7: 09/30/17 03:40 09/30/17 03:40 Labs: Laboratory Results - last 24 hr 09/29/17 09/29/1709/29/18 12:17 13:00 15:12 WBC RBC Hgb Hct MCV MCH MCHC RDW Plt Count MPV Seg Neutrophils % Lymphocytes % Monocytes % Eosinophils % Basophils % Neutrophils # Lymphocytes # Monocytes # Eosinophils # Basophils # Platelet Estimate Hypochromasia Macrocytosis APTT 32.8 D Heparin Anti-Xa, Unfract Sodium Potassium Chloride Carbon Dioxide BUN Creatinine Est GFR ( Amer) Est GFR (Non-Af Amer) BUN/Creatinine Ratio Glucose POC Glucose 127 H 126 H Calculated Osmolality Calcium Phosphorus Magnesium Total Bilirubin Direct Bilirubin Indirect Bilirubin AST ALT Alkaline Phosphatase Serum Total Protein Albumin Globulin Albumin/Globulin Ratio Urine Color Urine Clarity Urine pH Ur Specific [place] Urine Protein Urine Glucose (UA) Urine Ketones Urine Blood Urine Nitrite Urine Bilirubin Urine Urobilinogen Ur Leukocyte Esterase Urine Microscopic RBC Urine Microscopic WBC Ur Squamous Epith Cells Urine Bacteria Hyaline Casts Urine Mucus Urine Yeast Ur Culture Indicated? Specimen Rejected 09/29/17 09/29/17 09/29/17 18:12 19:33 20:12 WBC RBC Hgb Hct MCV MCH MCHC RDW Plt Count MPV Seg Neutrophils % Lymphocytes % Monocytes % Eosinophils % Basophils % Neutrophils # Lymphocytes # Monocytes # Eosinophils # Basophils # Platelet Estimate Hypochromasia Macrocytosis APTT 175.9 H* D Heparin Anti-Xa, Unfract 1.00 H* Sodium Potassium Chloride Carbon Dioxide BUN Creatinine Est GFR ( Amer) Est GFR (Non-Af Amer) BUN/Creatinine Ratio Glucose POC Glucose 128 H Calculated Osmolality Calcium Phosphorus Magnesium Total Bilirubin Direct Bilirubin Indirect Bilirubin AST ALT Alkaline Phosphatase Serum Total Protein Albumin Globulin Albumin/Globulin Ratio Urine Color Urine Clarity Urine pH Ur Specific [place] Urine Protein Urine Glucose (UA) Urine Ketones Urine Blood Urine Nitrite Urine Bilirubin Urine Urobilinogen Ur Leukocyte Esterase Urine Microscopic RBC Urine Microscopic WBC Ur Squamous Epith Cells Urine Bacteria Hyaline Casts Urine Mucus Urine Yeast Ur Culture Indicated? Specimen Rejected Contaminated 09/29/17 09/30/17 09/30/17 23:48 00:43 03:40 WBC RBC Hgb Hct MCV MCH MCHC RDW Plt Count MPV Seg Neutrophils % Lymphocytes % Monocytes % Eosinophils % Basophils % Neutrophils # Lymphocytes # Monocytes # Eosinophils # Basophils # Platelet Estimate Hypochromasia Macrocytosis APTT Heparin Anti-Xa, Unfract Sodium 134 L Potassium 3.9 Chloride 100 Carbon Dioxide 29 BUN 23 Creatinine 1.06 Est GFR ( Amer) > 60 Est GFR (Non-Af Amer) > 60 BUN/Creatinine Ratio 22 Glucose 98 POC Glucose 124 H Calculated Osmolality 282 Calcium 8.7 Phosphorus Magnesium Total Bilirubin Direct Bilirubin Indirect Bilirubin AST ALT Alkaline Phosphatase Serum Total Protein Albumin Globulin Albumin/Globulin Ratio Urine Color Yellow Urine Clarity Cloudy A Urine pH 6.0 Ur Specific [place] 1.027 H Urine Protein Trace Urine Glucose (UA) Normal Urine Ketones Negative Urine Blood Negative Urine Nitrite Negative Urine Bilirubin Negative Urine Urobilinogen Normal Ur Leukocyte Esterase Small H Urine Microscopic RBC 0-3 Urine Microscopic WBC 15-30 H Ur Squamous Epith Cells Many H Urine Bacteria Few Hyaline Casts Few Urine Mucus Few Urine Yeast Few H Ur Culture Indicated? NO. A Specimen Rejected 09/30/17 09/30/17 09/30/17 03:40 03:40 03:40 WBC 11.1 RBC 2.63 L Hgb 8.4 L Hct 27.0 L MCV 102.7 H MCH 31.9 MCHC 31.1 L RDW 16.7 H Plt Count 442 H MPV 10.3 Seg Neutrophils % 82.0 Lymphocytes % 6.0 Monocytes % 6.0 Eosinophils % 4.0 Basophils % 2.0 Neutrophils # 9.1 H Lymphocytes # 0.7 Monocytes # 0.7 Eosinophils # 0.4 Basophils # 0.2 Platelet Estimate Slight increase H Hypochromasia Present A Macrocytosis Present A APTT Heparin Anti-Xa, Unfract Sodium Potassium Chloride Carbon Dioxide BUN Creatinine Est GFR ( Amer) Est GFR (Non-Af Amer) BUN/Creatinine Ratio Glucose POC Glucose Calculated Osmolality Calcium Phosphorus 3.2 Magnesium 2.1 Total Bilirubin 0.6 Direct Bilirubin 0.3 H Indirect Bilirubin 0.3 AST 14 ALT 22 Alkaline Phosphatase 205 H Serum Total Protein 6.3 L Albumin 2.8 L Globulin 3.5 Albumin/Globulin Ratio 0.8 L Urine Color Urine Clarity Urine pH Ur Specific [place] Urine Protein Urine Glucose (UA) Urine Ketones Urine Blood Urine Nitrite Urine Bilirubin Urine Urobilinogen Ur Leukocyte Esterase Urine Microscopic RBC Urine Microscopic WBC Ur Squamous Epith Cells Urine Bacteria Hyaline Casts Urine Mucus Urine Yeast Ur Culture Indicated? Specimen Rejected 09/30/17 09/30/17 09/30/17 03:40 04:25 08:13 WBC RBC Hgb Hct MCV MCH MCHC RDW Plt Count MPV Seg Neutrophils % Lymphocytes % Monocytes % Eosinophils % Basophils % Neutrophils # Lymphocytes # Monocytes # Eosinophils # Basophils # Platelet Estimate Hypochromasia Macrocytosis APTT 80.2 H D Heparin Anti-Xa, Unfract Sodium Potassium Chloride Carbon Dioxide BUN Creatinine Est GFR ( Amer) Est GFR (Non-Af Amer) BUN/Creatinine Ratio Glucose POC Glucose 125 H 132 H Calculated Osmolality Calcium Phosphorus Magnesium Total Bilirubin Direct Bilirubin Indirect Bilirubin AST ALT Alkaline Phosphatase Serum Total Protein Albumin Globulin Albumin/Globulin Ratio Urine Color Urine Clarity Urine pH Ur Specific [place] Urine Protein Urine Glucose (UA) Urine Ketones Urine Blood Urine Nitrite Urine Bilirubin Urine Urobilinogen Ur Leukocyte Esterase Urine Microscopic RBC Urine Microscopic WBC Ur Squamous Epith Cells Urine Bacteria Hyaline Casts Urine Mucus Urine Yeast Ur Culture Indicated? Specimen Rejected - Impressions Impressions Chest X-Ray 09/29/17 09:45 IMPRESSION: Trace left pleural effusion. Bibasilar airspace disease, worse on the left than the right may reflect atelectasis. Pneumonia cannot be excluded in the correct clinical setting. D/ / 09/29/2017 10:28:05 Brody Wayne MD / james Interpreting Provider: Brody Wayne MD - ABG Interpretation ABG results: ABG ABG pH 7.38 pH Units (7.32-7.45) 09/09/17 05:14 ABG pCO2 41 mmHg (35-45) 09/09/17 05:14 ABG pO2 98 mmHg (85-104) 09/09/17 05:14 ABG O2 Saturation 97 % (95-98) 09/09/17 05:14 PT/INR, D-dimer PT 16.2 Seconds (9.4-12.1) H 09/25/17 07:15 Consult Discharge Plan - Plan Referrals: Lobito Lang MD [Primary Care Provider] -
--- NOTE | 2017-09-30 11:46 | General Surgery Progress Note ---
<PassaicCherelle Jessica - Last Filed: 09/30/17 11:44> Date of Encounter: 09/30/17 Time of Encounter: 11:30 - Assessment and Plan (1) Small bowel obstruction Current Visit: Yes Status: Acute 1) Date of procedure: 09/07/17 Pre-op diagnosis: small bowel obstruction Post-op diagnosis: same (severe adhesions, metastatic colon cancer) Procedure: Exploratory laparotomy, lysis of adhesions 3 hours, small bowel resection x2 2) Take back d/t anastomotic leak Date of procedure: 09/19/17 Pre-op diagnosis: anastamotic leak Post-op diagnosis: same (bowel perforation/possible anastomotic leak, frozen abdomen, serosal tears x2) Procedure: Exploratory laparotomy, lysis of adhesions, closure serosal tear x 2 , wound vac placement POD # 22 (1) and POD #10 (2) as above Plan: continue supportive care and pain control- pain well controlled at this time continue NG tube low intermittent wall suction; NPO except ice chips sparingly for comfort; Biotene and Chloraeptic for comfort (unknown timeframe)- Await return of bowel function continue TPN for nutritional support IV antibiotics- management per ID- Zosyn, Vancomycin, Micofungin continue Steen for acute urinary retention/accurate I&O continue wound VAC and JAYESH drain- Wound vac changed 09/29/17 continue PT and OT daily serial abdominal exams repeat a.m. labs player services representative consulted for management of discharge planning- LTAC preferred at discharge in approximately 1 week Pathology- A. Skin lesion, anterior abdominal wall; shave biopsy: Lentigo Simplex B. Small bowel resection: Segment of small bowel with extensive serosal fibrous adhesions with vascular congestion and chronic inflammation, submucosal vascular congestion and hemorrhage and mucosal hemorrhage. Resection margins are viable. Negative for malignancy. (2) Anastomotic leak of intestine Current Visit: Yes Status: Acute Continue NPO Continue TPN for nutritional support Continue wound vac to midline for management of drainage and wound (3) Intra-abdominal fluid collection Current Visit: Yes Status: Acute Continue pigtail drain to LLQ Continue IV antibiotics per ID recommendations- Zosyn, Vancomycin, Micofungin (4) Pulmonary embolism Current Visit: Yes Status: Acute Continue heparin drip Will plan to transition to therapeutic lovenox at discharge Continue incentive spirometer every 1 hour while awake Qualifiers: Pulmonary embolism type: other Chronicity: acute Acute cor pulmonale presence: without acute cor pulmonale Qualified Code(s): I26.99 - Other pulmonary embolism without acute cor pulmonale (5) Anemia Current Visit: Yes Status: Acute Hgb- 8.3>8.3>8.4 Stable Continue to monitor Hgb/Hct Qualifiers: Anemia type: unspecified type Qualified Code(s): D64.9 - Anemia, unspecified (6) Colon cancer Current Visit: No Status: Resolved The patient has a history of stage IV adenocarcinoma Status post lysis of adhesion, resection of omental mass, takedown of splenic flexure and colostomy We will plan for follow-up with oncology as an outpatient with Dr. Diop Qualifiers: Colon location: unspecified part of colon Qualified Code(s): C18.9 - Malignant neoplasm of colon, unspecified (7) DVT (deep venous thrombosis) Current Visit: Yes Status: Acute DVT in the right upper extremity- subclavian vein PICC line removed and sent for culture- caheter tip no growth Continue heparin drip Qualifiers: DVT location: upper extremity Affected thrombotic vein of extremity: other upper extremity vein Chronicity: acute Laterality: right Qualified Code(s) : I82.621 - Acute embolism and thrombosis of deep veins of right upper extremity Subjective Patient reports: no new complaints, still having pain, pain is less, no flatus, no bowel movement, afebrile, other (Complant of nose being sore from the NG tube ) Objective Vital Signs - Last 8 Hours Temp Pulse Resp BP Pulse Ox 09/30/17 11:20 18 98 09/30/17 11:16 99.3 F 83 18 127/73 97 09/30/17 07:10 98.2 F 88 18 147/71 97 09/30/17 04:31 97.9 F 90 15 121/71 97 09/30/17 03:58 16 98 Intake and Output 09/29/17 09/30/17 09/30/17 23:59 07:59 15:59 Intake Total 241 / 241 432.9 / 432.9 100 / 100 Output Total 500 / 500 1375 / 1375 850 / 850 Balance -259 / -259 -942.1 / -942.1 -750 / -750 Intake: IV Fluids 241 / 241 432.9 / 432.9 100 / 100 Heparin 25,000 UNIT/500 ML D5W 141 / 141 232.9 / 232.9 25,000 unit In 500 ml @ 14 UNIT /KG/HR 22.652 mls/hr IVC . Q22H5M [facility] Rx#:[id number] Mycamine 100 MG In 0.9 % Sodium 100 / 100 Chloride (Mini-Bag +) 100 ML @ 100 mls/hr IVPB DAILY [facility] Rx#: [id number] Zosyn 3.375 GM In 0.9 % Sodium 100 / 100 100 / 100 100 / 100 Chloride (Mini-Bag +) 100 ML @ 25 mls/hr IVPB Q8H [facility] Rx#: [id number] Oral 0 / 0 Output: Urine 550 / 550 850 / 850 Gastric Tube Lavage Amount 400 / 400 Right Nare 400 / 400 Catheter 500 / 500 300 / 300 Wound Drainage 125 / 125 Wound vac 125 / 125 Other: Meal NPO NPO Percent of Meal Consumed 0% Weight 90.8 kg 77.7 kg Blood Glucose* 128 124 132 Patient Weight 09/30/17 23:59 Weight 77.7 kg - General physical appearance well developed, no distress, chronically ill - Eyes PERRL, normal ocular movement - ENT dry mucosa, atraumatic, normocephalic - Neck Neck exam: trachea midline - Respiratory normal respiratory effort, clear to auscultation - Cardiovascular Cardiovascular exam: Present: RRR - Abdomen Abdomen: Present: bowel sounds present (minimal, hypoactive), soft, tender ( expected post-operative tenderness noted), wound (Ostomy pink and moist with scant amount of liquid drainage noted, condensation noted in the ostomy bag; NG tube to LIWS with small amount of watered down gastric content; LLQ with pigtail drain with brown/blood tinged drainage noted (minimal drainage noted) ) - Incision Incision: Present: open (Midline with wound vac intact with 200ml of bilious drainage noted in the past 24 hours) - Genitourinary other (steen catheter to SD with clear, yellow drainage noted) - Neurologic CN 2-12 grossly intact - Musculoskeletal other (physical deconditioning noted) - Psychiatric oriented to time, oriented to person, oriented to place, speech is normal, memory intact - Labs 09/30/17 03:40 09/30/17 03:40 Diabetes panel 09/30/17 09/30/17 Range/Units 03:40 03:40 Sodium 134 L (136-145) mEq/L Potassium 3.9 (3.5-5.1) mEq/L Chloride 100 (98-107) mEq/L Carbon Dioxide 29 (23-29) mEq/L BUN 23 (8-23) mg/dL Creatinine 1.06 (0.70-1.30) mg/dL Glucose 98 (70-105) mg/dL Calcium 8.7 (8.6-10.3) mg/dL AST 14 (13-39) Units/L ALT 22 (7-52) Units/L Alkaline Phosphatase 205 H (34-104) Units/L Albumin 2.8 L (3.5-5.7) g/dL Calcium panel 09/30/17 09/30/17 09/30/17 Range/Units 03:40 03:40 03:40 Calcium 8.7 (8.6-10.3) mg/dL Phosphorus 3.2 (2.7-4.5) mg/dL Albumin 2.8 L (3.5-5.7) g/dL Pituitary panel 09/30/17 Range/Units 03:40 Sodium 134 L (136-145) mEq/L Potassium 3.9 (3.5-5.1) mEq/L Chloride 100 (98-107) mEq/L Carbon Dioxide 29 (23-29) mEq/L BUN 23 (8-23) mg/dL Creatinine 1.06 (0.70-1.30) mg/dL Glucose 98 (70-105) mg/dL Calcium 8.7 (8.6-10.3) mg/dL Adrenal panel 09/30/17 09/30/17 Range/Units 03:40 03:40 Sodium 134 L (136-145) mEq/L Potassium 3.9 (3.5-5.1) mEq/L Chloride 100 (98-107) mEq/L Carbon Dioxide 29 (23-29) mEq/L BUN 23 (8-23) mg/dL Creatinine 1.06 (0.70-1.30) mg/dL Glucose 98 (70-105) mg/dL Calcium 8.7 (8.6-10.3) mg/dL Total Bilirubin 0.6 (0.3-1.0) mg/dL AST 14 (13-39) Units/L ALT 22 (7-52) Units/L Alkaline Phosphatase 205 H (34-104) Units/L Albumin 2.8 L (3.5-5.7) g/dL - VTE Documentation of Mechanical Device: Intermittent pneumatic compression device Consult Discharge Plan - Plan Referrals: Lobito Lang MD [Primary Care Provider] - - Attending Attestation For this encounter, I have reviewed the [employer] or PA documentation, treatment plan, and medical decision making; and I have had face to face time with this patient. <Ayde Zhao - Last Filed: 10/02/17 14:30> Date of Encounter: 09/30/17 Time of Encounter: 12:35 - Assessment and Plan (1) Colostomy care Current Visit: Yes Status: Chronic (2) Hypertension Current Visit: No Status: Chronic controlled Qualifiers: Hypertension type: essential hypertension Qualified Code(s): I10 - Essential (primary) hypertension (3) Pulmonary embolism Current Visit: Yes Status: Acute Qualifiers: Pulmonary embolism type: other Chronicity: acute Acute cor pulmonale presence: without acute cor pulmonale Qualified Code(s): I26.99 - Other pulmonary embolism without acute cor pulmonale (4) Unable to eat Current Visit: Yes Status: Acute (5) Anastomotic leak of intestine Current Visit: Yes Status: Acute Subjective Patient reports: still having pain, pain is less, no flatus, no bowel movement, afebrile, other Objective Vital Signs - Last 8 Hours Temp Pulse Resp BP Pulse Ox 10/02/17 10:03 97.7 F 97 15 122/78 98 10/02/17 09:45 16 96 10/02/17 07:59 98.7 F 78 18 137/70 97 Intake and Output 10/01/17 10/02/17 10/02/17 23:59 07:59 15:59 Intake Total 242 / 242 500 / 500 200 / 200 Output Total 555 / 555 650 / 650 1150 / 1150 Balance -313 / -313 -150 / -150 -950 / -950 Intake: IV Fluids 242 / 242 500 / 500 200 / 200 Heparin 25,000 UNIT/500 ML D5W 142 / 142 150 / 150 25,000 unit In 500 ml @ 14 UNIT /KG/HR 22.652 mls/hr IVC . Q22H5M [facility] Rx#:[id number] Mycamine 100 MG In 0.9 % Sodium 100 / 100 Chloride (Mini-Bag +) 100 ML @ 100 mls/hr IVPB DAILY [facility] Rx#: [id number] Zosyn 3.375 GM In 0.9 % Sodium 100 / 100 100 / 100 100 / 100 Chloride (Mini-Bag +) 100 ML @ 25 mls/hr IVPB Q8H [facility] Rx#: [id number] Vancocin 1,500 MG In 0.9 % 250 / 250 Sodium Chloride 250 ML @ 166.67 mls/hr IVPB Q24H [facility] Rx#: [id number] Oral 0 / 0 0 / 0 Output: Urine 0 / 0 Stool 0 / 0 Catheter 550 / 550 550 / 550 1050 / 1050 Wound Drainage 5 / 5 100 / 100 100 / 100 Left JAYESH 5 / 5 Wound vac 100 / 100 100 / 100 Other: Meal NPO LUNCH Weight 80.5 kg Blood Glucose* 121 134 132 Patient Weight 10/02/17 23:59 Weight 80.5 kg - General physical appearance well developed, no distress - Eyes PERRL, normal ocular movement - ENT dry mucosa, normocephalic - Neck Neck exam: trachea midline - Respiratory normal expansion, clear to auscultation - Cardiovascular Cardiovascular exam: Present: RRR - Abdomen Abdomen: Present: bowel sounds present, soft, tender, wound - Incision Incision: Present: open - Genitourinary other - Integumentary no growths - Neurologic CN 2-12 grossly intact - Musculoskeletal other - Psychiatric oriented to time, oriented to person, oriented to place, speech is normal, memory intact - Labs 10/02/17 04:34 10/02/17 04:34 Diabetes panel 10/02/17 Range/Units 04:34 Sodium 135 L (136-145) mEq/L Potassium 3.9 (3.5-5.1) mEq/L Chloride 103 (98-107) mEq/L Carbon Dioxide 26 (23-29) mEq/L BUN 22 (8-23) mg/dL Creatinine 1.09 (0.70-1.30) mg/dL Glucose 132 H (70-105) mg/dL Calcium 8.8 (8.6-10.3) mg/dL Calcium panel 10/02/17 10/02/17 Range/Units 04:34 04:34 Calcium 8.8 (8.6-10.3) mg/dL Phosphorus 3.0 (2.7-4.5) mg/dL Pituitary panel 10/02/17 Range/Units 04:34 Sodium 135 L (136-145) mEq/L Potassium 3.9 (3.5-5.1) mEq/L Chloride 103 (98-107) mEq/L Carbon Dioxide 26 (23-29) mEq/L BUN 22 (8-23) mg/dL Creatinine 1.09 (0.70-1.30) mg/dL Glucose 132 H (70-105) mg/dL Calcium 8.8 (8.6-10.3) mg/dL Adrenal panel 10/02/17 Range/Units 04:34 Sodium 135 L (136-145) mEq/L Potassium 3.9 (3.5-5.1) mEq/L Chloride 103 (98-107) mEq/L Carbon Dioxide 26 (23-29) mEq/L BUN 22 (8-23) mg/dL Creatinine 1.09 (0.70-1.30) mg/dL Glucose 132 H (70-105) mg/dL Calcium 8.8 (8.6-10.3) mg/dL - Attending Attestation I have personally performed a face to face evaluation on this patient. I have reviewed and agree with the care plan. History and Exam by me shows:
[2017-09-30] MEDS: Saline Nasal Spray 44 ML BOTTLE NS PRN (13:23)
--- NOTE | 2017-09-30 13:52 | Infectious Disease Progress No ---
Date of Encounter: 09/30/17 Time of Encounter: 13:49 - Assessment and Plan (1) Sepsis Current Visit: Yes Status: Acute The patient has three SIRS criteria. Etiology unclear, but likely related to intra-abdominal fluid collections. The patient does have a central line and has been on TPN. The central line does not appear infected. Blood cultures drawn 09/12/14 x 3 sets were negative (2 peripheral, 1 PICC). The patient had continued worsening leukocytosis with new-onset fever and tachycardia. He has been afebrile since 09/25. Leukocytosis has resolved. Repeat blood cultures x 2 sets drawn 09/24/17 are NGTD x 2 sets. Qualifiers: Sepsis type: sepsis due to unspecified organism Qualified Code(s): A41.9 - Sepsis, unspecified organism (2) Intra-abdominal fluid collection Current Visit: Yes Status: Acute Likely secondary to anastamosis leak. Location: Left lower quadrant x2, anterior pelvis. CT scan of the abdomen and pelvis completed September 18 showed a 14 x 6.8 x 6.5; her collection of air and oral contrast along the left lateral abdomen, consistent with an anastomosis leak. The sign of leakage is suspected to be at the surgical staple line along the left lower quadrant. There is also noted to be a loculated fluid collection in the central/posterior lower abdomen, measuring 8 x 5.5 x 8.6 cm with no internal air to specifically suggest an abscess, although this cannot be entirely excluded. There was scattered air and mottled material in the subcutaneous soft tissues along the surgical staple line, concerning for infection, however, no well ill-defined abscess was seen. The patient was taken back to the operating room on September 19, but due to extensive intra-abdominal adhesions, the surgical team was unable to access the fluid collection or the site of the anastomosis. Interventional radiology was consulted and placed a pigtail drain in the left pericolic fluid collection. He has had about 25 mL on the past [address] scan September 23 showed interval placement of the left lower quadrant pigtail drainage catheter with decompression of the dominant gas and fluid collection compatible with known anastomosis leak. There has been overall decrease the size of a partially loculated collection within the mid pelvis abutting the rectal pouch anastomosis which likely communicates with this dominant fluid collection. There was noted to be a slight interval increase in the size of a 5.6 x 2.4 Center fluid collection in the anterior pelvis just below the level of the midline incision extending to the skin surface. There is no enteric contrast noted on this study within any of the fluid collections which could be related to the placement of the drainage catheter and lack of additional enteric contrast administered during this testing. Interventional radiology was again consulted to assist with management of the fluid collection in the anterior pelvis. A limited CT scan was repeated the following day that did not reveal any fluid that was able to be aspirated. Case discussed with the surgery team. Unfortunately, the patient's adhesions prevent any further abdominal surgical intervention at this time. Without adequate source control, it is likely that the patient will continue to have sepsis. May need to consider repeating imaging later this week to evaluate fluid collections. Drainage from the LLQ drain has diminished, but appears more purulent. Continue Vancomycin IV. Pharmacy to dose. Goal trough ~15. Continue Micafungin 100mg IV daily. Continue Zosyn 3.375grams IV Q8H. Duration of treatment depends on the clincal picture. Monitor renal function and for drug toxicity and dose-adjust antibiotics. (3) Small bowel obstruction Current Visit: Yes Status: Acute Status post exploratory laparotomy with lysis of adhesions, enterotomy 1, and small bowel resection 2. Wound care and activity restrictions per the primary team. Nutritional support per TPN. (4) Anastomotic leak of intestine Current Visit: Yes Status: Acute (5) Abdominal pain Current Visit: Yes Status: Acute Qualifiers: Abdominal location: generalized Qualified Code(s): R10.84 - Generalized abdominal pain (6) Urinary tract infection Current Visit: Yes Status: Resolved Asymptomatic bacteriuria versus true infection. The patient did report some abdominal pain on admission, but this was likely secondary to small bowel obstruction. The patient has received multiple antibiotics that would treat his UTI appropriately. No additional antibiotics are recommended at this time. Qualifiers: Urinary tract infection type: acute cystitis Hematuria presence: without hematuria Qualified Code(s): N30.00 - Acute cystitis without hematuria (7) Status post exploratory laparotomy Current Visit: Yes Status: Acute (8) Acute respiratory failure Current Visit: Yes Status: Resolved Qualifiers: Respiratory failure complication: unspecified whether with hypoxia or hypercapnia Qualified Code(s): J96.00 - Acute respiratory failure, unspecified whether with hypoxia or hypercapnia (9) Pulmonary embolism Current Visit: Yes Status: Acute Likely secondary to thrombophlebitis from his right upper extremity DVT. Does not appear hypoxic. Management per the primary team. Qualifiers: Pulmonary embolism type: other Chronicity: acute Acute cor pulmonale presence: without acute cor pulmonale Qualified Code(s): I26.99 - Other pulmonary embolism without acute cor pulmonale (10) DVT (deep venous thrombosis) Current Visit: Yes Status: Acute Location: Right upper extremity subclavian vein. Management per the primary team Qualifiers: DVT location: upper extremity Affected thrombotic vein of extremity: other upper extremity vein Chronicity: acute Laterality: right Qualified Code(s) : I82.621 - Acute embolism and thrombosis of deep veins of right upper extremity (11) Anemia Current Visit: Yes Status: Acute Chronic Likely multifactorial: Acute blood loss anemia status post surgery, poor nutritional status, acute bleeding from surgical wound, etc. Transfusion parameters per the primary team. Qualifiers: Anemia type: unspecified type Qualified Code(s): D64.9 - Anemia, unspecified (12) Pleural effusion Current Visit: Yes Status: Acute Likely secondary to fluid volume overload. Patient is not in any acute respiratory distress. Management per the primary team. (13) Hypertension Current Visit: No Status: Chronic Qualifiers: Hypertension type: essential hypertension Qualified Code(s): I10 - Essential (primary) hypertension (14) Colon cancer Current Visit: No Status: Resolved Status post bowel resection with colostomy back in 2014. Qualifiers: Colon location: unspecified part of colon Qualified Code(s): C18.9 - Malignant neoplasm of colon, unspecified - Subjective Interval history: Patient seen and examined. No acute events noted. Patient states he feels okay. Denies fevers, chills, or rigors. Denies chest pain, shortness of breath, or cough. Denies abdominal pain at this time. Denies nausea or vomiting, but states he becomes nauseated with movement. Saavedra catheter remains patent. Denies oral thrush or skin lesions. Complains of throat soreness secondary to NG tube. Minimal stool output via colostomy for several day. Infect Dis PN-Objective Data - Labs CBC & Chem 7: 09/30/17 03:40 09/30/17 03:40 Labs: Laboratory Results - last 24 hr 09/29/17 09/29/17 09/29/17 15:12 18:12 19:33 WBC RBC Hgb Hct MCV MCH MCHC RDW Plt Count MPV Seg Neutrophils % Lymphocytes % Monocytes % Eosinophils % Basophils % Neutrophils # Lymphocytes # Monocytes # Eosinophils # Basophils # Platelet Estimate Hypochromasia Macrocytosis APTT 175.9 H* D Heparin Anti-Xa, Unfract 1.00 H* Sodium Potassium Chloride Carbon Dioxide BUN Creatinine Est GFR ( Amer) Est GFR (Non-Af Amer) BUN/Creatinine Ratio Glucose POC Glucose 126 H Calculated Osmolality Calcium Phosphorus Magnesium Total Bilirubin Direct Bilirubin Indirect Bilirubin AST ALT Alkaline Phosphatase Serum Total Protein Albumin Globulin Albumin/Globulin Ratio Urine Color Urine Clarity Urine pH Ur Specific Chromo Urine Protein Urine Glucose (UA) Urine Ketones Urine Blood Urine Nitrite Urine Bilirubin Urine Urobilinogen Ur Leukocyte Esterase Urine Microscopic RBC Urine Microscopic WBC Ur Squamous Epith Cells Urine Bacteria Hyaline Casts Urine Mucus Urine Yeast Ur Culture Indicated? Specimen Rejected Contaminated 09/29/17 09/29/17 09/30/17 20:12 23:48 00:43 WBC RBC Hgb Hct MCV MCH MCHC RDW Plt Count MPV Seg Neutrophils % Lymphocytes % Monocytes % Eosinophils % Basophils % Neutrophils # Lymphocytes # Monocytes # Eosinophils # Basophils # Platelet Estimate Hypochromasia Macrocytosis APTT Heparin Anti-Xa, Unfract Sodium Potassium Chloride Carbon Dioxide BUN Creatinine Est GFR ( Amer) Est GFR (Non-Af Amer) BUN/Creatinine Ratio Glucose POC Glucose 128 H 124 H Calculated Osmolality Calcium Phosphorus Magnesium Total Bilirubin Direct Bilirubin Indirect Bilirubin AST ALT Alkaline Phosphatase Serum Total Protein Albumin Globulin Albumin/Globulin Ratio Urine Color Yellow Urine Clarity Cloudy A Urine pH 6.0 Ur Specific Chromo 1.027 H Urine Protein Trace Urine Glucose (UA) Normal Urine Ketones Negative Urine Blood Negative Urine Nitrite Negative Urine Bilirubin Negative Urine Urobilinogen Normal Ur Leukocyte Esterase Small H Urine Microscopic RBC 0-3 Urine Microscopic WBC 15-30 H Ur Squamous Epith Cells Many H Urine Bacteria Few Hyaline Casts Few Urine Mucus Few Urine Yeast Few H Ur Culture Indicated? NO. A Specimen Rejected 09/30/17 09/30/17 09/30/17 03:40 03:40 03:40 WBC 11.1 RBC 2.63 L Hgb 8.4 L Hct 27.0 L MCV 102.7 H MCH 31.9 MCHC 31.1 L RDW 16.7 H Plt Count 442 H MPV 10.3 Seg Neutrophils % 82.0 Lymphocytes % 6.0 Monocytes % 6.0 Eosinophils % 4.0 Basophils % 2.0 Neutrophils # 9.1 H Lymphocytes # 0.7 Monocytes # 0.7 Eosinophils # 0.4 Basophils # 0.2 Platelet Estimate Slight increase H Hypochromasia Present A Macrocytosis Present A APTT Heparin Anti-Xa, Unfract Sodium 134 L Potassium 3.9 Chloride 100 Carbon Dioxide 29 BUN 23 Creatinine 1.06 Est GFR ( Amer) > 60 Est GFR (Non-Af Amer) > 60 BUN/Creatinine Ratio 22 Glucose 98 POC Glucose Calculated Osmolality 282 Calcium 8.7 Phosphorus 3.2 Magnesium 2.1 Total Bilirubin Direct Bilirubin Indirect Bilirubin AST ALT Alkaline Phosphatase Serum Total Protein Albumin Globulin Albumin/Globulin Ratio Urine Color Urine Clarity Urine pH Ur Specific Chromo Urine Protein Urine Glucose (UA) Urine Ketones Urine Blood Urine Nitrite Urine Bilirubin Urine Urobilinogen Ur Leukocyte Esterase Urine Microscopic RBC Urine Microscopic WBC Ur Squamous Epith Cells Urine Bacteria Hyaline Casts Urine Mucus Urine Yeast Ur Culture Indicated? Specimen Rejected 09/30/17 09/30/17 09/30/17 03:40 03:40 04:25 WBC RBC Hgb Hct MCV MCH MCHC RDW Plt Count MPV Seg Neutrophils % Lymphocytes % Monocytes % Eosinophils % Basophils % Neutrophils # Lymphocytes # Monocytes # Eosinophils # Basophils # Platelet Estimate Hypochromasia Macrocytosis APTT 80.2 H D Heparin Anti-Xa, Unfract Sodium Potassium Chloride Carbon Dioxide BUN Creatinine Est GFR ( Amer) Est GFR (Non-Af Amer) BUN/Creatinine Ratio Glucose POC Glucose 125 H Calculated Osmolality Calcium Phosphorus Magnesium Total Bilirubin 0.6 Direct Bilirubin 0.3 H Indirect Bilirubin 0.3 AST 14 ALT 22 Alkaline Phosphatase 205 H Serum Total Protein 6.3 L Albumin 2.8 L Globulin 3.5 Albumin/Globulin Ratio 0.8 L Urine Color Urine Clarity Urine pH Ur Specific Chromo Urine Protein Urine Glucose (UA) Urine Ketones Urine Blood Urine Nitrite Urine Bilirubin Urine Urobilinogen Ur Leukocyte Esterase Urine Microscopic RBC Urine Microscopic WBC Ur Squamous Epith Cells Urine Bacteria Hyaline Casts Urine Mucus Urine Yeast Ur Culture Indicated? Specimen Rejected 09/30/17 09/30/17 09/30/17 08:13 10:30 11:57 WBC RBC Hgb Hct MCV MCH MCHC RDW Plt Count MPV Seg Neutrophils % Lymphocytes % Monocytes % Eosinophils % Basophils % Neutrophils # Lymphocytes # Monocytes # Eosinophils # Basophils # Platelet Estimate Hypochromasia Macrocytosis APTT 58.2 H Heparin Anti-Xa, Unfract Sodium Potassium Chloride Carbon Dioxide BUN Creatinine Est GFR ( Amer) Est GFR (Non-Af Amer) BUN/Creatinine Ratio Glucose POC Glucose 132 H 138 H Calculated Osmolality Calcium Phosphorus Magnesium Total Bilirubin Direct Bilirubin Indirect Bilirubin AST ALT Alkaline Phosphatase Serum Total Protein Albumin Globulin Albumin/Globulin Ratio Urine Color Urine Clarity Urine pH Ur Specific Chromo Urine Protein Urine Glucose (UA) Urine Ketones Urine Blood Urine Nitrite Urine Bilirubin Urine Urobilinogen Ur Leukocyte Esterase Urine Microscopic RBC Urine Microscopic WBC Ur Squamous Epith Cells Urine Bacteria Hyaline Casts Urine Mucus Urine Yeast Ur Culture Indicated? Specimen Rejected Cultures: Cultures 09/24/17 18:28 Blood Culture - Final Peripheral Venipuncture No growth. 09/24/17 18:28 Blood Culture - Final Peripheral Venipuncture No growth. 09/24/17 18:28 Blood Culture - Final Peripheral Venipuncture No growth. 09/15/17 16:08 Blood Culture - Final Peripheral Venipuncture No growth. 09/15/17 21:05 Blood Culture - Final Peripheral Central Cath, Picc No growth. 09/15/17 16:08 Blood Culture - Final Peripheral Venipuncture No growth. 09/16/17 09:46 Catheter Tip Culture - Final Intravenous or Arterial Cath No growth. Serology 09/29/17 09/22/17 Range/Units 23:48 04:25 Urine Color Yellow Yellow (Yellow) Urine Clarity Cloudy A Clear (Clear) Urine pH 6.0 7.0 (5.0-8.0) pH Units Ur Specific Chromo 1.027 H 1.010 (1.010-1.025) Urine Protein Trace Negative (Neg-Trace) mg/dL Urine Glucose (UA) Normal Normal (Normal) mg/dL Urine Ketones Negative Negative (Negative) mg/dL Urine Blood Negative Negative (Negative) Urine Nitrite Negative Negative (Negative) Urine Bilirubin Negative Negative (Negative) Urine Urobilinogen Normal Normal (Normal) mg/dL Ur Leukocyte Esterase Small H Negative (Negative) Urine Microscopic RBC 0-3 (0-3) per hpf Urine Microscopic WBC 15-30 H (0-3) per hpf Ur Squamous Epith Cells Many H (None-Few) per lpf Urine Bacteria Few (None-Few) per hpf Hyaline Casts Few (None-Few) per lpf Urine Mucus Few (Few) Urine Yeast Few H (None Seen) per hpf Ur Culture Indicated? NO. A NO (NO) Exam - Constitutional Vitals: Temp Pulse Resp BP Pulse Ox 99.3 F 83 18 127/73 98 09/30/17 11:16 09/30/17 11:16 09/30/17 11:20 09/30/17 11:16 09/30/17 11:20 General appearance: average body habitus, cooperative, no acute distress - Head Head exam: Present: atraumatic, normal inspection, normocephalic - Eye Eye exam: Present: EOMI, normal appearance, PERRL Pupils: Present: normal accommodation - ENT ENT exam: Present: mucous membranes moist - Neck Neck exam: Present: normal inspection Additional comments: CVC noted to the right lateral neck with transparent dressing C/D/I. No erythema , warmth, or tenderness noted. - Respiratory Respiratory exam: Present: CTAB. Absent: rales, respiratory distress, rhonchi, wheezes - Cardiovascular Cardiovascular exam: Present: RRR, +S1, +S2 - GI/Abdominal GI/Abdominal exam: Present: hypoactive bowel sounds, soft. Absent: distended, tenderness Additional comments: Midline abdominal incision with wound VAC sponge well-compressed and transparent dressing intact. Grecia noted to the superior aspect of the incision. No surrounding erythema, warmth, or drainage noted. Moderate amount of dark brown drainage noted in the wound VAC canister. JAYESH drain noted to the LLQ with moderate amount of dark brown drainage. Colostomy noted to the LLQ with scant amount of liquid brown stool noted. - Extremities Exam Extremities exam: Present: normal inspection. Absent: joint swelling, pedal edema, tenderness - Neurological Exam Neurological exam: Present: alert, oriented X3, no focal deficits - Psychiatric Psychiatric exam: Present: normal affect, normal mood - Skin Skin exam: Present: dry, intact, normal color, warm - VTE Documentation of Mechanical Device: Intermittent pneumatic compression device Consult Discharge Plan - Plan Referrals: Lobito Lang MD [Primary Care Provider] - - Attending Attestation I examined this patient and my medical decision-making was reviewed with the Resident Physician. I agree with the documented findings, disposition and treatment plan as described except to the extent set forth below.
[2017-09-30] MEDS ORDERED: Clinimix E 5%-20% SOLUTION 2,000 ML with MVI, adult with vitamin K 10 ML IVC SCH (17:00)
[2017-09-30 18:42] LABS: Activated Partial Thrombo Time 134.8 Seconds (26.0-36.0)
[2017-09-30 18:50] LABS: Heparin anti-factor XA UFH 0.82 IU/mL (0.30-0.70)
[2017-10-01] MEDS: Heparin 25,000 UNIT/500 ML D5W 25,000 UNIT/500 ML BAG IVC SCH ×2 (01:19→19:25)
[2017-10-01] MEDS: Insulin LISPRO 300 UNITS/3 ML VIAL SQ SCH ×6 (01:32→21:12)
[2017-10-01] MEDS: Ondansetron 4 MG/2 ML VIAL IVP SCH ×6 (01:50→23:49)
[2017-10-01 02:28] LABS: Basophils # 0.1 K/mcL (0.0-0.2); Basophils % 0.5 %; Eosinophils # 0.3 K/mcL (0.0-0.6); Eosinophils % 3.4 %; Hematocrit 26.7 % (37.5-50.1); Hemoglobin 8.4 g/dL (12.9-16.9); Immature Granulocytes % 1.6 % (0-4); Lymphocytes # 0.8 K/mcL (0.6-4.6); Lymphocytes % 8.3 %; Mean Corpuscular HGB Conc 31.5 g/dL (31.6-35.5); Mean Corpuscular Hemoglobin 32.3 pg (28.0-33.3); Mean Corpuscular Volume 102.7 fL (83.0-100.0); Mean Platelet Volume 10.2 fL (9.4-12.4); Monocytes # 0.7 K/mcL (0.0-1.3); Monocytes % 7.8 %; Neutrophils # 7.5 K/mcL (1.6-8.9); Platelet Count 428 K/mcL (140-400); Red Cell Distribution Width 16.5 % (11.5-14.5); Segmented Neutrophils % 78.4 %
[2017-10-01 02:47] LABS: BUN/Creatinine Ratio 21 (6-26); Blood Urea Nitrogen 23 mg/dL (8-23); Calcium 8.8 mg/dL (8.6-10.3); Carbon Dioxide 27 mEq/L (23-29); Chloride 100 mEq/L (98-107); Glucose 133 mg/dL (70-105); Magnesium 2.1 mg/dL (1.6-2.6); Osmolality,Calculated 280 (280-300); Phosphorous 3.3 mg/dL (2.7-4.5); Potassium 3.8 mEq/L (3.5-5.1); Sodium 132 mEq/L (136-145); eGFR For African Americans > 60 (> 60); eGFR For Non-African Americans > 60 (> 60)
[2017-10-01] MEDS: Ipratropium/Albuterol Neb 3 ML IH SCH ×4 (04:43→22:04)
[2017-10-01] MEDS: Piperacillin/Tazobactam 3.375 GM in 0.9 % Sodium Chloride Mini Bag 100 ML IVPB SCH ×3 (05:00→21:07)
[2017-10-01] MEDS: OXYCODONE Oral CONC 10 MG/0.5 ML ORAL.SYG SL PRN (09:41)
[2017-10-01] MEDS: Pantoprazole 40 MG VIAL IVP SCH (09:42)
[2017-10-01] MEDS: Furosemide 20 MG/2 ML VIAL IVP SCH (09:42)
[2017-10-01] MEDS: *HR* FentaNYL PATCH 25 MCG PATCH TD SCH (09:43)
--- NOTE | 2017-10-01 10:32 | Infectious Disease Progress No ---
Date of Encounter: 10/01/17 Time of Encounter: 10:30 - Assessment and Plan (1) Sepsis Current Visit: Yes Status: Acute The patient had three SIRS criteria. Etiology unclear, but likely related to intra-abdominal fluid collections. The patient does have a central line and has been on TPN. The central line does not appear infected. Blood cultures drawn 09/12/14 x 3 sets were negative (2 peripheral, 1 PICC). The patient had continued worsening leukocytosis with new-onset fever and tachycardia. He has been afebrile since 09/25. Leukocytosis has resolved. Repeat blood cultures x 2 sets drawn 09/24/17 are negative x 2 sets. Qualifiers: Sepsis type: sepsis due to unspecified organism Qualified Code(s): A41.9 - Sepsis, unspecified organism (2) Intra-abdominal fluid collection Current Visit: Yes Status: Acute Likely secondary to anastamosis leak. Location: Left lower quadrant x2, anterior pelvis. CT scan of the abdomen and pelvis completed September 18 showed a 14 x 6.8 x 6.5; her collection of air and oral contrast along the left lateral abdomen, consistent with an anastomosis leak. The sign of leakage is suspected to be at the surgical staple line along the left lower quadrant. There is also noted to be a loculated fluid collection in the central/posterior lower abdomen, measuring 8 x 5.5 x 8.6 cm with no internal air to specifically suggest an abscess, although this cannot be entirely excluded. There was scattered air and mottled material in the subcutaneous soft tissues along the surgical staple line, concerning for infection, however, no well ill-defined abscess was seen. The patient was taken back to the operating room on September 19, but due to extensive intra-abdominal adhesions, the surgical team was unable to access the fluid collection or the site of the anastomosis. Interventional radiology was consulted and placed a pigtail drain in the left pericolic fluid collection. He has had about 25 mL on the past [address] scan September 23 showed interval placement of the left lower quadrant pigtail drainage catheter with decompression of the dominant gas and fluid collection compatible with known anastomosis leak. There has been overall decrease the size of a partially loculated collection within the mid pelvis abutting the rectal pouch anastomosis which likely communicates with this dominant fluid collection. There was noted to be a slight interval increase in the size of a 5.6 x 2.4 Center fluid collection in the anterior pelvis just below the level of the midline incision extending to the skin surface. There is no enteric contrast noted on this study within any of the fluid collections which could be related to the placement of the drainage catheter and lack of additional enteric contrast administered during this testing. Interventional radiology was again consulted to assist with management of the fluid collection in the anterior pelvis. A limited CT scan was repeated the following day that did not reveal any fluid that was able to be aspirated. Case discussed with the surgery team. Unfortunately, the patient's adhesions prevent any further abdominal surgical intervention at this time. Without adequate source control, it is likely that the patient will continue to have sepsis. May need to consider repeating imaging later this week to evaluate fluid collections. Drainage from the LLQ drain has diminished, but appears more purulent. Continue Vancomycin IV. Pharmacy to dose. Goal trough ~15. Continue Micafungin 100mg IV daily. Continue Zosyn 3.375grams IV Q8H. Duration of treatment depends on the clincal picture. Monitor renal function and for drug toxicity and dose-adjust antibiotics. (3) Small bowel obstruction Current Visit: Yes Status: Acute Status post exploratory laparotomy with lysis of adhesions, enterotomy 1, and small bowel resection 2. Wound care and activity restrictions per the primary team. Nutritional support per TPN. (4) Anastomotic leak of intestine Current Visit: Yes Status: Acute (5) Abdominal pain Current Visit: Yes Status: Acute Qualifiers: Abdominal location: generalized Qualified Code(s): R10.84 - Generalized abdominal pain (6) Urinary tract infection Current Visit: Yes Status: Resolved Asymptomatic bacteriuria versus true infection. The patient did report some abdominal pain on admission, but this was likely secondary to small bowel obstruction. The patient has received multiple antibiotics that would treat his UTI appropriately. No additional antibiotics are recommended at this time. Qualifiers: Urinary tract infection type: acute cystitis Hematuria presence: without hematuria Qualified Code(s): N30.00 - Acute cystitis without hematuria (7) Status post exploratory laparotomy Current Visit: Yes Status: Acute (8) Acute respiratory failure Current Visit: Yes Status: Resolved Qualifiers: Respiratory failure complication: unspecified whether with hypoxia or hypercapnia Qualified Code(s): J96.00 - Acute respiratory failure, unspecified whether with hypoxia or hypercapnia (9) Pulmonary embolism Current Visit: Yes Status: Acute Likely secondary to thrombophlebitis from his right upper extremity DVT. Does not appear hypoxic. Management per the primary team. Qualifiers: Pulmonary embolism type: other Chronicity: acute Acute cor pulmonale presence: without acute cor pulmonale Qualified Code(s): I26.99 - Other pulmonary embolism without acute cor pulmonale (10) DVT (deep venous thrombosis) Current Visit: Yes Status: Acute Location: Right upper extremity subclavian vein. Management per the primary team Qualifiers: DVT location: upper extremity Affected thrombotic vein of extremity: other upper extremity vein Chronicity: acute Laterality: right Qualified Code(s) : I82.621 - Acute embolism and thrombosis of deep veins of right upper extremity (11) Anemia Current Visit: Yes Status: Acute Chronic Likely multifactorial: Acute blood loss anemia status post surgery, poor nutritional status, acute bleeding from surgical wound, etc. Transfusion parameters per the primary team. Qualifiers: Anemia type: unspecified type Qualified Code(s): D64.9 - Anemia, unspecified (12) Pleural effusion Current Visit: Yes Status: Acute Likely secondary to fluid volume overload. Patient is not in any acute respiratory distress. Management per the primary team. (13) Hypertension Current Visit: No Status: Chronic Qualifiers: Hypertension type: essential hypertension Qualified Code(s): I10 - Essential (primary) hypertension (14) Colon cancer Current Visit: No Status: Resolved Status post bowel resection with colostomy back in 2014. Qualifiers: Colon location: unspecified part of colon Qualified Code(s): C18.9 - Malignant neoplasm of colon, unspecified - Subjective Interval history: Patient seen and examined. No acute events noted overnight. Patient states he feels okay. Denies fevers, chills, or rigors. Denies chest pain, shortness of breath, or cough. Denies abdominal pain at this time, but states he did get pain medicine earlier. Denies nausea or vomiting, but states he becomes nauseated with movement. Saavedra catheter remains patent. Denies oral thrush or skin lesions. Complains of throat soreness. Minimal stool output via colostomy for several days. Denies oral thrush. Infect Dis PN-Objective Data - Labs CBC & Chem 7: 10/01/17 02:15 10/01/17 02:15 Labs: Laboratory Results - last 24 hr 09/30/17 09/30/17 09/30/17 10:30 11:57 16:23 WBC RBC Hgb Hct MCV MCH MCHC RDW Plt Count MPV Immature Gran % Seg Neutrophils % Lymphocytes % Monocytes % Eosinophils % Basophils % Neutrophils # Lymphocytes # Monocytes # Eosinophils # Basophils # APTT 58.2 H Heparin Anti-Xa, Unfract Sodium Potassium Chloride Carbon Dioxide BUN Creatinine Est GFR ( Amer) Est GFR (Non-Af Amer) BUN/Creatinine Ratio Glucose POC Glucose 138 H 123 H Calculated Osmolality Calcium Phosphorus Magnesium 09/30/17 09/30/17 10/01/17 17:50 19:34 00:35 WBC RBC Hgb Hct MCV MCH MCHC RDW Plt Count MPV Immature Gran % Seg Neutrophils % Lymphocytes % Monocytes % Eosinophils % Basophils % Neutrophils # Lymphocytes # Monocytes # Eosinophils # Basophils # APTT 134.8 H* D Heparin Anti-Xa, Unfract 0.82 H Sodium Potassium Chloride Carbon Dioxide BUN Creatinine Est GFR ( Amer) Est GFR (Non-Af Amer) BUN/Creatinine Ratio Glucose POC Glucose 119 H 137 H Calculated Osmolality Calcium Phosphorus Magnesium 10/01/17 10/01/17 10/01/17 02:15 02:15 02:15 WBC 9.5 RBC 2.60 L Hgb 8.4 L Hct 26.7 L MCV 102.7 H MCH 32.3 MCHC 31.5 L RDW 16.5 H Plt Count 428 H MPV 10.2 Immature Gran % 1.6 Seg Neutrophils % 78.4 Lymphocytes % 8.3 Monocytes % 7.8 Eosinophils % 3.4 Basophils % 0.5 Neutrophils # 7.5 Lymphocytes # 0.8 Monocytes # 0.7 Eosinophils # 0.3 Basophils # 0.1 APTT Heparin Anti-Xa, Unfract Sodium 132 L Potassium 3.8 Chloride 100 Carbon Dioxide 27 BUN 23 Creatinine 1.11 Est GFR ( Amer) > 60 Est GFR (Non-Af Amer) > 60 BUN/Creatinine Ratio 21 Glucose 133 H POC Glucose Calculated Osmolality 280 Calcium 8.8 Phosphorus 3.3 Magnesium 2.1 10/01/17 10/01/17 10/01/17 02:15 04:36 07:57 WBC RBC Hgb Hct MCV MCH MCHC RDW Plt Count MPV Immature Gran % Seg Neutrophils % Lymphocytes % Monocytes % Eosinophils % Basophils % Neutrophils # Lymphocytes # Monocytes # Eosinophils # Basophils # APTT 89.4 H Heparin Anti-Xa, Unfract Sodium Potassium Chloride Carbon Dioxide BUN Creatinine Est GFR ( Amer) Est GFR (Non-Af Amer) BUN/Creatinine Ratio Glucose POC Glucose 140 H 127 H Calculated Osmolality Calcium Phosphorus Magnesium Cultures: Cultures 09/24/17 18:28 Blood Culture - Final Peripheral Venipuncture No growth. 09/24/17 18:28 Blood Culture - Final Peripheral Venipuncture No growth. 09/24/17 18:28 Blood Culture - Final Peripheral Venipuncture No growth. 09/15/17 16:08 Blood Culture - Final Peripheral Venipuncture No growth. 09/15/17 21:05 Blood Culture - Final Peripheral Central Cath, Picc No growth. 09/15/17 16:08 Blood Culture - Final Peripheral Venipuncture No growth. 09/16/17 09:46 Catheter Tip Culture - Final Intravenous or Arterial Cath No growth. Serology 09/29/17 09/22/17 Range/Units 23:48 04:25 Urine Color Yellow Yellow (Yellow) Urine Clarity Cloudy A Clear (Clear) Urine pH 6.0 7.0 (5.0-8.0) pH Units Ur Specific [place] 1.027 H 1.010 (1.010-1.025) Urine Protein Trace Negative (Neg-Trace) mg/dL Urine Glucose (UA) Normal Normal (Normal) mg/dL Urine Ketones Negative Negative (Negative) mg/dL Urine Blood Negative Negative (Negative) Urine Nitrite Negative Negative (Negative) Urine Bilirubin Negative Negative (Negative) Urine Urobilinogen Normal Normal (Normal) mg/dL Ur Leukocyte Esterase Small H Negative (Negative) Urine Microscopic RBC 0-3 (0-3) per hpf Urine Microscopic WBC 15-30 H (0-3) per hpf Ur Squamous Epith Cells Many H (None-Few) per lpf Urine Bacteria Few (None-Few) per hpf Hyaline Casts Few (None-Few) per lpf Urine Mucus Few (Few) Urine Yeast Few H (None Seen) per hpf Ur Culture Indicated? NO. A NO (NO) Exam - Constitutional Vitals: Temp Pulse Resp BP Pulse Ox 97.7 F 78 16 132/66 98 10/01/17 08:16 10/01/17 08:16 10/01/17 08:16 10/01/17 08:16 10/01/17 08:16 General appearance: average body habitus, cooperative, no acute distress - Head Head exam: Present: atraumatic - Eye Eye exam: Present: EOMI, normal appearance, PERRL Pupils: Present: normal accommodation - ENT ENT exam: Present: mucous membranes moist - Neck Neck exam: Present: normal inspection Additional comments: Triple lumen CVC noted to the right neck with transparent dressing C/D/I. No erythema, warmth, tenderness, or drainage noted. - Respiratory Respiratory exam: Present: CTAB. Absent: rales, respiratory distress, rhonchi, wheezes - Cardiovascular Cardiovascular exam: Present: RRR, +S1, +S2 - GI/Abdominal GI/Abdominal exam: Present: normal bowel sounds, soft. Absent: distended, tenderness Additional comments: Midline abdominal incision with wound VAC sponge well-compressed and transparent dressing intact. Small amount of light green drainage noted along the lateral edges of the wound. [place] to the superior aspect of the incision intact. Moderate amount of dark brown drainage noted in the wound VAC canister. JAYESH drain noted to the left abdomen with small amount of cloudy brown drainage. Saavedra catheter patent, draining clear yellow urine. - Extremities Exam Extremities exam: Present: normal inspection. Absent: joint swelling, pedal edema, tenderness - Neurological Exam Neurological exam: Present: alert, oriented X3, no focal deficits - Psychiatric Psychiatric exam: Present: normal affect, normal mood - Skin Skin exam: Present: dry, intact, normal color, warm - VTE Documentation of Mechanical Device: Intermittent pneumatic compression device Consult Discharge Plan - Plan Referrals: Lobito Lang MD [Primary Care Provider] - - Attending Attestation I examined this patient and my medical decision-making was reviewed with the Resident Physician. I agree with the documented findings, disposition and treatment plan as described except to the extent set forth below.
[2017-10-01] MEDS: Micafungin 100 MG in 0.9 % Sodium Chloride Mini Bag 100 ML IVPB SCH (10:37)
--- NOTE | 2017-10-01 11:39 | Palliative Progress Note ---
Date of Encounter: 10/01/17 Time of Encounter: 07:15 - Assessment and plan (1) Goals of care, counseling/discussion Current Visit: Yes Status: Acute Assessment and plan: CODE STATUS was already established yesterday DNR CCA DNI. Patient does endorse this CODE STATUS. With regard to goals of care patient does understand he cannot have any further surgery. I did discuss with him this morning the the apparent bleeding that he is having as well. With over a full program of globin drop since yesterday. Surgery is aware of this. The patient understands that there are no further surgical procedures available to him due to the amount of adhesions or tissue in his abdomen. Discussed with him where hospice fits into the situation given his diagnoses this would require stopping antibiotics as well as TPN. This time he wishes to continue those, however he does not wish to have any pressors done in course the CODE STATUS is as above. Discussed this with the surgical team are aware. As above, I really went over with him today where hospice fits into his plans at this time it does not, however he does understand he can opt for whenever he wishes. As already noted in the surgical note patient also does not wish to have pressors. We will continue to follow. No changes to above at this time. As above continues to be correct. (2) Abdominal pain Current Visit: Yes Status: Acute Assessment and plan: . Pain meds are working well, they still do not taste good He continues to endorse the above I do not think the medications are none ever taste good to him. Qualifiers: Abdominal location: generalized Qualified Code(s): R10.84 - Generalized abdominal pain (3) Ileus following gastrointestinal surgery Current Visit: Yes Status: Acute Assessment and plan: Surgery is following. (4) Nausea Current Visit: Yes Status: Acute Assessment and plan: Changes made by surgery are working quite well. Patient is lot more comfortable today to follow and watch. She does report still needing to continue the medications however they continued to be effective. No changes recommended. - Time Spent With Patient Total time spent is greater than 50% in coordination of care (as documented) at patient's floor/unit and/or counseling patient: - Subjective Interval history: He is feeling fairly well today, meds are working nausea is under control pain under good control. Patient is hoping to be discharged to [place] for an LTAC soon. - Constitutional Vitals: Abnormal lab results RBC 2.60 M/mcL (4.19-5.50) L 10/01/17 02:15 Hgb 8.4 g/dL (12.9-16.9) L 10/01/17 02:15 Hct 26.7 % (37.5-50.1) L 10/01/17 02:15 MCV 102.7 fL (83.0-100.0) H 10/01/17 02:15 MCHC 31.5 g/dL (31.6-35.5) L 10/01/17 02:15 RDW 16.5 % (11.5-14.5) H 10/01/17 02:15 Plt Count 428 K/mcL (140-400) H 10/01/17 02:15 Myelocytes % 4.0 % (0) H 09/20/17 02:35 Nucleated RBCs/100 WBC 0.4 /100 WBC (0) H 09/28/17 03:23 Reactive Lymphocytes Present (Not Present) A 09/20/17 02:35 Toxic Granulation Present (Not Present) A 09/23/17 03:45 Platelet Estimate Slight increase (Normal) H 09/30/17 03:40 Large Platelets Present (Not Present) A 09/23/17 03:45 Polychromasia 1+ (Not Present) A 09/22/17 04:00 Hypochromasia Present (Not Present) A 09/30/17 03:40 Poikilocytosis 1+ (Not Present) A 09/23/17 03:45 Anisocytosis 1+ (Not Present) A 09/22/17 04:00 Macrocytosis Present (Not Present) A 09/30/17 03:40 PT 16.2 Seconds (9.4-12.1) H 09/25/17 07:15 APTT 89.4 Seconds (26.0-36.0) H 10/01/17 02:15 Heparin Anti-Xa, Unfract 0.82 IU/mL (0.30-0.70) H 09/30/17 17:50 Sodium 132 mEq/L (136-145) L 10/01/17 02:15 Glucose 133 mg/dL (70-105) H 10/01/17 02:15 POC Glucose 127 mg/dL (70-99) H 10/01/17 07:57 Venous Ioniz Calcium 1.12 mmol/L (1.15-1.35) L 09/09/17 04:07 Direct Bilirubin 0.3 mg/dL (0.0-0.2) H 09/30/17 03:40 Alkaline Phosphatase 205 Units/L (34-104) H 09/30/17 03:40 Serum Total Protein 6.3 g/dL (6.4-8.9) L 09/30/17 03:40 Albumin 2.8 g/dL (3.5-5.7) L 09/30/17 03:40 Albumin/Globulin Ratio 0.8 (1.1-2.2) L 09/30/17 03:40 Prealbumin 11.6 mg/dL (17.0-34.0) L 09/08/17 04:50 Carcinoembryonic Ag 6.7 ng/mL (Less than 5.0) H 09/19/17 04:00 Urine Clarity Cloudy (Clear) A 09/29/17 23:48 Ur Specific [place] 1.027 (1.010-1.025) H 09/29/17 23:48 Ur Leukocyte Esterase Small (Negative) H 09/29/17 23:48 Urine Microscopic WBC 15-30 per hpf (0-3) H 09/29/17 23:48 Ur Squamous Epith Cells Many per lpf (None-Few) H 09/29/17 23:48 Urine Yeast Few per hpf (None Seen) H 09/29/17 23:48 Ur Culture Indicated? NO. (NO) A 09/29/17 23:48 Vancomycin Trough 24 mcg/mL (5-10) H 09/29/17 05:00 General appearance: Present: no acute distress - Respiratory Respiratory exam: Present: CTAB - Cardiovascular Cardiovascular exam: Present: RRR - GI/Abdominal GI/Abdominal exam: Present: hypoactive bowel sounds. Absent: distended, tenderness - Extremities Exam Extremities exam: Absent: pedal edema, tenderness - Neurological Exam Neurological exam: Present: alert, oriented X3 - Psychiatric Psychiatric exam: Absent: agitated, anxious - Skin Skin exam: Present: dry, warm Palliative Quality Palliative Quality: Screen for Code Status: Yes, Screen for Goals of Care: Yes, Screen for Pain: Yes, If Pain Regimen Started, Initiate Bowel Regimen: Yes, Screen for Nausea/Vomitting: Yes Code Status: 09/03/17 13:26 Resuscitation Status: Active [RES] Routine Comment: Resuscitation Status: Full Code 09/24/17 08:42 CODE [Resuscitation Status: Active] [RES] Routine Comment: Resuscitation Status: [id number] - Labs CBC & Chem 7: 10/01/17 02:15 10/01/17 02:15 Labs: Laboratory Results - last 24 hr 09/30/17 09/30/17 09/30/17 11:57 16:23 17:50 WBC RBC Hgb Hct MCV MCH MCHC RDW Plt Count MPV Immature Gran % Seg Neutrophils % Lymphocytes % Monocytes % Eosinophils % Basophils % Neutrophils # Lymphocytes # Monocytes # Eosinophils # Basophils # APTT 134.8 H* D Heparin Anti-Xa, Unfract 0.82 H Sodium Potassium Chloride Carbon Dioxide BUN Creatinine Est GFR ( Amer) Est GFR (Non-Af Amer) BUN/Creatinine Ratio Glucose POC Glucose 138 H 123 H Calculated Osmolality Calcium Phosphorus Magnesium 09/30/17 10/01/17 10/01/17 19:34 00:35 02:15 WBC 9.5 RBC 2.60 L Hgb 8.4 L Hct 26.7 L MCV 102.7 H MCH 32.3 MCHC 31.5 L RDW 16.5 H Plt Count 428 H MPV 10.2 Immature Gran % 1.6 Seg Neutrophils % 78.4 Lymphocytes % 8.3 Monocytes % 7.8 Eosinophils % 3.4 Basophils % 0.5 Neutrophils # 7.5 Lymphocytes # 0.8 Monocytes # 0.7 Eosinophils # 0.3 Basophils # 0.1 APTT Heparin Anti-Xa, Unfract Sodium Potassium Chloride Carbon Dioxide BUN Creatinine Est GFR ( Amer) Est GFR (Non-Af Amer) BUN/Creatinine Ratio Glucose POC Glucose 119 H 137 H Calculated Osmolality Calcium Phosphorus Magnesium 10/01/17 10/01/17 10/01/17 02:15 02:15 02:15 WBC RBC Hgb Hct MCV MCH MCHC RDW Plt Count MPV Immature Gran % Seg Neutrophils % Lymphocytes % Monocytes % Eosinophils % Basophils % Neutrophils # Lymphocytes # Monocytes # Eosinophils # Basophils # APTT 89.4 H Heparin Anti-Xa, Unfract Sodium 132 L Potassium 3.8 Chloride 100 Carbon Dioxide 27 BUN 23 Creatinine 1.11 Est GFR ( Amer) > 60 Est GFR (Non-Af Amer) > 60 BUN/Creatinine Ratio 21 Glucose 133 H POC Glucose Calculated Osmolality 280 Calcium 8.8 Phosphorus 3.3 Magnesium 2.1 10/01/17 10/01/17 04:36 07:57 WBC RBC Hgb Hct MCV MCH MCHC RDW Plt Count MPV Immature Gran % Seg Neutrophils % Lymphocytes % Monocytes % Eosinophils % Basophils % Neutrophils # Lymphocytes # Monocytes # Eosinophils # Basophils # APTT Heparin Anti-Xa, Unfract Sodium Potassium Chloride Carbon Dioxide BUN Creatinine Est GFR ( Amer) Est GFR (Non-Af Amer) BUN/Creatinine Ratio Glucose POC Glucose 140 H 127 H Calculated Osmolality Calcium Phosphorus Magnesium - ABG Interpretation ABG results: ABG ABG pH 7.38 pH Units (7.32-7.45) 09/09/17 05:14 ABG pCO2 41 mmHg (35-45) 09/09/17 05:14 ABG pO2 98 mmHg (85-104) 09/09/17 05:14 ABG O2 Saturation 97 % (95-98) 09/09/17 05:14 PT/INR, D-dimer PT 16.2 Seconds (9.4-12.1) H 09/25/17 07:15 Consult Discharge Plan - Plan Referrals: Lobito Lang MD [Primary Care Provider] -
[2017-10-01] MEDS: MORPHINE SUL Oral CONC 10 MG/0.5 ML ORAL.SYG SL PRN (12:22)
--- NOTE | 2017-10-01 13:11 | General Surgery Progress Note ---
Date of Encounter: 10/01/17 Time of Encounter: 13:07 - Assessment and Plan (1) Small bowel obstruction Current Visit: Yes Status: Acute 1) Date of procedure: 09/07/17 Pre-op diagnosis: small bowel obstruction Post-op diagnosis: same (severe adhesions, metastatic colon cancer) Procedure: Exploratory laparotomy, lysis of adhesions 3 hours, small bowel resection x2 2) Take back d/t anastomotic leak Date of procedure: 09/19/17 Pre-op diagnosis: anastamotic leak Post-op diagnosis: same (bowel perforation/possible anastomotic leak, frozen abdomen, serosal tears x2) Procedure: Exploratory laparotomy, lysis of adhesions, closure serosal tear x 2 , wound vac placement POD # 24 (1) and POD #12 (2) as above Wound Vac changed today (10/01/2017) and noted aprox 600 ml bilious/maroon output. Fistulas remain and noted small white granules consistent with capsule contents noted within the abdomen. JAYESH with SS drainage today. Pt is in good spirits and is listening to his radio. Steen remains. Given enlarged prostate and inability to take flomax d/t NPO status will continue. Consider d/c steen on Thursday Code status is currently DNR-CCA/DNI. Patient does not want pressors. We will continue the wound VAC, antibiotics, supportive care at this time. Plan: continue supportive care and discomfort management continue NPO except ice chips sparingly for comfort and medications (unknown timeframe) continue TPN continue Steen for acute urinary retention/accurate I&O continue wound VAC and JAYESH drain continue PT and OT serial abdominal exams repeat a.m. labs (2) Anastomotic leak of intestine Current Visit: Yes Status: Acute See a/p as above Noted continued draining of succous. (3) Leukocytosis (leucocytosis) Current Visit: Yes Status: Acute WBC downtrending. Infectious diseases following for antibiotic recommendations. We appreciate your assistance in the care of Mr. Bower. Continue IV antibiotics per ID Qualifiers: Leukocytosis type: unspecified Qualified Code(s): D72.829 - Elevated white blood cell count, unspecified (4) Pulmonary embolism Current Visit: Yes Status: Acute Small to moderate emboli, primarily proximal descending right lower and segmental right upper lobe pulmonary arteries. Per chest CT 09/15/2017 Patient was on heparin drip (therapeutic) beginning 09/15/2017. The heparin was stopped 09/25/2017 due to bloody output in the wound VAC and ostomy associated with hemoglobin decrease from 9.0 to 7.8. Heparin was restarted 09/28/2017 code status remains DNRCC-A/DNI. No pressors. We will plan to transition to lovenox at d/c Qualifiers: Pulmonary embolism type: other Chronicity: acute Acute cor pulmonale presence: without acute cor pulmonale Qualified Code(s): I26.99 - Other pulmonary embolism without acute cor pulmonale (5) DVT (deep venous thrombosis) Current Visit: Yes Status: Acute See assessment and plan above Qualifiers: DVT location: upper extremity Affected thrombotic vein of extremity: other upper extremity vein Chronicity: acute Laterality: right Qualified Code(s) : I82.621 - Acute embolism and thrombosis of deep veins of right upper extremity (6) Anemia Current Visit: Yes Status: Acute See assessment and plan above No overt signs of bleeding. VSS s/p venofer completed. Hgb 8.4; s/p 2U PRBC this admission Qualifiers: Anemia type: unspecified type Qualified Code(s): D64.9 - Anemia, unspecified (7) Poor prognosis Current Visit: Yes Status: Acute No change in prognosis at this time as fistulas remain. We are better controlling drainage at this time. Palliative care is following and we appreciate their assistance. Subjective Patient reports: no new complaints, still having pain, pain is less, voiding w/ o difficulty (per cath), no flatus, bowel movement ("small amount of liquid in this bag"), afebrile Objective Vital Signs - Last 8 Hours Temp Pulse Resp BP Pulse Ox 10/01/17 11:31 98.0 F 84 18 124/71 97 10/01/17 10:35 16 97 10/01/17 08:16 97.7 F 78 16 132/66 98 Intake and Output 09/30/17 10/01/17 10/01/17 23:59 07:59 15:59 Intake Total 437 / 437 275 / 275 533 / 533 Output Total 300 / 300 570 / 570 525 / 525 Balance 137 / 137 -295 / -295 8 / 8 Intake: IV Fluids 437 / 437 275 / 275 533 / 533 Heparin 25,000 UNIT/500 ML D5W 337 / 337 / 25 333 / 333 25,000 unit In 500 ml @ 14 UNIT /KG/HR 22.652 mls/hr IVC . Q22H5M [facility] Rx#:[id number] Intralipid 20% 250 ML @ 21 mls/ 250 / 250 hr IVPB DAILY@1700 [facility] Rx#: [id number] Mycamine 100 MG In 0.9 % Sodium 100 / 100 Chloride (Mini-Bag +) 100 ML @ 100 mls/hr IVPB DAILY [facility] Rx#: [id number] Zosyn 3.375 GM In 0.9 % Sodium 100 / 100 100 / 100 Chloride (Mini-Bag +) 100 ML @ 25 mls/hr IVPB Q8H [facility] Rx#: [id number] Oral 0 / 0 0 / 0 0 / 0 Output: Urine 0 / 0 Catheter 300 / 300 550 / 550 525 / 525 Wound Drainage Left JAYESH Other: Meal npo Weight 79.7 kg Blood Glucose* 119 140 126 Patient Weight 10/01/17 23:59 Weight 79.7 kg VITAL SIGNS: Reviewed. See [facility] GENERAL: In no apparent distress. HEENT: Normocephalic, atraumatic, pupils are equal and reactive, extraocular motions intact, oropharynx is pink and moist, there is no neck adenopathy or JVD noted. CHEST/RESPIRATORY: The thorax is free from signs of trauma. Lung sounds: clear to auscultation, normal respiratory effort CARDIAC: Regular rate and rhythm. Normal S1 and S2, without murmurs, gallops, or rubs. VASCULAR: No Edema. 2+ peripheral pulses. ABDOMEN: soft, tender, hypoactive bowel sounds. Wound VAC changed today. Noted fistula(s) remains and there is small white granules consistent with capsule contents noted within the abdomen. INCISION: wound VAC is in place with seal maintained. Noted approximately 600 ML's maroon/bilious drainage over the last 24 hours. There are no signs of cellulitis or infection noted. WOUNDS/DRAINS: JAYESH site WNL. small amount of SS drainage in bulb. WV changed today MUSCULOSKELETAL: Good range of motion of all major joints. Extremities without clubbing, cyanosis or edema. NEUROLOGIC EXAM: Alert and oriented x 3. Speech normal. Follows commands. PSYCHIATRIC: Mood normal. SKIN: No rash or lesions. - Labs 10/01/17 02:15 10/01/17 02:15 Diabetes panel 10/01/17 Range/Units 02:15 Sodium 132 L (136-145) mEq/L Potassium 3.8 (3.5-5.1) mEq/L Chloride 100 (98-107) mEq/L Carbon Dioxide 27 (23-29) mEq/L BUN 23 (8-23) mg/dL Creatinine 1.11 (0.70-1.30) mg/dL Glucose 133 H (70-105) mg/dL Calcium 8.8 (8.6-10.3) mg/dL Calcium panel 10/01/17 10/01/17 Range/Units 02:15 02:15 Calcium 8.8 (8.6-10.3) mg/dL Phosphorus 3.3 (2.7-4.5) mg/dL Pituitary panel 10/01/17 Range/Units 02:15 Sodium 132 L (136-145) mEq/L Potassium 3.8 (3.5-5.1) mEq/L Chloride 100 (98-107) mEq/L Carbon Dioxide 27 (23-29) mEq/L BUN 23 (8-23) mg/dL Creatinine 1.11 (0.70-1.30) mg/dL Glucose 133 H (70-105) mg/dL Calcium 8.8 (8.6-10.3) mg/dL Adrenal panel 10/01/17 Range/Units 02:15 Sodium 132 L (136-145) mEq/L Potassium 3.8 (3.5-5.1) mEq/L Chloride 100 (98-107) mEq/L Carbon Dioxide 27 (23-29) mEq/L BUN 23 (8-23) mg/dL Creatinine 1.11 (0.70-1.30) mg/dL Glucose 133 H (70-105) mg/dL Calcium 8.8 (8.6-10.3) mg/dL - VTE Documentation of Mechanical Device: Intermittent pneumatic compression device Consult Discharge Plan - Plan Referrals: Lobito Lang MD [Primary Care Provider] -
[2017-10-01] MEDS: Scopolamine Patch 1.5 MG PATCH.TD72 TD SCH (13:23)
[2017-10-01] MEDS ORDERED: Clinimix E 5%-20% SOLUTION 2,000 ML with MVI, adult with vitamin K 10 ML IVC SCH (17:00)
[2017-10-02] MEDS: Ondansetron 4 MG/2 ML VIAL IVP SCH ×7 (03:47→23:32)
[2017-10-02] MEDS: Ipratropium/Albuterol Neb 3 ML IH SCH ×4 (04:19→21:54)
[2017-10-02 04:48] LABS: Basophils # 0.1 K/mcL (0.0-0.2); Basophils % 0.5 %; Eosinophils # 0.3 K/mcL (0.0-0.6); Eosinophils % 3.4 %; Hematocrit 27.1 % (37.5-50.1); Hemoglobin 8.5 g/dL (12.9-16.9); Immature Granulocytes % 1.5 % (0-4); Lymphocytes # 0.9 K/mcL (0.6-4.6); Lymphocytes % 9.2 %; Mean Corpuscular HGB Conc 31.4 g/dL (31.6-35.5); Mean Corpuscular Hemoglobin 32.3 pg (28.0-33.3); Mean Platelet Volume 10.1 fL (9.4-12.4); Monocytes # 0.7 K/mcL (0.0-1.3); Monocytes % 6.8 %; Neutrophils # 7.5 K/mcL (1.6-8.9); Platelet Count 455 K/mcL (140-400); Red Blood Count 2.63 M/mcL (4.19-5.50); Red Cell Distribution Width 16.6 % (11.5-14.5); Segmented Neutrophils % 78.6 %
[2017-10-02] MEDS: Insulin LISPRO 300 UNITS/3 ML VIAL SQ SCH ×6 (05:00→20:56)
[2017-10-02] MEDS: Piperacillin/Tazobactam 3.375 GM in 0.9 % Sodium Chloride Mini Bag 100 ML IVPB SCH ×3 (05:07→20:27)
[2017-10-02 05:09] LABS: BUN/Creatinine Ratio 20 (6-26); Blood Urea Nitrogen 22 mg/dL (8-23); Calcium 8.8 mg/dL (8.6-10.3); Carbon Dioxide 26 mEq/L (23-29); Chloride 103 mEq/L (98-107); Glucose 132 mg/dL (70-105); Osmolality,Calculated 285 (280-300); Potassium 3.9 mEq/L (3.5-5.1); Sodium 135 mEq/L (136-145); eGFR For African Americans > 60 (> 60); eGFR For Non-African Americans > 60 (> 60)
[2017-10-02] MEDS: Micafungin 100 MG in 0.9 % Sodium Chloride Mini Bag 100 ML IVPB SCH (08:50)
[2017-10-02] MEDS: Pantoprazole 40 MG VIAL IVP SCH (08:51)
[2017-10-02] MEDS: Furosemide 20 MG/2 ML VIAL IVP SCH (08:51)
--- NOTE | 2017-10-02 09:28 | Event Note ---
Date of Encounter: 10/02/17 Time of Encounter: 09:27 CODE STATUS has been thoroughly discussed with the patient as having goals of care. She understands were hospice fits into the overall scheme of his care at what time it should be instituted. He understands he need only asked for it. My opinion at that time however TPN would have to be discontinued as well as antibiotic therapy given his terminal diagnosis. She does not feel he wishes to do that at this time and I completely concur with him. Pain is under good control on current regimen, his nausea is under excellent control on current regimen. Palliative care will therefore follow at a distance will not completely sign off. There will be no palliative care over the course of this coming weekend.
--- NOTE | 2017-10-02 09:29 | General Surgery Progress Note ---
<Cherelle Prado Jessica - Last Filed: 10/02/17 09:47> Date of Encounter: 10/02/17 Time of Encounter: 09:15 - Assessment and Plan (1) Small bowel obstruction Current Visit: Yes Status: Acute 1) Date of procedure: 09/07/17 Pre-op diagnosis: small bowel obstruction Post-op diagnosis: same (severe adhesions, metastatic colon cancer) Procedure: Exploratory laparotomy, lysis of adhesions 3 hours, small bowel resection x2 2) Take back d/t anastomotic leak Date of procedure: 09/19/17 Pre-op diagnosis: anastamotic leak Post-op diagnosis: same (bowel perforation/possible anastomotic leak, frozen abdomen, serosal tears x2) Procedure: Exploratory laparotomy, lysis of adhesions, closure serosal tear x 2 , wound vac placement POD # 25 (1) and POD #13 (2) as above Plan: NPO except a sip of water with flomax continue supportive care and pain control- pain well controlled at this time continue TPN for nutritional support IV antibiotics- management per ID- Zosyn, Vancomycin, Micofungin Remove steen catheter today continue wound VAC and JAYESH drain- Wound vac changed 10/01/17 continue PT and OT daily serial abdominal exams repeat a.m. labs services manager consulted for management of discharge planning- LTAC preferred at discharge early next week Pathology- A. Skin lesion, anterior abdominal wall; shave biopsy: Lentigo Simplex B. Small bowel resection: Segment of small bowel with extensive serosal fibrous adhesions with vascular congestion and chronic inflammation, submucosal vascular congestion and hemorrhage and mucosal hemorrhage. Resection margins are viable. Negative for malignancy. (2) Anastomotic leak of intestine Current Visit: Yes Status: Acute Continue NPO Continue TPN for nutritional support Continue wound vac to midline for management of drainage and wound (3) Intra-abdominal fluid collection Current Visit: Yes Status: Acute Continue pigtail drain to LLQ Continue IV antibiotics per ID recommendations- Zosyn, Vancomycin, Micofungin (4) Pulmonary embolism Current Visit: Yes Status: Acute Continue heparin drip Will plan to transition to therapeutic lovenox at discharge Continue incentive spirometer every 1 hour while awake Qualifiers: Pulmonary embolism type: other Chronicity: acute Acute cor pulmonale presence: without acute cor pulmonale Qualified Code(s): I26.99 - Other pulmonary embolism without acute cor pulmonale (5) Anemia Current Visit: Yes Status: Acute Hgb- 8.3>8.3>8.4>8.4>8.5 Stable Qualifiers: Anemia type: unspecified type Qualified Code(s): D64.9 - Anemia, unspecified (6) Colon cancer Current Visit: No Status: Resolved The patient has a history of stage IV adenocarcinoma Status post lysis of adhesion, resection of omental mass, takedown of splenic flexure and colostomy We will plan for follow-up with oncology as an outpatient with Dr. Diop Qualifiers: Colon location: unspecified part of colon Qualified Code(s): C18.9 - Malignant neoplasm of colon, unspecified (7) DVT (deep venous thrombosis) Current Visit: Yes Status: Acute DVT in the right upper extremity- subclavian vein PICC line removed and sent for culture- catheter tip no growth Continue heparin drip Transition to therapeutic lovenox at discharge Qualifiers: DVT location: upper extremity Affected thrombotic vein of extremity: other upper extremity vein Chronicity: acute Laterality: right Qualified Code(s) : I82.621 - Acute embolism and thrombosis of deep veins of right upper extremity Subjective Patient reports: no new complaints, feels better, still having pain, pain is less, no flatus, no bowel movement, nausea (controlled with medication, denies vomiting or distention), afebrile Objective Vital Signs - Last 8 Hours Temp Pulse Resp BP Pulse Ox 10/02/17 07:59 98.7 F 78 18 137/70 97 10/02/17 04:19 16 96 10/02/17 03:38 98.3 F 92 15 135/71 96 Intake and Output 10/01/17 10/02/17 10/02/17 23:59 07:59 15:59 Intake Total 242 / 242 250 / 250 Output Total 555 / 555 650 / 650 100 / 100 Balance -313 / -313 -400 / -400 -100 / -100 Intake: IV Fluids 242 / 242 250 / 250 Heparin 25,000 UNIT/500 ML D5W 142 / 142 150 / 150 25,000 unit In 500 ml @ 14 UNIT /KG/HR 22.652 mls/hr IVC . Q22H5M [facility] Rx#:[id number] Zosyn 3.375 GM In 0.9 % Sodium 100 / 100 100 / 100 Chloride (Mini-Bag +) 100 ML @ 25 mls/hr IVPB Q8H [facility] Rx#: [id number] Oral 0 / 0 0 / 0 Output: Urine 0 / 0 Stool 0 / 0 Catheter 550 / 550 550 / 550 Wound Drainage 5 / 5 100 / 100 100 / 100 Left JAYESH 5 / 5 Wound vac 100 / 100 100 / 100 Other: Weight 80.5 kg Blood Glucose* 121 134 Patient Weight 10/02/17 23:59 Weight 80.5 kg - General physical appearance well developed, no distress, chronically ill - Eyes PERRL, normal ocular movement - ENT dry mucosa, atraumatic, normocephalic - Neck Neck exam: trachea midline - Respiratory normal respiratory effort, clear to auscultation, other (diminished bibasilar bases) - Cardiovascular Cardiovascular exam: Present: RRR - Abdomen Abdomen: Present: soft, tender (minimal, expected post-operative tenderness), wound (LLQ Pigtail drain with minimal amount of succous noted (approximately 50ml of drainage in the past 24 hours); Midline with wound vac intact with 200ml of bilious drainage in the past 24 hours.) - Incision Incision: Present: open (Midline with open wound noted- wound vac intact with 200ml of bilious drainage in the past 24 hours.) - Genitourinary other (steen catheter to SD with clear, yellow urine noted) - Neurologic CN 2-12 grossly intact - Musculoskeletal other (physical deconditioning noted) - Psychiatric oriented to time, oriented to person, oriented to place, speech is normal, memory intact - Labs 10/02/17 04:34 10/02/17 04:34 Diabetes panel 10/02/17 Range/Units 04:34 Sodium 135 L (136-145) mEq/L Potassium 3.9 (3.5-5.1) mEq/L Chloride 103 (98-107) mEq/L Carbon Dioxide 26 (23-29) mEq/L BUN 22 (8-23) mg/dL Creatinine 1.09 (0.70-1.30) mg/dL Glucose 132 H (70-105) mg/dL Calcium 8.8 (8.6-10.3) mg/dL Calcium panel 10/02/17 10/02/17 Range/Units 04:34 04:34 Calcium 8.8 (8.6-10.3) mg/dL Phosphorus 3.0 (2.7-4.5) mg/dL Pituitary panel 10/02/17 Range/Units 04:34 Sodium 135 L (136-145) mEq/L Potassium 3.9 (3.5-5.1) mEq/L Chloride 103 (98-107) mEq/L Carbon Dioxide 26 (23-29) mEq/L BUN 22 (8-23) mg/dL Creatinine 1.09 (0.70-1.30) mg/dL Glucose 132 H (70-105) mg/dL Calcium 8.8 (8.6-10.3) mg/dL Adrenal panel 10/02/17 Range/Units 04:34 Sodium 135 L (136-145) mEq/L Potassium 3.9 (3.5-5.1) mEq/L Chloride 103 (98-107) mEq/L Carbon Dioxide 26 (23-29) mEq/L BUN 22 (8-23) mg/dL Creatinine 1.09 (0.70-1.30) mg/dL Glucose 132 H (70-105) mg/dL Calcium 8.8 (8.6-10.3) mg/dL - VTE Documentation of Mechanical Device: Intermittent pneumatic compression device Consult Discharge Plan - Plan Additional Instructions: Wound Vac: M/WF changes. Apply adaptic to the abdomen prior to placing black foam. Maintain suction at 125 mmHg May d/c remaining mehul with next wound vac change Premedicate with SL Oxycodone or Morphine prior to WV changes JAYESH site: Cleanse daily with antibacterial soap. Apply split gauze. Do not let the JAYESH dangle from the body. Suspend with a safety pin or a lanyard. Maintain JAYESH bulb to suction. May discontinue when drainage is less than 30 ML's per day. Maintain NPO while fistulas remain. Keep steen catheter given inability to take PO Follow-up with Dr. Zhao 1-2 weeks after d/c from LTAC Referrals: Lobito Lang MD [Primary Care Provider] - Prescriptions: Enoxaparin [Lovenox] 80 mg SQ DAILY #1 syr - Attending Attestation For this encounter, I have reviewed the FARM SPECIALIST or PA documentation, treatment plan, and medical decision making; and I have had face to face time with this patient. <Ayde Zhao - Last Filed: 10/05/17 13:39> Date of Encounter: 10/02/17 - Assessment and Plan (1) Colostomy care Current Visit: Yes Status: Chronic (2) Hypertension Current Visit: No Status: Chronic controlled Qualifiers: Hypertension type: essential hypertension Qualified Code(s): I10 - Essential (primary) hypertension (3) Pulmonary embolism Current Visit: Yes Status: Acute continue heparin, will switch to lovenox for DC to LTAC once approved, pulmonary toilet and IS Qualifiers: Pulmonary embolism type: other Chronicity: acute Acute cor pulmonale presence: without acute cor pulmonale Qualified Code(s): I26.99 - Other pulmonary embolism without acute cor pulmonale (4) Unable to eat Current Visit: Yes Status: Acute continue TPn and bowel rest (5) Anastomotic leak of intestine Current Visit: Yes Status: Acute Abx per infectious disease npo prn pain control wound vac changes three times weekly OOB/amulate/PT/OT TPN Subjective Patient reports: still having pain, pain is less, no flatus, no bowel movement, afebrile Objective Vital Signs - Last 8 Hours Temp Pulse Resp BP Pulse Ox 10/05/17 11:14 98.1 F 75 16 120/69 98 10/05/17 07:39 98.2 F 74 16 131/76 99 Intake and Output 10/04/17 10/05/17 10/05/17 23:59 07:59 15:59 Intake Total 4120 / 4120 850 / 850 100 / 100 Output Total 525 / 525 355 / 355 1835 / 1835 Balance 3595 / 3595 495 / 495 -1735 / -1735 Intake: IV Fluids 4120 / 4120 850 / 850 100 / 100 Heparin 25,000 UNIT/500 ML D5W 500 / 500 25,000 unit In 500 ml @ 14 UNIT /KG/HR 22.652 mls/hr IVC . Q22H5M [facility] Rx#:[id number] Clinimix E 5%-20% SOLUTION 2, 4020 / 4020 000 ML @ 70 mls/hr IVC .Q24H [facility] with M.v.i. Adult 10 ml Rx# :[id number] Intralipid 20% 250 ML @ 21 mls/ 250 / 250 hr IVPB DAILY@1700 [facility] Rx#: [id number] Zosyn 3.375 GM In 0.9 % Sodium 100 / 100 100 / 100 100 / 100 Chloride (Mini-Bag +) 100 ML @ 25 mls/hr IVPB Q8H [facility] Rx#: [id number] Oral 0 / 0 0 / 0 Output: Urine 525 / 525 350 / 350 125 / 125 Catheter 1400 / 1400 Urethral (Steen) 300 / 300 Wound Drainage 0 / 0 5 / 5 310 / 310 Left JAYESH 0 / 0 5 / 5 Medial Abdomen 310 / 310 Other: Meal NPO npo # Voids 1 Blood Glucose* 102 120 102 - General physical appearance well developed, chronically ill - Eyes PERRL, normal ocular movement - ENT dry mucosa, normocephalic - Neck Neck exam: trachea midline - Respiratory normal expansion, clear to auscultation - Cardiovascular Cardiovascular exam: Present: RRR - Abdomen Abdomen: Present: soft, tender, wound. Absent: bowel sounds present - Incision Incision: Present: open. Absent: red, swollen - Integumentary no growths - Neurologic CN 2-12 grossly intact - Musculoskeletal other - Psychiatric oriented to time, oriented to person, memory intact - Labs 10/05/17 03:12 10/05/17 03:12 Diabetes panel 10/05/17 Range/Units 03:12 Sodium 135 L (136-145) mEq/L Potassium 3.8 (3.5-5.1) mEq/L Chloride 102 (98-107) mEq/L Carbon Dioxide 27 (23-29) mEq/L BUN 23 (8-23) mg/dL Creatinine 1.12 (0.70-1.30) mg/dL Glucose 108 H (70-105) mg/dL Calcium 9.1 (8.6-10.3) mg/dL Calcium panel 10/05/17 10/05/17 Range/Units 03:12 03:12 Calcium 9.1 (8.6-10.3) mg/dL Phosphorus 3.3 (2.7-4.5) mg/dL Pituitary panel 10/05/17 Range/Units 03:12 Sodium 135 L (136-145) mEq/L Potassium 3.8 (3.5-5.1) mEq/L Chloride 102 (98-107) mEq/L Carbon Dioxide 27 (23-29) mEq/L BUN 23 (8-23) mg/dL Creatinine 1.12 (0.70-1.30) mg/dL Glucose 108 H (70-105) mg/dL Calcium 9.1 (8.6-10.3) mg/dL Adrenal panel 10/05/17 Range/Units 03:12 Sodium 135 L (136-145) mEq/L Potassium 3.8 (3.5-5.1) mEq/L Chloride 102 (98-107) mEq/L Carbon Dioxide 27 (23-29) mEq/L BUN 23 (8-23) mg/dL Creatinine 1.12 (0.70-1.30) mg/dL Glucose 108 H (70-105) mg/dL Calcium 9.1 (8.6-10.3) mg/dL - Attending Attestation I have personally performed a face to face evaluation on this patient. I have reviewed and agree with the care plan. History and Exam by me shows:
--- NOTE | 2017-10-02 10:00 | Infectious Disease Progress No ---
Date of Encounter: 10/02/17 Time of Encounter: 09:57 - Assessment and Plan (1) Sepsis Current Visit: Yes Status: Acute The patient had three SIRS criteria. Etiology unclear, but likely related to intra-abdominal fluid collections. The patient does have a central line and has been on TPN. The central line does not appear infected. Blood cultures drawn 09/12/14 x 3 sets were negative (2 peripheral, 1 PICC). The patient had continued worsening leukocytosis with new-onset fever and tachycardia. He has been afebrile since 09/25. Leukocytosis has resolved. Repeat blood cultures x 2 sets drawn 09/24/17 are negative x 2 sets. Qualifiers: Sepsis type: sepsis due to unspecified organism Qualified Code(s): A41.9 - Sepsis, unspecified organism (2) Intra-abdominal fluid collection Current Visit: Yes Status: Acute Likely secondary to anastamosis leak. Location: Left lower quadrant x2, anterior pelvis. CT scan of the abdomen and pelvis completed September 18 showed a 14 x 6.8 x 6.5; her collection of air and oral contrast along the left lateral abdomen, consistent with an anastomosis leak. The sign of leakage is suspected to be at the surgical staple line along the left lower quadrant. There is also noted to be a loculated fluid collection in the central/posterior lower abdomen, measuring 8 x 5.5 x 8.6 cm with no internal air to specifically suggest an abscess, although this cannot be entirely excluded. There was scattered air and mottled material in the subcutaneous soft tissues along the surgical staple line, concerning for infection, however, no well ill-defined abscess was seen. The patient was taken back to the operating room on September 19, but due to extensive intra-abdominal adhesions, the surgical team was unable to access the fluid collection or the site of the anastomosis. Interventional radiology was consulted and placed a pigtail drain in the left pericolic fluid collection. He has had about 25 mL on the past [address] scan September 23 showed interval placement of the left lower quadrant pigtail drainage catheter with decompression of the dominant gas and fluid collection compatible with known anastomosis leak. There has been overall decrease the size of a partially loculated collection within the mid pelvis abutting the rectal pouch anastomosis which likely communicates with this dominant fluid collection. There was noted to be a slight interval increase in the size of a 5.6 x 2.4 Center fluid collection in the anterior pelvis just below the level of the midline incision extending to the skin surface. There is no enteric contrast noted on this study within any of the fluid collections which could be related to the placement of the drainage catheter and lack of additional enteric contrast administered during this testing. Interventional radiology was again consulted to assist with management of the fluid collection in the anterior pelvis. A limited CT scan was repeated the following day that did not reveal any fluid that was able to be aspirated. Case discussed with the surgery team. Unfortunately, the patient's adhesions prevent any further abdominal surgical intervention at this time. The wound VAC appears to be controlling the leakage of bowel contents at this point. Continue Vancomycin IV. Pharmacy to dose. Goal trough ~15. Continue Micafungin 100mg IV daily. Continue Zosyn 3.375grams IV Q8H. Duration of treatment depends on the clincal picture. Monitor renal function and for drug toxicity and dose-adjust antibiotics. (3) Small bowel obstruction Current Visit: Yes Status: Acute Status post exploratory laparotomy with lysis of adhesions, enterotomy 1, and small bowel resection 2. Wound care and activity restrictions per the primary team. Nutritional support per TPN. (4) Anastomotic leak of intestine Current Visit: Yes Status: Acute (5) Abdominal pain Current Visit: Yes Status: Acute Qualifiers: Abdominal location: generalized Qualified Code(s): R10.84 - Generalized abdominal pain (6) Urinary tract infection Current Visit: Yes Status: Resolved Asymptomatic bacteriuria versus true infection. The patient did report some abdominal pain on admission, but this was likely secondary to small bowel obstruction. The patient has received multiple antibiotics that would treat his UTI appropriately. No additional antibiotics are recommended at this time. Qualifiers: Urinary tract infection type: acute cystitis Hematuria presence: without hematuria Qualified Code(s): N30.00 - Acute cystitis without hematuria (7) Status post exploratory laparotomy Current Visit: Yes Status: Acute (8) Acute respiratory failure Current Visit: Yes Status: Resolved Qualifiers: Respiratory failure complication: unspecified whether with hypoxia or hypercapnia Qualified Code(s): J96.00 - Acute respiratory failure, unspecified whether with hypoxia or hypercapnia (9) Pulmonary embolism Current Visit: Yes Status: Acute Likely secondary to thrombophlebitis from his right upper extremity DVT. Does not appear hypoxic. Management per the primary team. Qualifiers: Pulmonary embolism type: other Chronicity: acute Acute cor pulmonale presence: without acute cor pulmonale Qualified Code(s): I26.99 - Other pulmonary embolism without acute cor pulmonale (10) DVT (deep venous thrombosis) Current Visit: Yes Status: Acute Location: Right upper extremity subclavian vein. Management per the primary team Qualifiers: DVT location: upper extremity Affected thrombotic vein of extremity: other upper extremity vein Chronicity: acute Laterality: right Qualified Code(s) : I82.621 - Acute embolism and thrombosis of deep veins of right upper extremity (11) Anemia Current Visit: Yes Status: Acute Chronic Likely multifactorial: Acute blood loss anemia status post surgery, poor nutritional status, acute bleeding from surgical wound, etc. Transfusion parameters per the primary team. Qualifiers: Anemia type: unspecified type Qualified Code(s): D64.9 - Anemia, unspecified (12) Pleural effusion Current Visit: Yes Status: Acute Likely secondary to fluid volume overload. Patient is not in any acute respiratory distress. Management per the primary team. (13) Hypertension Current Visit: No Status: Chronic Qualifiers: Hypertension type: essential hypertension Qualified Code(s): I10 - Essential (primary) hypertension (14) Colon cancer Current Visit: No Status: Resolved Status post bowel resection with colostomy back in 2014. Qualifiers: Colon location: unspecified part of colon Qualified Code(s): C18.9 - Malignant neoplasm of colon, unspecified - Subjective Interval history: Patient seen and examined. No acute events noted overnight. Patient states he feels okay. Denies fevers, chills, or rigors. Denies chest pain, shortness of breath, or cough. Denies abdominal pain at this time. Denies vomiting, but states he becomes nauseated with movement and he feels a little nauseated now. Saavedra catheter remains patent, per e surgery team will discontinue today and see if the patient is able to void since they have been giving him his flomax PO. Denies oral thrush or skin lesions. Complains of throat soreness. Minimal stool output via colostomy for several days. Denies oral thrush. Infect Dis PN-Objective Data - Labs CBC & Chem 7: 10/02/17 04:34 10/02/17 04:34 Labs: Laboratory Results - last 24 hr 05/31/18 05/31/18 05/31/18 10:54 11:25 16:43 WBC RBC Hgb Hct MCV MCH MCHC RDW Plt Count MPV Immature Gran % Seg Neutrophils % Lymphocytes % Monocytes % Eosinophils % Basophils % Neutrophils # Lymphocytes # Monocytes # Eosinophils # Basophils # APTT 99.4 H Sodium Potassium Chloride Carbon Dioxide BUN Creatinine Est GFR ( Amer) Est GFR (Non-Af Amer) BUN/Creatinine Ratio Glucose POC Glucose 126 H 122 H Calculated Osmolality Calcium Phosphorus Magnesium Vancomycin Trough 10/01/17 10/01/17 10/01/17 18:36 18:57 23:57 WBC RBC Hgb Hct MCV MCH MCHC RDW Plt Count MPV Immature Gran % Seg Neutrophils % Lymphocytes % Monocytes % Eosinophils % Basophils % Neutrophils # Lymphocytes # Monocytes # Eosinophils # Basophils # APTT 79.2 H Sodium Potassium Chloride Carbon Dioxide BUN Creatinine Est GFR ( Amer) Est GFR (Non-Af Amer) BUN/Creatinine Ratio Glucose POC Glucose 131 H 121 H Calculated Osmolality Calcium Phosphorus Magnesium Vancomycin Trough 10/02/17 10/02/17 10/02/17 01:20 03:42 04:34 WBC RBC Hgb Hct MCV MCH MCHC RDW Plt Count MPV Immature Gran % Seg Neutrophils % Lymphocytes % Monocytes % Eosinophils % Basophils % Neutrophils # Lymphocytes # Monocytes # Eosinophils # Basophils # APTT 80.3 H Sodium 135 L Potassium 3.9 Chloride 103 Carbon Dioxide 26 BUN 22 Creatinine 1.09 Est GFR ( Amer) > 60 Est GFR (Non-Af Amer) > 60 BUN/Creatinine Ratio 20 Glucose 132 H POC Glucose 126 H Calculated Osmolality 285 Calcium 8.8 Phosphorus Magnesium Vancomycin Trough 10/02/17 10/02/17 10/02/17 04:34 04:34 04:34 WBC 9.5 RBC 2.63 L Hgb 8.5 L Hct 27.1 L MCV 103.0 H MCH 32.3 MCHC 31.4 L RDW 16.6 H Plt Count 455 H MPV 10.1 Immature Gran % 1.5 Seg Neutrophils % 78.6 Lymphocytes % 9.2 Monocytes % 6.8 Eosinophils % 3.4 Basophils % 0.5 Neutrophils # 7.5 Lymphocytes # 0.9 Monocytes # 0.7 Eosinophils # 0.3 Basophils # 0.1 APTT Sodium Potassium Chloride Carbon Dioxide BUN Creatinine Est GFR ( Amer) Est GFR (Non-Af Amer) BUN/Creatinine Ratio Glucose POC Glucose Calculated Osmolality Calcium Phosphorus 3.0 Magnesium 2.0 Vancomycin Trough 13 H 10/02/17 07:57 WBC RBC Hgb Hct MCV MCH MCHC RDW Plt Count MPV Immature Gran % Seg Neutrophils % Lymphocytes % Monocytes % Eosinophils % Basophils % Neutrophils # Lymphocytes # Monocytes # Eosinophils # Basophils # APTT Sodium Potassium Chloride Carbon Dioxide BUN Creatinine Est GFR ( Amer) Est GFR (Non-Af Amer) BUN/Creatinine Ratio Glucose POC Glucose 134 H Calculated Osmolality Calcium Phosphorus Magnesium Vancomycin Trough Cultures: Cultures 09/24/17 18:28 Blood Culture - Final Peripheral Venipuncture No growth. 09/24/17 18:28 Blood Culture - Final Peripheral Venipuncture No growth. 09/24/17 18:28 Blood Culture - Final Peripheral Venipuncture No growth. 09/15/17 16:08 Blood Culture - Final Peripheral Venipuncture No growth. 09/15/17 21:05 Blood Culture - Final Peripheral Central Cath, Picc No growth. 09/15/17 16:08 Blood Culture - Final Peripheral Venipuncture No growth. 09/16/17 09:46 Catheter Tip Culture - Final Intravenous or Arterial Cath No growth. Serology 09/29/17 09/22/17 Range/Units 23:48 04:25 Urine Color Yellow Yellow (Yellow) Urine Clarity Cloudy A Clear (Clear) Urine pH 6.0 7.0 (5.0-8.0) pH Units Ur Specific [place] 1.027 H 1.010 (1.010-1.025) Urine Protein Trace Negative (Neg-Trace) mg/dL Urine Glucose (UA) Normal Normal (Normal) mg/dL Urine Ketones Negative Negative (Negative) mg/dL Urine Blood Negative Negative (Negative) Urine Nitrite Negative Negative (Negative) Urine Bilirubin Negative Negative (Negative) Urine Urobilinogen Normal Normal (Normal) mg/dL Ur Leukocyte Esterase Small H Negative (Negative) Urine Microscopic RBC 0-3 (0-3) per hpf Urine Microscopic WBC 15-30 H (0-3) per hpf Ur Squamous Epith Cells Many H (None-Few) per lpf Urine Bacteria Few (None-Few) per hpf Hyaline Casts Few (None-Few) per lpf Urine Mucus Few (Few) Urine Yeast Few H (None Seen) per hpf Ur Culture Indicated? NO. A NO (NO) - Impressions Impressions Chest X-Ray 09/29/17 09:45 IMPRESSION: Trace left pleural effusion. Bibasilar airspace disease, worse on the left than the right may reflect atelectasis. Pneumonia cannot be excluded in the correct clinical setting. D/ / 09/29/2017 10:28:05 Brody Wayne MD / james Interpreting Provider: Brody Wayne MD Exam - Constitutional Vitals: Temp Pulse Resp BP Pulse Ox 98.7 F 78 16 137/70 96 10/02/17 07:59 10/02/17 07:59 10/02/17 09:45 10/02/17 07:59 10/02/17 09:45 General appearance: average body habitus, cooperative, no acute distress - Head Head exam: Present: atraumatic, normal inspection, normocephalic - Eye Eye exam: Present: EOMI, normal appearance, PERRL Pupils: Present: normal accommodation - ENT ENT exam: Present: mucous membranes moist - Neck Neck exam: Present: normal inspection Additional comments: Triple lumen CVC noted to the right neck with transparent dressing C/D/I without redness, warmth, or tenderness noted. - Respiratory Respiratory exam: Present: CTAB. Absent: rales, respiratory distress, rhonchi, wheezes - Cardiovascular Cardiovascular exam: Present: RRR, +S1, +S2 - GI/Abdominal GI/Abdominal exam: Present: hypoactive bowel sounds, soft. Absent: distended, tenderness Additional comments: Wound VAC dressing noted to the midline abdominal incision with sponge well- compressed and dressing C/D/I. Moderate amount of dark brown thin drainage noted in the wound VAC canister. [place] noted to the superior aspect of the incision intact. JAYESH drain noted to the LLQ with small amount of cloudy, light brown drainage. - Extremities Exam Extremities exam: Present: normal inspection. Absent: joint swelling, pedal edema, tenderness - Neurological Exam Neurological exam: Present: alert, oriented X3, no focal deficits - Psychiatric Psychiatric exam: Present: normal affect, normal mood - Skin Skin exam: Present: dry, intact, normal color, warm - VTE Documentation of Mechanical Device: Intermittent pneumatic compression device Consult Discharge Plan - Plan Referrals: Lobito Lang MD [Primary Care Provider] - - Attending Attestation I examined this patient and my medical decision-making was reviewed with the Resident Physician. I agree with the documented findings, disposition and treatment plan as described except to the extent set forth below.
[2017-10-02] MEDS: Heparin 25,000 UNIT/500 ML D5W 25,000 UNIT/500 ML BAG IVC SCH (15:05)
[2017-10-02] MEDS ORDERED: Clinimix E 5%-20% SOLUTION 2,000 ML with MVI, adult with vitamin K 10 ML IVC SCH (17:00)
[2017-10-03] MEDS: Insulin LISPRO 300 UNITS/3 ML VIAL SQ SCH ×6 (00:52→21:02)
[2017-10-03 01:55] LABS: BUN/Creatinine Ratio 19 (6-26); Blood Urea Nitrogen 21 mg/dL (8-23); Calcium 8.8 mg/dL (8.6-10.3); Carbon Dioxide 28 mEq/L (23-29); Chloride 101 mEq/L (98-107); Glucose 120 mg/dL (70-105); Osmolality,Calculated 284 (280-300); Potassium 3.9 mEq/L (3.5-5.1); Sodium 135 mEq/L (136-145); eGFR For African Americans > 60 (> 60); eGFR For Non-African Americans > 60 (> 60)
[2017-10-03] MEDS: Ondansetron 4 MG/2 ML VIAL IVP SCH ×5 (04:08→21:14)
[2017-10-03] MEDS: Piperacillin/Tazobactam 3.375 GM in 0.9 % Sodium Chloride Mini Bag 100 ML IVPB SCH ×3 (04:08→21:15)
[2017-10-03] MEDS: Ipratropium/Albuterol Neb 3 ML IH SCH (04:12)
[2017-10-03] MEDS ORDERED: Ipratropium/Albuterol Neb 3 ML IH PRN (04:25)
[2017-10-03] MEDS: Furosemide 20 MG/2 ML VIAL IVP SCH (08:58)
[2017-10-03] MEDS: Micafungin 100 MG in 0.9 % Sodium Chloride Mini Bag 100 ML IVPB SCH (08:58)
[2017-10-03] MEDS: Pantoprazole 40 MG VIAL IVP SCH (08:59)
[2017-10-03] MEDS: Heparin 25,000 UNIT/500 ML D5W 25,000 UNIT/500 ML BAG IVC SCH (09:59)
--- NOTE | 2017-10-03 11:11 | General Surgery Progress Note ---
Date of Encounter: 10/03/17 Time of Encounter: 07:50 - Assessment and Plan (1) Status post exploratory laparotomy Current Visit: Yes Status: Acute POD#26 s/p exploratory laparotomy, lysis of adhesions, repair serosal tears, small bowel resection x2 by Dr. Zhao and Dr. Israel. POD#13 take back due to anastomotic leak (09/19/17) Saavedra catheter removed yesterday. 298 residual fluid in bladder scan. Plan: NPO except a sip of water with flomax continue supportive care and pain control- pain well controlled at this time continue TPN for nutritional support IV antibiotics- management per ID- Zosyn, Vancomycin, Micofungin continue wound VAC and JAYESH drain- Wound vac changed 10/01/17 continue PT and OT daily serial abdominal exams repeat a.m. labs program services planner consulted for management of discharge planning- LTAC preferred at discharge early next week (2) Anemia Current Visit: Yes Status: Acute Hemoglobin has been consistenyl stable: 8.3, 8.4, 8.4. 8.5. today's hgb level is still pending. Qualifiers: Anemia type: unspecified type Qualified Code(s): D64.9 - Anemia, unspecified (3) Pulmonary embolism Current Visit: Yes Status: Acute Continue heparin drip Will plan to transition to therapeutic lovenox at discharge Continue incentive spirometer every 1 hour while awake Qualifiers: Pulmonary embolism type: other Chronicity: acute Acute cor pulmonale presence: without acute cor pulmonale Qualified Code(s): I26.99 - Other pulmonary embolism without acute cor pulmonale (4) Colon cancer Current Visit: Yes Status: Acute The patient has a history of stage IV adenocarcinoma Status post lysis of adhesion, resection of omental mass, takedown of splenic flexure and colostomy We will plan for follow-up with oncology as an outpatient with Dr. Diop Qualifiers: Colon location: splenic flexure Qualified Code(s): C18.5 - Malignant neoplasm of splenic flexure (5) DVT prophylaxis Current Visit: Yes Status: Acute DVT in the right upper extremity- subclavian vein PICC line removed and sent for culture- catheter tip no growth Continue heparin drip Transition to therapeutic lovenox at discharge Subjective Narrative: Patient denies any abdominal pain. Admits to minor nausea last night when he was moving out of bed. Denies any vomiting. Denies any chest pain or shortness of breath. Denies any fever or chills overnight. Objective VITAL SIGNS: Reviewed. See [facility] GENERAL: no apparent distress. HEENT: [Normocephalic, PER, EOMI, oropharynx pink/moist, no JVD noted.] CV: b/l rad pulses 2+, RRR, no murmurs or gallops, no JVD RESPIRATORY: CTAB without wheezes, rales, or rhonchi ABD: soft, non-tender, no rebound/guarding/rigidity, no peritoneal signs. Hypoactive bowel sounds. INCISION: clean, dry, intact without purulence/bleeding/edema/rubor/calor. Wound vac intact with minor bilious drainage around edges. 375 ml output dark red bilious fluid in container. DRAINS: L JAYESH site without signs of infection; bulb contains bilious fluid. EXTREMITY: grossly normal motor function, no pedal edema, peripheral pulses 2+ b /l NEUROLOGIC EXAM: AOx3, obeys commands, no speech deficits. PSYCHIATRIC: normal mood and affect SKIN: no gross lesions, rashes, or skin changes Vital Signs - Last 8 Hours Temp Pulse Resp BP Pulse Ox 10/03/17 09:46 98.5 F 74 15 143/76 98 10/03/17 06:55 98.3 F 74 16 130/72 99 10/03/17 03:08 97.9 F 84 15 126/74 97 Intake and Output 10/02/17 10/03/17 10/03/17 23:59 07:59 15:59 Intake Total 350 / 350 770 / 770 400 / 400 Output Total 960 / 960 1000 / 1000 725 / 725 Balance -610 / -610 -230 / -230 -325 / -325 Intake: IV Fluids 350 / 350 650 / 650 400 / 400 Heparin 25,000 UNIT/500 ML D5W 300 / 300 200 / 200 25,000 unit In 500 ml @ 14 UNIT /KG/HR 22.652 mls/hr IVC . [id number] [facility] Rx#:[id number] Intralipid 20% 250 ML @ 21 mls/ 250 / 250 hr IVPB DAILY@1700 [facility] Rx#: [id number] Mycamine 100 MG In 0.9 % Sodium 100 / 100 Chloride (Mini-Bag +) 100 ML @ 100 mls/hr IVPB DAILY [facility] Rx#: [id number] Zosyn 3.375 GM In 0.9 % Sodium 100 / 100 100 / 100 100 / 100 Chloride (Mini-Bag +) 100 ML @ 25 mls/hr IVPB Q8H [facility] Rx#: [id number] Vancocin 1,500 MG In 0.9 % 250 / 250 Sodium Chloride 250 ML @ 166.67 mls/hr IVPB Q24H [facility] Rx#: [id number] Oral 0 / 0 120 / 120 0 / 0 Output: Urine 0 / 0 0 / 0 700 / 700 Stool 0 / 0 0 / 0 Catheter 650 / 650 900 / 900 Wound Drainage 310 / 310 100 / 100 25 / 25 Left JAYESH 10 / 10 0 / 0 Medial Abdomen 200 / 200 50 / 50 25 / 25 Wound vac 100 / 100 50 / 50 Other: Meal NPO Weight 80.5 kg Blood Glucose* 121 123 Patient Weight 10/03/17 23:59 Weight 80.5 kg - Labs 10/02/17 04:34 10/03/17 01:14 Diabetes panel 10/03/17 Range/Units 01:14 Sodium 135 L (136-145) mEq/L Potassium 3.9 (3.5-5.1) mEq/L Chloride 101 (98-107) mEq/L Carbon Dioxide 28 (23-29) mEq/L BUN 21 (8-23) mg/dL Creatinine 1.10 (0.70-1.30) mg/dL Glucose 120 H (70-105) mg/dL Calcium 8.8 (8.6-10.3) mg/dL Calcium panel 10/03/17 Range/Units 01:14 Calcium 8.8 (8.6-10.3) mg/dL Pituitary panel 10/03/17 Range/Units 01:14 Sodium 135 L (136-145) mEq/L Potassium 3.9 (3.5-5.1) mEq/L Chloride 101 (98-107) mEq/L Carbon Dioxide 28 (23-29) mEq/L BUN 21 (8-23) mg/dL Creatinine 1.10 (0.70-1.30) mg/dL Glucose 120 H (70-105) mg/dL Calcium 8.8 (8.6-10.3) mg/dL Adrenal panel 10/03/17 Range/Units 01:14 Sodium 135 L (136-145) mEq/L Potassium 3.9 (3.5-5.1) mEq/L Chloride 101 (98-107) mEq/L Carbon Dioxide 28 (23-29) mEq/L BUN 21 (8-23) mg/dL Creatinine 1.10 (0.70-1.30) mg/dL Glucose 120 H (70-105) mg/dL Calcium 8.8 (8.6-10.3) mg/dL - VTE Documentation of Mechanical Device: Intermittent pneumatic compression device Consult Discharge Plan - Plan Referrals: Lobito Lang MD [Primary Care Provider] -
[2017-10-03 13:34] LABS: Basophils # 0.1 K/mcL (0.0-0.2); Basophils % 0.6 %; Eosinophils # 0.2 K/mcL (0.0-0.6); Eosinophils % 2.3 %; Hematocrit 29.1 % (37.5-50.1); Hemoglobin 9.2 g/dL (12.9-16.9); Immature Granulocytes % 1.3 % (0-4); Lymphocytes # 0.7 K/mcL (0.6-4.6); Lymphocytes % 8.7 %; Mean Corpuscular HGB Conc 31.6 g/dL (31.6-35.5); Mean Corpuscular Hemoglobin 33.2 pg (28.0-33.3); Mean Corpuscular Volume 105.1 fL (83.0-100.0); Mean Platelet Volume 10.2 fL (9.4-12.4); Monocytes # 0.6 K/mcL (0.0-1.3); Monocytes % 7.4 %; Neutrophils # 6.6 K/mcL (1.6-8.9); Platelet Count 531 K/mcL (140-400); Red Blood Count 2.77 M/mcL (4.19-5.50); Red Cell Distribution Width 16.5 % (11.5-14.5); Segmented Neutrophils % 79.7 %
[2017-10-03] MEDS: Clinimix E 5%-20% SOLUTION 2,000 ML with MVI, adult with vitamin K 10 ML IVC SCH (18:08)
[2017-10-04] MEDS: Ondansetron 4 MG/2 ML VIAL IVP SCH ×6 (00:16→20:24)
[2017-10-04] MEDS: Insulin LISPRO 300 UNITS/3 ML VIAL SQ SCH ×6 (00:16→20:46)
[2017-10-04 04:00] LABS: BUN/Creatinine Ratio 19 (6-26); Blood Urea Nitrogen 20 mg/dL (8-23); Calcium 9.1 mg/dL (8.6-10.3); Carbon Dioxide 27 mEq/L (23-29); Chloride 102 mEq/L (98-107); Glucose 117 mg/dL (70-105); Osmolality,Calculated 284 (280-300); Potassium 3.9 mEq/L (3.5-5.1); Sodium 135 mEq/L (136-145); eGFR For African Americans > 60 (> 60); eGFR For Non-African Americans > 60 (> 60)
[2017-10-04] MEDS: Piperacillin/Tazobactam 3.375 GM in 0.9 % Sodium Chloride Mini Bag 100 ML IVPB SCH ×3 (04:33→20:27)
[2017-10-04] MEDS: Heparin 25,000 UNIT/500 ML D5W 25,000 UNIT/500 ML BAG IVC SCH (04:37)
[2017-10-04 06:57] LABS: Basophils # 0.1 K/mcL (0.0-0.2); Basophils % 0.5 %; Eosinophils # 0.3 K/mcL (0.0-0.6); Eosinophils % 3.2 %; Hematocrit 28.8 % (37.5-50.1); Hemoglobin 9.2 g/dL (12.9-16.9); Immature Granulocytes % 1.5 % (0-4); Lymphocytes % 10.5 %; Magnesium 2.1 mg/dL (1.6-2.6); Mean Corpuscular HGB Conc 31.9 g/dL (31.6-35.5); Mean Corpuscular Hemoglobin 33.9 pg (28.0-33.3); Mean Corpuscular Volume 106.3 fL (83.0-100.0); Mean Platelet Volume 10.5 fL (9.4-12.4); Monocytes # 0.8 K/mcL (0.0-1.3); Monocytes % 8.9 %; Neutrophils # 6.9 K/mcL (1.6-8.9); Phosphorous 2.8 mg/dL (2.7-4.5); Platelet Count 495 K/mcL (140-400); Red Blood Count 2.71 M/mcL (4.19-5.50); Red Cell Distribution Width 16.9 % (11.5-14.5); Segmented Neutrophils % 75.4 %
--- NOTE | 2017-10-04 09:16 | General Surgery Progress Note ---
Date of Encounter: 10/04/17 Time of Encounter: 08:10 - Assessment and Plan (1) Status post exploratory laparotomy Current Visit: Yes Status: Acute POD#27 s/p exploratory laparotomy, lysis of adhesions, repair serosal tears, small bowel resection x2 by Dr. Zhao and Dr. Israel. POD#14 take back due to anastomotic leak (09/19/17) 200 ml residual in bladder scan last night. Plan: NPO except a sip of water with flomax continue supportive care and pain control- pain well controlled at this time continue TPN for nutritional support IV antibiotics- management per ID- Zosyn, Vancomycin, Micofungin continue wound VAC and JAYESH drain- Wound vac last changed 10/01/17. We will change wound vac today. continue PT and OT daily serial abdominal exams repeat a.m. labs consumer services advisor consulted for management of discharge planning- LTAC preferred at discharge early next week (2) Anemia Current Visit: Yes Status: Acute Hemoglobin has been consistenyl stable: 8.3, 8.4, 8.4. 8.5. Today's hgb level is at 9.2. Qualifiers: Anemia type: unspecified type Qualified Code(s): D64.9 - Anemia, unspecified (3) Pulmonary embolism Current Visit: Yes Status: Acute Continue heparin drip Will plan to transition to therapeutic lovenox at discharge Continue incentive spirometer every 1 hour while awake Qualifiers: Pulmonary embolism type: other Chronicity: acute Acute cor pulmonale presence: without acute cor pulmonale Qualified Code(s): I26.99 - Other pulmonary embolism without acute cor pulmonale (4) Colon cancer Current Visit: Yes Status: Acute The patient has a history of stage IV adenocarcinoma Status post lysis of adhesion, resection of omental mass, takedown of splenic flexure and colostomy We will plan for follow-up with oncology as an outpatient with Dr. Diop Qualifiers: Colon location: splenic flexure Qualified Code(s): C18.5 - Malignant neoplasm of splenic flexure (5) DVT prophylaxis Current Visit: Yes Status: Acute DVT in the right upper extremity- subclavian vein PICC line removed and sent for culture- catheter tip no growth Continue heparin drip Transition to therapeutic lovenox at discharge Subjective Narrative: Patient admits to minor abdominal pain. He admits to occasional nausea. Denies any vomiting. Denies any chest pain or shortness of breath. Denies any feveror chills overnight. Objective VITAL SIGNS: Reviewed. See [facility] GENERAL: no apparent distress. HEENT: [Normocephalic, PER, EOMi, oropharynx pink/moist, no JVD noted.] CV: b/l rad pulses 2+, RRR, no murmurs or gallops, no JVD RESPIRATORY: CTAB without wheezes, rales, or rhonchi ABD: soft, non-tender, no rebound/guarding/rigidity, no peritoneal signs. Hypoactive bowel sounds present. INCISION: wound vac intact. Although minor, increased leakage of bile around wound vac. OSTOMY: no fecal output evident in ostomy today. [place], moist without signs of bleeding, pus, or infection. DRAINS: L JAYESH site without signs of infection; bulb contains biliious fluid. EXTREMITY: grossly normal motor function, no pedal edema, peripheral pulses 2+ b /l NEUROLOGIC EXAM: AOx3, obeys commands, no speech deficits. PSYCHIATRIC: normal mood and affect SKIN: no gross lesions, rashes, or skin changes Vital Signs - Last 8 Hours Temp Pulse Resp BP Pulse Ox 10/04/17 07:02 98.2 F 78 16 130/72 98 10/04/17 03:34 98.0 F 82 16 124/75 96 Intake and Output 10/03/17 10/04/17 10/04/17 23:59 07:59 15:59 Intake Total 0 / 0 850 / 850 Output Total 605 / 605 525 / 525 Balance -605 / -605 325 / 325 Intake: IV Fluids 850 / 850 Heparin 25,000 UNIT/500 ML D5W 500 / 500 25,000 unit In 500 ml @ 14 UNIT /KG/HR 22.652 mls/hr IVC . Q22H5M PAD[facility]A Rx#:[id number] Intralipid 20% 250 ML @ 21 mls/ 250 / 250 hr IVPB DAILY@1700 PAD[facility]A Rx#: [id number] Zosyn 3.375 GM In 0.9 % Sodium 100 / 100 Chloride (Mini-Bag +) 100 ML @ 25 mls/hr IVPB Q8H [facility]A Rx#: [id number] Oral 0 / 0 0 / 0 Output: Urine 600 / 600 525 / 525 Wound Drainage 5 / 5 0 / 0 Left JAYESH 5 / 5 0 / 0 Other: # Voids 1 # Urine Diapers 1 Weight 80.2 kg Blood Glucose* 126 112 123 Patient Weight 10/04/17 23:59 Weight 80.2 kg - Labs 10/04/17 03:16 10/04/17 03:16 Diabetes panel 10/04/17 Range/Units 03:16 Sodium 135 L (136-145) mEq/L Potassium 3.9 (3.5-5.1) mEq/L Chloride 102 (98-107) mEq/L Carbon Dioxide 27 (23-29) mEq/L BUN 20 (8-23) mg/dL Creatinine 1.05 (0.70-1.30) mg/dL Glucose 117 H (70-105) mg/dL Calcium 9.1 (8.6-10.3) mg/dL Calcium panel 10/04/17 Range/Units 03:16 Calcium 9.1 (8.6-10.3) mg/dL Phosphorus 2.8 (2.7-4.5) mg/dL Pituitary panel 10/04/17 Range/Units 03:16 Sodium 135 L (136-145) mEq/L Potassium 3.9 (3.5-5.1) mEq/L Chloride 102 (98-107) mEq/L Carbon Dioxide 27 (23-29) mEq/L BUN 20 (8-23) mg/dL Creatinine 1.05 (0.70-1.30) mg/dL Glucose 117 H (70-105) mg/dL Calcium 9.1 (8.6-10.3) mg/dL Adrenal panel 10/04/17 Range/Units 03:16 Sodium 135 L (136-145) mEq/L Potassium 3.9 (3.5-5.1) mEq/L Chloride 102 (98-107) mEq/L Carbon Dioxide 27 (23-29) mEq/L BUN 20 (8-23) mg/dL Creatinine 1.05 (0.70-1.30) mg/dL Glucose 117 H (70-105) mg/dL Calcium 9.1 (8.6-10.3) mg/dL - VTE Documentation of Mechanical Device: Intermittent pneumatic compression device Consult Discharge Plan - Plan Referrals: Lobito Lang MD [Primary Care Provider] -
[2017-10-04] MEDS: *HR* FentaNYL PATCH 25 MCG PATCH TD SCH (10:03)
[2017-10-04] MEDS: Pantoprazole 40 MG VIAL IVP SCH (10:05)
[2017-10-04] MEDS: Furosemide 20 MG/2 ML VIAL IVP SCH (10:05)
[2017-10-04] MEDS: Micafungin 100 MG in 0.9 % Sodium Chloride Mini Bag 100 ML IVPB SCH (10:06)
[2017-10-04] MEDS: Clinimix E 5%-20% SOLUTION 2,000 ML with MVI, adult with vitamin K 10 ML IVC SCH ×3 (16:19→20:50)
[2017-10-04] MEDS: Scopolamine Patch 1.5 MG PATCH.TD72 TD SCH (16:45)
[2017-10-04] MEDS: OXYCODONE Oral CONC 10 MG/0.5 ML ORAL.SYG SL PRN (20:24)
[2017-10-05] MEDS: Ondansetron 4 MG/2 ML VIAL IVP SCH ×5 (00:04→15:50)
[2017-10-05] MEDS: Insulin LISPRO 300 UNITS/3 ML VIAL SQ SCH ×5 (00:07→15:50)
[2017-10-05] MEDS: Heparin 25,000 UNIT/500 ML D5W 25,000 UNIT/500 ML BAG IVC SCH (00:37)
[2017-10-05 03:31] LABS: Basophils # 0.1 K/mcL (0.0-0.2); Basophils % 0.9 %; Eosinophils # 0.3 K/mcL (0.0-0.6); Eosinophils % 3.6 %; Hematocrit 29.4 % (37.5-50.1); Hemoglobin 9.2 g/dL (12.9-16.9); Lymphocytes # 1.1 K/mcL (0.6-4.6); Lymphocytes % 12.5 %; Mean Corpuscular HGB Conc 31.3 g/dL (31.6-35.5); Mean Corpuscular Hemoglobin 32.4 pg (28.0-33.3); Mean Corpuscular Volume 103.5 fL (83.0-100.0); Mean Platelet Volume 9.5 fL (9.4-12.4); Monocytes # 0.8 K/mcL (0.0-1.3); Monocytes % 9.6 %; Neutrophils # 6.2 K/mcL (1.6-8.9); Platelet Count 469 K/mcL (140-400); Red Blood Count 2.84 M/mcL (4.19-5.50); Red Cell Distribution Width 16.8 % (11.5-14.5); Segmented Neutrophils % 71.4 %
[2017-10-05 03:49] LABS: BUN/Creatinine Ratio 21 (6-26); Blood Urea Nitrogen 23 mg/dL (8-23); Calcium 9.1 mg/dL (8.6-10.3); Carbon Dioxide 27 mEq/L (23-29); Chloride 102 mEq/L (98-107); Glucose 108 mg/dL (70-105); Osmolality,Calculated 284 (280-300); Phosphorous 3.3 mg/dL (2.7-4.5); Potassium 3.8 mEq/L (3.5-5.1); Sodium 135 mEq/L (136-145); eGFR For African Americans > 60 (> 60); eGFR For Non-African Americans > 60 (> 60)
[2017-10-05] MEDS: Piperacillin/Tazobactam 3.375 GM in 0.9 % Sodium Chloride Mini Bag 100 ML IVPB SCH ×2 (04:43→12:24)
[2017-10-05] MEDS: Micafungin 100 MG in 0.9 % Sodium Chloride Mini Bag 100 ML IVPB SCH (09:24)
[2017-10-05] MEDS: Pantoprazole 40 MG VIAL IVP SCH (09:24)
[2017-10-05] MEDS: Furosemide 20 MG/2 ML VIAL IVP SCH (09:24)
--- NOTE | 2017-10-05 10:47 | Infectious Disease Progress No ---
Date of Encounter: 10/05/17 Time of Encounter: 10:44 - Assessment and Plan (1) Sepsis Status: Resolved The patient had three SIRS criteria. Etiology unclear, but likely related to intra-abdominal fluid collections. The patient does have a central line and has been on TPN. The central line does not appear infected. Blood cultures drawn 09/12/14 x 3 sets were negative (2 peripheral, 1 PICC). The patient had continued worsening leukocytosis with new-onset fever and tachycardia. He has been afebrile since 09/25. Leukocytosis has resolved. Repeat blood cultures x 2 sets drawn 09/24/17 are negative x 2 sets. Qualifiers: Sepsis type: sepsis due to unspecified organism Qualified Code(s): A41.9 - Sepsis, unspecified organism (2) Intra-abdominal fluid collection Status: Acute Likely secondary to anastamosis leak. Location: Left lower quadrant x2, anterior pelvis. CT scan of the abdomen and pelvis completed September 18 showed a 14 x 6.8 x 6.5; her collection of air and oral contrast along the left lateral abdomen, consistent with an anastomosis leak. The sign of leakage is suspected to be at the surgical staple line along the left lower quadrant. There is also noted to be a loculated fluid collection in the central/posterior lower abdomen, measuring 8 x 5.5 x 8.6 cm with no internal air to specifically suggest an abscess, although this cannot be entirely excluded. There was scattered air and mottled material in the subcutaneous soft tissues along the surgical staple line, concerning for infection, however, no well ill-defined abscess was seen. The patient was taken back to the operating room on September 19, but due to extensive intra-abdominal adhesions, the surgical team was unable to access the fluid collection or the site of the anastomosis. Interventional radiology was consulted and placed a pigtail drain in the left pericolic fluid collection. He has had about 25 mL on the past [address] scan September 23 showed interval placement of the left lower quadrant pigtail drainage catheter with decompression of the dominant gas and fluid collection compatible with known anastomosis leak. There has been overall decrease the size of a partially loculated collection within the mid pelvis abutting the rectal pouch anastomosis which likely communicates with this dominant fluid collection. There was noted to be a slight interval increase in the size of a 5.6 x 2.4 Center fluid collection in the anterior pelvis just below the level of the midline incision extending to the skin surface. There is no enteric contrast noted on this study within any of the fluid collections which could be related to the placement of the drainage catheter and lack of additional enteric contrast administered during this testing. Interventional radiology was again consulted to assist with management of the fluid collection in the anterior pelvis. A limited CT scan was repeated the following day that did not reveal any fluid that was able to be aspirated. Case discussed with the surgery team. Unfortunately, the patient's adhesions prevent any further abdominal surgical intervention at this time. The wound VAC appears to be controlling the leakage of bowel contents at this point. Continue Vancomycin IV. Pharmacy to dose. Goal trough ~15. Continue Micafungin 100mg IV daily. Continue Zosyn 3.375grams IV Q8H. Duration of treatment depends on the clincal picture, but likely 6 weeks. Monitor renal function and for drug toxicity and dose-adjust antibiotics. Pending insurance approval for transfer to [facility]. (3) Small bowel obstruction Status: Acute Status post exploratory laparotomy with lysis of adhesions, enterotomy 1, and small bowel resection 2. Wound care and activity restrictions per the primary team. Nutritional support per TPN. (4) Anastomotic leak of intestine Status: Acute (5) Abdominal pain Status: Acute Qualifiers: Abdominal location: generalized Qualified Code(s): R10.84 - Generalized abdominal pain (6) Urinary tract infection Status: Resolved Asymptomatic bacteriuria versus true infection. The patient did report some abdominal pain on admission, but this was likely secondary to small bowel obstruction. The patient has received multiple antibiotics that would treat his UTI appropriately. No additional antibiotics are recommended at this time. Qualifiers: Urinary tract infection type: acute cystitis Hematuria presence: without hematuria Qualified Code(s): N30.00 - Acute cystitis without hematuria (7) Status post exploratory laparotomy Status: Acute (8) Acute respiratory failure Status: Resolved Qualifiers: Respiratory failure complication: unspecified whether with hypoxia or hypercapnia Qualified Code(s): J96.00 - Acute respiratory failure, unspecified whether with hypoxia or hypercapnia (9) Pulmonary embolism Status: Acute Likely secondary to thrombophlebitis from his right upper extremity DVT. Does not appear hypoxic. Management per the primary team. Qualifiers: Pulmonary embolism type: other Chronicity: acute Acute cor pulmonale presence: without acute cor pulmonale Qualified Code(s): I26.99 - Other pulmonary embolism without acute cor pulmonale (10) DVT (deep venous thrombosis) Status: Acute Location: Right upper extremity subclavian vein. Management per the primary team Qualifiers: DVT location: upper extremity Affected thrombotic vein of extremity: other upper extremity vein Chronicity: acute Laterality: right Qualified Code(s) : I82.621 - Acute embolism and thrombosis of deep veins of right upper extremity (11) Anemia Status: Acute Chronic Likely multifactorial: Acute blood loss anemia status post surgery, poor nutritional status, acute bleeding from surgical wound, etc. Transfusion parameters per the primary team. Qualifiers: Anemia type: unspecified type Qualified Code(s): D64.9 - Anemia, unspecified (12) Pleural effusion Status: Acute Likely secondary to fluid volume overload. Patient is not in any acute respiratory distress. Management per the primary team. (13) Hypertension Status: Chronic Qualifiers: Hypertension type: essential hypertension Qualified Code(s): I10 - Essential (primary) hypertension (14) Colon cancer Status: Resolved Status post bowel resection with colostomy back in 2014. Qualifiers: Colon location: unspecified part of colon Qualified Code(s): C18.9 - Malignant neoplasm of colon, unspecified - Subjective Interval history: Patient seen and examined. Weekend notes reviewed. No acute events noted overnight. Patient states he feels okay. Denies fevers, chills, or rigors. Denies chest pain, shortness of breath, or cough. Denies abdominal pain at this time, but does report some soreness and itching at the incision site. Denies vomiting, but states he becomes nauseated with movement and he feels a little nauseated now. Steen catheter re-inserted over the weekend due to urinary retention. Denies oral thrush or skin lesions. Complains of throat soreness. Minimal stool output via colostomy for several days. Denies oral thrush. Infect Dis PN-Objective Data - Labs CBC & Chem 7: 10/05/17 03:12 10/05/17 03:12 Labs: Laboratory Results - last 24 hr 10/03/17 10/03/17 10/04/17 20:18 23:15 03:22 WBC RBC Hgb Hct MCV MCH MCHC RDW Plt Count MPV Immature Gran % Seg Neutrophils % Lymphocytes % Monocytes % Eosinophils % Basophils % Neutrophils # Lymphocytes # Monocytes # Eosinophils # Basophils # APTT Sodium Potassium Chloride Carbon Dioxide BUN Creatinine Est GFR ( Amer) Est GFR (Non-Af Amer) BUN/Creatinine Ratio Glucose POC Glucose 119 H 126 H 112 H Calculated Osmolality Calcium Phosphorus Magnesium Prealbumin 10/04/17 10/04/17 10/05/17 11:39 16:09 03:12 WBC RBC Hgb Hct MCV MCH MCHC RDW Plt Count MPV Immature Gran % Seg Neutrophils % Lymphocytes % Monocytes % Eosinophils % Basophils % Neutrophils # Lymphocytes # Monocytes # Eosinophils # Basophils # APTT Sodium 135 L Potassium 3.8 Chloride 102 Carbon Dioxide 27 BUN 23 Creatinine 1.12 Est GFR ( Amer) > 60 Est GFR (Non-Af Amer) > 60 BUN/Creatinine Ratio 21 Glucose 108 H POC Glucose 118 H 123 H Calculated Osmolality 284 Calcium 9.1 Phosphorus Magnesium Prealbumin 10/05/17 10/05/17 10/05/17 03:12 03:12 03:12 WBC 8.7 RBC 2.84 L Hgb 9.2 L Hct 29.4 L MCV 103.5 H MCH 32.4 MCHC 31.3 L RDW 16.8 H Plt Count 469 H MPV 9.5 Immature Gran % 2.0 Seg Neutrophils % 71.4 Lymphocytes % 12.5 Monocytes % 9.6 Eosinophils % 3.6 Basophils % 0.9 Neutrophils # 6.2 Lymphocytes # 1.1 Monocytes # 0.8 Eosinophils # 0.3 Basophils # 0.1 APTT 77.0 H Sodium Potassium Chloride Carbon Dioxide BUN Creatinine Est GFR ( Amer) Est GFR (Non-Af Amer) BUN/Creatinine Ratio Glucose POC Glucose Calculated Osmolality Calcium Phosphorus Magnesium Prealbumin 30.0 10/05/17 03:12 WBC RBC Hgb Hct MCV MCH MCHC RDW Plt Count MPV Immature Gran % Seg Neutrophils % Lymphocytes % Monocytes % Eosinophils % Basophils % Neutrophils # Lymphocytes # Monocytes # Eosinophils # Basophils # APTT Sodium Potassium Chloride Carbon Dioxide BUN Creatinine Est GFR ( Amer) Est GFR (Non-Af Amer) BUN/Creatinine Ratio Glucose POC Glucose Calculated Osmolality Calcium Phosphorus 3.3 Magnesium 2.0 Prealbumin Cultures: Cultures 09/24/17 18:28 Blood Culture - Final Peripheral Venipuncture No growth. 09/24/17 18:28 Blood Culture - Final Peripheral Venipuncture No growth. 09/24/17 18:28 Blood Culture - Final Peripheral Venipuncture No growth. 09/15/17 16:08 Blood Culture - Final Peripheral Venipuncture No growth. 09/15/17 21:05 Blood Culture - Final Peripheral Central Cath, Picc No growth. 09/15/17 16:08 Blood Culture - Final Peripheral Venipuncture No growth. 09/16/17 09:46 Catheter Tip Culture - Final Intravenous or Arterial Cath No growth. Serology 09/29/17 09/22/17 Range/Units 23:48 04:25 Urine Color Yellow Yellow (Yellow) Urine Clarity Cloudy A Clear (Clear) Urine pH 6.0 7.0 (5.0-8.0) pH Units Ur Specific [place] 1.027 H 1.010 (1.010-1.025) Urine Protein Trace Negative (Neg-Trace) mg/dL Urine Glucose (UA) Normal Normal (Normal) mg/dL Urine Ketones Negative Negative (Negative) mg/dL Urine Blood Negative Negative (Negative) Urine Nitrite Negative Negative (Negative) Urine Bilirubin Negative Negative (Negative) Urine Urobilinogen Normal Normal (Normal) mg/dL Ur Leukocyte Esterase Small H Negative (Negative) Urine Microscopic RBC 0-3 (0-3) per hpf Urine Microscopic WBC 15-30 H (0-3) per hpf Ur Squamous Epith Cells Many H (None-Few) per lpf Urine Bacteria Few (None-Few) per hpf Hyaline Casts Few (None-Few) per lpf Urine Mucus Few (Few) Urine Yeast Few H (None Seen) per hpf Ur Culture Indicated? NO. A NO (NO) Exam - Constitutional Vitals: Temp Pulse Resp BP Pulse Ox 98.2 F 74 16 131/76 99 10/05/17 07:39 10/05/17 07:39 10/05/17 07:39 10/05/17 07:39 10/05/17 07:39 General appearance: average body habitus, cooperative, no acute distress - Head Head exam: Present: atraumatic, normal inspection, normocephalic - Eye Eye exam: Present: EOMI, normal appearance, PERRL Pupils: Present: normal accommodation - ENT ENT exam: Present: mucous membranes moist - Neck Neck exam: Present: normal inspection Additional comments: Triple-lumen central venous catheter noted to the right neck with transparent dressing clean, dry, and intact. No redness, warmth, or drainage noted. - Respiratory Respiratory exam: Present: CTAB. Absent: rales, respiratory distress, rhonchi, wheezes - Cardiovascular Cardiovascular exam: Present: RRR, +S1, +S2 - GI/Abdominal GI/Abdominal exam: Present: hypoactive bowel sounds, soft. Absent: distended, tenderness Additional comments: Midline abdominal incision with wound VAC dressing intact. Small amount of bilious leakage noted surrounding the incision. Sponge is well compressed. Dressing is intact. Moderate amount of dark brown liquid drainage in the canister. JAYESH drain to the left lower quadrant with small amount of purulent bilious drainage noted. Steen catheter remains pain with clear yellow urine. - Extremities Exam Extremities exam: Present: normal inspection. Absent: joint swelling, pedal edema, tenderness - Neurological Exam Neurological exam: Present: alert, oriented X3, no focal deficits - Psychiatric Psychiatric exam: Present: normal affect, normal mood - Skin Skin exam: Present: dry, intact, normal color, warm - VTE Documentation of Mechanical Device: Intermittent pneumatic compression device Consult Discharge Plan - Plan Additional Instructions: Wound Vac: M/WF changes. Apply adaptic to the abdomen prior to placing black foam. Maintain suction at 125 mmHg May d/c remaining mehul with next wound vac change Premedicate with SL Oxycodone or Morphine prior to [place] changes JAYESH site: Cleanse daily with antibacterial soap. Apply split gauze. Do not let the JAYESH dangle from the body. Suspend with a safety pin or a lanyard. Maintain JAYESH bulb to suction. May discontinue when drainage is less than 30 ML's per day. Maintain NPO while fistulas remain. Keep steen catheter given inability to take PO Follow-up with Dr. Zhao 1-2 weeks after d/c from LT[facility] Referrals: Lobito Lang MD [Primary Care Provider] - Prescriptions: Enoxaparin [Lovenox] 80 mg SQ DAILY #1 syr - Attending Attestation I examined this patient and my medical decision-making was reviewed with the Resident Physician. I agree with the documented findings, disposition and treatment plan as described except to the extent set forth below.
[2017-10-05] MEDS: OXYCODONE Oral CONC 10 MG/0.5 ML ORAL.SYG SL PRN (12:34)
--- NOTE | 2017-10-05 12:34 | Discharge Summary ---
Orders not resulted at time of discharge: Pending orders 10/06/17 03:00 PTT [Activated Partial Thrombo Time] [COAG] Timed 10/06/17 04:00 Basic Metabolic Panel AM 0400 Magnesium AM 0400 Phosphorous AM 0400 Date of Encounter: 10/05/17 Time of Encounter: 12:47 - Discharge Diagnosis (1) Small bowel obstruction Priority: Primary Status: Acute (2) Anastomotic leak of intestine Priority: Secondary Status: Acute (3) Leukocytosis (leucocytosis) Priority: Secondary Status: Acute Qualifiers: Leukocytosis type: unspecified Qualified Code(s): D72.829 - Elevated white blood cell count, unspecified (4) Pulmonary embolism Priority: Secondary Status: Acute Qualifiers: Pulmonary embolism type: other Chronicity: acute Acute cor pulmonale presence: without acute cor pulmonale Qualified Code(s): I26.99 - Other pulmonary embolism without acute cor pulmonale (5) DVT (deep venous thrombosis) Priority: Secondary Status: Acute Qualifiers: DVT location: upper extremity Affected thrombotic vein of extremity: other upper extremity vein Chronicity: acute Laterality: right Qualified Code(s) : I82.621 - Acute embolism and thrombosis of deep veins of right upper extremity (6) Anemia Priority: Secondary Status: Acute Qualifiers: Anemia type: unspecified type Qualified Code(s): D64.9 - Anemia, unspecified (7) Poor prognosis Priority: Secondary Status: Acute General Surgery Exam Initial Vital Signs Temp Pulse Resp BP Pulse Ox 98.3 F 110 18 108/69 98 09/03/17 09:45 09/03/17 09:45 09/03/17 09:45 09/03/17 09:45 09/03/17 09:45 VITAL SIGNS: Reviewed. See [facility] GENERAL: In no apparent distress. HEENT: Normocephalic, atraumatic, pupils are equal and reactive, extraocular motions intact, oropharynx is pink and moist, there is no neck adenopathy or JVD noted. CHEST/RESPIRATORY: The thorax is free from signs of trauma. Lung sounds: clear to auscultation, normal respiratory effort CARDIAC: Regular rate and rhythm. Normal S1 and S2, without murmurs, gallops, or rubs. VASCULAR: No Edema. 2+ peripheral pulses. ABDOMEN: soft, tender, hypoactive bowel sounds. Wound VAC changed 10/04/2017 per RN. Small amount of bilious drainage around the sponge noted today (did not change d/t LTAC sates they will change woundvac when he arrives). INCISION: wound VAC is in place with seal maintained. Noted approximately 400 ML's maroon/bilious drainage over the last 24 hours. There are no signs of cellulitis or infection noted. WOUNDS/DRAINS: JAYESH site WNL. small amount of SS mixed with succous drainage in bulb. MUSCULOSKELETAL: Good range of motion of all major joints. Extremities without clubbing, cyanosis or edema. NEUROLOGIC EXAM: Alert and oriented x 3. Speech normal. Follows commands. PSYCHIATRIC: Mood normal. SKIN: No rash or lesions. - Hospital Course Hospital course: Mr. San is a 72 year old male who was admitted on 09/03/2017 for a small bowel obstruction. He failed conservative therapy and was taken to the operating room (by Dr. Vincenzo Zhao) on 09/07/2017 where he underwent an exploratory laparotomy, lysis of adhesions for 3 hours, and a small bowel resection times 2. On 09/19/2017 he developed and anastomotic leak and return to the operating room where he underwent an exploratory laparotomy, lysis of adhesions, closure of the serosal tear x 2, and wound VAC placement. 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 His hospital course has been further complicated by a pulmonary embolism noted per CT on 09/15/2017. He was treated with IV therapeutic heparin. He did develop G.I. bleed and drop in hemoglobin on 09/25/2017 in the heparin was stopped. Heparin was restarted on and remained until time of discharge. He is transition to Lovenox injections at [place]. He was treated with Cherelle IV 200 mg daily for 5 days during this hospital admission and is status post transfusion 2 units packed red blood cells. Infectious disease was consult to during this hospital stay for management of antibiotics (vancomycin, Micofungin Zosyn) -prior to ID consult pt also completed diflucan, ampicillin-see MAR report). They recommend continuation of IV antibiotics for 6 weeks. They do not recommend follow-up after IV course of antibiotics is completed and less indicated. His hospital course was further complicated by difficulty controlling his abdominal drainage. His wound VAC drainage has varied from 300 ML's 2 900 ML's daily and has required multiple dressing changes as well as to wound fax attached at one point. He is currently on 125 mmHg suction and one wound VAC is applied. He does have a small amount of drainage around the sponge at PA; however, the seal remains intact. He had a pigtail drain placed in the left lower quadrant by IR on 09/19/2017. Palliative care was consult to during this admission given his grim prognosis. His code status was changed to DNR-CCA/DNI and hospice was discussed with the patient. He opts to continue treatment but not escalate care at this time. He does not want pressors administered. He remains NPO, his NG is DC'd, a Steen catheter was replaced on 10/05/2017 due to acute urinary retention and likely this will need to be left in place until he is able to take Flomax. His vital signs are stable, he is afebrile, and his abdominal discomfort is moderately controlled. We will begin discharge planning to a long-term acute care facility. Patient will need follow-up with Dr. Zhao approximately one to 2 weeks after discharge from the LTAC. - Time Spent with Patient Total time spent providing and/or coordinating discharge services: Greater than 30 minutes (LTAC arrangments, med rec, d/c planning) - Discharge Medications Prescriptions: Enoxaparin [Lovenox] 80 mg SQ DAILY #1 syr Home Medications: Dextrose 50 % in Water (Syg) [Dextrose 50% (Syg)] 25 ml IVP AD PRN syringe 08/19 [Rx] Dextrose Gel [Gluctose] 15 gm PO ONCE PRN tube 10/05/17 [Rx] Dextrose Gel [Gluctose] 30 gm PO ONCE PRN tube 10/05/17 [Rx] Enoxaparin [Lovenox] 80 mg SQ DAILY #1 syr 10/05/17 [Rx] FentaNYL PATCH [Duragesic] 25 mcg TD Q72H 1 Days #1 patch.td72 10/05/17 [Rx] Furosemide [Lasix] 20 mg IVP DAILY vial 10/05/17 [Rx] Glucagon, Human Recombinant [Glucagen] 1 mg IM ONCE PRN vial 10/05/17 [Rx] Insulin LISPRO [HumaLOG] 0 units SQ Q4HR vial 10/05/17 [Rx] Ipratropium/Albuterol Neb [Duoneb] 3 ml IH [id number] PRN inhsol 10/05/17 [Rx] MORPHINE SUL Oral CONC [Roxanol Oral Conc] 15 mg SL Q4HR PRN 1 Days #1 oral.syg 10/05/17 [Rx] Metoprolol [Lopressor] 7.5 mg IVP Q6HR PRN vial 10/05/17 [Rx] OXYCODONE Oral CONC [Oxycodone Oral Conc] 10 mg SL Q4H PRN 1 Days #1 oral.syg [Rx] Ondansetron [Zofran] 4 mg IVP Q4HR vial 10/05/17 [Rx] Pantoprazole [Protonix] 40 mg IVP DAILY vial 10/05/17 [Rx] Promethazine [Phenergan] 12.5 mg IVP Q4HR PRN vial 10/05/17 [Rx] Saline Nasal [place] [[place] Nasal [place]] 2 spray NS Q2H PRN bottle 10/05/17 [Rx] Saliva Stimulant [Biotene Moisturizing Rinse] 1 spray PO Q2H PRN bottle [Rx] Scopolamine Patch [Transderm-Scop] 1.5 mg TD Q72H patch.td72 10/05/17 [Rx] hydrALAZINE [HydrALAZINE] 10 mg IVP Q6HR PRN vial 10/05/17 [Rx] Allergies/Adverse Reactions: 3 Allergy/AdvReac Type Severity Reaction Status Date / Time No Known Allergies Allergy Verified 09/03/17 12:52 Date of admission: 09/03/17 12:58 Primary care physician: Lobito Lang Consults: 09/03/17 13:33 Consult to Medical Records Tech [CONS] Routine Reason for SW Consult: d/c planning 09/07/17 07:42 Consult to PICC team [Consult to Invasive Line Access Team] [CONS] Routine Reason for Consult: TPN Line Type: PICC PICC line indications: Parental nutrition Time Notified: 07:42 Call Completed: No 09/07/17 23:38 Consult to Critical Care [CONS] Routine Consulting Provider: Pulm Crit Care & Sleep [place] Reason for Consult: vent management Call Completed: No 09/10/17 13:40 Consult to Physical Therapy [CONS] Routine Comment: Evaluate, develop and implement POC Reason for Consult: post sx Does patient have active BEDREST order?: No Is patient medically & hemodynamically stable?: Yes Patient assessed for mobility or mobilized this visit?: No 09/10/17 13:41 Consult to Occupational Therapy [CONS] Routine Comment: Evaluate, develop and implement POC Reason for Consult: weak post sx Does patient have active BEDREST order?: No Is patient medically & hemodynamically stable?: Yes Patient assessed for mobility or mobilized this visit?: No 09/15/17 13:45 Consult to Hospitalist [CONS] Stat Consulting Provider: Hospitalist Nathanael Reason for Consult: Stroke alert Time Notified: 13:46 Call Completed: Yes 09/18/17 10:55 Consult to Medical Records Tech [CONS] Routine Reason for SW Consult: assess discharge needs- may need short term rehab; assess insurance coverage of Xarelto 09/18/17 12:18 Consult to Invasive Line Access Team [CONS] Routine Reason for Consult: Picc Line Insertion Line Type: PICC PICC line indications: Parental nutrition Time Notified: 12:19 Call Completed: Yes 09/18/17 13:20 Consult to Interventional Radiology [CONS] Stat Consulting Provider: Radiology Interventional Cols Reason for Consult: Placement of central line for TPN therapy Time Notified: 13:21 Call Completed: Yes 09/18/17 13:22 consult to district agent [Consult to Nutrition] [CONS] Routine Comment: Total fluid rate TPN goal rate Consulting Provider: NUTRITION Reason for Dietary Consult: TPN Start and Manage 09/19/17 08:00 Consult to Interventional Radiology [CONS] Routine Consulting Provider: Radiology Interventional Cols Reason for Consult: anastomotic leak/bowel perforation, frozen abdomen, need drain placed in LLQ fluid collection Call Completed: No 09/23/17 09:28 Consult to Respiratory Therapy [CONS] Routine Reason for Consult: B/L pleural effusions Time Notified: 09:29 Call Completed: Yes 09/23/17 09:36 Consult to Interventional Radiology [CONS] Stat Consulting Provider: Radiology Interventional Cols Reason for Consult: Pssible additional drain placement: collection measuring approximately 8.8 x 3.5 cm in maximum dimensions with mild peripheral wall thickening along the posterior aspect. This previously measured 9.7 cm x 4.7 cm. There has been interval placement of a percutaneous drainage catheter into a left lower quadrant fluid collection which has decompressed since the prior exam. When compared to the prior exams, these collections likely communicate. Time Notified: 09:41 Call Completed: Yes 09/24/17 08:41 Consult to Palliative Care [CONS] Routine Comment: Consulting Provider: Palliative Care [place] Reason for Consult: code status change and end of life planning Time Notified: 08:42 Call Completed: Yes 09/24/17 11:34 Consult to Medical Records Tech [CONS] Routine Reason for SW Consult: please see about mpoa paperwork pt would like brother sendy san as his mpoa also needs living will thanks 09/24/17 14:57 Consult to Infectious Diseases [CONS] Routine Consulting Provider: Infectious Disease Radha Reason for Consult: bowel leak, not a surgical candidate, antibiotic recommendations Time Notified: 14:58 Call Completed: Yes 09/30/17 12:05 Consult to Medical Records Tech [CONS] Routine Reason for SW Consult: Discharge planning to LTAC in approximately 1 week with wound vac, TPN, lovenox, LLQ drain, NPO, Therapy Discharging clinician: Ayde Zhao (Susan Love) Anticipated date of discharge: 10/05/17 Labs on day of discharge: Labs from last 24 hours 10/05/17 10/05/17 10/05/17 03:12 03:12 03:12 WBC 8.7 RBC 2.84 L Hgb 9.2 L Hct 29.4 L MCV 103.5 H MCH 32.4 MCHC 31.3 L RDW 16.8 H Plt Count 469 H MPV 9.5 Immature Gran % 2.0 Seg Neutrophils % 71.4 Lymphocytes % 12.5 Monocytes % 9.6 Eosinophils % 3.6 Basophils % 0.9 Neutrophils # 6.2 Lymphocytes # 1.1 Monocytes # 0.8 Eosinophils # 0.3 Basophils # 0.1 APTT 77.0 H Sodium Potassium Chloride Carbon Dioxide BUN Creatinine Est GFR ( Amer) Est GFR (Non-Af Amer) BUN/Creatinine Ratio Glucose POC Glucose Calculated Osmolality Calcium Phosphorus 3.3 Magnesium 2.0 Prealbumin 10/05/17 10/05/17 10/04/17 03:12 03:12 16:09 WBC RBC Hgb Hct MCV MCH MCHC RDW Plt Count MPV Immature Gran % Seg Neutrophils % Lymphocytes % Monocytes % Eosinophils % Basophils % Neutrophils # Lymphocytes # Monocytes # Eosinophils # Basophils # APTT Sodium 135 L Potassium 3.8 Chloride 102 Carbon Dioxide 27 BUN 23 Creatinine 1.12 Est GFR ( Amer) > 60 Est GFR (Non-Af Amer) > 60 BUN/Creatinine Ratio 21 Glucose 108 H POC Glucose 123 H Calculated Osmolality 284 Calcium 9.1 Phosphorus Magnesium Prealbumin 30.0 10/04/17 10/03/17 10/03/17 03:22 23:15 20:18 WBC RBC Hgb Hct MCV MCH MCHC RDW Plt Count MPV Immature Gran % Seg Neutrophils % Lymphocytes % Monocytes % Eosinophils % Basophils % Neutrophils # Lymphocytes # Monocytes # Eosinophils # Basophils # APTT Sodium Potassium Chloride Carbon Dioxide BUN Creatinine Est GFR ( Amer) Est GFR (Non-Af Amer) BUN/Creatinine Ratio Glucose POC Glucose 112 H 126 H 119 H Calculated Osmolality Calcium Phosphorus Magnesium Prealbumin - Impressions ITS Impressions KUB X-Ray 09/03/17 14:20 IMPRESSION: 1. Placement of a nasogastric tube with the tip and side-port in the gastric fundus. 2. Small bowel obstruction. D/ / 09/03/2017 15:14:26 Pipo Rodney MD / joanne Interpreting Provider: Pipo Rodney MD Chest/Abdomen X-ray 09/06/17 12:22 IMPRESSION: No acute cardiopulmonary process. Multiple air-filled dilated loops of bowel may be secondary to ileus or early bowel obstruction. D/ / 09/06/2017 14:04:43 José Manuel Gibson MD / bcarter Interpreting Provider: José Manuel Gibson MD X-Ray 09/07/17 15:50 IMPRESSION: 1. Enteric tube tip is at the level of the duodenum. 2. Stable distended small bowel loops. D/ / 09/07/2017 21:52:59 Landry Ervin MD / joanne Interpreting Provider: Landry Ervin MD Chest X-Ray 09/08/17 23:38 IMPRESSION: Appropriate endotracheal tube positioning. Small left effusion and basilar opacities which could reflect atelectasis, aspiration or pneumonia. Discoid atelectasis bilaterally. D/ / Jerrod Boogie / Jerrod Boogie Interpreting Provider: Jerrod Boogie X-Ray 09/08/17 23:38 IMPRESSION: Esophagogastric tube terminates in the region of the 1st/ 2nd portion of the duodenum, favored to be post pyloric. Correlate with tube outputs and consider retracting 6-8 cm. D/ / Jerrod Boogie / Jerrod Boogie Interpreting Provider: Jerrod Boogie Chest X-Ray 09/09/17 04:00 IMPRESSION: Fluctuating basilar atelectasis. Unchanged small left effusion. Stable life support device positioning. D/ / Jerrod Boogie / Jerrod Boogie Interpreting Provider: Jerrod Boogie Chest/Abdomen X-ray 09/12/17 13:50 IMPRESSION: 1. Bibasilar atelectasis similar to previous exam. 2. Similar appearance of right PICC line. 3. Enteric tube re- demonstrated with tip at the level of the gastric antrum. 4. Nonspecific bowel gas pattern with no obstructive process identified. D/ / Chan Torres MD / Chan Torres MD Interpreting Provider: Chan Torres MD X-Ray 09/15/17 07:27 IMPRESSION: 1. Enteric tube tip and side port projected over the stomach. 2. Single loop of dilated small bowel in the right lower quadrant decreased in caliber since the prior exam. No other dilated loops of bowel are identified. D/ / Martha Wayne MD / Martha Wayne MD Interpreting Provider: Martha Wayne MD Chest CTA 09/15/17 13:37 IMPRESSION: Small to moderate emboli, primarily proximal descending right lower and segmental right upper lobe pulmonary arteries. The etiology is most likely due to thrombophlebitis, right subclavian vein with abnormal soft tissue density and air surrounding the contained right arm PICC line. This is presumed thrombosis and possibly infected given the air, which raises potential concern for septic pulmonary emboli. Small bilateral pleural effusion and bilateral lower lobe airspace disease, atelectasis versus pneumonia. Findings were discussed with Christiano Brice at 3:16 pm on 09/15/2017. D/ / Surjit Jimenez MD / Surjit Jimenez MD Interpreting Provider: Surjit Jimenez MD Head CT 09/15/17 13:37 IMPRESSION: No acute intracranial abnormality. D/ / Surjit Jimenez MD / Surjit Jimenez MD Interpreting Provider: Surjit Jimenez MD Brain MRI 09/15/17 16:02 IMPRESSION: No evidence of acute intracranial abnormality. Minimal nonspecific cerebral white matter T2 FLAIR hyperintensities. D/ / 09/16/2017 06:58:20 Jin Stewart / joanne Interpreting Provider: Jin Stewart Echocardiogram 09/16/17 16:03 Impressions: LVEF 65-70%. Mild left ventricular diastolic dysfunction. Normal right ventricular structure and function. No significant valvular dysfunction. No pulmonary hypertension. Left Ventricular Wall Motion: Rest Echo Findings All wall segments showed normal motion. Findings: Study Quality * Technically adequate exam. ECG Findings * Normal sinus rhythm. Left Ventricle * LVEF 65-70%. * Normal LV chamber size. * Mild basal septal hypertrophy. No LVOTO. * Mild left ventricular diastolic dysfunction. Right Ventricle * Normal right ventricular structure and function. Left Atrium * Mildly dilated left atrium. Right Atrium * Normal right atrial size. Mitral Valve * Normal mitral valve structure. * No mitral stenosis. * No mitral regurgitation. Aortic Valve * No aortic regurgitation. * Trileaflet aortic valve. * No aortic stenosis. Tricuspid Valve * Tricuspid valve not well visualized. * No tricuspid regurgitation. Pulmonic Valve * Pulmonic valve is not well visualized. * No pulmonic stenosis. * No pulmonic regurgitation. Pulmonary Artery * Pulmonary artery not well visualized. Aorta * Normally sized aortic root. Pericardium * There is no pericardial effusion present. Interatrial Septum * No evidence of PFO with agitated saline contrast. IVC * The IVC is not well evaluated. Guidance Needle Placement Ultrasound 09/18/17 00:00 IMPRESSION: Ultrasound and fluoroscopic guided placement of a right IJ central line, which is ready for immediate use. D/ / Vicente Luna MD / Vicente Luna MD Interpreting Provider: Vicente Luna MD Insertion Non-Tunneled Catheter 09/18/17 00:00 IMPRESSION: Ultrasound and fluoroscopic guided placement of a right IJ central line, which is ready for immediate use. D/ / Vicente Luna MD / Vicente Luna MD Interpreting Provider: Vicente Luna MD Abdomen/Pelvis CT 09/18/17 14:15 IMPRESSION: 1. A 14 x 6.8 x 6.5 cm collection of air and oral contrast along the left lateral abdomen, consistent with anastomotic leak. The site of leakage is suspected to be a surgical staple line along the left lower quadrant (such as on axial image 169). 2. Loculated fluid collection in the central/posterior lower abdomen, which measures 8.0 x 5.5 x 8.6 cm. No internal air is present to specifically suggest an abscess, although this cannot be entirely excluded. It is new from prior exam. 3. Scattered air and mottled material in the subcutaneous soft tissues along the surgical staple line, concerning for infection. However, no well-defined abscess is seen. 4. Small bilateral pleural effusions, with bibasilar atelectasis and/or consolidation. 5. Stable appearance of dilated gallbladder with gallstones along the gallbladder neck. No evidence of pericholecystic inflammation. D/ / 09/18/2017 16:31:16 Linwood Khalil MD / leila Interpreting Provider: Linwood Khalil MD Needle Aspiration CT 09/19/17 00:00 IMPRESSION: Successful CT guided placement of a drainage catheter into the contained bowel leak in the left abdomen. D/ / Darryn Somers MD / Darryn Somers MD Interpreting Provider: Darryn Somers MD Abdomen/Pelvis CT 09/23/17 07:30 IMPRESSION: 1. Interval placement left lower quadrant pigtail drainage catheter with decompression of the dominant gas and fluid collection compatible with known anastomotic leak. There has been overall decrease in size of a partially loculated collection within the mid pelvis abutting the rectal pouch anastomosis which likely communicates with this dominant collection. 2. There has been slight interval increase in size of a 5.6 x 2.4 cm fluid collection in the anterior pelvis just below the level of the midline incision which extends to the skin surface. 3. Enteric contrast is not seen on today's study within any of these collections and this could be related to placement of the drainage catheter and lack of additional enteric contrast administered today. However, a small focus of extraluminal gas persists in the left lower quadrant adjacent to the anastomosis. 4. Mild small bowel wall thickening in the pelvis with associated inflammatory changes within the mesentery, likely reactive. 5. New [id number] bilateral pleural effusions, left greater than right with near complete atelectasis of the lower lobes. 6. Cholelithiasis. 7. 4.1 cm ascending aortic aneurysm. The findings were sent to the Radiology Results Communication Center at 8:35 am on 09/23/2017to be communicated to a licensed caregiver. D/ / 09/23/2017 09:19:07 Martha Wayne MD / veronica Interpreting Provider: Martha Wayne MD Chest CT 09/23/17 07:30 IMPRESSION: 1. Interval placement left lower quadrant pigtail drainage catheter with decompression of the dominant gas and fluid collection compatible with known anastomotic leak. There has been overall decrease in size of a partially loculated collection within the mid pelvis abutting the rectal pouch anastomosis which likely communicates with this dominant collection. 2. There has been slight interval increase in size of a 5.6 x 2.4 cm fluid collection in the anterior pelvis just below the level of the midline incision which extends to the skin surface. 3. Enteric contrast is not seen on today's study within any of these collections and this could be related to placement of the drainage catheter and lack of additional enteric contrast administered today. However, a small focus of extraluminal gas persists in the left lower quadrant adjacent to the anastomosis. 4. Mild small bowel wall thickening in the pelvis with associated inflammatory changes within the mesentery, likely reactive. 5. New uplqf-[id number]-sykxwdsu bilateral pleural effusions, left greater than right with near complete atelectasis of the lower lobes. 6. Cholelithiasis. 7. 4.1 cm ascending aortic aneurysm. The findings were sent to the Radiology Results Communication Center at 8:35 am on 09/23/2017to be communicated to a licensed caregiver. D/ / 09/23/2017 09:19:07 Martha Wayne MD / veronica Interpreting Provider: Martha Wayne MD Limited Followup Study CT 09/24/17 00:00 IMPRESSION: Nonvisualization of the previously seen enlarging abscess in the midline. No drainage catheter was placed D/ / Chan Alicea MD / Chan Alicea MD Interpreting Provider: Chan Alicea MD X-Ray 09/28/17 13:30 IMPRESSION: Enteric tube tip just distal to the GE junction with the side port in the distal esophagus. Recommend advancement. D/ / Martha Wayne MD / Martha Wayne MD Interpreting Provider: Martha Wayne MD Chest X-Ray 09/29/17 09:45 IMPRESSION: Trace left pleural effusion. Bibasilar airspace disease, worse on the left than the right may reflect atelectasis. Pneumonia cannot be excluded in the correct clinical setting. D/ / 09/29/2017 10:28:05 Brody Wayne MD / james Interpreting Provider: Brody Wayne MD - Patient Status Disposition: Transfer LTC Condition: Good Functional capacity at discharge: wheelchair bound (Increase per PT/OT) Overall status at discharge: patient is not back to baseline - Discharge Instructions Follow Up With: Lobito Lang MD [Primary Care Provider] - Additional Instructions: Wound Vac: M/WF changes. Apply adaptic to the abdomen prior to placing black foam. Maintain suction at 125 mmHg May d/c remaining mehul with next wound vac change Premedicate with SL Oxycodone or Morphine prior to [place] changes JAYESH site: Cleanse daily with antibacterial soap. Apply split gauze. Do not let the JAYESH dangle from the body. Suspend with a safety pin or a lanyard. Maintain JAYESH bulb to suction. May discontinue when drainage is less than 30 ML's per day. Maintain NPO while fistulas remain. Keep steen catheter given inability to take PO Follow-up with Dr. Zhao 1-2 weeks after d/c from LTAC - Diet and Activity Activity: increase activity as tolerated Diet: other (NPO )
--- NOTE | 2017-10-05 13:23 | Physician Discharge Referral ---
ExtendedCare Referral Info Transfer To: [facility] Provider in Charge: LTAC bacteriologist medical Institutional Level of Care: Intermediate (Long-term acute care facility) - Diagnosis (1) Small bowel obstruction Priority: Primary Status: Acute (2) Anastomotic leak of intestine Priority: Secondary Status: Acute (3) Leukocytosis (leucocytosis) Priority: Secondary Status: Acute (4) Pulmonary embolism Priority: Secondary Status: Acute (5) DVT (deep venous thrombosis) Priority: Secondary Status: Acute (6) Anemia Priority: Secondary Status: Acute (7) Poor prognosis Priority: Secondary Status: Acute Expected Duration of Placement: Unclear, given unresolved fistulas Prognosis: Poor Aware of Diagnosis: Patient, Family Aware of Prognosis: Patient, Family - Transfer Medications Prescriptions: Enoxaparin [Lovenox] 80 mg SQ DAILY #1 syr Home Medications: Dextrose 50 % in Water (Syg) [Dextrose 50% (Syg)] 25 ml IVP AD PRN syringe 08/19 [Rx] Dextrose Gel [Gluctose] 15 gm PO ONCE PRN tube 10/05/17 [Rx] Dextrose Gel [Gluctose] 30 gm PO ONCE PRN tube 10/05/17 [Rx] Enoxaparin [Lovenox] 80 mg SQ DAILY #1 syr 10/05/17 [Rx] FentaNYL PATCH [Duragesic] 25 mcg TD Q72H 1 Days #1 patch.td72 10/05/17 [Rx] Furosemide [Lasix] 20 mg IVP DAILY vial 10/05/17 [Rx] Glucagon, Human Recombinant [Glucagen] 1 mg IM ONCE PRN vial 10/05/17 [Rx] Insulin LISPRO [HumaLOG] 0 units SQ Q4HR vial 10/05/17 [Rx] Ipratropium/Albuterol Neb [Duoneb] 3 ml IH [id number] PRN inhsol 10/05/17 [Rx] MORPHINE SUL Oral CONC [Roxanol Oral Conc] 15 mg SL Q4HR PRN 1 Days #1 oral.syg 10/05/17 [Rx] Metoprolol [Lopressor] 7.5 mg IVP Q6HR PRN vial 10/05/17 [Rx] OXYCODONE Oral CONC [Oxycodone Oral Conc] 10 mg SL Q4H PRN 1 Days #1 oral.syg [Rx] Ondansetron [Zofran] 4 mg IVP Q4HR vial 10/05/17 [Rx] Pantoprazole [Protonix] 40 mg IVP DAILY vial 10/05/17 [Rx] Promethazine [Phenergan] 12.5 mg IVP Q4HR PRN vial 10/05/17 [Rx] Saline Nasal [place] [[place] Nasal [place]] 2 spray NS Q2H PRN bottle 10/05/17 [Rx] Saliva Stimulant [Biotene Moisturizing Rinse] 1 spray PO Q2H PRN bottle [Rx] Scopolamine Patch [Transderm-Scop] 1.5 mg TD Q72H patch.td72 10/05/17 [Rx] hydrALAZINE [HydrALAZINE] 10 mg IVP Q6HR PRN vial 10/05/17 [Rx] Allergies/Adverse Reactions: 3 Allergy/AdvReac Type Severity Reaction Status Date / Time No Known Allergies Allergy Verified 09/03/17 12:52 - Respiratory Orders Oxygen / L per min (titrate to keep sats great than 92%) Smoking Cessation: Smoking cessation has been advised. For more information, call the [employer] Tobacco Quit Line at 1-106-BYNO-NOW. - Ancillary Orders May use pressure relief devices daily prn - Advance Directives Power of Information Systems Auditor: Yes (His Brother, Arnulfo) Code Status: DNR-Arrest/Don't Intubate - Mobility Orders Chair - Rehabiliation Orders Rehab Potential: Poor - Treatments Skin tear care topically daily PRN per policy List/Other: Wound Vac: M/WF changes. Apply adaptic to the abdomen prior to placing black foam. Maintain suction at 125 mmHg May d/c remaining mehul with next wound vac change Premedicate with [place] Oxycodone or Morphine prior to [place] changes JAYESH site: Cleanse daily with antibacterial soap. Apply split gauze. Do not let the JAYESH dangle from the body. Suspend with a safety pin or a lanyard. Maintain JAYESH bulb to suction. May discontinue when drainage is less than 30 ML's per day. Maintain NPO while fistulas remain. Keep steen catheter given inability to take PO Follow-up with Dr. Zhao 1-2 weeks after d/c from LTAC - Diet Orders House Supplement per Dietary: STRICT NPO Tube Feedings (type/amount/rate): STRICT NPO Flush Tube (type/amount/frequency): STRICT NPO CERTIFICATION: I certify that the transfer of the above named patient to an Extended Care Facility is necessary for the continuing treatment of the diagnosis listed. The above information is true and accurate reflection of patient's current condition. Confidential - Redisclosure prohibited without a patient's written consent.
[2017-10-05 15:10] VITALS: BP 130/74
[2017-10-05] MEDS ORDERED: Aminoglycoside Consult 1 EACH MC ONE (16:32)
[2017-10-05] MEDS ORDERED: Clinimix E 5%-20% SOLUTION 2,000 ML with MVI, adult with vitamin K 10 ML IVC SCH (17:00)
== END 2017-10-05 16:33 | DRG 329 ==
LOC: EMEROO 09:44 → 3ANU 12:58 → ICNU 09-07 19:16 → 3ANU 09-11 17:54
PROVIDERS: ADMIT Nurse Practitioner Family; ATTEND Surgery
PROC: IRDRAIN (2017-09-19 17:00)